=== PATIENT | male | born 1960 | race Caucasian/White ===

== ENCOUNTER 2016-05-24 10:23 | Emergency (ER) | payer MEDICARE, MEDICAID ==
[~2016-05-24] VITALS: Ht 180.3 cm; Wt 150.0 kg
[~2016-05-24 10:23] MED LIST: ADVA115A PO; AMIO200 PO; ASPI325T PO; CHOL1TAB16 PO; CLON.5 PO; DOCU1CAP39 PO; GEMF600T PO; METO25 PO; NORV10TA PO; NOVONP2 SQ; POLY1.4%O EACH EYE; POLY17S PO; PREG75 PO; PROT40TA PO; REST0.05 EACH EYE; ROXI30TA14 PO; SERO25TA PO; TAMS0.4C67 PO; WARF7.5 PO
[2016-05-24 10:27] VITALS: BP_SYST 143; BP_SYST 170; BP_DIAS 69; BP_DIAS 75; PULSE 81; PULSE 83; RESP 14; RESP 16; TEMP 97.5; TEMP 98.7; O2SAT 93; O2SAT 99
[2016-05-24 11:21] LABS: AUTOMATED NEUTROPHIL # 4.6 TH/MM3 (1.8-7.7); BASOPHIL # 0.1 TH/MM3 (0-0.2); BASOPHIL % 1.2 % (0.0-2.0); EOSINOPHIL # 0.3 TH/MM3 (0-0.4); EOSINOPHIL % 2.4 % (0.0-4.0); HEMATOCRIT 38.6 % (39.0-51.0); MEAN CELL VOLUME 92.6 FL (80.0-100.0); MEAN CORPUSCULAR HEMOGLOBIN 31.5 PG (27.0-34.0); MONO % 6.3 % (0.0-8.0); NEUT % 39.1 % (16.0-70.0); PLATELET COUNT 202 TH/MM3 (150-450); RED BLOOD COUNT 4.16 MIL/MM3 (4.50-5.90); RED CELL DISTRIBUTION WIDTH 14.6 % (11.6-17.2); WHITE BLOOD COUNT 11.8 TH/MM3 (4.0-11.0)
[2016-05-24 11:23] LABS: HEMO FLAGS AUTO DIFF
[2016-05-24 11:51] LABS: BICARBONATE 25.8 MEQ/L (21.0-32.0); POTASSIUM 5.6 MEQ/L (3.5-5.1)
[2016-05-24 12:01] LABS: EOSINOPHILS 3 % (0-4); NEUTROPHIL # MANUAL DIFF 4.7 TH/MM3 (1.8-7.7); POLYS (SEG NEUTROPHILS) 40 % (16-70); WBC DIFF SAMPLE 100
[2016-05-24 12:02] LABS: PLATELET ESTIMATE SMEAR NORMAL (NORMAL); PLATELET MORPHOLOGY NORMAL (NORMAL); SCAN/DIFF FINAL DIFF MANUAL
[2016-05-24] MEDS ORDERED: AMIO200T PO (12:05)
[2016-05-24] MEDS ORDERED: NOVONP2 SQ (12:05)
[2016-05-24] MEDS ORDERED: SERO25TA PO (12:05)
[2016-05-24] MEDS ORDERED: GEMF600T PO (12:05)
[2016-05-24] MEDS ORDERED: LYRI75CA PO (12:05)
[2016-05-24] MEDS ORDERED: COLA100C3 PO (12:05)
[2016-05-24] MEDS ORDERED: TAMS5CAP PO (12:05)
[2016-05-24] MEDS ORDERED: PROT40TA PO (12:05)
[2016-05-24] MEDS ORDERED: REST0.05 EACH EYE (12:05)
[2016-05-24] MEDS ORDERED: ADVA45AE INH (12:05)
[2016-05-24] MEDS ORDERED: POLYSOL14 EACH EYE (12:05)
[2016-05-24] MEDS ORDERED: ASPI325T PO (12:05)
[2016-05-24] MEDS ORDERED: COUM7.5T PO (12:05)
[2016-05-24] MEDS ORDERED: AMLO10 PO (12:05)
[2016-05-24] MEDS ORDERED: METO25TA3 PO (12:05)
[2016-05-24] MEDS ORDERED: POLYPOW5 (12:05)
[2016-05-24] MEDS ORDERED: CLON0.5T PO (12:05)
[2016-05-24] MEDS ORDERED: SERO50TA PO (12:05)
[2016-05-24] MEDS ORDERED: [UNRECOGNIZED DRUG - OTHER] (12:13)
[2016-05-24] MEDS ORDERED: LANTUS2P SQ (12:13)
[2016-05-24] MEDS ORDERED: CLIN1CAP5 PO (12:36)
--- NOTE | 2016-05-24 12:36 | PD ---
HPI Chief Complaint: Skin Problem Time Seen by Provider: 11:24 Travel History International Travel<30 days: No Contact w/Intl Traveler<30days: No Traveled to known affect area: No History of Present Illness HPI Patient is a 55 year old female presents for evaluation of lesion to the left toes. Patient states that intermittently he has noticed 'purple' lesion to his left great, second and third toes. Patient states he called his PCP today who could not see him and referred him to the ER. Patient states has not had any injuries, not had any claudication symptoms. Patient has a history of CA, with resection of kidney and CKD of the remaining kidney. He denies any fever, generalized symptoms. He is on bactrim for a uti currently and states that he had to get his PCP to write for it because he was on keflex which never works for him. Patient is also on chronic dilaudid pump and states his pain is well controlled. States purple lesions for the past week. Gradually worsening now improving. PFSH Past Medical History Arthritis: Yes Asthma: Yes Anxiety: Yes Depression: Yes Heart Rhythm Problems: Yes (V-TACH,V-FIB, Bigeminy, Trigeminy) Cancer: Yes (ADRENAL TUMOR) Cardiovascular Problems: Yes (BRADYCARDIA. AFIB) High Cholesterol: Yes Chemotherapy: No Chest Pain: Yes Congestive Heart Failure: Yes COPD: Yes Cerebrovascular Accident: Yes (IN JANUARY OF 2015) Coronary Artery Disease: Yes Diabetes: Yes Patient Takes Glucophage: No Diminished Hearing: No Endocrine: Yes Gastrointestinal Disorders: Yes GERD: Yes Genitourinary: Yes Headaches: No Hiatal Hernia: Yes Hypertension: Yes Immune Disorder: No Implanted Vascular Access Dvce: Yes Kidney Stones: No Musculoskeletal: Yes (R FEMUR SURGERY (September,)) Neurologic: Yes Psychiatric: Yes Reproductive: No Respiratory: Yes Immunizations Current: Yes Migraines: No Myocardial Infarction: Yes Radiation Therapy: Yes Renal Failure: No Seizures: Yes Sickle Cell Disease: No Sleep Apnea: Yes (WORE CPAP IN PAST) Past Surgical History Abdominal Surgery: Yes (HERNIA REPAIR, PARTIAL SPLENECTOMY) AICD: Yes (ST. TREMAINE DEFIB) Appendectomy: Yes Arteriovenous Shunt: No Cardiac Surgery: Yes (PACEMAKER INSERT 1995 AND 3 MORE SINCE) Coronary Stent: Yes (X 10) Ear Surgery: No Endocrine Surgery: No Eye Surgery: No Genitourinary Surgery: Yes (kidney removed) Gynecologic Surgery: No Insulin Pump: No Joint Replacement: Yes (RIGHT KNEE ) Oral Surgery: No Pacemaker: Yes Thoracic Surgery: No Tonsillectomy: Yes Other Surgery: Yes (2 KNEE SURGERY) Social History Alcohol Use: No Tobacco Use: No Substance Use: No Allergies-Medications (Allergen,Severity, Reaction): Coded Allergies: Baclofen (Verified Allergy, Severe, 05/24/16) Morphine (Verified Allergy, Severe, Hallucinations, 05/24/16) Quinidine (Verified Allergy, Severe, Hallucinations, 05/24/16) MRI PRECAUTION (Verified Adverse Reaction, Severe, NON MEDTRONIC PACER/ ICD 01/27/15 KMD, 05/24/16) CALLED [employer] TO CONFIRM THAT THE PACER IS NOT A MEDTRONIC Reported Meds & Prescriptions Reported Meds & Active Scripts Active Clindamycin (Clindamycin HCl) 150 Mg Cap 450 Mg PO Q6H 10 Days Reported [dilaud] Lantus Inj (Insulin Glargine) 1,000 Unit/10 Ml Vial 120 Units SQ BID Coumadin (Warfarin) 7.5 Mg Tab 7.5 Mg PO DAILY Flomax (Tamsulosin HCl) 0.4 Mg Cap 0.4 Mg PO HS Seroquel (Quetiapine Fumarate) 50 Mg Tab 50 Mg PO HS Seroquel (Quetiapine Fumarate) 25 Mg Tab 25 Mg PO DAILY Polyethylene Glycol 3350 (Polyethylene Glycol 3350 (Bulk) 1 Pow Pow Protonix (Pantoprazole Sodium) 40 Mg Tab 40 Mg PO DAILY Novolin N Inj (Insulin Human NPH) 1,000 Unit/10 Ml Vial 20 Units SQ Norvasc (Amlodipine Besylate) 10 Mg Tab 10 Mg PO DAILY Metoprolol Tartrate 25 Mg Tab 25 Mg PO BID Lyrica (Pregabalin) 75 Mg Cap 75 Mg PO TID Gemfibrozil 600 Mg Tab 600 Mg PO BIDAC Take 30 minutes prior to breakfast and dinner. Colace (Docusate Sodium) 100 Mg Cap 100 Mg PO BID Restasis Opth Drops (Cyclosporine Opth Drops) 0.05% Emul 1 Drop EACH EYE BID Clonazepam 0.5 Mg Tab 0.5 Mg PO BID Aspirin 325 Mg Tab 325 Mg PO DAILY Artificial Tears Opth Drops (Polyvinyl Alcohol-Povidone Opth Drops) 0.5-0.6% Soln 1-2 Drop EACH EYE PRN PRN Amiodarone (Amiodarone HCl) 200 Mg Tab 200 Mg PO DAILY Advair Hfa 12 GM Inh (Fluticasone-Salmeterol 12 GM Inh) 45-21 Mcg/Act Aer 2 Puff INH BID Review of Systems Except as stated in HPI: all other systems reviewed are Neg Physical Exam Narrative GENERAL: WD/morbidly obese inNAD. SKIN: Warm and dry. There appear to be small abraisions on the dorsum of the third, second and great toe at the DIP joint. They are fairly unimpressive. The largest is on the third toe and is <0.5 cm in diameter. It is scabbed. The toes show signs of adequate perfusion. There is no purple discoloration that i can see. No discharge, no erythema. HEAD: Normocephalic. EYES: No scleral icterus. No injection or drainage. NECK: Supple, trachea midline. No JVD or lymphadenopathy. CARDIOVASCULAR: Regular rate and rhythm without murmurs, gallops, or rubs. Pulses are 2+ and bilaterally equal at DP, PT and radial pulses. Patient has cap refill brisk and bilaterally equal in all fingers and toes. RESPIRATORY: Breath sounds equal bilaterally. No accessory muscle use. GASTROINTESTINAL: Abdomen soft, non-tender, nondistended. MUSCULOSKELETAL: No cyanosis, or edema. BACK: Nontender without obvious deformity. No CVA tenderness. Data Data Last Documented VS Vital Signs Date Time Temp Pulse Resp B/P Pulse Ox O2 Delivery O2 Flow Rate FiO2 05/24/16 10:27 98.7 83 16 143/75 93 Room Air Orders Complete Blood Count With Diff (05/24/16 10:36) Basic Metabolic Panel (Bmp) (05/24/16 10:36) Labs Laboratory Tests Test 05/24/16 10:56 White Blood Count 11.8 TH/MM3 Red Blood Count 4.16 MIL/MM3 Hemoglobin 13.1 GM/DL Hematocrit 38.6 % Mean Corpuscular Volume 92.6 FL Mean Corpuscular Hemoglobin 31.5 PG Mean Corpuscular Hemoglobin 34.0 % Concent Red Cell Distribution Width 14.6 % Platelet Count 202 TH/MM3 Mean Platelet Volume 7.8 FL Neutrophils (%) (Auto) 39.1 % Lymphocytes (%) (Auto) 51.0 % Monocytes (%) (Auto) 6.3 % Eosinophils (%) (Auto) 2.4 % Basophils (%) (Auto) 1.2 % Neutrophils # (Auto) 4.6 TH/MM3 Lymphocytes # (Auto) 6.0 TH/MM3 Monocytes # (Auto) 0.7 TH/MM3 Eosinophils # (Auto) 0.3 TH/MM3 Basophils # (Auto) 0.1 TH/MM3 CBC Comment AUTO DIFF Differential Total Cells 100 Counted Neutrophils % (Manual) 40 % Lymphocytes % 51 % Monocytes % 6 % Eosinophils % 3 % Neutrophils # (Manual) 4.7 TH/MM3 Differential Comment FINAL DIFF MANUAL Platelet Estimate NORMAL Platelet Morphology Comment NORMAL Sodium Level 135 MEQ/L Potassium Level 5.6 MEQ/L Chloride Level 101 MEQ/L Carbon Dioxide Level 25.8 MEQ/L Anion Gap 8 MEQ/L Blood Urea Nitrogen 49 MG/DL Creatinine 2.74 MG/DL Estimat Glomerular Filtration 24 ML/MIN Rate Random Glucose 337 MG/DL Calcium Level 8.5 MG/DL [facility] Medical Decision Making Medical Screen Exam Complete: Yes Emergency Medical Condition: Yes Differential Diagnosis Abrasion, possibly mild cellulitis, ischemic toes highly unlikely. Narrative Course Patient roomed in ED. Patient toes are unimpressive. No convincing evidence of ischemia nor severe infection. Mild infection is possible. Will cover with clindamycin. Discussed need to follow upwith PCP in am. Discussed consideration of OP podiatry consultation. Bactrim should be avoided with elevated Cr. Patient to discontinue as he has had several days of treatment. he needs to also discuss this with his PCP. Discussed he is stable for discharge. Discussed return to ED criteria. Diagnosis Primary Impression: Toe abrasion, infected Qualified Code: S90.415A - Toe abrasion, infected, left, initial encounter Med/Other Pt SpecificInfo: Prescription(s) given Scripts Clindamycin 150 Mg Snq663 Mg PO Q6H 10 Days Ref 0 Prov:Tuan Guzman MD 05/24/16 Disposition: 01 DISCHARGE HOME Condition: Stable Tuan Guzman MD May 24, 2016 12:36
== END 2016-05-24 12:57 | disposition home or self-care (01) ==
LOC: NEPB 10:23
DX: S90.415A Abrasion, left lesser toe(s), initial encounter (principal); L08.9 Local infection of the skin and subcutaneous tissue, unspecified; N18.9 Chronic kidney disease, unspecified; E78.00 Pure hypercholesterolemia, unspecified; E11.9 Type 2 diabetes mellitus without complications; I12.9 Hypertensive chronic kidney disease with stage 1 through stage 4 chronic kidney disease, or unspecified chronic kidney disease; X58.XXXA Exposure to other specified factors, initial encounter; Z79.4 Long term (current) use of insulin; Z87.39 Personal history of other diseases of the musculoskeletal system and connective tissue; Z87.09 Personal history of other diseases of the respiratory system; Z86.59 Personal history of other mental and behavioral disorders; Z86.79 Personal history of other diseases of the circulatory system; Z85.528 Personal history of other malignant neoplasm of kidney; Z87.19 Personal history of other diseases of the digestive system; Z86.69 Personal history of other diseases of the nervous system and sense organs
CPT/HCPCS: 80048; 85007; 85027; 99283

== ENCOUNTER 2016-08-10 06:30 | Emergency (ER) | payer MEDICARE, MEDICAID ==
[~2016-08-10] VITALS: Ht 180.3 cm; Wt 148.0 kg
[~2016-08-10 06:30] MED LIST changes: -ADVA115A PO; +ADVA45AE INH; -AMIO200 PO; +AMIO200T PO; +AMLO10 PO; -CHOL1TAB16 PO; +CLIN1CAP5 PO; -CLON.5 PO; +CLON0.5T PO; +COLA100C3 PO; +COUM7.5T PO; -DOCU1CAP39 PO; +LANTUS2P SQ; +LYRI75CA PO; -METO25 PO; +METO25TA3 PO; -NORV10TA PO; -POLY1.4%O EACH EYE; -POLY17S PO; +POLYPOW5; +POLYSOL14 EACH EYE; -PREG75 PO; -ROXI30TA14 PO; +SERO50TA PO; -TAMS0.4C67 PO; +TAMS5CAP PO; -WARF7.5 PO; +[UNRECOGNIZED DRUG - OTHER]
[2016-08-10 06:32] VITALS: BP 132/84; PULSE 97; RESP 18; TEMP 98.3; O2SAT 95
[2016-08-10] MEDS ORDERED: oxyCODONE/ACETAMINOPHEN 10 MG/325 MG TAB PO ONE (07:15)
--- NOTE | 2016-08-10 07:15 | PD ---
HPI Chief Complaint: Injury Time Seen by Provider: 07:09 Travel History International Travel<30 days: No Contact w/Intl Traveler<30days: No Traveled to known affect area: No History of Present Illness HPI The patient is a 56-year-old male who presents to the emergency department for left foot pain. The patient states he ran over his left foot accidentally 3 days ago with his electric wheelchair. Patient complains of pain over the mid to distal one third of the left foot. He does note the area is swollen, painful, and worse with palpation. The patient was unable to see his primary physician, Dr. Bhardwaj, on an outpatient basis. He does note previous trauma to left lower extremity from her previous injury and has a chronic indwelling Dilaudid pump, however, continues to complain of pain. Pain is moderate, worse with palpation, minimally alleviated at rest. He denies any acute numbness or tingling to the left foot. PFSH Past Medical History Hx Anticoagulant Therapy: Yes Arthritis: Yes Asthma: Yes Anxiety: Yes Depression: Yes Heart Rhythm Problems: Yes (V-TACH,V-FIB, Bigeminy, Trigeminy) Cancer: Yes (ADRENAL TUMOR) Cardiovascular Problems: Yes (X4, HTN) High Cholesterol: Yes Chemotherapy: No Chest Pain: Yes Congestive Heart Failure: Yes COPD: Yes Cerebrovascular Accident: Yes (X2) Coronary Artery Disease: Yes Diabetes: Yes Diminished Hearing: No Endocrine: Yes Gastrointestinal Disorders: Yes GERD: Yes Genitourinary: Yes Headaches: No Hiatal Hernia: Yes Hypertension: Yes Immune Disorder: No Implanted Vascular Access Dvce: Yes Kidney Stones: No Musculoskeletal: Yes (R FEMUR SURGERY (September,)) Neurologic: Yes Psychiatric: Yes Reproductive: No Respiratory: Yes (COPD) Immunizations Current: Yes Migraines: No Myocardial Infarction: Yes Radiation Therapy: Yes Renal Failure: No Seizures: Yes Sickle Cell Disease: No Sleep Apnea: Yes (WORE CPAP IN PAST) Past Surgical History Abdominal Surgery: Yes (HERNIA REPAIR, PARTIAL SPLENECTOMY) AICD: Yes (ST. TREMAINE DEFIB) Appendectomy: Yes Arteriovenous Shunt: No Cardiac Surgery: Yes (PACEMAKER INSERT 1995 AND 3 MORE SINCE) Coronary Stent: Yes (X 10) Ear Surgery: No Endocrine Surgery: No Eye Surgery: No Genitourinary Surgery: Yes (kidney removed) Gynecologic Surgery: No Insulin Pump: No Joint Replacement: Yes (RIGHT KNEE ) Oral Surgery: No Pacemaker: Yes Thoracic Surgery: No Tonsillectomy: Yes Other Surgery: Yes (2 KNEE SURGERY) Social History Alcohol Use: No Tobacco Use: No Substance Use: No Allergies-Medications (Allergen,Severity, Reaction): Coded Allergies: Baclofen (Verified Allergy, Severe, 08/10/16) Morphine (Verified Allergy, Severe, Hallucinations, 08/10/16) Quinidine (Verified Allergy, Severe, Hallucinations, 08/10/16) MRI PRECAUTION (Verified Adverse Reaction, Severe, NON MEDTRONIC PACER/ ICD 01/27/15 KMD, 08/10/16) CALLED [employer] TO CONFIRM THAT THE PACER IS NOT A MEDTRONIC Reported Meds & Prescriptions Reported Meds & Active Scripts Active Reported [dilaud] Lantus Inj (Insulin Glargine) 1,000 Unit/10 Ml Vial 120 Units SQ BID Coumadin (Warfarin) 7.5 Mg Tab 7.5 Mg PO DAILY Flomax (Tamsulosin HCl) 0.4 Mg Cap 0.4 Mg PO HS Polyethylene Glycol 3350 (Polyethylene Glycol 3350 (Bulk) 1 Pow Pow Novolin N Inj (Insulin Human NPH) 1,000 Unit/10 Ml Vial 20 Units SQ Norvasc (Amlodipine Besylate) 10 Mg Tab 10 Mg PO DAILY Metoprolol Tartrate 25 Mg Tab 25 Mg PO BID Lyrica (Pregabalin) 75 Mg Cap 150 Mg PO BID Gemfibrozil 600 Mg Tab 600 Mg PO BIDAC Take 30 minutes prior to breakfast and dinner. Colace (Docusate Sodium) 100 Mg Cap 100 Mg PO BID Restasis Opth Drops (Cyclosporine Opth Drops) 0.05% Emul 1 Drop EACH EYE BID Clonazepam 0.5 Mg Tab 0.5 Mg PO BID Aspirin 325 Mg Tab 325 Mg PO DAILY Artificial Tears Opth Drops (Polyvinyl Alcohol-Povidone Opth Drops) 0.5-0.6% Soln 1-2 Drop EACH EYE PRN PRN Amiodarone (Amiodarone HCl) 200 Mg Tab 200 Mg PO DAILY Review of Systems Except as stated in HPI: all other systems reviewed are Neg Musculoskeletal: Positive: Edema, Pain Neurologic: No: Paresthesia, Sensory Disturbance Physical Exam Narrative GENERAL: Awake, alert, nontoxic-appearing 56-year-old male who appears his stated age and is in no acute respiratory distress. SKIN: Focused skin assessment warm/dry. HEAD: Atraumatic. Normocephalic. EYES: No injection or drainage. MUSCULOSKELETAL: The left foot is swollen, mildly tender to palpation over the mid to distal one third of the left foot over the first, second, third metatarsal. Positive dorsalis pedal pulse. Old appearing scars anterior aspect of the anterior left tibia/fibula on the left leg. Patient is able to move all 5 toes of the left foot. NEUROLOGICAL: Awake and alert. No obvious cranial nerve deficits. Motor grossly within normal limits. Normal speech. PSYCHIATRIC: Appropriate mood and affect; insight and judgment normal. Data Data Last Documented VS Vital Signs Date Time Temp Pulse Resp B/P Pulse Ox O2 Delivery O2 Flow Rate FiO2 08/10/16 08:26 18 08/10/16 06:32 98.3 97 132/84 95 Room Air Orders Foot, Complete (Hfd3ady) (08/10/16 ) Oxycodone-Acetamin 10-325 Mg (Percocet 1 (08/10/16 07:15) [facility] Medical Decision Making Medical Screen Exam Complete: Yes Emergency Medical Condition: Yes Medical Record Reviewed: Yes Interpretation(s) Last Impressions Foot X-Ray 08/10/16 0000 Signed Impressions: Service Date/Time: July 07:23 - CONCLUSION: 1. Subacute nondisplaced transverse fracture of the fifth digit proximal phalanx and the proximal metaphysis. 2. Dorsal foot soft tissue swelling and subcutaneous edema along the medial aspect of the foot. Femi Dallas MD Differential Diagnosis Differential diagnosis includes fracture, dislocation, contusion, hematoma. Narrative Course X-ray left foot was obtained. The patient was administered Percocet 10 mg/325 mg orally for pain. X-ray reveals subacute fracture of the proximal phalanx of the fifth digit. I had a discussion with the patient regarding postop shoe versus splint, patient would prefer splint. He also states he will need crutches for transitioning from his scooter to the bed. He does state he was walking approximate 150 steps prior to the injury, however, is been unable to ambulate since the injury. Patient will be placed in a short posterior leg splint, crutches, and advised to follow-up with podiatry. Diagnosis Primary Impression: Fracture of toe of left foot Qualified Code: S92.515A - Closed nondisplaced fracture of proximal phalanx of lesser toe of left foot, initial encounter Referrals: Shawna Fan DPM call for appointment Patient Instructions: General Instructions Additional Instructions: Splint and crutches as directed. Follow-up with podiatry. Percocet for breakthrough pain. Elevate, ice, activity as tolerated. Med/Other Pt SpecificInfo: Prescription(s) given Scripts Oxycodone-Acetaminophen (Percocet)5-325 mg Tab1 Tab PO Q6H PRN (PAIN) #15 TAB Ref 0 Prov:Humza Seymour MD 08/10/16 Disposition: 01 DISCHARGE HOME Condition: Stable Humza Seymour MD Aug 10, 2016 07:15
--- NOTE | 2016-08-10 08:18 | RADRPT ---
EXAM DATE/TIME: 08/10/2016 07:23 [facility] COMPARISON: No previous studies available for comparison. INDICATIONS : Left foot pain, fall out of wheelchair. MEDICAL HISTORY : None. SURGICAL HISTORY : None. ENCOUNTER: Initial ACUITY: 1 day PAIN SCORE: 7/10 LOCATION: Left medial foot FINDINGS: 3 views of the left foot demonstrate a transverse fracture through the fifth digit proximal phalanx i n the proximal metaphyseal region. There is mild sclerosis of the fracture ends with bony callus pres ent. The fracture is not yet completely united. No other fracture or dislocation is identified. Lisfr anc joint appears intact. There is soft tissue swelling on the dorsal aspect of the foot and there is subcutaneous edema medially. Mild joint space narrowing and osteophytes are present the first metata rsophalangeal joint. CONCLUSION: 1. Subacute nondisplaced transverse fracture of the fifth digit proximal phalanx and the proximal met aphysis. 2. Dorsal foot soft tissue swelling and subcutaneous edema along the medial aspect of the foot. Femi Dallas MD on August 10, 2016 at 8:14 Board Certified Radiologist. This report was verified electronically.
[2016-08-10] MEDS ORDERED: PERC5TAB12 PO (08:36)
[2016-08-10 09:30] VITALS: BP 130/80; PULSE 88; RESP 18; O2SAT 97
== END 2016-08-10 09:47 | disposition home or self-care (01) ==
LOC: NEPE 06:30
DX: S92.515A Nondisplaced fracture of proximal phalanx of left lesser toe(s), initial encounter for closed fracture (principal); W31.89XA Contact with other specified machinery, initial encounter
CPT/HCPCS: 73630; 99283; E0113; L2114

== ENCOUNTER 2016-10-27 08:29 | Emergency (ER) | payer MEDICAID, MEDICARE ==
[~2016-10-27] VITALS: Ht 180.3 cm; Wt 140.0 kg
[~2016-10-27 08:29] MED LIST changes: -ADVA45AE INH; -CLIN1CAP5 PO; +PERC5TAB12 PO; -PROT40TA PO; -SERO25TA PO; -SERO50TA PO
[2016-10-27 08:34] VITALS: BP 124/81; PULSE 66; RESP 19; TEMP 98.4
[2016-10-27] MEDS ORDERED: SODIUM CHLORIDE 0.9% FLUSH 10 ML FLUSH IVF PRN (08:45)
[2016-10-27 08:48] VITALS: O2SAT 94
--- NOTE | 2016-10-27 08:52 | PD ---
HPI Chief Complaint: Musculoskeletal Complaint Time Seen by Provider: 08:44 Travel History International Travel<30 days: No Contact w/Intl Traveler<30days: No Traveled to known affect area: No History of Present Illness HPI 56-year-old male with history of hypertension, CHF, hep C, diabetes, had a fracture in his left foot 3 months ago, states that he woke up 2 days ago and noticed that he is having increased swelling and pain in the left foot. He has chronic shortness of breath, and dyspnea on exertion, which she states is not new. He denies any coughing, fevers, chest pains, or other symptoms. He states that a few days ago he felt like his give out on him. Modifying Factors: None Associated Signs & Symptoms: Increased left foot pain and swelling Risk Factors: Left foot fracture 3 months ago PFSH Past Medical History Hx Anticoagulant Therapy: Yes Arthritis: Yes Asthma: Yes Atrial Fibrillation: Yes Anxiety: Yes Depression: Yes Heart Rhythm Problems: Yes (V-TACH,V-FIB, Bigeminy, Trigeminy) Cancer: Yes (ADRENAL TUMOR) Cardiovascular Problems: Yes (X4, HTN) High Cholesterol: Yes Chemotherapy: No Chest Pain: Yes Congestive Heart Failure: Yes COPD: Yes Cerebrovascular Accident: Yes (X2) Coronary Artery Disease: Yes Diabetes: Yes Patient Takes Glucophage: No Diminished Hearing: No Endocrine: Yes Gastrointestinal Disorders: Yes GERD: Yes Genitourinary: Yes Headaches: No Hiatal Hernia: Yes Hypertension: Yes Immune Disorder: No Implanted Vascular Access Dvce: Yes Kidney Stones: No Musculoskeletal: Yes (R FEMUR SURGERY (September,)) Neurologic: Yes Psychiatric: Yes Reproductive: No Respiratory: Yes (COPD) Immunizations Current: Yes Migraines: No Myocardial Infarction: Yes Radiation Therapy: Yes Renal Failure: No Seizures: Yes Sickle Cell Disease: No Sleep Apnea: Yes (WORE CPAP IN PAST) Past Surgical History Abdominal Surgery: Yes (HERNIA REPAIR, PARTIAL SPLENECTOMY) AICD: Yes (ST. TREMAINE DEFIB) Appendectomy: Yes Arteriovenous Shunt: No Cardiac Surgery: Yes (PACEMAKER INSERT 1995 AND 3 MORE SINCE) Cholecystectomy: Yes Coronary Stent: Yes (X 10) Ear Surgery: No Endocrine Surgery: No Eye Surgery: No Genitourinary Surgery: Yes (kidney removed) Gynecologic Surgery: No Insulin Pump: No Joint Replacement: Yes (RIGHT KNEE ) Oral Surgery: No Pacemaker: Yes Thoracic Surgery: No Tonsillectomy: Yes Other Surgery: Yes (2 KNEE SURGERY; rotator cuff) Social History Alcohol Use: No Tobacco Use: No Substance Use: No Allergies-Medications (Allergen,Severity, Reaction): Coded Allergies: Baclofen (Verified Allergy, Severe, 08/10/16) Morphine (Verified Allergy, Severe, Hallucinations, 08/10/16) Quinidine (Verified Allergy, Severe, Hallucinations, 08/10/16) MRI PRECAUTION (Verified Adverse Reaction, Severe, NON MEDTRONIC PACER/ ICD 01/27/15 KMD, 08/10/16) CALLED MEDTRON[employer] TO CONFIRM THAT THE PACER IS NOT A MEDTRONIC Reported Meds & Prescriptions Reported Meds & Active Scripts Active Reported Vitamin D-1000 (Cholecalciferol) 1,000 Unit Tab 50,000 Units PO 1XPERWEEK Klonopin (Clonazepam) 1 Mg Tab 1 Mg PO QID Lasix (Furosemide) 40 Mg Tab 40 Mg PO BID Losartan (Losartan Potassium) 50 Mg Tab 50 Mg PO DAILY [Hydromorphone] Unknown Dose IT PRN Omeprazole 20 Mg Tab 20 Mg PO DAILY Novolog Inj (Insulin Aspart) 1,000 Unit/10 Ml Vial 0 SQ TIDAC Sliding Scale as directed. [dilaud] Lantus Inj (Insulin Glargine) 1,000 Unit/10 Ml Vial 130 Units SQ BID Coumadin (Warfarin) 7.5 Mg Tab 7.5 Mg PO DAILY Flomax (Tamsulosin HCl) 0.4 Mg Cap 0.4 Mg PO HS Norvasc (Amlodipine Besylate) 10 Mg Tab 10 Mg PO DAILY Metoprolol Tartrate 25 Mg Tab 25 Mg PO BID Lyrica (Pregabalin) 75 Mg Cap 75 Mg PO BID Gemfibrozil 600 Mg Tab 600 Mg PO BIDAC Take 30 minutes prior to breakfast and dinner. Restasis Opth 0.05% (Cyclosporine Opth 0.05%) 0.05% Emul 1 Drop EACH EYE BID Aspirin 325 Mg Tab 325 Mg PO DAILY Amiodarone (Amiodarone HCl) 200 Mg Tab 200 Mg PO DAILY Review of Systems Except as stated in HPI: all other systems reviewed are Neg Physical Exam Narrative GENERAL: Well-developed middle age white male patient in moderate distress. Awake and oriented 3. SKIN: Focused skin assessment warm/dry. HEAD: Atraumatic. Normocephalic. EYES: Pupils equal and round. No scleral icterus. No injection or drainage. ENT: No nasal bleeding or discharge. Mucous membranes pink and moist. NECK: Trachea midline. No JVD. CARDIOVASCULAR: Regular rate and rhythm. No murmur appreciated. RESPIRATORY: No accessory muscle use. Equal and decreased throughout bilaterally. Breath sounds equal bilaterally. GASTROINTESTINAL: Abdomen soft, non-tender, nondistended. Hepatic and splenic margins not palpable. MUSCULOSKELETAL: No obvious deformities. No clubbing. No cyanosis. There is notable edema of the left foot with some pitting. Tender to palpation of the left forefoot. No obvious deformities. Neurovascularly intact. NEUROLOGICAL: Awake and alert. No obvious cranial nerve deficits. Motor grossly within normal limits. Normal speech. PSYCHIATRIC: Appropriate mood and affect; insight and judgment normal. Data Data Last Documented VS Vital Signs Date Time Temp Pulse Resp B/P Pulse Ox O2 Delivery O2 Flow Rate FiO2 10/27/16 08:48 94 Nasal Cannula 2 10/27/16 08:34 98.4 66 19 124/81 Orders Complete Blood Count With Diff (10/27/16 08:44) Comprehensive Metabolic Panel (10/27/16 08:44) B-Type Natriuretic Peptide (10/27/16 08:44) Act Partial Throm Time (Ptt) (10/27/16 08:44) Prothrombin Time / Inr (Pt) (10/27/16 08:44) Iv Access Insert/Monitor (10/27/16 08:44) Electrocardiogram (10/27/16 08:44) Ecg Monitoring (10/27/16 08:44) Oximetry (10/27/16 08:44) Oxygen Administration (10/27/16 08:44) Chest, Single Ap (10/27/16 08:44) Us Leg Venous Doppler (10/27/16 08:44) Sodium Chloride 0.9% Flush (Ns Flush) (10/27/16 08:45) Foot, Complete ([id number]) (10/27/16 08:44) Labs Laboratory Tests Test 10/27/16 08:48 White Blood Count 12.2 TH/MM3 Red Blood Count 4.06 MIL/MM3 Hemoglobin 12.4 GM/DL Hematocrit 37.4 % Mean Corpuscular Volume 92.1 FL Mean Corpuscular Hemoglobin 30.5 PG Mean Corpuscular Hemoglobin 33.1 % Concent Red Cell Distribution Width 15.7 % Platelet Count 265 TH/MM3 Mean Platelet Volume 7.9 FL Neutrophils (%) (Auto) 37.8 % Lymphocytes (%) (Auto) 50.8 % Monocytes (%) (Auto) 8.0 % Eosinophils (%) (Auto) 2.3 % Basophils (%) (Auto) 1.1 % Neutrophils # (Auto) 4.6 TH/MM3 Lymphocytes # (Auto) 6.2 TH/MM3 Monocytes # (Auto) 1.0 TH/MM3 Eosinophils # (Auto) 0.3 TH/MM3 Basophils # (Auto) 0.1 TH/MM3 CBC Comment AUTO DIFF Differential Total Cells 100 Counted Neutrophils % (Manual) 39 % Band Neutrophils % 1 % Lymphocytes % 52 % Monocytes % 4 % Eosinophils % 2 % Basophils % 2 % Neutrophils # (Manual) 4.9 TH/MM3 Differential Comment FINAL DIFF MANUAL Platelet Estimate NORMAL Platelet Morphology Comment NORMAL Red Cell Morphology Comment NORMAL Prothrombin Time 22.7 SEC Prothromb Time International 2.0 RATIO Ratio Activated Partial 39.4 SEC Thromboplast Time Sodium Level 136 MEQ/L Potassium Level 4.3 MEQ/L Chloride Level 103 MEQ/L Carbon Dioxide Level 25.7 MEQ/L Anion Gap 7 MEQ/L Blood Urea Nitrogen 48 MG/DL Creatinine 2.53 MG/DL Estimat Glomerular Filtration 26 ML/MIN Rate Random Glucose 323 MG/DL Calcium Level 9.0 MG/DL Total Bilirubin 0.3 MG/DL Aspartate Amino Transf 27 U/L (AST/SGOT) Alanine Aminotransferase 40 U/L (ALT/SGPT) Alkaline Phosphatase 121 U/L B-Type Natriuretic Peptide 113 PG/ML Total Protein 7.9 GM/DL Albumin 3.3 GM/DL MDM Medical Decision Making Medical Screen Exam Complete: Yes Emergency Medical Condition: Yes Medical Record Reviewed: Yes Interpretation(s) Laboratory Tests Test 10/27/16 08:48 White Blood Count 12.2 TH/MM3 (4.0-11.0) Red Blood Count 4.06 MIL/MM3 (4.50-5.90) Hemoglobin 12.4 GM/DL (13.0-17.0) Hematocrit 37.4 % (39.0-51.0) Lymphocytes (%) (Auto) 50.8 % (9.0-44.0) Lymphocytes # (Auto) 6.2 TH/MM3 (1.0-4.8) Monocytes # (Auto) 1.0 TH/MM3 (0-0.9) Lymphocytes % 52 % (9-44) Prothrombin Time 22.7 SEC (9.8-11.6) Activated Partial 39.4 SEC Thromboplast Time (24.3-30.1) Blood Urea Nitrogen 48 MG/DL (7-18) Creatinine 2.53 MG/DL (0.60-1.30) Estimat Glomerular Filtration 26 ML/MIN (>89) Rate Random Glucose 323 MG/DL (74-106) Alkaline Phosphatase 121 U/L (45-117) B-Type Natriuretic Peptide 113 PG/ML (0-100) Albumin 3.3 GM/DL (3.4-5.0) Last 24 hours Impressions Foot X-Ray 10/27/16843 Signed Impressions: Service Date/Time: Thursday, October 27, 2016 09:28 - CONCLUSION: 1. Acute fractures involving the second and third metatarsal heads. 2. Healing fracture involving the fifth proximal phalanx. Edgar Harper Jr., MD Chest X-Ray 10/27/16843 Signed Impressions: Service Date/Time: Thursday, October 27, 2016 09:32 - CONCLUSION: Cardiomegaly without pulmonary vascular engorgement. Edgar Harper Jr., MD Differential Diagnosis Increase left foot painfracture versus DVT versus dependent edema Narrative Course X-ray shows a first and second metatarsal fracture. Ultrasound did not show any signs of DVT. At this point, considering the history, it is likely that he has a new fracture of the first and second metatarsal on top of the old fractures. At this point, my plan would be to put him in a splint and follow- up to podiatry. Return for any worsening in pain or new symptoms as needed. The plan has discussed with the patient and he states understanding. Diagnosis Primary Impression: Fracture of toe of left foot Referrals: Shawna Fan DPM Med/Other Pt SpecificInfo: Prescription(s) given Scripts Hydrocodone-Acetaminophen (Lortab)5-325 Mg Tab1-2 Tab PO Q6H PRN (PAIN) #15 TAB Ref 0 Prov:Kym Holder MD 10/27/16 Disposition: 01 DISCHARGE HOME Condition: Stable Kym Holder MD Oct 27, 2016 08:52
[2016-10-27 09:00] LABS: AUTOMATED NEUTROPHIL # 4.6 TH/MM3 (1.8-7.7); BASOPHIL # 0.1 TH/MM3 (0-0.2); BASOPHIL % 1.1 % (0.0-2.0); EOSINOPHIL # 0.3 TH/MM3 (0-0.4); EOSINOPHIL % 2.3 % (0.0-4.0); HEMATOCRIT 37.4 % (39.0-51.0); LYMPH % 50.8 % (9.0-44.0); LYMPHOCYTE # 6.2 TH/MM3 (1.0-4.8); MEAN CELL VOLUME 92.1 FL (80.0-100.0); MEAN CORPUSCULAR HEMOGLOBIN 30.5 PG (27.0-34.0); MEAN CORPUSCULAR HGB CONC 33.1 % (32.0-36.0); NEUT % 37.8 % (16.0-70.0); PLATELET COUNT 265 TH/MM3 (150-450); RED BLOOD COUNT 4.06 MIL/MM3 (4.50-5.90); RED CELL DISTRIBUTION WIDTH 15.7 % (11.6-17.2); WHITE BLOOD COUNT 12.2 TH/MM3 (4.0-11.0)
[2016-10-27 09:02] LABS: HEMO FLAGS AUTO DIFF
[2016-10-27 09:10] LABS: APTT (PATIENT) 39.4 SEC (24.3-30.1); PROTHROMBIN TIME - PATIENT 22.7 SEC (9.8-11.6)
[2016-10-27] MEDS ORDERED: FURO1TAB60 PO (09:27)
[2016-10-27] MEDS ORDERED: OMEP20TA PO (09:27)
[2016-10-27] MEDS ORDERED: HYDROMORPHONE IT (09:27)
[2016-10-27] MEDS ORDERED: CLON1 PO (09:27)
[2016-10-27] MEDS ORDERED: LOSA50TA PO (09:27)
[2016-10-27] MEDS ORDERED: VITA1000 PO (09:27)
[2016-10-27] MEDS ORDERED: NOVOLOGP2 SQ (09:27)
[2016-10-27 09:35] LABS: ALT (GPT) 40 U/L (12-78); ANION GAP 7 MEQ/L (5-15); AST (GOT) 27 U/L (15-37); BANDS 1 % (0-6); BASOPHILS 2 % (0-2); BICARBONATE 25.7 MEQ/L (21.0-32.0); BLOOD UREA NITROGEN 48 MG/DL (7-18); CHLORIDE 103 MEQ/L (98-107); EOSINOPHILS 2 % (0-4); GLOMERULAR FILTRATION RATE 26 ML/MIN (>89); NEUTROPHIL # MANUAL DIFF 4.9 TH/MM3 (1.8-7.7); PLATELET ESTIMATE SMEAR NORMAL (NORMAL); PLATELET MORPHOLOGY NORMAL (NORMAL); POLYS (SEG NEUTROPHILS) 39 % (16-70); POTASSIUM 4.3 MEQ/L (3.5-5.1); SCAN/DIFF FINAL DIFF MANUAL; SODIUM (NA) 136 MEQ/L (136-145); WBC DIFF SAMPLE 100
[2016-10-27 09:38] LABS: ALKALINE PHOSPHATASE 121 U/L (45-117); TOTAL BILIRUBIN ADULT 0.3 MG/DL (0.2-1.0)
--- NOTE | 2016-10-27 09:45 | RADRPT ---
EXAM DATE/TIME: 10/27/2016 09:32 [facility] COMPARISON: CHEST SINGLE AP, February 17, 2015, 15:45. INDICATIONS : Shortness of breath. MEDICAL HISTORY : Diabetes mellitus type II. Congestive heart failure. Hypertension. SURGICAL HISTORY : Pacemaker. ENCOUNTER: Initial ACUITY: 1 day PAIN SCORE: 0/10 LOCATION: Bilateral chest FINDINGS: A single view of the chest demonstrates the lungs to be symmetrically aerated without evidence of mas s, infiltrate or effusion. Linear scarring within the lingula is stable in device overlies the left c hest. Heart is mildly enlarged. No pulmonary vascular engorgement. Osseous structures are intact. CONCLUSION: Cardiomegaly without pulmonary vascular engorgement. Edgar Harper Jr., MD on October 27, 2016 at 9:42 Board Certified Radiologist. This report was verified electronically.
--- NOTE | 2016-10-27 09:46 | RADRPT ---
EXAM DATE/TIME: 10/27/2016 09:28 [facility] COMPARISON: FOOT LEFT COMPLETE ([id number]), August 10, 2016, 7:23. INDICATIONS : Pain from fall. MEDICAL HISTORY : Prior fracture, 3 months ago. SURGICAL HISTORY : None. ENCOUNTER: Initial ACUITY: 2 days PAIN SCORE: 5/10 LOCATION: Left foot, dorsal surface. FINDINGS: 3 views of the left foot reveal osteopenia. An old fracture involving the proximal phalanx of the fif th toe shows partial healing. There remains a lucency involving the lateral margin of the fracture. N ew nondisplaced fractures are seen involving the second and third metatarsal heads. No angulation or distraction. Dorsal soft tissue swelling is noted. Spurring of the calcaneus. CONCLUSION: 1. Acute fractures involving the second and third metatarsal heads. 2. Healing fracture involving the fifth proximal phalanx. Edgar Harper Jr., MD on October 27, 2016 at 9:43 Board Certified Radiologist. This report was verified electronically.
--- NOTE | 2016-10-27 11:18 | RADRPT ---
EXAM DATE/TIME: 10/27/2016 10:04 [facility] COMPARISON: No previous studies available for comparison. INDICATIONS : Left leg swelling. MEDICAL HISTORY : Stroke. Myocardial infarction. Congestive heart failure. Dentures. Seizures. Dizziness. Syncope. N umbness. Anticoagulant therapy. Hypercholestrolemia. Chest pain. A-fib. Hypertension. COPD. 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 Dyspnea. Hiatal hernia. Kidney cancer. Liver disease. Jaundice. Diabetes. Adrenal tumor. SURGICAL HISTORY : Tonsillectomy. Appendectomy. Cholecystectomy. Pacemaker. Coronary stent. Internal defibrillator. Her gene repair. Partial splenectomy. Kidney removed. Right femur surgery. Right knee replacement. Rotator cuff surgery. ENCOUNTER: Subsequent ACUITY: 2 day PAIN SCORE: 4/10 LOCATION: Left leg. TECHNIQUE: Venous ultrasound of the leg was performed from the inguinal ligament to the proximal calf. Real-eleazar e, color Doppler and spectral tracing, compression and augmentation techniques were used. FINDINGS: There is normal compressibility of the deep venous system from the inguinal region to the proximal ca lf. No echogenic clot is seen in the lumen of the common femoral, femoral, popliteal, and posterior tibial veins. There is a normal response of the venous system to proximal and distal augmentation an d respiration. CONCLUSION: Normal examination. Marifer Kauffman MD on October 27, 2016 at 11:17 Board Certified Radiologist. This report was verified electronically.
[2016-10-27] MEDS ORDERED: HYDR-3533 PO (11:36)
[2016-10-27 12:28] VITALS: BP 128/64
--- NOTE | 2016-10-28 10:42 | EKG ---
Date Performed: 10/27/2016 Time Performed: 08:57:09 PTAGE: 56 years EKG: Sinus rhythm WITH FIRST DEGREE AV BLOCK INFERIOR MYOCARDIAL INFARCTION ABNORMAL ECG PREVIOUS TRACING : 08/23/2015 15.18 DOCTOR: Chato Holliday Interpretating Date/Time 10/28/2016 10:41:17
== END 2016-10-27 12:52 | disposition home or self-care (01) ==
LOC: NEPE 08:29
DX: S92.322A Displaced fracture of second metatarsal bone, left foot, initial encounter for closed fracture (principal); S92.332A Displaced fracture of third metatarsal bone, left foot, initial encounter for closed fracture; R94.31 Abnormal electrocardiogram [ECG] [EKG]; R06.02 Shortness of breath; R06.00 Dyspnea, unspecified; I10 Essential (primary) hypertension; E11.9 Type 2 diabetes mellitus without complications; E78.00 Pure hypercholesterolemia, unspecified; X58.XXXA Exposure to other specified factors, initial encounter; Z79.4 Long term (current) use of insulin; Z79.01 Long term (current) use of anticoagulants; Z86.79 Personal history of other diseases of the circulatory system; Z87.19 Personal history of other diseases of the digestive system; Z87.39 Personal history of other diseases of the musculoskeletal system and connective tissue; Z87.09 Personal history of other diseases of the respiratory system; Z86.59 Personal history of other mental and behavioral disorders; Z87.448 Personal history of other diseases of urinary system; Z86.69 Personal history of other diseases of the nervous system and sense organs
CPT/HCPCS: 71010; 73630; 80053; 83880; 85007; 85027; 85610; 85730; 93005; 93971

== ENCOUNTER 2017-03-20 07:08 | Emergency (ER) | payer MEDICARE ==
[~2017-03-20 07:08] MED LIST changes: +ASPI-183 PO; -ASPI325T PO; -CLON0.5T PO; +CLON1 PO; -COLA100C3 PO; +FURO1TAB60 PO; +HYDR-3533 PO; +HYDROMORPHONE IT; +LOSA50TA PO; +NOVOLOGP2 SQ; -NOVONP2 SQ; +OMEP20TA93 PO; -PERC5TAB12 PO; -POLYPOW5; -POLYSOL14 EACH EYE; +VITA1000 PO
[2017-03-20 07:10] VITALS: BP 125/73; PULSE 73; RESP 16; TEMP 98.1; O2SAT 93
[2017-03-20 07:31] VITALS: BP 132/76; PULSE 73; RESP 18; O2SAT 95
[2017-03-20] MEDS ORDERED: SODIUM CHLORIDE 0.9% FLUSH 10 ML FLUSH IV FLUSH PRN (07:45)
[2017-03-20] MEDS ORDERED: traMADol HCL 50 MG TAB PO ONE (07:45)
--- NOTE | 2017-03-20 07:53 | PD ---
HPI Chief Complaint: GI Complaint Time Seen by Provider: 07:30 Travel History International Travel<30 days: No Contact w/Intl Traveler<30days: No Traveled to known affect area: No History of Present Illness HPI This is a 56-year-old male who has a history of chronic pain and hepatitis C who presents to the emergency department having not been feeling well for months , described as malaise, fatigue, associated with pain in his right upper abdomen "over his liver", moderate severity, aching, associated with nausea. He says he feels like he is dying. He thinks he might have cancer. He denies any fevers or chills. The patient has a history of kidney cancer for which he had a nephrectomy. He has also had a splenectomy in the past. He says that his friends up in telling him he looks yellow. His doctor told him to come to the emergency department one week ago but he came today. He also has frequent urinary tract infections and recently completed a sulfa drug for a UTI. The patient has a pain pump. He says IV Dilaudid is the only thing that works for his pain. PFSH Past Medical History Hx Anticoagulant Therapy: Yes Arthritis: Yes Asthma: Yes Atrial Fibrillation: Yes Anxiety: Yes Depression: Yes Heart Rhythm Problems: Yes (V-TACH,V-FIB, Bigeminy, Trigeminy) Cancer: Yes (ADRENAL TUMOR) Cardiovascular Problems: Yes (X4, HTN) High Cholesterol: Yes Chemotherapy: No Chest Pain: Yes Congestive Heart Failure: Yes COPD: Yes Cerebrovascular Accident: Yes (X2) Coronary Artery Disease: Yes Diabetes: Yes Patient Takes Glucophage: No Diminished Hearing: No Endocrine: Yes Gastrointestinal Disorders: Yes GERD: Yes Genitourinary: Yes (stage 4 kidney disease) Headaches: No Hiatal Hernia: Yes Heparin Induced Thrombocytopen: No Hypertension: Yes Immune Disorder: No Implanted Vascular Access Dvce: Yes Kidney Stones: No Musculoskeletal: Yes (R FEMUR SURGERY (September,)) Neurologic: Yes Psychiatric: Yes Reproductive: No Respiratory: Yes (COPD) Immunizations Current: Yes Migraines: No Myocardial Infarction: Yes Radiation Therapy: Yes Renal Failure: No Seizures: Yes Sickle Cell Disease: No Sleep Apnea: Yes (WORE CPAP IN PAST) Past Surgical History Abdominal Surgery: Yes (HERNIA REPAIR, PARTIAL SPLENECTOMY) AICD: Yes (ST. TREMAINE DEFIB) Appendectomy: Yes Arteriovenous Shunt: No Cardiac Surgery: Yes (PACEMAKER INSERT 1995 AND 3 MORE SINCE) Cholecystectomy: Yes Coronary Stent: Yes (X 10) Ear Surgery: No Endocrine Surgery: No Eye Surgery: No Genitourinary Surgery: Yes (rt kidney removed 2011) Gynecologic Surgery: No Insulin Pump: No Joint Replacement: Yes (RIGHT KNEE ) Neurologic Surgery: No Oral Surgery: No Pacemaker: Yes Thoracic Surgery: No Tonsillectomy: Yes Other Surgery: Yes (2 KNEE SURGERY; rotator cuff) Social History Alcohol Use: No Tobacco Use: Yes (cigar) Substance Use: No Allergies-Medications (Allergen,Severity, Reaction): Coded Allergies: baclofen (Unverified Allergy, Severe, 11/28/16) morphine (Unverified Allergy, Severe, Hallucinations, 11/28/16) quinidine (Unverified Allergy, Severe, Hallucinations, 11/28/16) MRI PRECAUTION (Verified Adverse Reaction, Severe, NON MEDTRONIC PACER/ ICD 01/27/15 KMD, 08/10/16) CALLED MEDTRONIC TO CONFIRM THAT THE PACER IS NOT A MEDTRONIC Reported Meds & Prescriptions Reported Meds & Active Scripts Active Lortab (Hydrocodone-Acetaminophen) 5-325 Mg Tab 1-2 Tab PO Q6H PRN Reported Vitamin D-1000 (Cholecalciferol) 1,000 Unit Tab 50,000 Units PO 1XPERWEEK Lasix (Furosemide) 40 Mg Tab 40 Mg PO BID Losartan (Losartan Potassium) 50 Mg Tab 50 Mg PO DAILY [Hydromorphone] Unknown Dose IT PRN Omeprazole 20 Mg Tab 20 Mg PO DAILY Novolog Inj (Insulin Aspart) 1,000 Unit/10 Ml Vial 0 SQ TIDAC Sliding Scale as directed. [dilaud] Lantus Inj (Insulin Glargine) 1,000 Unit/10 Ml Vial 130 Units SQ BID Coumadin (Warfarin) 7.5 Mg Tab 7.5 Mg PO DAILY Flomax (Tamsulosin HCl) 0.4 Mg Cap 0.4 Mg PO HS Norvasc (Amlodipine Besylate) 10 Mg Tab 10 Mg PO DAILY Metoprolol Tartrate 25 Mg Tab 25 Mg PO BID Lyrica (Pregabalin) 75 Mg Cap 75 Mg PO BID Gemfibrozil 600 Mg Tab 600 Mg PO BIDAC Take 30 minutes prior to breakfast and dinner. Restasis Opth (Cyclosporine Opth) 0.05% Emul 1 Drop EACH EYE BID Aspirin 325 Mg Tab 325 Mg PO DAILY Amiodarone (Amiodarone HCl) 200 Mg Tab 200 Mg PO DAILY Review of Systems Except as stated in HPI: all other systems reviewed are Neg Physical Exam Narrative GENERAL: Obese, chronically unwell-appearing SKIN: Focused skin assessment warm and dry. Some ecchymoses over the right upper quadrant HEAD: Atraumatic. Normocephalic. EYES: Pupils equal and round. No injection or drainage. No scleral icterus. ENT: Moist mucous membranes NECK: Trachea midline. CARDIOVASCULAR: Regular rate and rhythm. No murmur appreciated. 2+ bilateral pitting edema in the lower extremities RESPIRATORY: Clear to auscultation. Breath sounds equal bilaterally. GASTROINTESTINAL: Abdomen soft, tender to palpation in the right upper quadrant with no rebound or guarding, with hepatomegaly on exam MUSCULOSKELETAL: No obvious deformities. NEUROLOGICAL: Awake and alert. No obvious cranial nerve deficits. Moving all extremities. PSYCHIATRIC: Appropriate mood and affect; insight and judgment normal. Data Data Last Documented VS Vital Signs Date Time Temp Pulse Resp B/P (MAP) Pulse Ox O2 Delivery O2 Flow Rate FiO2 03/20/17 08:05 18 98 Room Air 03/20/17 07:31 73 03/20/17 07:10 98.1 Orders Orders Complete Blood Count With Diff (03/20/17 07:40) Comprehensive Metabolic Panel (03/20/17 07:40) Lipase (03/20/17 07:40) Urinalysis - C+S If Indicated (03/20/17 07:40) Iv Access Insert/Monitor (03/20/17 07:40) Ecg Monitoring (03/20/17 07:40) Oximetry (03/20/17 07:40) Sodium Chloride 0.9% Flush (Ns Flush) (03/20/17 07:45) Tramadol (Ultram) (03/20/17 07:45) Us Abdomen Liver (03/20/17 ) Furosemide Inj (Lasix Inj) (03/20/17 08:00) Prothrombin Time / Inr (Pt) (03/20/17 07:54) Act Partial Throm Time (Ptt) (03/20/17 07:54) Sodium Polysty Sulfate Liq (Kayexalate L (03/20/17 10:00) Labs Laboratory Tests Test 03/20/17 08:00 03/20/17 08:54 White Blood Count 13.8 TH/MM3 Red Blood Count 4.43 MIL/MM3 Hemoglobin 13.5 GM/DL Hematocrit 40.6 % Mean Corpuscular Volume 91.6 FL Mean Corpuscular Hemoglobin 30.4 PG Mean Corpuscular Hemoglobin Concent 33.1 % Red Cell Distribution Width 15.4 % Platelet Count 254 TH/MM3 Mean Platelet Volume 7.4 FL CBC Comment AUTO DIFF Differential Total Cells Counted 100 Neutrophils % (Manual) 20 % Lymphocytes % 67 % Monocytes % 11 % Eosinophils % 1 % Neutrophils # (Manual) 2.9 TH/MM3 Myelocytes 1 % Differential Comment FINAL DIFF MANUAL Platelet Estimate NORMAL Platelet Morphology Comment NORMAL Prothrombin Time 21.0 SEC Prothromb Time International Ratio 2.1 RATIO Activated Partial Thromboplast Time 33.6 SEC Blood Urea Nitrogen 36 MG/DL Creatinine 2.54 MG/DL Random Glucose 203 MG/DL Total Protein 7.4 GM/DL Albumin 3.1 GM/DL Calcium Level 8.5 MG/DL Alkaline Phosphatase 162 U/L Aspartate Amino Transf (AST/SGOT) 33 U/L Alanine Aminotransferase (ALT/SGPT) 53 U/L Total Bilirubin 0.2 MG/DL Sodium Level 137 MEQ/L Potassium Level 5.4 MEQ/L Chloride Level 106 MEQ/L Carbon Dioxide Level 23.8 MEQ/L Anion Gap 7 MEQ/L Estimat Glomerular Filtration Rate 26 ML/MIN Lipase 378 U/L Urine Color LIGHT-YELLOW Urine Turbidity CLEAR Urine pH 5.5 Urine Specific [place] 1.011 Urine Protein 30 mg/dL Urine Glucose (UA) NEG mg/dL Urine Ketones NEG mg/dL Urine Occult Blood NEG Urine Nitrite NEG Urine Bilirubin NEG Urine Urobilinogen LESS THAN 2.0 MG/DL Urine Leukocyte Esterase NEG Urine WBC LESS THAN 1 /hpf Urine Squamous Epithelial Cells <1 /hpf Urine Mucus FEW /lpf Microscopic Urinalysis Comment CULT NOT INDICATED MDM Medical Decision Making Medical Screen Exam Complete: Yes Emergency Medical Condition: Yes Interpretation(s) afebrile, no tachycardia, normotensive mild leukocytosis 67% lymphocytes 11% monocytes mild hyperkalemia, renal insufficiency at baseline urinalysis: no infection Last 24 hours Impressions Liver Ultrasound 03/20/17 0000 Signed Impressions: Service Date/Time: Monday, March 20, 2017 08:02 - CONCLUSION: Probable fatty infiltration without duct dilatation. Lauri Julian MD FACR Differential Diagnosis Urinary tract infection, dehydration, electrolyte abnormality, worsening renal failure, cancer Narrative Course This is a 56-year-old male who presents to the emergency department with multiple nonspecific complaints that have been going on for months including malaise, fatigue, right upper quadrant abdominal pain, yellowing skin and hair looseness. Labs are obtained which demonstrates a mild hyperkalemia. I offered the patient Kayexalate but he declined as he's had it before and he doesn't like the side effects. 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 He has a mild leukocytosis. His differential is unusual with a large amount of lymphocytes and monocytes. I asked him to discuss it with his primary care physician and they may consider referring him to a leather stitcher or repeating the CBC and a week. Otherwise I don't think the patient requires any additional imaging. He would've more benefit from an extensive primary care evaluation. Patient will be discharged home. Diagnosis Primary Impression: Malaise and fatigue Patient Instructions: General Instructions Additional Instructions: If you develop severe chest pain, shortness of breath, sweating, lightheadedness , dizziness or difficulty breathing return to the emergency department immediately. Followup with your primary care physician in 2-3 days if your symptoms are not resolved. Med/Other Pt SpecificInfo: No Change to Meds Disposition: 01 DISCHARGE HOME Condition: Stable Judith Costa MD Mar 20, 2017 07:53
[2017-03-20] MEDS ORDERED: FUROSEMIDE 40 MG/4 ML VIAL IV PUSH ONE (08:00)
[2017-03-20 08:05] VITALS: RESP 18; O2SAT 98
[2017-03-20 08:16] LABS: HEMATOCRIT 40.6 % (39.0-51.0); MEAN CELL VOLUME 91.6 FL (80.0-100.0); MEAN CORPUSCULAR HEMOGLOBIN 30.4 PG (27.0-34.0); MEAN CORPUSCULAR HGB CONC 33.1 % (32.0-36.0); PLATELET COUNT 254 TH/MM3 (150-450); RED BLOOD COUNT 4.43 MIL/MM3 (4.50-5.90); RED CELL DISTRIBUTION WIDTH 15.4 % (11.6-17.2); WHITE BLOOD COUNT 13.8 TH/MM3 (4.0-11.0)
[2017-03-20 08:18] LABS: HEMO FLAGS AUTO DIFF
--- NOTE | 2017-03-20 08:22 | RADRPT ---
EXAM DATE/TIME: 03/20/2017 08:02 [facility] COMPARISON: No previous studies available for comparison. INDICATIONS : Enlarged liver. MEDICAL HISTORY : Myocardial infarction. Congestive heart failure. Hypercholesterolemia. CVA. Seizures. Syncope. Numbne ss. Coronary artery disease. Chest pain. V-tach. V-fib. Bigeminy. Trigeminy. Afib. HTN. COPD. Asthma. Sleep apnea. Dyspnea. Hiatal hernia. Stage IV renal carcinoma. Arthritis. Osteoporosis. Diabetes. Ja undice. Adrenal tumor. Depression. Anxiety. SURGICAL HISTORY : Tonsillectomy. Coronary artery stent. Pacemaker. Hernia repair. Partial splenectomy. Appendectomy. Ch olecystectomy. Right nephrectomy. Right femur surgery. Right knee replacement. Rotator cuff surgery. Blood transfusions. Radiation therapy. ENCOUNTER: Initial ACUITY: 1 day PAIN SCORE: 6/10 LOCATION: Bilateral upper quadrant MEASUREMENTS: LIVER: 24.8 cm length COMMON DUCT: 9 mm RIGHT KIDNEY: Nephrectomy SPLEEN: 13.8 cm length FINDINGS: LIVER: Liver is enlarged and sono dense without ductal dilatation. COMMON DUCT: No intraluminal mass or stone visualized. GALLBLADDER: Surgically absent PANCREAS: Poorly visualized RIGHT KIDNEY: Right nephrectomy SPLEEN: No focal lesion. CONCLUSION: Probable fatty infiltration without duct dilatation. Lauri Julian MD FACR on March 20, 2017 at 8:19 Board Certified Radiologist. This report was verified electronically.
[2017-03-20 08:27] LABS: APTT (PATIENT) 33.6 SEC (24.3-30.1); INTERNATIONAL NORMALIZED RATIO 2.1 RATIO
[2017-03-20 08:46] LABS: ALKALINE PHOSPHATASE 162 U/L (45-117); TOTAL BILIRUBIN ADULT 0.2 MG/DL (0.2-1.0)
[2017-03-20 08:51] LABS: EOSINOPHILS 1 % (0-4); MYELOCYTES 1 % (0-0); NEUTROPHIL # MANUAL DIFF 2.9 TH/MM3 (1.8-7.7); POLYS (SEG NEUTROPHILS) 20 % (16-70); WBC DIFF SAMPLE 100
[2017-03-20 08:54] LABS: PLATELET ESTIMATE SMEAR NORMAL (NORMAL); PLATELET MORPHOLOGY NORMAL (NORMAL)
[2017-03-20 08:55] LABS: SCAN/DIFF FINAL DIFF MANUAL
[2017-03-20 09:06] LABS: BLOOD, URINE NEG (NEG); COMMENT (UR) CULT NOT INDICATED; CULTURE IF INDICATED CULT NOT INDICATED; GLUCOSE,URINE NEG (NEG); KETONE, URINE NEG (NEG); MUCUS URINE FEW /lpf (OCC); NITRITE,URINE NEG (NEG); PH, URINE 5.5 (5.0-8.5); SQUAMOUS EPITHELIAL CELL URINE <1 /hpf (0-5); URINE COLOR LIGHT-YELLOW (YELLW/STRAW)
[2017-03-20 09:15] LABS: ALT (GPT) 53 U/L (12-78); ANION GAP 7 MEQ/L (5-15); AST (GOT) 33 U/L (15-37); BICARBONATE 23.8 MEQ/L (21.0-32.0); BLOOD UREA NITROGEN 36 MG/DL (7-18); CHLORIDE 106 MEQ/L (98-107); GLOMERULAR FILTRATION RATE 26 ML/MIN (>89); POTASSIUM 5.4 MEQ/L (3.5-5.1); SODIUM (NA) 137 MEQ/L (136-145)
[2017-03-20] MEDS ORDERED: SODIUM POLYSTYRENE SULFONATE SUSP 15 GM/60 ML CUP PO ONE (10:00)
[2017-03-20 10:36] VITALS: BP 120/73
== END 2017-03-20 10:44 | disposition home or self-care (01) ==
LOC: NEPE 07:08
DX: R53.81 Other malaise (principal); R53.83 Other fatigue; R10.11 Right upper quadrant pain; E87.5 Hyperkalemia; N28.9 Disorder of kidney and ureter, unspecified; I11.0 Hypertensive heart disease with heart failure; I50.9 Heart failure, unspecified; J44.9 Chronic obstructive pulmonary disease, unspecified; I25.10 Atherosclerotic heart disease of native coronary artery without angina pectoris
CPT/HCPCS: 76705; 80053; 81001; 83690; 85007; 85027; 85610; 85730; 96374; 99285; J1940

== ENCOUNTER 2017-06-04 16:33 | Inpatient (IN) | payer MEDICARE ==
[~2017-06-04] VITALS: Ht 180.3 cm; Wt 139.5 kg
[2017-06-04 16:36] VITALS: BP 154/94; PULSE 88; RESP 16; TEMP 98.1; O2SAT 95
[2017-06-04] MEDS ORDERED: ONDANSETRON HCL 4 MG/2 ML VIAL IV PUSH ONE (17:15)
[2017-06-04] MEDS ORDERED: SODIUM CHLOR 0.9% 1000 ML INJ 1,000 ML IV ONE (17:15)
--- NOTE | 2017-06-04 17:26 | PD ---
HPI Chief Complaint: General Weakness Time Seen by Provider: 16:52 Travel History International Travel<30 days: No Contact w/Intl Traveler<30days: No Traveled to known affect area: No History of Present Illness HPI 56-year-old female with history of diabetes, CVA, A fib, CHF, ESRD not on dialysis with a single kidney status post nephrectomy for renal carcinoma, status post GA, splenectomy, hepatitis C, chronic pain with a pain pump presents to the emergency department with multiple medical complaints. States that he has felt nauseous and had black diarrhea for approximately 7 months. In addition, he began having non bloody, bilious vomiting for several days. States that he has also developed midsternal chest pain with occasional radiation into the left jaw and shoulder. No palliative or provocative factors. States his pain has been worse over the last several days. Patient was previously on a blood thinner but stopped several days ago because of the ' coffee ground' diarrhea. Patient has been taking aspirin. States he has had trouble urinating in the last several days but denies pain in the abdomen or pain with urination. Patient requires pain medication as he does not believe he is getting enough pain medication from his pain pump. Says that Dr. Bhardwaj recommend patient get pain medication as soon as he gets to the hospital. His pattern duplicator is Dr. Hernandez and his ad taker is Dr. Coyle. [facility] Past Medical History Hx Anticoagulant Therapy: Yes Arthritis: Yes Asthma: Yes Atrial Fibrillation: Yes Anxiety: Yes Depression: Yes Heart Rhythm Problems: Yes (V-TACH,V-FIB, Bigeminy, Trigeminy) Cancer: Yes (ADRENAL TUMOR) Cardiovascular Problems: Yes High Cholesterol: Yes Chemotherapy: No Chest Pain: Yes Congestive Heart Failure: Yes COPD: Yes Cerebrovascular Accident: Yes Coronary Artery Disease: Yes Diabetes: Yes Diminished Hearing: No Endocrine: Yes Gastrointestinal Disorders: Yes GERD: Yes Genitourinary: Yes (stage 4 kidney disease) Headaches: No Hiatal Hernia: Yes Heparin Induced Thrombocytopen: No Hypertension: Yes Immune Disorder: No Implanted Vascular Access Dvce: Yes Kidney Stones: No Musculoskeletal: Yes (R FEMUR SURGERY (September,)) Neurologic: Yes Psychiatric: Yes Reproductive: No Respiratory: Yes (COPD) Immunizations Current: Yes Migraines: No Myocardial Infarction: Yes Radiation Therapy: Yes Renal Failure: No Seizures: Yes Sickle Cell Disease: No Sleep Apnea: Yes (WORE CPAP IN PAST) Past Surgical History Abdominal Surgery: Yes (HERNIA REPAIR, PARTIAL SPLENECTOMY) AICD: Yes (ST. TREMAINE DEFIB) Appendectomy: Yes Arteriovenous Shunt: No Cardiac Surgery: Yes (PACEMAKER INSERT 1995 AND 3 MORE SINCE) Cholecystectomy: Yes Coronary Stent: Yes (X 10) Ear Surgery: No Endocrine Surgery: No Eye Surgery: No Genitourinary Surgery: Yes (rt kidney removed 2011) Gynecologic Surgery: No Insulin Pump: No Joint Replacement: Yes (RIGHT KNEE ) Neurologic Surgery: No Oral Surgery: No Pacemaker: Yes Thoracic Surgery: No Tonsillectomy: Yes Other Surgery: Yes (2 KNEE SURGERY; rotator cuff) Social History Alcohol Use: No Tobacco Use: Yes (cigar) Substance Use: No Allergies-Medications (Allergen,Severity, Reaction): Coded Allergies: baclofen (Unverified Allergy, Severe, 11/28/16) morphine (Unverified Allergy, Severe, Hallucinations, 11/28/16) quinidine (Unverified Allergy, Severe, Hallucinations, 11/28/16) MRI PRECAUTION (Verified Adverse Reaction, Severe, NON MEDTRONIC PACER/ ICD 01/27/15 KMD, 08/10/16) CALLED [employer] TO CONFIRM THAT THE PACER IS NOT A MEDTRONIC Reported Meds & Prescriptions Reported Meds & Active Scripts Active Reported Zofran (Ondansetron HCl) 4 Mg Tab 4 Mg PO Q8HR PRN Vitamin D-1000 (Cholecalciferol) 1,000 Unit Tab 50,000 Units PO 1XPERWEEK Klonopin (Clonazepam) 1 Mg Tab 1 Mg PO QID Lasix (Furosemide) 40 Mg Tab 40 Mg PO BID Losartan (Losartan Potassium) 50 Mg Tab 50 Mg PO DAILY [Hydromorphone] Unknown Dose IT PRN Omeprazole 20 Mg Tab 20 Mg PO DAILY Novolog Inj (Insulin Aspart) 1,000 Unit/10 Ml Vial 0 SQ TIDAC Sliding Scale as directed. Lantus Inj (Insulin Glargine) 1,000 Unit/10 Ml Vial 130 Units SQ BID Coumadin (Warfarin) 7.5 Mg Tab 7.5 Mg PO DAILY Flomax (Tamsulosin HCl) 0.4 Mg Cap 0.4 Mg PO HS Norvasc (Amlodipine Besylate) 10 Mg Tab 10 Mg PO DAILY Metoprolol Tartrate 25 Mg Tab 25 Mg PO BID Lyrica (Pregabalin) 75 Mg Cap 75 Mg PO BID Gemfibrozil 600 Mg Tab 600 Mg PO BIDAC Take 30 minutes prior to breakfast and dinner. Restasis Opth (Cyclosporine Opth) 0.05% Emul 1 Drop EACH EYE BID Aspirin 325 Mg Tab 325 Mg PO DAILY Amiodarone (Amiodarone HCl) 200 Mg Tab 200 Mg PO DAILY Review of Systems Except as stated in HPI: all other systems reviewed are Neg Physical Exam Narrative GENERAL: Well-developed, well-nourished in mild distress SKIN: Focused skin assessment warm/dry. HEAD: Atraumatic. Normocephalic. EYES: Pupils equal and round. Mild scleral icterus. No injection or drainage. ENT: No nasal bleeding or discharge. Mucous membranes pink and dry NECK: Trachea midline. No JVD. CARDIOVASCULAR: Regular rate and rhythm. No murmur appreciated. RESPIRATORY: No accessory muscle use. Clear to auscultation. Breath sounds equal bilaterally. GASTROINTESTINAL: Abdomen protuberant, soft, non-tender, nondistended. multiple scars, MUSCULOSKELETAL: No obvious deformities. No clubbing. No cyanosis. No edema. NEUROLOGICAL: Awake and alert. No obvious cranial nerve deficits. Motor grossly within normal limits. Normal speech. PSYCHIATRIC: Appropriate mood and affect; insight and judgment normal. Data Data Last Documented VS Vital Signs Date Time Temp Pulse Resp B/P (MAP) Pulse Ox O2 Delivery O2 Flow Rate FiO2 06/04/17 16:36 98.1 88 16 154/94 (114) 95 Orders Orders Complete Blood Count With Diff (06/04/17 16:50) Comprehensive Metabolic Panel (06/04/17 16:50) Prothrombin Time / Inr (Pt) (06/04/17 16:50) Act Partial Throm Time (Ptt) (06/04/17 16:50) Ecg Monitoring (06/04/17 16:50) Oximetry (06/04/17 16:50) Oxygen Administration (06/04/17 16:50) Iv Access Insert/Monitor (06/04/17 16:50) Type And Screen (06/04/17 16:50) Electrocardiogram (06/04/17 16:53) B-Type Natriuretic Peptide (06/04/17 17:06) Troponin I (06/04/17 17:06) Lipase (2/19/18 17:06) Chest, Single Ap (06/04/17 17:06) Urinalysis - C+S If Indicated (06/04/17 17:06) Ondansetron Inj (Zofran Inj) (06/04/17 17:15) Sodium Chlor 0.9% 1000 Ml Inj (Ns 1000 M (06/04/17 17:15) Hydromorphone Pf Inj (Dilaudid Pf Inj) (06/04/17 19:15) Metoclopramide Inj (Reglan Inj) (06/04/17 19:15) Hydromorphone Pf Inj (Dilaudid Pf Inj) (06/04/17 19:45) Admit Order (Ed Use Only) (06/04/17 20:30) Labs Laboratory Tests Test 06/04/17 17:50 White Blood Count 16.6 TH/MM3 Red Blood Count 5.01 MIL/MM3 Hemoglobin 15.8 GM/DL Hematocrit 45.6 % Mean Corpuscular Volume 91.0 FL Mean Corpuscular Hemoglobin 31.5 PG Mean Corpuscular Hemoglobin Concent 34.7 % Red Cell Distribution Width 15.6 % Platelet Count 283 TH/MM3 Mean Platelet Volume 7.7 FL Neutrophils (%) (Auto) 46.8 % Lymphocytes (%) (Auto) 43.9 % Monocytes (%) (Auto) 7.0 % Eosinophils (%) (Auto) 1.3 % Basophils (%) (Auto) 1.0 % Neutrophils # (Auto) 7.8 TH/MM3 Lymphocytes # (Auto) 7.3 TH/MM3 Monocytes # (Auto) 1.2 TH/MM3 Eosinophils # (Auto) 0.2 TH/MM3 Basophils # (Auto) 0.2 TH/MM3 CBC Comment AUTO DIFF Differential Total Cells Counted 100 Neutrophils % (Manual) 53 % Band Neutrophils % 1 % Lymphocytes % 40 % Monocytes % 3 % Eosinophils % 3 % Neutrophils # (Manual) 9.0 TH/MM3 Differential Comment FINAL DIFF MANUAL Platelet Estimate NORMAL Platelet Morphology Comment CLUMPED Prothrombin Time 12.6 SEC Prothromb Time International Ratio 1.2 RATIO Activated Partial Thromboplast Time 25.9 SEC Blood Urea Nitrogen 36 MG/DL Creatinine 3.94 MG/DL Random Glucose 407 MG/DL Total Protein 8.5 GM/DL Albumin 3.8 GM/DL Calcium Level 9.0 MG/DL Alkaline Phosphatase 139 U/L Aspartate Amino Transf (AST/SGOT) 42 U/L Alanine Aminotransferase (ALT/SGPT) 62 U/L Total Bilirubin 0.3 MG/DL Sodium Level 127 MEQ/L Potassium Level 4.4 MEQ/L Chloride Level 90 MEQ/L Carbon Dioxide Level 27.4 MEQ/L Anion Gap 10 MEQ/L Estimat Glomerular Filtration Rate 16 ML/MIN Troponin I LESS THAN 0.02 NG/ML B-Type Natriuretic Peptide 45 PG/ML Lipase 230 U/L MDM Medical Decision Making Medical Screen Exam Complete: Yes Emergency Medical Condition: Yes Differential Diagnosis GIB, atypical chest pain, KONG, Afib, CHF Narrative Course 56-year-old female with history of diabetes, CVA, A fib on coumadin, CHF, ESRD not on dialysis with a single kidney status post nephrectomy for renal carcinoma , status post GA, splenectomy, hepatitis C, chronic pain with a pain pump presents to the emergency department with multiple medical complaints. States that he has felt nauseous and had black diarrhea for approximately 7 months. In addition, he began having non bloody, bilious vomiting for several days. Pt stopped his coumadin as a result. States that he has also developed midsternal chest pain with occasional radiation into the left jaw and shoulder. No palliative or provocative factors. States his pain has been worse over the last several days. Patient was previously on a blood thinner but stopped several days ago because of the 'coffee ground' diarrhea. Patient has been taking aspirin. States he has had trouble urinating in the last several days but denies pain in the abdomen or pain with urination. Patient requires pain medication as he does not believe he is getting enough pain medication from his pain pump. Says that Dr. Bhardwaj recommend patient get pain medication as soon as he gets to the hospital. His pattern duplicator is Dr. Hernandez and his ad taker is Dr. Coyle. EKG shows Sinus rhythm with rate of 88, frequent PVCs, no STEMI changes. Zofran 4mg administered for nausea. Nausea unresolved, will administer reglan 10mg. Pt requests pain medication for his low back pain and chest pain.. Note that he does have a pain pump with Dilaudid. Because of the multiple pain complaints , will administer 1mg dilaudid. Patient administered a total 2 mg Dilaudid. CBC & BMP Diagram 06/04/17 17:50 Total Protein 8.5 H, Albumin 3.8, Calcium Level 9.0, Alkaline Phosphatase 139 H , Aspartate Amino Transf (AST/SGOT) 42 H, Alanine Aminotransferase (ALT/SGPT) 62 , Total Bilirubin 0.3 Lipase 230. BUN/creatinine 36/2.54 from March 2017. Hyperglycemia at 407. Cardiac enzymes negative. According to EMR, Patient was seen in the beginning of this month for pulmonary edema and congestive heart failure. His last echocardiogram was in July 2016 with an ejection fraction is 45-50%. Says he had a colonoscopy approximately 5 years ago and had polyps. Hemoccult negative, very little brown/yellow watery stool Patient should be admitted for acute kidney injury, nausea and vomiting, atypical chest pain. [facility] Point of Care Internal Pos. & Neg. Controls: Passed Fecal Specimen Occult Blood: Negative (light brown, yellow stool, poor sample) Diagnosis Primary Impression: Nausea & vomiting Qualified Codes: R11.14 - Bilious vomiting Additional Impressions: Acute kidney injury Chest pain Qualified Codes: R07.9 - Chest pain, unspecified Admitting Information Admitting Physician Requests: Observation Condition: Stable Dianne Ha Jun 04, 2017 17:26
--- NOTE | 2017-06-04 17:44 | RADRPT ---
EXAM DATE/TIME: 06/04/2017 17:22 [facility] COMPARISON: CHEST SINGLE AP, February 06, 2015, 4:26. CHEST SINGLE AP, February 17, 2015, 15:45. CHEST SINGLE AP , October 27, 2016, 9:32. INDICATIONS : Chest pain. MEDICAL HISTORY : Cardiovascular disease. Chronic obstructive pulmonary disease. Congestive heart failure. Cardiome cindy. SURGICAL HISTORY : Pacemaker. ENCOUNTER: Initial ACUITY: 1 day PAIN SCORE: 10/10 LOCATION: middle chest. FINDINGS: A single view of the chest demonstrates the lungs to be symmetrically aerated without evidence of mas s, infiltrate or effusion. Stable atelectasis/scarring lower lateral left chest. The heart is enlar ged, similar to prior. Cardiac pacer lead in place.. Osseous structures are intact. CONCLUSION: Stable cardiomegaly. No infiltrate seen. Edgar Bennett MD on June 04, 2017 at 17:40 Board Certified Radiologist. This report was verified electronically.
[2017-06-04 18:38] LABS: AUTOMATED NEUTROPHIL # 7.8 TH/MM3 (1.8-7.7); BASOPHIL # 0.2 TH/MM3 (0-0.2); EOSINOPHIL # 0.2 TH/MM3 (0-0.4); EOSINOPHIL % 1.3 % (0.0-4.0); HEMATOCRIT 45.6 % (39.0-51.0); HEMOGLOBIN 15.8 GM/DL (13.0-17.0); LYMPH % 43.9 % (9.0-44.0); LYMPHOCYTE # 7.3 TH/MM3 (1.0-4.8); MEAN CORPUSCULAR HEMOGLOBIN 31.5 PG (27.0-34.0); MEAN CORPUSCULAR HGB CONC 34.7 % (32.0-36.0); MEAN PLATELET VOLUME 7.7 FL (7.0-11.0); MONOCYTE # 1.2 TH/MM3 (0-0.9); NEUT % 46.8 % (16.0-70.0); PLATELET COUNT 283 TH/MM3 (150-450); RED BLOOD COUNT 5.01 MIL/MM3 (4.50-5.90); RED CELL DISTRIBUTION WIDTH 15.6 % (11.6-17.2); WHITE BLOOD COUNT 16.6 TH/MM3 (4.0-11.0)
[2017-06-04] MEDS ORDERED: ZOFR4TAB PO (18:40)
[2017-06-04 19:02] LABS: INTERNATIONAL NORMALIZED RATIO 1.2 RATIO; PROTHROMBIN TIME - PATIENT 12.6 SEC (9.8-11.6); TROPONIN I LESS THAN 0.02 NG/ML (0.02-0.05)
[2017-06-04 19:05] LABS: ALBUMIN 3.8 GM/DL (3.4-5.0); ALKALINE PHOSPHATASE 139 U/L (45-117); ALT (GPT) 62 U/L (12-78); AST (GOT) 42 U/L (15-37); BICARBONATE 27.4 MEQ/L (21.0-32.0); BLOOD UREA NITROGEN 36 MG/DL (7-18); CHLORIDE 90 MEQ/L (98-107); CREATININE 3.94 MG/DL (0.60-1.30); GLOMERULAR FILTRATION RATE 16 ML/MIN (>89); GLUCOSE,RANDOM 407 MG/DL (74-106); SODIUM (NA) 127 MEQ/L (136-145); TOTAL BILIRUBIN ADULT 0.3 MG/DL (0.2-1.0); TOTAL PROTEIN 8.5 GM/DL (6.4-8.2)
[2017-06-04] MEDS ORDERED: HYDROmorphone HCL PF 1 MG/ML VIAL IV PUSH ONE (19:15)
[2017-06-04] MEDS ORDERED: METOCLOPRAMIDE HCL 10 MG/2 ML VIAL IV PUSH ONE (19:15)
[2017-06-04 19:26] LABS: BANDS 1 % (0-6); LYMPHOCYTES 40 % (9-44); MONOCYTES 3 % (0-8); POLYS (SEG NEUTROPHILS) 53 % (16-70)
[2017-06-04] MEDS ORDERED: HYDROmorphone HCL PF 2 MG/ML VIAL IV PUSH ONE (19:45)
[2017-06-04] MEDS ORDERED: SODIUM CHLORIDE 0.9% FLUSH 10 ML FLUSH IV FLUSH PRN (21:15)
[2017-06-04] MEDS ORDERED: NALOXONE HCL 0.4 MG/ML AMP IV PUSH PRN (21:15)
[2017-06-04] MEDS ORDERED: GLUCAGON 1 MG/ML VIAL OTHER PRN (21:15)
[2017-06-04] MEDS ORDERED: LACTULOSE SYRUP 20 GM/30 ML CUP PO PRN (21:15)
[2017-06-04] MEDS ORDERED: DEXTROSE 50% IN WATER 50 ML VIAL(D50) IV PUSH PRN (21:15)
[2017-06-04] MEDS ORDERED: SENNOSIDES 8.6 MG TAB PO PRN (21:15)
[2017-06-04] MEDS ORDERED: ACETAMINOPHEN 325 MG TAB PO PRN (21:15)
[2017-06-04] MEDS ORDERED: BISACODYL 10 MG SUPP RECTAL PRN (21:15)
--- NOTE | 2017-06-04 22:09 | HHI.HP ---
HPI Service [facility] Primary Care Physician Lauri Bhardwaj, Admission Diagnosis atypical chest pain, nausea, vomiting, KONG Diagnoses: Travel History International Travel<30 Days: No Contact w/Intl Traveler <30 Da: No Traveled to Known Affected Are: No History of Present Illness 56-year-old male with a past medical history significant for atrial fibrillation anticoagulated on Coumadin, chronic kidney disease, CAD, hypertension, hyperlipidemia, diabetes mellitus, COPD, hepatitis C, chronic pain and history of multiple CVAs presents to the emergency department after being referred by his PCP for evaluation of chronic nausea/vomiting/diarrhea and chest pain. The patient reports that he has had 4 months of intermittent nausea and vomiting with diarrhea. He reports that he recently had coffee- ground stools that were a black/brown color in nature and he stopped taking his Coumadin on because of this. He reports left upper quadrant abdominal pain. He also states he has had substernal chest pain that radiates around his lower left ribs for approximately 2 weeks. He reports intermittent shortness of breath. Denies cough. No fever/chills. Review of Systems Except as stated in HPI: all other systems reviewed are Neg Past Family Social History Past Medical History Chronic kidney disease History of clear cell carcinoma CAD CVA Hypertension Hyperlipidemia Diabetes mellitus COPD Hepatitis C Atrial fibrillation anticoagulated on Coumadin Past Surgical History Right nephrectomy Multiple cardiac catheterizations with stent placements Multiple lower extremity surgeries Reported Medications Reported Meds & Active Scripts Active Reported Zofran (Ondansetron HCl) 4 Mg Tab 4 Mg PO Q8HR PRN Vitamin D-1000 (Cholecalciferol) 1,000 Unit Tab 50,000 Units PO 1XPERWEEK Klonopin (Clonazepam) 1 Mg Tab 1 Mg PO QID Lasix (Furosemide) 40 Mg Tab 40 Mg PO BID Losartan (Losartan Potassium) 50 Mg Tab 50 Mg PO DAILY [Hydromorphone] Unknown Dose IT PRN Omeprazole 20 Mg Tab 20 Mg PO DAILY Novolog Inj (Insulin Aspart) 1,000 Unit/10 Ml Vial 0 SQ TIDAC Sliding Scale as directed. Lantus Inj (Insulin Glargine) 1,000 Unit/10 Ml Vial 130 Units SQ BID Coumadin (Warfarin) 7.5 Mg Tab 7.5 Mg PO DAILY Flomax (Tamsulosin HCl) 0.4 Mg Cap 0.4 Mg PO HS Norvasc (Amlodipine Besylate) 10 Mg Tab 10 Mg PO DAILY Metoprolol Tartrate 25 Mg Tab 25 Mg PO BID Lyrica (Pregabalin) 75 Mg Cap 75 Mg PO BID Gemfibrozil 600 Mg Tab 600 Mg PO BIDAC Take 30 minutes prior to breakfast and dinner. Restasis Opth (Cyclosporine Opth) 0.05% Emul 1 Drop EACH EYE BID Aspirin 325 Mg Tab 325 Mg PO DAILY Amiodarone (Amiodarone HCl) 200 Mg Tab 200 Mg PO DAILY Allergies: Coded Allergies: baclofen (Unverified Allergy, Severe, 11/28/16) morphine (Unverified Allergy, Severe, Hallucinations, 11/28/16) quinidine (Unverified Allergy, Severe, Hallucinations, 11/28/16) MRI PRECAUTION (Verified Adverse Reaction, Severe, NON [employer]TR[employer] PACER/ ICD 01/27/15 KMD, 08/10/16) CALLED [employer] TO CONFIRM THAT THE PACER IS NOT A MEDTRONIC Family History Patient was adopted Social History Denies alcohol, tobacco and illicit drugs Physical Exam Vital Signs Vital Signs Date Time Temp Pulse Resp B/P (MAP) Pulse Ox O2 Delivery O2 Flow Rate FiO2 06/04/17 16:36 98.1 88 16 154/94 (114) 95 Physical Exam GENERAL: Obese male lying in bed SKIN: No rashes, ecchymoses or lesions. Cool and dry. HEAD: Atraumatic. Normocephalic. No temporal or scalp tenderness. EYES: Pupils equal round and reactive. Extraocular motions intact. No scleral icterus. No injection or drainage. ENT: Nose without bleeding, purulent drainage or septal hematoma. Throat without erythema, tonsillar hypertrophy or exudate. Uvula midline. Airway patent. NECK: Trachea midline. No JVD or lymphadenopathy. Supple, nontender, no meningeal signs. CARDIOVASCULAR: Regular rate and rhythm without murmurs, gallops, or rubs. RESPIRATORY: Clear to auscultation. Breath sounds equal bilaterally. No wheezes , rales, or rhonchi. GASTROINTESTINAL: Abdomen soft, diffusely tender to palpation worse in the left upper quadrant, nondistended. No hepato-splenomegaly, or palpable masses. No guarding. MUSCULOSKELETAL: Extremities without clubbing, cyanosis, or edema. No joint tenderness, effusion, or edema noted. No calf tenderness. NEUROLOGICAL: Awake and alert. Cranial nerves II through XII intact. Motor and sensory grossly within normal limits. Normal speech. Laboratory Laboratory Tests Test 06/04/17 17:50 White Blood Count 16.6 Red Blood Count 5.01 Hemoglobin 15.8 Hematocrit 45.6 Mean Corpuscular Volume 91.0 Mean Corpuscular Hemoglobin 31.5 Mean Corpuscular Hemoglobin Concent 34.7 Red Cell Distribution Width 15.6 Platelet Count 283 Mean Platelet Volume 7.7 Neutrophils (%) (Auto) 46.8 Lymphocytes (%) (Auto) 43.9 Monocytes (%) (Auto) 7.0 Eosinophils (%) (Auto) 1.3 Basophils (%) (Auto) 1.0 Neutrophils # (Auto) 7.8 Lymphocytes # (Auto) 7.3 Monocytes # (Auto) 1.2 Eosinophils # (Auto) 0.2 Basophils # (Auto) 0.2 CBC Comment AUTO DIFF Differential Total Cells Counted 100 Neutrophils % (Manual) 53 Band Neutrophils % 1 Lymphocytes % 40 Monocytes % 3 Eosinophils % 3 Neutrophils # (Manual) 9.0 Differential Comment FINAL DIFF MANUAL Platelet Estimate NORMAL Platelet Morphology Comment CLUMPED Prothrombin Time 12.6 Prothromb Time International Ratio 1.2 Activated Partial Thromboplast Time 25.9 Blood Urea Nitrogen 36 Creatinine 3.94 Random Glucose 407 Total Protein 8.5 Albumin 3.8 Calcium Level 9.0 Alkaline Phosphatase 139 Aspartate Amino Transf (AST/SGOT) 42 Alanine Aminotransferase (ALT/SGPT) 62 Total Bilirubin 0.3 Sodium Level 127 Potassium Level 4.4 Chloride Level 90 Carbon Dioxide Level 27.4 Anion Gap 10 Estimat Glomerular Filtration Rate 16 Troponin I LESS THAN 0.02 B-Type Natriuretic Peptide 45 Lipase 230 Result Diagram: 06/04/17 17506/04/17 175 Caprini VTE Risk Assessment Caprini VTE Risk Assessment: Mod/High Risk (score >= 2) Caprini Risk Assessment Model Point Value = 1 Point Value = 2 Point Value = 3 Point Value = 5 Age 41-60 Minor surgery BMI > 25 kg/m2 Swollen legs Varicose veins or History of unexplained or recurrent spontaneous Oral contraceptives or hormone replacement Sepsis (< 1 month) Serious lung disease, including pneumonia (< 1 month) Abnormal pulmonary function Acute myocardial infarction Congestive heart failure (< 1 month) History of inflammatory bowel disease Medical patient at bed rest Age 61-74 Arthroscopic surgery Major open surgery (> 45 min) Laparoscopic surgery (> 45 min) Malignancy Confined to bed (> 72 hours) Immobilizing plaster cast Central venous access Age >= 75 History of VTE Family history of VTE Factor V Leiden Prothrombin [id number] Lupus anticoagulant Anticardiolipin antibodies Elevated serum homocysteine Heparin-induced thrombocytopenia Other congenital or acquired thrombophilia Stroke (< 1 month) Elective arthroplasty Hip, pelvis, or leg fracture Acute spinal cord injury (< 1 month) Prophylaxis Regimen Total Risk Factor Score Risk Level Prophylaxis Regimen 0-1 Low Early ambulation 2 Moderate Order ONE of the following: *Sequential Compression Device (SCD) *Heparin 5000 units SQ BID 3-4 Higher Order ONE of the following medications: *Heparin 5000 units SQ TID *Enoxaparin/Lovenox 40 mg SQ daily (WT < 150 kg, CrCl > 30 mL/min) *Enoxaparin/Lovenox 30 mg SQ daily (WT < 150 kg, CrCl > 10-29 mL/min) *Enoxaparin/Lovenox 30 mg SQ BID (WT < 150 kg, CrCl > 30 mL/min) AND/OR *Sequential Compression Device (SCD) 5 or more Highest Order ONE of the following medications: *Heparin 5000 units SQ TID (Preferred with Epidurals) *Enoxaparin/Lovenox 40 mg SQ daily (WT < 150 kg, CrCl > 30 mL/min) *Enoxaparin/Lovenox 30 mg SQ daily (WT < 150 kg, CrCl > 10-29 mL/min) *Enoxaparin/Lovenox 30 mg SQ BID (WT < 150 kg, CrCl > 30 mL/min) AND *Sequential Compression Device (SCD) Assessment and Plan Assessment and Plan Assessment/plan: 1. Acute on chronic renal insufficiency BUN/creatinine 36/3.94, baseline approximately 2.5 Patient's insulating machine operator is Dr. Coyle, consulted, appreciate recommendations IV fluid hydration 2. Nausea/vomiting Patient reports history of black stools however H&H stable and Hemoccult negative in the ED Monitor H&H If patient becomes anemic or repeat black stools, gastroenterology consult may be warranted 3. Chest pain History of 2 weeks substernal chest pain Initial troponin negative. EKG significant for sinus rhythm with PVCs, no ST segment elevations or depressions, personally reviewed ACS rule out pending; serial troponins/EKGs 4. Subtherapeutic INR Patient reports he stopped taking his Coumadin Restart Coumadin Pharmacy consult, appreciate assistance Monitor INR 5. Atrial fibrillation Continue anticoagulation with Coumadin Continue home medications 6. Hypertension/hyperlipidemia/COPD Continue home medications 7. Hepatitis C Follow-up with outpatient 8. Chronic pain Patient with pain pump FEN Heart healthy diabetic diet NS at 150 cc/hour Electrolytes: Monitor and replete when necessary Coumadin Elda Estrada MD Jun 04, 2017 22:09
[2017-06-04 23:09] VITALS: BP 99/54; PULSE 88; RESP 18; TEMP 97.9; O2SAT 93
[2017-06-04] MEDS: SODIUM CHLOR 0.9% 1000 ML INJ 1,000 ML IV SCH (23:27)
[2017-06-04] MEDS: HEPARIN SODIUM - SQ 10,000 UNITS/ML VIAL SQ SCH (23:28)
[2017-06-04] MEDS: WARFARIN SOD 7.5 MG TAB PO SCH (23:51)
[2017-06-05] VITALS (14 sets, daily range): BP systolic 90–124; BP diastolic 54–66; PULSE 70–98; RESP 18–22; TEMP 97.7–98.7; O2SAT 88–96
[2017-06-05] MEDS ORDERED: INSULIN ASPART 1,000 UNITS/10 ML VIAL SQ ONE (01:30)
[2017-06-05] MEDS ORDERED: HYDROmorphone HCL PF 2 MG/ML VIAL IV PUSH ONE ×2 (01:30→06:30)
--- NOTE | 2017-06-05 01:55 | RADRPT ---
EXAM DATE/TIME: 06/05/2017 01:45 [facility] COMPARISON: No previous studies available for comparison. INDICATIONS : Left upper quadrant pain. ORAL CONTRAST: No oral contrast ingested. RADIATION DOSE: 28.71 CTDIvol (mGy) MEDICAL HISTORY : Cardiovascular disease. Hypertension. Chronic obstructive pulmonary disease. Renal cancer GERD SURGICAL HISTORY : Pacemaker. Nephrectomy, right.Appendectomy.GB Partial splenectomy ENCOUNTER: Initial ACUITY: 1 day PAIN SCALE: 10/10 LOCATION: Left upper quadrant TECHNIQUE: Volumetric scanning of the abdomen and pelvis was performed. Using automated exposure control and ad justment of the mA and/or kV according to patient size, radiation dose was kept as low as reasonably achievable to obtain optimal diagnostic quality images. DICOM format image data is available electro nically for review and comparison. FINDINGS: LOWER LUNGS: The visualized lower lungs are clear. LIVER: Liver is diffusely enlarged with mild hepatic steatosis. There multiple scattered benign appearing ca lcifications. There is no ductal dilatation. Patient status post cholecystectomy. SPLEEN: Normal size without lesion. PANCREAS: Within normal limits. KIDNEYS: Status post right nephrectomy. The left kidney is unremarkable in appearance. ADRENAL GLANDS: The left adrenal gland is unremarkable. In the right adrenal gland there is a low density 2.8 x 2.5 c m adenoma. VASCULAR: There is no aortic aneurysm. BOWEL/MESENTERY: Multiple scattered diverticuli are present but no focal wall thickening or inflammatory change. The s tomach, small bowel, and colon demonstrate no acute abnormality. There is no free intraperitoneal ai r or fluid. ABDOMINAL WALL: There is a small anterior abdominal wall hernia noted containing mesenteric fat this is best visualiz ed on axial image #68. RETROPERITONEUM: There is no lymphadenopathy. BLADDER: No wall thickening or mass. REPRODUCTIVE: Within normal limits. INGUINAL: There is no lymphadenopathy or hernia. MUSCULOSKELETAL: Within normal limits for patient age. CONCLUSION: 1. Mild diverticulosis with no inflammatory change or obstruction. 2. Prominent liver with mild hepatic steatosis. 3. Right adrenal adenoma. 4. Status post right nephrectomy. 5. Status post cholecystectomy. 6. Small anterior abdominal wall hernia. Ton Woods MD on June 05, 2017 at 1:50 Board Certified Radiologist. This report was verified electronically.
[2017-06-05 03:24] LABS: INTERNATIONAL NORMALIZED RATIO 1.2 RATIO; PROTHROMBIN TIME - PATIENT 12.4 SEC (9.8-11.6)
[2017-06-05 03:30] LABS: HEMATOCRIT 30.4 % (39.0-51.0); HEMOGLOBIN 10.1 GM/DL (13.0-17.0); MEAN CORPUSCULAR HEMOGLOBIN 30.6 PG (27.0-34.0); MEAN CORPUSCULAR HGB CONC 33.3 % (32.0-36.0); MEAN PLATELET VOLUME 7.2 FL (7.0-11.0); PLATELET COUNT 165 TH/MM3 (150-450); RED CELL DISTRIBUTION WIDTH 15.1 % (11.6-17.2); WHITE BLOOD COUNT 9.2 TH/MM3 (4.0-11.0)
[2017-06-05 03:46] LABS: BICARBONATE 20.2 MEQ/L (21.0-32.0); CALCIUM 7.9 MG/DL (8.5-10.1); CHLORIDE 95 MEQ/L (98-107); CREATININE 4.27 MG/DL (0.60-1.30); GLOMERULAR FILTRATION RATE 14 ML/MIN (>89); GLUCOSE,RANDOM 410 MG/DL (74-106); SODIUM (NA) 126 MEQ/L (136-145); TROPONIN I LESS THAN 0.02 NG/ML (0.02-0.05)
[2017-06-05 03:47] LABS: BLOOD UREA NITROGEN 38 MG/DL (7-18)
[2017-06-05 04:12] LABS: BANDS 2 % (0-6); BASOPHILS 1 % (0-2); LYMPHOCYTES 46 % (9-44); MONOCYTES 3 % (0-8); NEUTROPHIL # MANUAL DIFF 4.2 TH/MM3 (1.8-7.7); POLYS (SEG NEUTROPHILS) 44 % (16-70)
[2017-06-05] MEDS: ONDANSETRON HCL 4 MG/2 ML VIAL IVP PRN ×3 (05:28→18:20)
[2017-06-05] MEDS: HEPARIN SODIUM - SQ 10,000 UNITS/ML VIAL SQ SCH ×3 (05:29→21:01)
[2017-06-05] MEDS: GEMFIBROZIL 600 MG TAB PO SCH ×2 (06:36→16:00)
[2017-06-05 06:49] LABS: BLOOD, URINE NEG (NEG); GLUCOSE,URINE 300 mg/dL (NEG); HYALINE CAST, URINE 4 /lpf (RARE); KETONE, URINE NEG (NEG); MUCUS URINE FEW /lpf (OCC); NITRITE,URINE NEG (NEG); PH, URINE 5.5 (5.0-8.5); SQUAMOUS EPITHELIAL CELL URINE 1 /hpf (0-5); URINE COLOR YELLOW (YELLW/STRAW); URINE LEUKOCYTE ESTERASE NEG (NEG)
[2017-06-05 06:50] LABS: BILIRUBIN, URINE NEG (NEG)
[2017-06-05] MEDS ORDERED: NON-FORMULARY DRUG (Omeprazole 20 MG) PO SCH (09:00)
[2017-06-05] MEDS ORDERED: ASPIRIN 325 MG TAB PO SCH (09:00)
[2017-06-05] MEDS: SODIUM CHLORIDE 0.9% FLUSH 10 ML FLUSH IV FLUSH SCH ×2 (09:08→21:07)
[2017-06-05] MEDS: INSULIN ASPART SUPPLEMENTAL SCALE SQ SCH ×4 (09:15→21:07)
[2017-06-05] MEDS: INSULIN DETEMIR 100 UNITS/ML VIAL SQ SCH ×2 (09:15→21:49)
--- NOTE | 2017-06-05 09:16 | PD.CONS ---
HPI Service Nephrology Consult Requested By Dr. Estrada Reason for Consult KONG on CKD Primary Care Physician Lauri Bhardwaj, DO History of Present Illness Patient is a 56-year-old male with a past medical history significant for atrial fibrillation anticoagulated on Coumadin, chronic kidney disease, left nephrectomy, CAD, hypertension, hyperlipidemia, diabetes mellitus, COPD, hepatitis C, chronic pain and history of multiple CVA;. He presents to the emergency department after being referred by his PCP for evaluation of chronic nausea/vomiting/diarrhea and chest pain. The patient reports that over the last couple months of intermittent nausea and vomiting with diarrhea. Weight loss reported 37 IBS over the last 6 weeks. Reports SOB but has improved now. Also reports CP that radiates to abdomen. Troponin have remained negative. Nephrology was consulted for KONG on CKD with a creatinine of 4.27 and GFR 14 ml/ min. Patients baseline Creatinine is 2.5. He is also noted to have hyponatremia at 126. IVF are infusing. (Nasreen Colmenares) Review of Systems Constitutional: COMPLAINS OF: Fatigue, Weight loss, Change in appetite Respiratory: COMPLAINS OF: Shortness of breath, DENIES: Cough Cardiovascular: COMPLAINS OF: Chest pain, DENIES: Palpitations, Lower Extremity Edema Gastrointestinal: COMPLAINS OF: Abdominal pain, Nausea, Vomiting Psychiatric: COMPLAINS OF: Depression (Nasreen Colmenares) Past Family Social History Allergies: Coded Allergies: baclofen (Unverified Allergy, Severe, 11/28/16) morphine (Unverified Allergy, Severe, Hallucinations, 11/28/16) quinidine (Unverified Allergy, Severe, Hallucinations, 11/28/16) MRI PRECAUTION (Verified Adverse Reaction, Severe, NON MEDTRONIC PACER/ ICD 01/27/15 KMD, 08/10/16) CALLED [employer] TO CONFIRM THAT THE PACER IS NOT A MEDTRONIC Past Medical History Chronic kidney disease History of clear cell carcinoma CAD CVA Hypertension Hyperlipidemia Diabetes mellitus COPD Hepatitis C Atrial fibrillation anticoagulated on Coumadin Past Surgical History Right nephrectomy Multiple cardiac catheterizations with stent placements Multiple lower extremity surgeries Active Ordered Medications Current Medications Medications (Trade) Dose Ordered Sig/Lito Route Start Time Stop Time Status Last Admin Sodium Chloride 1,000 ml @ 75 mls/hr [id number] IV 06/04/17 21:00 06/04/17 23:27 (NS Flush) 2 ml UNSCH PRN IV FLUSH 06/04/17 21:15 (NS Flush) 2 ml BID IV FLUSH 06/05/17 09:00 (Tylenol) 650 mg Q4H PRN PO 06/04/17 21:15 (Zofran Inj) 4 mg Q6H PRN IVP 06/04/17 21:15 06/05/17 05:28 (Heparin Inj) 5,000 units Q8HR SQ 06/04/17 22:00 06/05/17 05:29 (Narcan Inj) 0.4 mg UNSCH PRN IV PUSH 06/04/17 21:15 (Solange-Colace) 1 tab BID PO 06/05/17 09:00 (Milk Of Magnesia Liq) 30 ml Q12H PRN PO 06/04/17 21:15 (Senokot) 17.2 mg Q12H PRN PO 06/04/17 21:15 (Dulcolax Supp) 10 mg DAILY PRN RECTAL 06/04/17 21:15 (Lactulose Liq) 30 ml DAILY PRN PO 06/04/17 21:15 (Levemir Inj) 50 units Q12HR SQ 06/05/17 09:00 (D50w (Vial) Inj) 50 ml UNSCH PRN IV PUSH 06/04/17 21:15 (Glucagon Inj) 1 mg UNSCH PRN OTHER 06/04/17 21:15 (NovoLOG SUPPLEMENTAL SCALE) 1 ACHS SLIDING SCALE SQ 06/05/17 08:00 (Cordarone) 200 mg DAILY PO 06/05/17 09:00 (Norvasc) 10 mg DAILY PO 06/05/17 09:00 (Aspirin) 325 mg DAILY PO 06/05/17 09:00 (KlonoPIN) 1 mg QID PO 06/05/17 09:00 (Lasix) 40 mg BID PO 06/05/17 09:00 (Lopid) 600 mg BIDAC PO 06/05/17 07:00 06/05/17 06:36 (Cozaar) 50 mg DAILY PO 06/05/17 09:00 (Lopressor) 25 mg BID PO 06/05/17 09:00 (Lyrica) 75 mg BID PO 06/05/17 09:00 (Flomax) 0.4 mg HS PO 06/05/17 21:00 (Coumadin) 7.5 mg DAILY@1600 PO 06/04/17 23:00 06/04/17 23:51 Pharmacy Profile Note 0 ml @ 0 mls/hr UNSCH OTHER 06/04/17 21:45 (Protonix) 20 mg DAILY PO 06/05/17 09:00 Family History Unknown adopted Social History quit smoking 4 years ago Denies ETOH or illicit drug use Lives with friend Disabled (Stefani Colmenaresne CeciliaKody HOPPER) Physical Exam Vital Signs Vital Signs Date Time Temp Pulse Resp B/P (MAP) Pulse Ox O2 Delivery O2 Flow Rate FiO2 06/05/17 07:51 97.8 94 20 113/60 (77) 88 06/05/17 05:59 Nasal Cannula 4.00 06/05/17 05:45 91 Nasal Cannula 4.00 06/05/17 05:26 97.7 98 18 117/59 (78) 91 06/05/17 04:24 87 06/05/17 00:18 86 06/05/17 00:01 89 18 119/66 (83) 93 06/04/17 23:09 97.9 88 18 99/54 (69) 93 06/04/17 16:36 98.1 88 16 154/94 (114) 95 Physical Exam GENERAL: Alert and oriented SKIN: Warm and dry. HEAD: Normocephalic. EYES: No scleral icterus. No injection or drainage. NECK: Supple, trachea midline. No JVD or lymphadenopathy. CARDIOVASCULAR: Regular rate and rhythm without murmurs, gallops, or rubs. RESPIRATORY: Breath sounds equal bilaterally. No accessory muscle use. GASTROINTESTINAL: Abdomen soft, large, tenderness noted on palpation MUSCULOSKELETAL: No cyanosis, or edema. BACK: Nontender without obvious deformity. No CVA tenderness. Laboratory Laboratory Tests Test 06/04/17 17:50 06/05/17 02:48 06/05/17 05:15 White Blood Count 16.6 9.2 Red Blood Count 5.01 3.30 Hemoglobin 15.8 10.1 Hematocrit 45.6 30.4 Mean Corpuscular Volume 91.0 92.0 Mean Corpuscular Hemoglobin 31.5 30.6 Mean Corpuscular Hemoglobin Concent 34.7 33.3 Red Cell Distribution Width 15.6 15.1 Platelet Count 283 165 Mean Platelet Volume 7.7 7.2 Neutrophils (%) (Auto) 46.8 Lymphocytes (%) (Auto) 43.9 Monocytes (%) (Auto) 7.0 Eosinophils (%) (Auto) 1.3 Basophils (%) (Auto) 1.0 Neutrophils # (Auto) 7.8 Lymphocytes # (Auto) 7.3 Monocytes # (Auto) 1.2 Eosinophils # (Auto) 0.2 Basophils # (Auto) 0.2 CBC Comment AUTO DIFF AUTO DIFF Differential Total Cells Counted 100 100 Neutrophils % (Manual) 53 44 Band Neutrophils % 1 2 Lymphocytes % 40 46 Monocytes % 3 3 Eosinophils % 3 4 Neutrophils # (Manual) 9.0 4.2 Differential Comment FINAL DIFF MANUAL FINAL DIFF MANUAL Platelet Estimate NORMAL NORMAL Platelet Morphology Comment CLUMPED NORMAL Prothrombin Time 12.6 12.4 Prothromb Time International Ratio 1.2 1.2 Activated Partial Thromboplast Time 25.9 Blood Urea Nitrogen 36 38 Creatinine 3.94 4.27 Random Glucose 407 410 Total Protein 8.5 Albumin 3.8 Calcium Level 9.0 7.9 Alkaline Phosphatase 139 Aspartate Amino Transf (AST/SGOT) 42 Alanine Aminotransferase (ALT/SGPT) 62 Total Bilirubin 0.3 Sodium Level 127 126 Potassium Level 4.4 4.3 Chloride Level 90 95 Carbon Dioxide Level 27.4 20.2 Anion Gap 10 11 Estimat Glomerular Filtration Rate 16 14 Troponin I LESS THAN 0.02 LESS THAN 0.02 B-Type Natriuretic Peptide 45 Lipase 230 Basophils % 1 Hematology Comments Total Creatine Kinase 106 Urine Color YELLOW Urine Turbidity HAZY Urine pH 5.5 Urine Specific Daniel 1.022 Urine Protein 300 Urine Glucose (UA) 300 Urine Ketones NEG Urine Occult Blood NEG Urine Nitrite NEG Urine Bilirubin NEG Urine Urobilinogen 2.0 Urine Leukocyte Esterase NEG Urine RBC 1 Urine WBC 1 Urine Squamous Epithelial Cells 1 Urine Hyaline Casts 4 Urine Mucus FEW Microscopic Urinalysis Comment CATH-CULT NOT IND (Narseen Colmenares) Result Diagram: 06/05/17 0248 06/05/17 0248 Imaging Last Impressions Abdomen/Pelvis CT 06/05/17 0000 Signed Impressions: Service Date/Time: Monday, June 05, 2017 01:45 - CONCLUSION: 1. Mild diverticulosis with no inflammatory change or obstruction. 2. Prominent liver with mild hepatic steatosis. 3. Right adrenal adenoma. 4. Status post right nephrectomy. 5. Status post cholecystectomy. 6. Small anterior abdominal wall hernia. Ton Woods MD Chest X-Ray 06/04/17 1703 Signed Impressions: Service Date/Time: Sunday, June 04, 2017 17:22 - CONCLUSION: Stable cardiomegaly. No infiltrate seen. Edgar Bennett MD (Nasreen Colmenares) Assessment and Plan Problem List: (1) Acute kidney injury ICD Codes: N17.9 - Acute kidney failure, unspecified Status: Acute Plan: KONG on CKD with hx of right nephrectomy CKD from possible diabetic nephropathy vs HTN or renovascular disease 3 + Protein noted in urine KONG possible prerenal azotemia from N/V/diarrhea and diuretic use Mild SOB, no edema present Potassium WNL Plan Maintain strict I+O Continue IVF hydration Avoid nephrotoxins Will monitor BMP and UOP Labs ordered for AM (2) Hyponatremia ICD Codes: E87.1 - Hypo-osmolality and hyponatremia Plan: Continue IVF (3) Nausea & vomiting ICD Codes: R11.2 - Nausea with vomiting, unspecified Status: Acute (4) Chest pain ICD Codes: R07.9 - Chest pain Status: Acute (5) Diabetes mellitus ICD Codes: E11.9 - Diabetes mellitus Status: Chronic Plan: Maintain blood sugars between 140 mg/dl to 180 mg/dl (6) Hypertension ICD Codes: I10 - Hypertension Status: Chronic Plan: continue current treatment well controlled (7) Anemia ICD Codes: D64.9 - Anemia Status: Acute Plan: Most likely from chronic disease Anemia panel ordered (Nasreen Colmenares) Problem List: (1) Acute kidney injury ICD Codes: N17.9 - Acute kidney failure, unspecified Status: Acute Plan: KONG on CKD with hx of right nephrectomy CKD from possible diabetic nephropathy vs HTN or renovascular disease 3 + Protein noted in urine KONG possible prerenal azotemia from N/V/diarrhea and diuretic use Mild SOB, no edema present Potassium WNL Plan Maintain strict I+O Continue IVF hydration Avoid nephrotoxins Will monitor BMP and UOP Labs ordered for AM. Patient seen and examined, agree with above. Patient with chronic kidney disease and single kidney. Non Compliant and did not follow for almost a year. Some worsening Creatinine, could be KONG as above. Continue IVF and follow the urine out put and BMP. (2) Hyponatremia ICD Codes: E87.1 - Hypo-osmolality and hyponatremia Plan: Continue IVF (3) Nausea & vomiting ICD Codes: R11.2 - Nausea with vomiting, unspecified Status: Acute (4) Chest pain ICD Codes: R07.9 - Chest pain Status: Acute (5) Diabetes mellitus ICD Codes: E11.9 - Diabetes mellitus Status: Chronic Plan: Maintain blood sugars between 140 mg/dl to 180 mg/dl (6) Hypertension ICD Codes: I10 - Hypertension Status: Chronic Plan: continue current treatment well controlled (7) Anemia ICD Codes: D64.9 - Anemia Status: Acute Plan: Most likely from chronic disease Anemia panel ordered (Larry Coyle MD) Problem Qualifiers (1) Nausea & vomiting: Qualified Codes: R11.14 - Bilious vomiting (2) Chest pain: Qualified Codes: R07.9 - Chest pain, unspecified Nasreen Colmenares Jun 05, 2017 09:16 Larry Coyle MD Jun 05, 2017 17:15
[2017-06-05] MEDS: AMIODARONE 200 MG TAB PO SCH (09:17)
[2017-06-05] MEDS: FUROSEMIDE 40 MG TAB PO SCH ×2 (09:17→21:00)
[2017-06-05] MEDS: clonazePAM 1 MG TAB PO SCH ×4 (09:17→21:01)
[2017-06-05] MEDS: METOPROLOL TARTRATE 25 MG TAB PO SCH ×2 (09:17→21:00)
[2017-06-05] MEDS: LOSARTAN 50 MG TAB PO SCH (09:17)
[2017-06-05] MEDS: PANTOPRAZOLE SOD 20 MG DELAYED RELEASE TAB PO SCH (09:18)
[2017-06-05] MEDS: PREGABALIN 75 MG CAP PO SCH ×2 (09:23→21:00)
[2017-06-05] MEDS: SODIUM CHLOR 0.9% 1000 ML INJ 1,000 ML IV SCH (09:24)
[2017-06-05] MEDS: DOCUSATE SODIUM 50 MG/SENNA 8.6 MG TAB PO SCH ×2 (09:24→21:00)
[2017-06-05] MEDS ORDERED: RESP: ALBUTEROL 2.5 MG/3 ML NEB (PRN) NEB (10:30)
--- NOTE | 2017-06-05 10:33 | HHI.PR ---
Subjective Remarks Follow up chest pain. Patient reporting worsening dyspnea. States that he uses 3.5-6.5 liters of oxygen at home. He reports decreased urine output. Objective Vitals Vital Signs Date Time Temp Pulse Resp B/P (MAP) Pulse Ox O2 Delivery O2 Flow Rate FiO2 06/05/17 08:10 Nasal Cannula 4.00 06/05/17 07:51 97.8 94 20 113/60 (77) 88 06/05/17 05:59 Nasal Cannula 4.00 06/05/17 05:45 91 Nasal Cannula 4.00 06/05/17 05:26 97.7 98 18 117/59 (78) 91 06/05/17 04:24 87 06/05/17 00:18 86 06/05/17 00:01 89 18 119/66 (83) 93 06/04/17 23:09 97.9 88 18 99/54 (69) 93 06/04/17 16:36 98.1 88 16 154/94 (114) 95 I/O 06/04/17 06/04/17 06/04/17 06/05/17 06/05/17 06/05/17 07:00 15:00 23:00 07:00 15:00 23:00 Intake Total 1000 ml 240 ml Output Total 100 ml Balance 1000 ml 140 ml Intake Oral 240 ml IV Total 1000 ml Output Urine Total 100 ml # Bowel Movements 0 Result Diagram: 06/05/17 0248 06/05/17 0248 Imaging Last Impressions Abdomen/Pelvis CT 06/05/17 0000 Signed Impressions: Service Date/Time: Monday, June 05, 2017 01:45 - CONCLUSION: 1. Mild diverticulosis with no inflammatory change or obstruction. 2. Prominent liver with mild hepatic steatosis. 3. Right adrenal adenoma. 4. Status post right nephrectomy. 5. Status post cholecystectomy. 6. Small anterior abdominal wall hernia. Ton Woods MD Chest X-Ray 06/04/17 1706 Signed Impressions: Service Date/Time: Sunday, June 04, 2017 17:22 - CONCLUSION: Stable cardiomegaly. No infiltrate seen. Edgar Bennett MD Objective Remarks General: Obese male. Appears uncomfortable. Heart: Regular rate and rhythm. No murmur. Lungs: Poor air movement. Diffuse wheezing. Breathing is nonlabored. Abdomen: Soft, tender to palpation in LUQ, mildly distended. Extremities: No lower extremity edema. Psych: Alert and oriented. Procedures None Urinary Catheter: No Vascular Central Line Catheter: No A/P Assessment and Plan 1. Acute respiratory failure, COPD: Patient has had increasing oxygen requirements and decreasing oxygen saturations this morning. ABG ordered stat. Consult pulmonology. Start DuoNeb, albuterol nebulizer. Continue supplemental oxygen. Start Solu-Medrol. 2. Acute kidney injury superimposed on chronic kidney disease stage III: Appreciate nephrology recommendations. Continue IV fluids. 3. Nausea/vomiting, abdominal pain: CT of the abdomen/pelvis shows no acute changes. Consider GI consult if symptoms worsen. Patient did report black stools. Monitor H&H. Hemoccult negative in the ER. 4. Chest pain: Substernal chest pain for the past 2 weeks. Troponins negative. 5. Subtherapeutic INR: Patient stopped taking Coumadin. This has been restarted. Pharmacy consult for Coumadin management. 6. Atrial fibrillation: Continue anticoagulation with Coumadin. Continue amiodarone. 7. Hypertension: Continue amlodipine, Lasix, metoprolol, losartan. 8. Diabetes mellitus: Continue Levemir. Monitor Accu-Cheks and cover with sliding scale insulin. Glucose will likely increase secondary to steroids. 9. Hepatitis C: Follow-up as outpatient. 10. Chronic pain: Pain pump in place. 11. DVT prophylaxis: Coumadin. Discharge Planning Admit to inpatient. Transfer to medical/surgical floor with telemetry. Julien Epps MD Jun 05, 2017 10:33
[2017-06-05] MEDS: RESP: ALBUTEROL 2.5 MG/IPRATROPIUM 0.5 MG NEB (SCH) NEB ×3 (12:43→20:03)
[2017-06-05] MEDS: methylPREDNISolone SOD SUCC 40 MG/1 ML VIAL IV PUSH SCH ×2 (14:18→21:01)
[2017-06-05] MEDS ORDERED: HYDROmorphone HCL PF 1 MG/ML VIAL IV PUSH PRN (16:15)
--- NOTE | 2017-06-05 17:38 | MB ---
cc: RIMA ABARCA DATE OF CONSULTATION 06/05/17 REASON FOR CONSULTATION Chronic obstructive pulmonary disease, shortness of breath. HISTORY OF PRESENT ILLNESS Mr. Gooden is a 56-year-old male who has known history of chronic obstructive pulmonary disease, admitted with nausea, vomiting and inability to take medication at home. He as well had some increase in his shortness of breath. The patient denies history of fever, chills, cough or expectoration, however, he tells me he is chronically short of breath. He has chronic respiratory failure requiring oxygen therapy between three and six liters at home. He uses inhalers as well. He denies history of anorexia or weight loss. He is morbidly obese and was told he may have sleep apnea in the past. He does snore loudly when sleeping. PAST MEDICAL HISTORY 1. Chronic obstructive pulmonary disease 2. Chronic respiratory failure, 3. Chronic kidney disease, 4. Renal cell cancer removed in the past, 5. Coronary artery disease, 6. Previous CVA, 7. Hypertension, 8. Hyperlipidemia, 9. Diabetes mellitus, 10. Hepatitis C 11. Atrial fibrillation 12. Right nephrectomy in the past 13. Cardiac catheterization and stent placement 14. Multiple surgeries on the lower extremities. MEDICATIONS 1. Klonopin. 2. Lasix. 3. Losartan. 4. Omeprazole. 5. Hydromorphone. 6. Insulin. 7. Coumadin. 8. Flomax. 9. Norvasc. 10. Metoprolol, 11. Lyrica 12. Gemfibrozil 13. Aspirin ALLERGIES BACLOFEN MORPHINE QUININE MRI PRECAUTION because of a pacemaker FAMILY HISTORY Adopted. SOCIAL HISTORY Remote smoking history, none at present. Does not drink any alcohol. PHYSICAL EXAMINATION GENERAL: On exam, the patient is alert. VITAL SIGNS: Temperature is 98, pulse 84, respirations 16, blood pressure 154/90, oxygen saturation 96% on four liters oxygen nasal cannula. HEENT: Exam unremarkable. Eyes without icterus. NECK: Without adenopathy or thyroid enlargement. CHEST: Few scattered rhonchi at bases. CARDIAC: PMI distant. S1, S2 audible. Positive S4. ABDOMEN: Obese, lax, bowel sounds audible. EXTREMITIES: 1+ edema. LABORATORY DATA White count 9000, hemoglobin 10, hematocrit 30, platelets at 165,000. Arterial blood gas today - pH 7.36, pCO2 39 and pO2 of 59. Sodium 126, potassium 4.3, BUN 38, creatinine 4.2. IMAGING STUDIES Caesarean section 06/04 with cardiomegaly, no acute infiltrate. IMPRESSION 1. Chronic obstructive pulmonary disease 2. Chronic respiratory failure 3. Coronary artery disease 4. Diabetes mellitus. 5. Hypertension 6. Hyperlipidemia. PLAN The patient's hypoxia is all likelihood multifactorial being related to underlying COPD and he has known chronic respiratory failure, on oxygen therapy at home at a fairly high flow. He as well has underlying cardiac disease and kidney disease with serum creatinine level over 4. All may contribute to element of fluid overload. At this point, would maintain on his nebulized Ipratropium and albuterol. She has been started on Solu-Medrol and appropriately so, which should be continued for a few days. We will check his pulmonary function, check his oxygenation. Attempt at diuresis should be undertaken. We will follow the patient's course along with you and, depending on progress, proceed further. I do thank you for asking me to partake in Mr. Gooden's care. Rima Abarca MD WWW/ /5:00 PM /5:14 PM
[2017-06-05] MEDS: WARFARIN SOD 7.5 MG TAB PO SCH (18:21)
--- NOTE | 2017-06-05 18:46 | EKG ---
Date Performed: 06/05/2017 Time Performed: 00:53:51 PTAGE: 56 years EKG: JUNCTIONAL RHYTHM INTRAVENTRICULAR CONDUCTION DELAY INFERIOR MYOCARDIAL INFARCTION ABNORMAL ECG Since the prior tracing, there has been no significant change PREVIOUS TRACING : 06/04/2017 17.54 DOCTOR: Kathryn Chavarria Interpretating Date/Time 06/05/2017 18:44:02
--- NOTE | 2017-06-05 18:46 | EKG ---
Date Performed: 06/04/2017 Time Performed: 17:54:29 PTAGE: 56 years EKG: Sinus rhythm WITH FREQUENT VENTRICULAR PREMATURE COMPLEXES INTRAVENTRICULAR CONDUCTION DELAY POSSIBLE ANTERIOR MY OCARDIAL INFARCTION INFERIOR MYOCARDIAL INFARCTION ABNORMAL ECG Since the prior tracing, there has be en no significant change PREVIOUS TRACING : 10/27/2016 08.57 DOCTOR: Kathryn Chavarria Interpretating Date/Time 06/05/2017 18:43:53
--- NOTE | 2017-06-05 18:47 | EKG ---
Date Performed: 06/05/2017 Time Performed: 06:27:48 PTAGE: 56 years EKG: JUNCTIONAL RHYTHM WITH OCCASIONAL VENTRICULAR PREMATURE COMPLEXES INTRAVENTRICULAR CONDUCTI ON DELAY POSSIBLE ANTERIOR MYOCARDIAL INFARCTION INFERIOR MYOCARDIAL INFARCTION ABNORMAL ECG Since e prior tracing, there has been no significant change PREVIOUS TRACING : 06/05/2017 06.27 DOCTOR: Kathryn Chavarria Interpretating Date/Time 06/05/2017 18:44:14
--- NOTE | 2017-06-05 18:50 | RADRPT ---
EXAM DATE/TIME: 06/05/2017 18:26 [facility] COMPARISON: CHEST SINGLE AP, June 04, 2017, 17:22. INDICATIONS : Chest pain, shortness of breath. MEDICAL HISTORY : Hypertension. Diabetes mellitus type II. Chronic obstructive pulmonary disease. SURGICAL HISTORY : Pacemaker. Appendectomy. Cholecystectomy. Nephrectomy, right. ENCOUNTER: Subsequent ACUITY: 2 days PAIN SCORE: 6/10 LOCATION: Left chest FINDINGS: Stable single lead AICD device. Redemonstration of linear parenchymal opacities at the left lung base and more subtle linear opacities in the right lower lung zone. No new focal pleural or parenchymal o pacities. Cardiomediastinal contours are stable. Remainder of the exam is unchanged. CONCLUSION: 1. No acute abnormality or significant interval change. Emmanuel Mcclure MD on June 05, 2017 at 18:48 Board Certified Radiologist. This report was verified electronically.
[2017-06-05] MEDS: HYDROmorphone HCL PF 2 MG/ML VIAL IV PRN (19:29)
[2017-06-05 19:33] LABS: TROPONIN I LESS THAN 0.02 NG/ML (0.02-0.05)
[2017-06-05] MEDS: TAMSULOSIN HCL 0.4 MG CAP PO SCH (21:49)
[2017-06-06] VITALS (11 sets, daily range): BP systolic 110–123; BP diastolic 58–70; PULSE 73–94; RESP 16–20; TEMP 98.2–99; O2SAT 88–96
[2017-06-06] MEDS ORDERED: INSULIN HUMAN REGULAR 1,000 UNITS/10 ML VIAL IV PUSH ONE ×3 (00:30→03:30)
[2017-06-06] MEDS: SODIUM CHLOR 0.9% 1000 ML INJ 1,000 ML IV SCH ×2 (00:39→19:00)
[2017-06-06] MEDS: HYDROmorphone HCL PF 2 MG/ML VIAL IV PRN ×5 (01:49→21:46)
[2017-06-06] MEDS: ONDANSETRON HCL 4 MG/2 ML VIAL IVP PRN ×3 (02:05→15:12)
[2017-06-06] MEDS: HEPARIN SODIUM - SQ 10,000 UNITS/ML VIAL SQ SCH ×3 (05:34→21:27)
[2017-06-06] MEDS: methylPREDNISolone SOD SUCC 40 MG/1 ML VIAL IV PUSH SCH (05:34)
[2017-06-06] MEDS: GEMFIBROZIL 600 MG TAB PO SCH ×2 (05:34→16:00)
[2017-06-06] MEDS: INSULIN ASPART SUPPLEMENTAL SCALE SQ SCH ×4 (08:00→21:46)
[2017-06-06] MEDS: clonazePAM 1 MG TAB PO SCH ×4 (08:33→21:26)
[2017-06-06 08:37] LABS: INTERNATIONAL NORMALIZED RATIO 1.4 RATIO
[2017-06-06] MEDS: DOCUSATE SODIUM 50 MG/SENNA 8.6 MG TAB PO SCH (08:39)
[2017-06-06] MEDS: AMIODARONE 200 MG TAB PO SCH (08:39)
[2017-06-06] MEDS: LOSARTAN 50 MG TAB PO SCH (08:39)
[2017-06-06] MEDS: PREGABALIN 75 MG CAP PO SCH ×2 (08:39→21:26)
[2017-06-06] MEDS: METOPROLOL TARTRATE 25 MG TAB PO SCH ×2 (08:39→21:26)
[2017-06-06] MEDS: PANTOPRAZOLE SOD 20 MG DELAYED RELEASE TAB PO SCH (08:39)
[2017-06-06] MEDS: FUROSEMIDE 40 MG TAB PO SCH ×2 (08:40→21:26)
[2017-06-06] MEDS: ASPIRIN 81 MG CHEW TAB PO SCH (08:40)
[2017-06-06] MEDS: SODIUM CHLORIDE 0.9% FLUSH 10 ML FLUSH IV FLUSH SCH ×2 (08:45→21:27)
[2017-06-06] MEDS: RESP: ALBUTEROL 2.5 MG/IPRATROPIUM 0.5 MG NEB (SCH) NEB ×4 (08:56→20:31)
[2017-06-06] MEDS: INSULIN DETEMIR 100 UNITS/ML VIAL SQ SCH ×2 (09:02→21:46)
[2017-06-06 09:08] LABS: AUTOMATED NEUTROPHIL # 7.7 TH/MM3 (1.8-7.7); BASOPHIL % 0.3 % (0.0-2.0); HEMATOCRIT 39.6 % (39.0-51.0); HEMOGLOBIN 13.6 GM/DL (13.0-17.0); LYMPH % 26.3 % (9.0-44.0); LYMPHOCYTE # 2.8 TH/MM3 (1.0-4.8); MEAN CELL VOLUME 90.6 FL (80.0-100.0); MEAN CORPUSCULAR HEMOGLOBIN 31.1 PG (27.0-34.0); MEAN CORPUSCULAR HGB CONC 34.3 % (32.0-36.0); MEAN PLATELET VOLUME 7.9 FL (7.0-11.0); MONO % 1.8 % (0.0-8.0); MONOCYTE # 0.2 TH/MM3 (0-0.9); NEUT % 71.6 % (16.0-70.0); PLATELET COUNT 200 TH/MM3 (150-450); RED BLOOD COUNT 4.37 MIL/MM3 (4.50-5.90); RED CELL DISTRIBUTION WIDTH 15.2 % (11.6-17.2); WHITE BLOOD COUNT 10.7 TH/MM3 (4.0-11.0)
--- NOTE | 2017-06-06 09:13 | HHI.PR ---
Subjective Remarks ALERT LERSS SOB Objective GENERAL: SKIN: Warm and dry. HEAD: Atraumatic. Normocephalic. EYES: Pupils equal and round. No scleral icterus. No injection or drainage. ENT: No nasal bleeding or discharge. Mucous membranes pink and moist. NECK: Trachea midline. No JVD. CARDIOVASCULAR: Regular rate and rhythm. RESPIRATORY: No accessory muscle use. Clear to auscultation. Breath sounds equal bilaterally. GASTROINTESTINAL: Abdomen soft, non-tender, nondistended. Hepatic and splenic margins not palpable. MUSCULOSKELETAL: Extremities without clubbing, cyanosis, or edema. No obvious deformities. NEUROLOGICAL: Awake and alert. No obvious cranial nerve deficits. Motor grossly within normal limits. Five out of 5 muscle strength in the arms and legs. Normal speech. PSYCHIATRIC: Appropriate mood and affect; insight and judgment normal. Vital Signs Date Time Temp Pulse Resp B/P (MAP) Pulse Ox O2 Delivery O2 Flow Rate FiO2 06/06/17 08:57 Nasal Cannula 3.00 06/06/17 08:00 98.2 79 20 123/70 (87) 88 06/06/17 04:00 98.9 78 16 114/59 (77) 92 06/06/17 03:52 78 06/06/17 00:00 98.3 94 20 111/58 (75) 92 06/06/17 00:00 Nasal Cannula 3.00 06/05/17 23:40 89 06/05/17 20:03 92 Nasal Cannula 4.00 06/05/17 20:00 97.8 84 20 124/62 (82) 95 06/05/17 20:00 Nasal Cannula 3.00 06/05/17 19:42 79 06/05/17 16:00 98.1 72 22 114/66 (82) 90 06/05/17 16:00 70 06/05/17 13:40 72 06/05/17 12:46 96 Nasal Cannula 4.00 06/05/17 11:23 98.7 74 20 90/54 (66) 88 I/O 06/05/17 06/05/17 06/05/17 06/06/17 06/06/17 06/06/17 07:00 15:00 23:00 07:00 15:00 23:00 Intake Total 240 ml 750 ml 1480 ml Output Total 100 ml 200 ml Balance 140 ml 550 ml 1480 ml Intake Oral 240 ml 480 ml IV Total 750 ml 1000 ml Output Urine Total 100 ml 200 ml # Voids 2 # Bowel Movements 0 0 Result Diagram: 06/06/17 0526 06/05/172039 Assessment and Plan Assessment and Plan COPD EXACERBATION DM HTN ?PETRONA, IMPROVED O2 NEEDED BRONCHODILATOR THERAPY NPSG POST D/C Rima Abarca MD Jun 06, 2017 09:13
[2017-06-06] MEDS ORDERED: GLUCAGON 1 MG/ML VIAL OTHER PRN (10:45)
[2017-06-06] MEDS ORDERED: DEXTROSE 50% IN WATER 50 ML VIAL(D50) IV PUSH PRN (10:45)
--- NOTE | 2017-06-06 10:55 | HHI.PR ---
Subjective Remarks Follow-up COPD exacerbation/respiratory failure/diabetes 2 uncontrolled 06/06/17-patient seen and examined, port improvement of shortness of breath. Denies any dry heaves this morning as patient able to tolerate by mouth. Blood glucose elevated. Objective Vitals Vital Signs Date Time Temp Pulse Resp B/P (MAP) Pulse Ox O2 Delivery O2 Flow Rate FiO2 06/06/17 08:57 Nasal Cannula 3.00 06/06/17 08:00 98.2 79 20 123/70 (87) 88 06/06/17 04:00 98.9 78 16 114/59 (77) 92 06/06/17 03:52 78 06/06/17 00:00 98.3 94 20 111/58 (75) 92 06/06/17 00:00 Nasal Cannula 3.00 06/05/17 23:40 89 06/05/17 20:03 92 Nasal Cannula 4.00 06/05/17 20:00 97.8 84 20 124/62 (82) 95 06/05/17 20:00 Nasal Cannula 3.00 06/05/17 19:42 79 06/05/17 16:00 98.1 72 22 114/66 (82) 90 06/05/17 16:00 70 06/05/17 13:40 72 06/05/17 12:46 96 Nasal Cannula 4.00 06/05/17 11:23 98.7 74 20 90/54 (66) 88 I/O 06/05/17 06/05/17 06/05/17 06/06/17 06/06/17 06/06/17 07:00 15:00 23:00 07:00 15:00 23:00 Intake Total 240 ml 750 ml 1480 ml Output Total 100 ml 200 ml Balance 140 ml 550 ml 1480 ml Intake Oral 240 ml 480 ml IV Total 750 ml 1000 ml Output Urine Total 100 ml 200 ml # Voids 2 # Bowel Movements 0 0 Result Diagram: 06/06/1752506/05/172039 Imaging Last Impressions Chest X-Ray 06/05/17 0000 Signed Impressions: Service Date/Time: Monday, June 05, 2017 18:26 - CONCLUSION: 1. No acute abnormality or significant interval change. Emmanuel Mcclure MD Abdomen/Pelvis CT 06/05/17 0000 Signed Impressions: Service Date/Time: Monday, June 05, 2017 01:45 - CONCLUSION: 1. Mild diverticulosis with no inflammatory change or obstruction. 2. Prominent liver with mild hepatic steatosis. 3. Right adrenal adenoma. 4. Status post right nephrectomy. 5. Status post cholecystectomy. 6. Small anterior abdominal wall hernia. Ton Woods MD Objective Remarks GENERAL: NAD SKIN: Warm and dry. HEAD: Normocephalic. EYES: No scleral icterus. No injection or drainage. NECK: Supple, trachea midline. No JVD or lymphadenopathy. CARDIOVASCULAR: Regular rate and rhythm without murmurs, gallops, or rubs. RESPIRATORY: Breath sounds decrease bilaterally. No accessory muscle use.+exp wheezings GASTROINTESTINAL: Abdomen soft, non-tender, nondistended. MUSCULOSKELETAL: No cyanosis, or edema. BACK: Nontender without obvious deformity. No CVA tenderness. Procedures None A/P Problem List: (1) Acute renal failure superimposed on stage 3 chronic kidney disease ICD Code: N17.9 - Acute kidney failure, unspecified; N18.3 - Chronic kidney disease, stage 3 (moderate) (2) Diabetes type 2, uncontrolled ICD Code: E11.65 - Type 2 diabetes mellitus with hyperglycemia (3) Respiratory failure with hypoxia ICD Code: J96.91 - Respiratory failure, unspecified with hypoxia (4) COPD with exacerbation ICD Code: J44.1 - Chronic obstructive pulmonary disease with (acute) exacerbation Assessment and Plan 56-year-old man with 1. Acute respiratory failure, COPD with exacerbation: Discontinue Solu-Medrol and starts prednisone by mouth 20 mg twice a day and add; and Spiriva and continue with RUPINDER Azithromycin 1 at the 50 mg daily Patient input from pulmonary medicine Maintain oxygen saturation above 92% 2. Acute kidney injury superimposed on chronic kidney disease stage III: Appreciate nephrology recommendations. Monitor BUN/creatinine. Continue IV fluids. 3. Nausea/vomiting, abdominal pain: CT of the abdomen/pelvis shows no acute changes. Start Reglan 4. Chest pain: Resolved Substernal chest pain for the past 2 weeks. Troponin negative. 5. Subtherapeutic INR: Continue Coumadin and monitor INR 6. Atrial fibrillation: Continue anticoagulation with Coumadin. Continue amiodarone. 7. Hypertension: Continue amlodipine, Lasix, metoprolol, losartan. 8. Diabetes mellitus-uncontrolled Continue Levemir 50units Q12H, start Aspart 7units TID and change to Medium ISS 9. Hepatitis C: Follow-up as outpatient. 10. Chronic pain: Pain pump in place. 11. DVT prophylaxis: Coumadin. Franky Cortez MD Jun 06, 2017 10:55
[2017-06-06] MEDS: METOCLOPRAMIDE HCL 10 MG TAB PO SCH ×3 (12:13→21:26)
[2017-06-06] MEDS: INSULIN ASPART 1,000 UNITS/10 ML VIAL SQ SCH ×2 (12:14→16:56)
[2017-06-06 14:05] LABS: ALBUMIN 3.5 GM/DL (3.4-5.0); BICARBONATE 19.2 MEQ/L (21.0-32.0); CHLORIDE 96 MEQ/L (98-107); CREATININE 3.76 MG/DL (0.60-1.30); FERRITIN 67 NG/ML (26-388); GLOMERULAR FILTRATION RATE 17 ML/MIN (>89); MAGNESIUM 2.2 MG/DL (1.5-2.5); SODIUM (NA) 127 MEQ/L (136-145)
[2017-06-06 14:12] LABS: % SATURATION IRON PROFILE 15.7 % (20-50); TOTAL IRON BINDING CAPACITY 413 MCG/DL (250-450)
[2017-06-06 14:13] LABS: ALKALINE PHOSPHATASE 122 U/L (45-117); ALT (GPT) 58 U/L (12-78); AST (GOT) 28 U/L (15-37); BLOOD UREA NITROGEN 44 MG/DL (7-18); TOTAL BILIRUBIN ADULT 0.2 MG/DL (0.2-1.0)
[2017-06-06 14:14] LABS: IRON (FE) 65 MCG/DL (65-175)
[2017-06-06 14:17] LABS: GLUCOSE,RANDOM 544 MG/DL (74-106)
[2017-06-06] MEDS: WARFARIN SOD 7.5 MG TAB PO SCH (16:00)
[2017-06-06] MEDS ORDERED: INSULIN DETEMIR 100 UNITS/ML VIAL SQ ONE (16:30)
[2017-06-06] MEDS: MAGNESIUM HYDROXIDE SUSP 30 ML CUP PO PRN (17:28)
--- NOTE | 2017-06-06 19:13 | HHI.NPPN ---
Subjective General Problems: Anemia, Edema, Hypertension Renal Failure: Chronic, Acute, Stage IV History of Present Illness 56-year-old male with a past medical history significant for atrial fibrillation anticoagulated on Coumadin, chronic kidney disease, left nephrectomy, CAD, hypertension, hyperlipidemia, diabetes mellitus, COPD, hepatitis C, chronic pain and history of multiple CVA;. He presents to the emergency department after being referred by his PCP for evaluation of chronic nausea/vomiting/diarrhea and chest pain. Additional Remarks Patient is alert, no SOB, has slight increase leg swelling, not in distress. Review of Systems General Constitutional: Fatigue Cardiovascular Cardiac: DAVIS Gastrointestinal Gastrointestinal: Abdominal Pain, Nausea & Vomiting Objective Data Data 06/06/17 06/07/17 19:00 07:00 Intake Total 960 ml Output Total 1325 ml Balance -365 ml Intake Oral 960 ml Output Urine Total 1325 ml # Bowel Movements 0 Vital Signs Date Time Temp Pulse Resp B/P (MAP) Pulse Ox O2 Delivery O2 Flow Rate FiO2 06/06/17 16:00 98.7 78 20 113/64 (80) 91 06/06/17 12:00 98.5 84 20 110/63 (79) 94 06/06/17 08:57 Nasal Cannula 3.00 06/06/17 08:00 96 Nasal Cannula 3.00 06/06/17 08:00 98.2 79 20 123/70 (87) 88 06/06/17 04:00 98.9 78 16 114/59 (77) 92 06/06/17 03:52 78 06/06/17 00:00 98.3 94 20 111/58 (75) 92 06/06/17 00:00 Nasal Cannula 3.00 06/05/17 23:40 89 06/05/17 20:03 92 Nasal Cannula 4.00 06/05/17 20:00 97.8 84 20 124/62 (82) 95 06/05/17 20:00 Nasal Cannula 3.00 06/05/17 19:42 79 -: 06/06/17 0526 06/06/17 1252 Physical Exam General Appearance: No Acute Distress, Comfortable Eyes Eye Exam: Pupils Equal Throat Throat Exam: Oral Mucosa [place] & Moist Neck Neck Exam: Neck Supple Pulmonary Resp Exam: Breath Sounds Equal, No Distress, Rhonchi, Decreased Bases, Diminished Breath Sounds Cardiology CV Exam: Regular, Normal Sinus Rhythm Gastrointestinal/Abdomen GI Exam: Soft, Non-Tender, Bowel Sounds Present, Distended Extremeties Extremities Exam: Trace Edema Neurologic Neuro Exam: Alert, Awake, Oriented Psychiatric Psych Exam: Appropriate Responses Assessment/Plan Problem List: (1) Acute kidney injury ICD Codes: N17.9 - Acute kidney failure, unspecified Status: Acute Plan: KONG on CKD with hx of right nephrectomy CKD from possible diabetic nephropathy vs HTN or renovascular disease 3 + Protein noted in urine KONG possible prerenal azotemia from N/V/diarrhea and diuretic use Mild SOB, no edema present Potassium WNL Plan Maintain strict I+O Continue IVF hydration Avoid nephrotoxins Will monitor BMP and UOP Patient with chronic kidney disease and single kidney. Non Compliant and did not follow for almost a year. Some worsening Creatinine, could be KONG as above. Continue IVF and follow the urine out put and BMP. Creatinine is slightly better. K is 5.7, will give Kayexalate. (2) Hyponatremia ICD Codes: E87.1 - Hypo-osmolality and hyponatremia Plan: Continue IVF (3) Nausea & vomiting ICD Codes: R11.2 - Nausea with vomiting, unspecified Status: Acute (4) Chest pain ICD Codes: R07.9 - Chest pain Status: Acute (5) Diabetes mellitus ICD Codes: E11.9 - Diabetes mellitus Status: Chronic Plan: Maintain blood sugars between 140 mg/dl to 180 mg/dl (6) Hypertension ICD Codes: I10 - Hypertension Status: Chronic Plan: continue current treatment well controlled (7) Anemia ICD Codes: D64.9 - Anemia Status: Acute Plan: Most likely from chronic disease Anemia panel ordered Problem Qualifiers (1) Nausea & vomiting: Qualified Codes: R11.14 - Bilious vomiting (2) Chest pain: Qualified Codes: R07.9 - Chest pain, unspecified Larry Coyle MD Jun 06, 2017 19:13
[2017-06-06] MEDS ORDERED: SODIUM POLYSTYRENE SULFONATE SUSP 15 GM/60 ML CUP PO ONE (19:15)
[2017-06-06] MEDS: predniSONE 20 MG TAB PO SCH (21:26)
[2017-06-06] MEDS: DOCUSATE SODIUM 100 MG CAP PO SCH (21:26)
[2017-06-06] MEDS: TAMSULOSIN HCL 0.4 MG CAP PO SCH (21:26)
[2017-06-06] MEDS: BUDESONIDE-FORMOTEROL 160/4.5 MCG INHALER INH SCH (21:27)
[2017-06-07] VITALS (11 sets, daily range): BP systolic 101–121; BP diastolic 55–85; PULSE 74–151; RESP 18–22; TEMP 97.8–98.8; O2SAT 91–95
[2017-06-07] MEDS: HYDROmorphone HCL PF 2 MG/ML VIAL IV PRN ×5 (02:50→21:54)
[2017-06-07] MEDS: GEMFIBROZIL 600 MG TAB PO SCH ×2 (05:55→17:39)
[2017-06-07] MEDS: MAGNESIUM HYDROXIDE SUSP 30 ML CUP PO PRN ×2 (05:55→17:40)
[2017-06-07] MEDS: METOCLOPRAMIDE HCL 10 MG TAB PO SCH ×4 (05:55→21:53)
[2017-06-07] MEDS: HEPARIN SODIUM - SQ 10,000 UNITS/ML VIAL SQ SCH ×3 (05:55→21:54)
[2017-06-07] MEDS: SODIUM CHLOR 0.9% 1000 ML INJ 1,000 ML IV SCH (05:56)
[2017-06-07] MEDS: ONDANSETRON HCL 4 MG/2 ML VIAL IVP PRN ×3 (07:11→21:54)
[2017-06-07 08:27] LABS: AUTOMATED NEUTROPHIL # 9.6 TH/MM3 (1.8-7.7); BASOPHIL % 0.2 % (0.0-2.0); HEMOGLOBIN 13.8 GM/DL (13.0-17.0); LYMPH % 28.9 % (9.0-44.0); LYMPHOCYTE # 4.1 TH/MM3 (1.0-4.8); MEAN CELL VOLUME 90.8 FL (80.0-100.0); MEAN CORPUSCULAR HEMOGLOBIN 30.6 PG (27.0-34.0); MEAN CORPUSCULAR HGB CONC 33.7 % (32.0-36.0); MEAN PLATELET VOLUME 7.4 FL (7.0-11.0); MONO % 3.2 % (0.0-8.0); MONOCYTE # 0.5 TH/MM3 (0-0.9); NEUT % 67.7 % (16.0-70.0); PLATELET COUNT 247 TH/MM3 (150-450); RED BLOOD COUNT 4.51 MIL/MM3 (4.50-5.90); RED CELL DISTRIBUTION WIDTH 15.5 % (11.6-17.2); WHITE BLOOD COUNT 14.2 TH/MM3 (4.0-11.0)
[2017-06-07 08:38] LABS: INTERNATIONAL NORMALIZED RATIO 1.9 RATIO
[2017-06-07] MEDS: INSULIN ASPART 1,000 UNITS/10 ML VIAL SQ SCH ×3 (08:48→17:39)
[2017-06-07] MEDS: INSULIN ASPART SUPPLEMENTAL SCALE SQ SCH ×4 (08:49→21:00)
[2017-06-07] MEDS: INSULIN DETEMIR 100 UNITS/ML VIAL SQ SCH (08:49)
[2017-06-07 08:51] LABS: BICARBONATE 25.2 MEQ/L (21.0-32.0); CALCIUM 8.5 MG/DL (8.5-10.1); CREATININE 3.57 MG/DL (0.60-1.30)
[2017-06-07] MEDS: predniSONE 20 MG TAB PO SCH ×2 (08:51→21:53)
[2017-06-07] MEDS: FUROSEMIDE 40 MG TAB PO SCH ×2 (08:51→21:53)
[2017-06-07] MEDS: AZITHROMYCIN 250 MG TAB PO SCH (08:51)
[2017-06-07] MEDS: ASPIRIN 81 MG CHEW TAB PO SCH (08:52)
[2017-06-07] MEDS: PANTOPRAZOLE SOD 20 MG DELAYED RELEASE TAB PO SCH (08:52)
[2017-06-07] MEDS: AMIODARONE 200 MG TAB PO SCH (08:52)
[2017-06-07] MEDS: PREGABALIN 75 MG CAP PO SCH ×2 (08:52→21:54)
[2017-06-07] MEDS: METOPROLOL TARTRATE 25 MG TAB PO SCH ×2 (08:52→21:53)
[2017-06-07] MEDS: DOCUSATE SODIUM 100 MG CAP PO SCH ×2 (08:52→21:53)
[2017-06-07] MEDS: clonazePAM 1 MG TAB PO SCH ×4 (08:52→21:53)
[2017-06-07] MEDS: BUDESONIDE-FORMOTEROL 160/4.5 MCG INHALER INH SCH ×2 (08:53→21:55)
[2017-06-07] MEDS: SODIUM CHLORIDE 0.9% FLUSH 10 ML FLUSH IV FLUSH SCH ×2 (08:53→21:55)
[2017-06-07] MEDS: TIOTROPIUM BROMIDE 18 MCG INH INH SCH (09:04)
[2017-06-07] MEDS: LOSARTAN 50 MG TAB PO SCH (09:04)
[2017-06-07] MEDS: RESP: ALBUTEROL 2.5 MG/IPRATROPIUM 0.5 MG NEB (SCH) NEB ×4 (09:19→20:33)
--- NOTE | 2017-06-07 10:25 | HHI.PR ---
Subjective Remarks Follow-up COPD exacerbation/respiratory failure/diabetes 2 uncontrolled 06/06/17-patient seen and examined, port improvement of shortness of breath. Denies any dry heaves this morning as patient able to tolerate by mouth. Blood glucose elevated. 06/07/17-patient seen and examined, and left lower quadrant pain. Some mild shortness of breath. Renal indices still up. Blood glucose improving however still elevated Objective Vitals Vital Signs Date Time Temp Pulse Resp B/P (MAP) Pulse Ox O2 Delivery O2 Flow Rate FiO2 06/07/17 09:21 94 Nasal Cannula 3.00 06/07/17 08:00 97.9 75 20 121/82 (95) 93 06/07/17 08:00 76 06/07/17 08:00 Nasal Cannula 3.00 06/07/17 04:34 98.2 87 18 116/61 (79) 94 06/07/17 04:00 Nasal Cannula 3.00 Humidified 06/07/17 03:52 75 06/07/17 02:43 20 06/07/17 00:00 Nasal Cannula 3.00 06/06/17 23:49 73 06/06/17 23:17 98.2 85 19 113/63 (80) 93 06/06/17 20:42 96 Nasal Cannula 3.00 06/06/17 20:00 Nasal Cannula 3.00 06/06/17 19:30 85 06/06/17 19:00 99.0 87 17 113/64 (80) 95 06/06/17 16:00 98.7 78 20 113/64 (80) 91 06/06/17 12:00 98.5 84 20 110/63 (79) 94 I/O 06/06/17 06/06/17 06/06/17 06/07/17 06/07/17 06/07/17 07:00 15:00 23:00 07:00 15:00 23:00 Intake Total 1480 ml 1960 ml 1720 ml Output Total 600 ml 725 ml 1375 ml Balance 1480 ml -600 ml 1235 ml 345 ml Intake Oral 480 ml 960 ml 720 ml IV Total 1000 ml 1000 ml 1000 ml Output Urine Total 600 ml 725 ml 1375 ml # Voids 2 # Bowel Movements 0 0 Result Diagram: 06/07/17 0755 06/07/17 0755 Imaging Last Impressions Chest X-Ray 06/05/17 0000 Signed Impressions: Service Date/Time: Monday, June 05, 2017 18:26 - CONCLUSION: 1. No acute abnormality or significant interval change. Emmanuel Mcclure MD Abdomen/Pelvis CT 06/05/17 0000 Signed Impressions: Service Date/Time: Monday, June 05, 2017 01:45 - CONCLUSION: 1. Mild diverticulosis with no inflammatory change or obstruction. 2. Prominent liver with mild hepatic steatosis. 3. Right adrenal adenoma. 4. Status post right nephrectomy. 5. Status post cholecystectomy. 6. Small anterior abdominal wall hernia. Ton Woods MD Objective Remarks GENERAL: NAD SKIN: Warm and dry. HEAD: Normocephalic. EYES: No scleral icterus. No injection or drainage. NECK: Supple, trachea midline. No JVD or lymphadenopathy. CARDIOVASCULAR: Regular rate and rhythm without murmurs, gallops, or rubs. RESPIRATORY: Breath sounds decrease bilaterally. No accessory muscle use.+exp wheezings GASTROINTESTINAL: Abdomen soft, non-tender, nondistended. MUSCULOSKELETAL: No cyanosis, or edema. BACK: Nontender without obvious deformity. No CVA tenderness. Procedures None A/P Problem List: (1) Acute renal failure superimposed on stage 3 chronic kidney disease ICD Code: N17.9 - Acute kidney failure, unspecified; N18.3 - Chronic kidney disease, stage 3 (moderate) (2) Diabetes type 2, uncontrolled ICD Code: E11.65 - Type 2 diabetes mellitus with hyperglycemia (3) Respiratory failure with hypoxia ICD Code: J96.91 - Respiratory failure, unspecified with hypoxia (4) COPD with exacerbation ICD Code: J44.1 - Chronic obstructive pulmonary disease with (acute) exacerbation Assessment and Plan 56-year-old man with 1. Acute respiratory failure, COPD with exacerbation: s/p Solu-Medrol and continue prednisone by mouth 20 mg twice a day and Symbicort, Spiriva and RUPINDER Azithromycin 250 mg daily Patient input from pulmonary medicine Maintain oxygen saturation above 92% 2. Acute kidney injury superimposed on chronic kidney disease stage III: Appreciate nephrology recommendations. Monitor BUN/creatinine. Continue IV fluids however increase the rate to 100ml/hr. 3. Nausea/vomiting, abdominal pain: Improving CT of the abdomen/pelvis shows no acute changes. continue Reglan 4. Chest pain: Resolved Substernal chest pain for the past 2 weeks. Troponin negative. 5. Subtherapeutic INR: Continue Coumadin and monitor INR 6. Atrial fibrillation: Continue anticoagulation with Coumadin. Continue amiodarone. 7. Hypertension: Continue amlodipine, Lasix, metoprolol, losartan. 8. Diabetes mellitus-uncontrolled Increase Levemir to 55units Q12H, continue Aspart 7units TID and Medium ISS 9. Hepatitis C: Follow-up as outpatient. 10. Chronic pain: Pain pump in place. 11. Hyperkalemia: Give Kayexalate 1 now and monitor 12. DVT prophylaxis: Coumadin. Franky Cortez MD Jun 07, 2017 10:25
--- NOTE | 2017-06-07 10:27 | HHI.FF ---
Face to Face Verification Diagnosis: (1) Diabetes type 2, uncontrolled (2) COPD with exacerbation (3) Acute renal failure superimposed on stage 3 chronic kidney disease (4) Chest pain Physical Therapy Order: Evaluate and Treat Home Health Nursing Order: Signs/symptoms of disease process I have seen patient Teodoro Gooden on 06/07/17. My clinical findings support the need for the requested home health care services because: Deconditioned w/ increased weakness I certify that my clinical findings support that this patient is homebound because: Poor cardiac reserve Frakny Cortez MD Jun 07, 2017 10:27
[2017-06-07] MEDS ORDERED: SODIUM CHLOR 0.9% 1000 ML INJ 1,000 ML IV SCH (11:00)
[2017-06-07] MEDS ORDERED: SODIUM POLYSTYRENE SULFONATE SUSP 15 GM/60 ML CUP PO ONE (11:15)
[2017-06-07] MEDS ORDERED: INSULIN DETEMIR 100 UNITS/ML VIAL SQ ONE (11:15)
--- NOTE | 2017-06-07 15:44 | HHI.NPPN ---
Subjective General Problems: Anemia, Edema, Hypertension Renal Failure: Chronic, Acute, Stage IV History of Present Illness 56-year-old male with a past medical history significant for atrial fibrillation anticoagulated on Coumadin, chronic kidney disease, left nephrectomy, CAD, hypertension, hyperlipidemia, diabetes mellitus, COPD, hepatitis C, chronic pain and history of multiple CVA;. He presents to the emergency department after being referred by his PCP for evaluation of chronic nausea/vomiting/diarrhea and chest pain. Additional Remarks Patient is alert, no SOB, has nausea, started eating better. Review of Systems General Constitutional: Fatigue Cardiovascular Cardiac: DAVIS Gastrointestinal Gastrointestinal: Abdominal Pain, Nausea & Vomiting Objective Data Data Vital Signs Date Time Temp Pulse Resp B/P (MAP) Pulse Ox O2 Delivery O2 Flow Rate FiO2 06/07/17 12:00 98.5 87 22 120/85 (97) 93 06/07/17 12:00 75 06/07/17 09:21 94 Nasal Cannula 3.00 06/07/17 08:00 97.9 75 20 121/82 (95) 93 06/07/17 08:00 76 06/07/17 08:00 Nasal Cannula 3.00 06/07/17 04:34 98.2 87 18 116/61 (79) 94 06/07/17 04:00 Nasal Cannula 3.00 Humidified 06/07/17 03:52 75 06/07/17 02:43 20 06/07/17 00:00 Nasal Cannula 3.00 06/06/17 23:49 73 06/06/17 23:17 98.2 85 19 113/63 (80) 93 06/06/17 20:42 96 Nasal Cannula 3.00 06/06/17 20:00 Nasal Cannula 3.00 06/06/17 19:30 85 06/06/17 19:00 99.0 87 17 113/64 (80) 95 06/06/17 16:00 98.7 78 20 113/64 (80) 91 -: 06/07/17 0755 06/07/17 0755 Physical Exam General Appearance: No Acute Distress, Comfortable Eyes Eye Exam: Pupils Equal Throat Throat Exam: Oral Mucosa [place] & Moist Neck Neck Exam: Neck Supple Pulmonary Resp Exam: Breath Sounds Equal, No Distress, Rhonchi, Decreased Bases, Diminished Breath Sounds Cardiology CV Exam: Regular, Normal Sinus Rhythm Gastrointestinal/Abdomen GI Exam: Soft, Non-Tender, Bowel Sounds Present, Distended Extremeties Extremities Exam: Trace Edema Neurologic Neuro Exam: Alert, Awake, Oriented Psychiatric Psych Exam: Appropriate Responses Assessment/Plan Problem List: (1) Acute kidney injury ICD Codes: N17.9 - Acute kidney failure, unspecified Status: Acute Plan: KONG on CKD with hx of right nephrectomy CKD from possible diabetic nephropathy vs HTN or renovascular disease 3 + Protein noted in urine KONG possible prerenal azotemia from N/V/diarrhea and diuretic use Mild SOB, no edema present Potassium WNL Plan Maintain strict I+O Continue IVF hydration Avoid nephrotoxins Will monitor BMP and UOP Patient with chronic kidney disease and single kidney. Non Compliant and did not follow for almost a year. Some worsening Creatinine, could be KONG as above. Continue IVF and follow the urine out put and BMP. Creatinine continue to improve. K is now 5.4, need to restrict K. If D/C, will need close follow up. (2) Hyponatremia ICD Codes: E87.1 - Hypo-osmolality and hyponatremia Plan: Continue IVF (3) Nausea & vomiting ICD Codes: R11.2 - Nausea with vomiting, unspecified Status: Acute (4) Chest pain ICD Codes: R07.9 - Chest pain Status: Acute (5) Diabetes mellitus ICD Codes: E11.9 - Diabetes mellitus Status: Chronic Plan: Maintain blood sugars between 140 mg/dl to 180 mg/dl (6) Hypertension ICD Codes: I10 - Hypertension Status: Chronic Plan: continue current treatment well controlled (7) Anemia ICD Codes: D64.9 - Anemia Status: Acute Plan: Most likely from chronic disease Anemia panel ordered Problem Qualifiers (1) Nausea & vomiting: Qualified Codes: R11.14 - Bilious vomiting (2) Chest pain: Qualified Codes: R07.9 - Chest pain, unspecified Larry Coyle MD Jun 07, 2017 15:44
--- NOTE | 2017-06-07 16:57 | HHI.PR ---
Subjective Remarks ALERT LESS SOB ON O2 NC Objective Vital Signs Date Time Temp Pulse Resp B/P (MAP) Pulse Ox O2 Delivery O2 Flow Rate FiO2 06/07/17 16:00 98.8 76 20 102/56 (71) 94 06/07/17 16:00 74 06/07/17 12:00 98.5 87 22 120/85 (97) 93 06/07/17 12:00 75 06/07/17 09:21 94 Nasal Cannula 3.00 06/07/17 08:00 97.9 75 20 121/82 (95) 93 06/07/17 08:00 76 06/07/17 08:00 Nasal Cannula 3.00 06/07/17 04:34 98.2 87 18 116/61 (79) 94 06/07/17 04:00 Nasal Cannula 3.00 Humidified 06/07/17 03:52 75 06/07/17 02:43 20 06/07/17 00:00 Nasal Cannula 3.00 06/06/17 23:49 73 06/06/17 23:17 98.2 85 19 113/63 (80) 93 06/06/17 20:42 96 Nasal Cannula 3.00 06/06/17 20:00 Nasal Cannula 3.00 06/06/17 19:30 85 06/06/17 19:00 99.0 87 17 113/64 (80) 95 I/O 06/06/17 06/06/17 06/06/17 06/07/17 06/07/17 06/07/17 07:00 15:00 23:00 07:00 15:00 23:00 Intake Total 1480 ml 1960 ml 1720 ml 960 ml Output Total 600 ml 725 ml 1375 ml 1725 ml Balance 1480 ml -600 ml 1235 ml 345 ml -765 ml Intake Oral 480 ml 960 ml 720 ml 960 ml IV Total 1000 ml 1000 ml 1000 ml Output Urine Total 600 ml 725 ml 1375 ml 1725 ml # Voids 2 # Bowel Movements 0 0 0 Result Diagram: 06/07/17 0755 06/07/17 0755 Objective Remarks GENERAL: SKIN: Warm and dry. HEAD: Atraumatic. Normocephalic. EYES: Pupils equal and round. No scleral icterus. No injection or drainage. ENT: No nasal bleeding or discharge. Mucous membranes pink and moist. NECK: Trachea midline. No JVD. CARDIOVASCULAR: Regular rate and rhythm. RESPIRATORY: No accessory muscle use. Clear to auscultation. Breath sounds equal bilaterally. GASTROINTESTINAL: Abdomen soft, non-tender, nondistended. Hepatic and splenic margins not palpable. MUSCULOSKELETAL: Extremities without clubbing, cyanosis, or edema. No obvious deformities. NEUROLOGICAL: Awake and alert. No obvious cranial nerve deficits. Motor grossly within normal limits. Five out of 5 muscle strength in the arms and legs. Normal speech. PSYCHIATRIC: Appropriate mood and affect; insight and judgment normal. Assessment and Plan Assessment and Plan COPD EXACERBATION DM HTN ?PETRONA, IMPROVED O2 NEEDED BRONCHODILATOR THERAPY NPSG POST D/C Rima,Rima Garcia MD Jun 07, 2017 16:57
[2017-06-07] MEDS: WARFARIN SOD 5 MG TAB PO SCH (17:39)
[2017-06-07 18:30] LABS: CALCIUM 7.8 MG/DL (8.5-10.1); CREATININE 3.54 MG/DL (0.60-1.30)
[2017-06-07] MEDS ORDERED: INSULIN DETEMIR 100 UNITS/ML VIAL SQ SCH (21:00)
[2017-06-07] MEDS: TAMSULOSIN HCL 0.4 MG CAP PO SCH (21:53)
[2017-06-08] VITALS (11 sets, daily range): BP systolic 107–143; BP diastolic 55–81; PULSE 68–84; RESP 17–18; TEMP 98–98.8; O2SAT 92–98
[2017-06-08] MEDS: HYDROmorphone HCL PF 2 MG/ML VIAL IV PRN ×5 (02:09→21:22)
[2017-06-08 06:00] LABS: INTERNATIONAL NORMALIZED RATIO 2.2 RATIO; PROTHROMBIN TIME - PATIENT 22.4 SEC (9.8-11.6)
[2017-06-08] MEDS: ONDANSETRON HCL 4 MG/2 ML VIAL IVP PRN ×3 (06:06→18:13)
[2017-06-08] MEDS: HEPARIN SODIUM - SQ 10,000 UNITS/ML VIAL SQ SCH (06:07)
[2017-06-08] MEDS: GEMFIBROZIL 600 MG TAB PO SCH ×2 (06:07→17:18)
[2017-06-08 06:15] LABS: BICARBONATE 26.5 MEQ/L (21.0-32.0); CALCIUM 8.1 MG/DL (8.5-10.1); CREATININE 3.5 MG/DL (0.60-1.30)
[2017-06-08] MEDS ORDERED: SODIUM POLYSTYRENE SULFONATE SUSP 15 GM/60 ML CUP RECTAL ONE (07:45)
[2017-06-08] MEDS: RESP: ALBUTEROL 2.5 MG/IPRATROPIUM 0.5 MG NEB (SCH) NEB ×4 (08:22→20:23)
[2017-06-08] MEDS: PANTOPRAZOLE SOD 20 MG DELAYED RELEASE TAB PO SCH (08:38)
[2017-06-08] MEDS: LOSARTAN 50 MG TAB PO SCH (08:38)
[2017-06-08] MEDS: predniSONE 20 MG TAB PO SCH (08:38)
[2017-06-08] MEDS: FUROSEMIDE 40 MG TAB PO SCH ×2 (08:38→20:40)
[2017-06-08] MEDS: clonazePAM 1 MG TAB PO SCH ×4 (08:38→20:41)
[2017-06-08] MEDS: METOCLOPRAMIDE HCL 10 MG TAB PO SCH ×4 (08:38→20:41)
[2017-06-08] MEDS: METOPROLOL TARTRATE 25 MG TAB PO SCH ×2 (08:38→20:41)
[2017-06-08] MEDS: DOCUSATE SODIUM 100 MG CAP PO SCH ×2 (08:39→20:40)
[2017-06-08] MEDS: PREGABALIN 75 MG CAP PO SCH ×2 (08:39→20:41)
[2017-06-08] MEDS: INSULIN ASPART 1,000 UNITS/10 ML VIAL SQ SCH ×3 (08:39→17:22)
[2017-06-08] MEDS: AMIODARONE 200 MG TAB PO SCH (08:39)
[2017-06-08] MEDS: AZITHROMYCIN 250 MG TAB PO SCH (08:39)
[2017-06-08] MEDS: ASPIRIN 81 MG CHEW TAB PO SCH (08:39)
[2017-06-08] MEDS: INSULIN ASPART SUPPLEMENTAL SCALE SQ SCH ×4 (08:40→21:00)
[2017-06-08] MEDS: BUDESONIDE-FORMOTEROL 160/4.5 MCG INHALER INH SCH ×2 (08:44→20:48)
[2017-06-08] MEDS: TIOTROPIUM BROMIDE 18 MCG INH INH SCH (08:44)
[2017-06-08] MEDS: SODIUM CHLORIDE 0.9% FLUSH 10 ML FLUSH IV FLUSH SCH ×2 (08:46→20:41)
[2017-06-08] MEDS ORDERED: INSULIN DETEMIR 100 UNITS/ML VIAL SQ SCH (09:00)
[2017-06-08] MEDS ORDERED: INSULIN DETEMIR 100 UNITS/ML VIAL SQ ONE (10:00)
--- NOTE | 2017-06-08 10:53 | HHI.PR ---
Subjective Remarks Follow-up COPD exacerbation/respiratory failure/diabetes 2 uncontrolled 06/06/17-patient seen and examined, port improvement of shortness of breath. Denies any dry heaves this morning as patient able to tolerate by mouth. Blood glucose elevated. 06/07/17-patient seen and examined, and left lower quadrant pain. Some mild shortness of breath. Renal indices still up. Blood glucose improving however still elevated 06/08/17-patient seen and examined, although blood glucose improving however patient still with elevated BG. K + up to 5.9. Denies any significant chest pain or shortness of breath. Objective Vitals Vital Signs Date Time Temp Pulse Resp B/P (MAP) Pulse Ox O2 Delivery O2 Flow Rate FiO2 06/08/17 08:24 94 Nasal Cannula 4.00 06/08/17 08:00 98.2 80 18 118/68 (85) 93 06/08/17 04:00 78 06/08/17 04:00 Nasal Cannula 4.00 06/08/17 03:38 98.0 84 18 139/68 (91) 94 06/08/17 00:19 78 06/08/17 00:00 Nasal Cannula 3.00 06/07/17 23:32 98.3 82 20 111/55 (73) 95 06/07/17 22:19 Nasal Cannula 3.00 06/07/17 20:43 92 Nasal Cannula 3.00 06/07/17 20:13 98.5 151 18 101/55 (70) 93 06/07/17 20:05 76 06/07/17 19:31 97.8 81 20 109/67 (81) 91 06/07/17 16:00 98.8 76 20 102/56 (71) 94 06/07/17 16:00 74 06/07/17 12:00 98.5 87 22 120/85 (97) 93 06/07/17 12:00 75 I/O 06/07/17 06/07/17 06/07/17 06/08/17 06/08/17 06/08/17 07:00 15:00 23:00 07:00 15:00 23:00 Intake Total 1720 ml 960 ml 240 ml Output Total 1375 ml 1725 ml 550 ml Balance 345 ml -765 ml -310 ml Intake Oral 720 ml 960 ml 240 ml IV Total 1000 ml Output Urine Total 1375 ml 1725 ml 550 ml # Bowel Movements 0 0 0 Result Diagram: 06/07/17 0755 06/08/17 0456 Imaging Last Impressions Chest X-Ray 06/05/17 0000 Signed Impressions: Service Date/Time: Monday, June 05, 2017 18:26 - CONCLUSION: 1. No acute abnormality or significant interval change. Emmanuel Mcclure MD Abdomen/Pelvis CT 06/05/17 0000 Signed Impressions: Service Date/Time: Monday, June 05, 2017 01:45 - CONCLUSION: 1. Mild diverticulosis with no inflammatory change or obstruction. 2. Prominent liver with mild hepatic steatosis. 3. Right adrenal adenoma. 4. Status post right nephrectomy. 5. Status post cholecystectomy. 6. Small anterior abdominal wall hernia. Ton Woods MD Objective Remarks GENERAL: NAD SKIN: Warm and dry. HEAD: Normocephalic. EYES: No scleral icterus. No injection or drainage. NECK: Supple, trachea midline. No JVD or lymphadenopathy. CARDIOVASCULAR: Regular rate and rhythm without murmurs, gallops, or rubs. RESPIRATORY: Breath sounds decrease bilaterally. No accessory muscle use.+exp wheezings GASTROINTESTINAL: Abdomen soft, non-tender, nondistended. MUSCULOSKELETAL: No cyanosis, or edema. BACK: Nontender without obvious deformity. No CVA tenderness. Procedures None A/P Problem List: (1) Acute renal failure superimposed on stage 3 chronic kidney disease ICD Code: N17.9 - Acute kidney failure, unspecified; N18.3 - Chronic kidney disease, stage 3 (moderate) (2) Diabetes type 2, uncontrolled ICD Code: E11.65 - Type 2 diabetes mellitus with hyperglycemia (3) Respiratory failure with hypoxia ICD Code: J96.91 - Respiratory failure, unspecified with hypoxia (4) COPD with exacerbation ICD Code: J44.1 - Chronic obstructive pulmonary disease with (acute) exacerbation Assessment and Plan 56-year-old man with 1. Acute respiratory failure, COPD with exacerbation: s/p Solu-Medrol and continue prednisone by mouth 20 mg day and Symbicort, Spiriva and RUPINDER Azithromycin 250 mg daily Patient input from pulmonary medicine Maintain oxygen saturation above 92% 2. Acute kidney injury superimposed on chronic kidney disease stage III: Appreciate nephrology recommendations. Monitor BUN/creatinine. IV fluids on hold 2/2 volume overload 3. Nausea/vomiting, abdominal pain: Improved CT of the abdomen/pelvis shows no acute changes. continue Reglan 4. Chest pain: Resolved Substernal chest pain for the past 2 weeks. Troponin negative. 5. Subtherapeutic INR: Continue Coumadin and monitor INR 6. Atrial fibrillation: Continue anticoagulation with Coumadin. Continue amiodarone. 7. Hypertension: Continue amlodipine, Lasix, metoprolol, losartan. 8. Diabetes mellitus-uncontrolled Increase Levemir to 100units Q12H, continue Aspart 7units TID and Medium ISS Patient states, he takes up to 150 units every 12 hours of Levemir 9. Hepatitis C: Follow-up as outpatient. 10. Chronic pain: Pain pump in place. 11. Hyperkalemia: Give Kayexalate 1 again now and monitor 12. DVT prophylaxis: Coumadin. Franky Cortez MD Jun 08, 2017 10:53
--- NOTE | 2017-06-08 14:28 | HHI.NPPN ---
Subjective General Problems: Anemia, Edema, Hypertension Renal Failure: Chronic, Acute, Stage IV History of Present Illness 56-year-old male with a past medical history significant for atrial fibrillation anticoagulated on Coumadin, chronic kidney disease, left nephrectomy, CAD, hypertension, hyperlipidemia, diabetes mellitus, COPD, hepatitis C, chronic pain and history of multiple CVA;. He presents to the emergency department after being referred by his PCP for evaluation of chronic nausea/vomiting/diarrhea and chest pain. Additional Remarks Patient is alert, no SOB, has nausea, Kayexalate given for hyperkalemia (Nasreen Colmenares) Review of Systems General Constitutional: Fatigue (Nasreen Colmenares) Respiratory Lungs: SOB Respiratory Remarks mild SOB (Nasreen Colmenares) Cardiovascular Cardiac: DAVIS Cardiac Remarks denies CP (Nasreen Colmenares) Gastrointestinal Gastrointestinal: Abdominal Pain, Nausea & Vomiting (Nasreen Colmenares) Objective Data Data Vital Signs Date Time Temp Pulse Resp B/P (MAP) Pulse Ox O2 Delivery O2 Flow Rate FiO2 06/08/17 12:00 98.1 77 17 107/55 (72) 98 06/08/17 08:24 94 Nasal Cannula 4.00 06/08/17 08:00 Nasal Cannula 3.00 06/08/17 08:00 77 06/08/17 08:00 98.2 80 18 118/68 (85) 93 06/08/17 04:00 78 06/08/17 04:00 Nasal Cannula 4.00 06/08/17 03:38 98.0 84 18 139/68 (91) 94 06/08/17 00:19 78 06/08/17 00:00 Nasal Cannula 3.00 06/07/17 23:32 98.3 82 20 111/55 (73) 95 06/07/17 22:19 Nasal Cannula 3.00 06/07/17 20:43 92 Nasal Cannula 3.00 06/07/17 20:13 98.5 151 18 101/55 (70) 93 06/07/17 20:05 76 06/07/17 19:31 97.8 81 20 109/67 (81) 91 06/07/17 16:00 98.8 76 20 102/56 (71) 94 06/07/17 16:00 74 (Nasreen Colmenares) -: 06/07/17 0755 06/08/17 0456 Physical Exam General Appearance: No Acute Distress, Comfortable (Nasreen Colmenares) Eyes Eye Exam: Pupils Equal (Nasreen Colmenares) Throat Throat Exam: Oral Mucosa [place] & Moist (Nasreen Colmenares) Neck Neck Exam: Neck Supple (Nasreen Colmenares) Pulmonary Resp Exam: Breath Sounds Equal, No Distress, Rhonchi, Decreased Bases, Diminished Breath Sounds (Nasreen Colmenares) Cardiology CV Exam: Regular, Normal Sinus Rhythm (Nasreen Colmenares) Gastrointestinal/Abdomen GI Exam: Soft, Non-Tender, Bowel Sounds Present, Distended (Nasreen Colmenares) Integumentary Skin Exam: Clear, Warm (Nasreen Colmenares) Extremeties Extremities Exam: Trace Edema (Nasreen Colmenares) Neurologic Neuro Exam: Alert, Awake, Oriented (Nasreen Colmenares) Psychiatric Psych Exam: Appropriate Responses (Nasreen Colmenares) Assessment/Plan Problem List: (1) Acute kidney injury ICD Codes: N17.9 - Acute kidney failure, unspecified Status: Acute Plan: KONG on CKD with hx of right nephrectomy Non Compliant and did not follow for almost a year. CKD from possible diabetic nephropathy vs HTN or renovascular disease 3 + Protein noted in urine KONG possible prerenal azotemia from N/V/diarrhea and diuretic use Mild SOB, no edema present Creatinine at 3.50 today with hyperkalemia noted Plan Maintain strict I+O Hyperkalemia with K of 5.9 today. Kayaxalate given will recheck potassium level at 4 Need to restrict K intake Avoid nephrotoxins Will monitor BMP and UOP (2) Hyponatremia ICD Codes: E87.1 - Hypo-osmolality and hyponatremia Plan: Continue IVF (3) Nausea & vomiting ICD Codes: R11.2 - Nausea with vomiting, unspecified Status: Acute (4) Chest pain ICD Codes: R07.9 - Chest pain Status: Acute (5) Diabetes mellitus ICD Codes: E11.9 - Diabetes mellitus Status: Chronic Plan: Maintain blood sugars between 140 mg/dl to 180 mg/dl (6) Hypertension ICD Codes: I10 - Hypertension Status: Chronic Plan: continue current treatment well controlled (7) Anemia ICD Codes: D64.9 - Anemia Status: Acute Plan: Most likely from chronic disease Anemia panel ordered (Nasreen Colmenares) Problem List: (1) Acute kidney injury ICD Codes: N17.9 - Acute kidney failure, unspecified Status: Acute Plan: KONG on CKD with hx of right nephrectomy Non Compliant and did not follow for almost a year. CKD from possible diabetic nephropathy vs HTN or renovascular disease 3 + Protein noted in urine KONG possible prerenal azotemia from N/V/diarrhea and diuretic use Mild SOB, no edema present Creatinine at 3.50 today with hyperkalemia noted Plan Maintain strict I+O Hyperkalemia with K of 5.9 today. Kayaxalate given will recheck potassium level at 4 Need to restrict K intake Avoid nephrotoxins Will monitor BMP and UOP. Patient seen and examined, agree with above. Told to restrict K in the diet. Got Kayexalate. (2) Hyponatremia ICD Codes: E87.1 - Hypo-osmolality and hyponatremia Plan: Continue IVF (3) Nausea & vomiting ICD Codes: R11.2 - Nausea with vomiting, unspecified Status: Acute (4) Chest pain ICD Codes: R07.9 - Chest pain Status: Acute (5) Diabetes mellitus ICD Codes: E11.9 - Diabetes mellitus Status: Chronic Plan: Maintain blood sugars between 140 mg/dl to 180 mg/dl (6) Hypertension ICD Codes: I10 - Hypertension Status: Chronic Plan: continue current treatment well controlled (7) Anemia ICD Codes: D64.9 - Anemia Status: Acute Plan: Most likely from chronic disease Anemia panel ordered (Larry Coyle MD) Problem Qualifiers (1) Nausea & vomiting: Qualified Codes: R11.14 - Bilious vomiting (2) Chest pain: Qualified Codes: R07.9 - Chest pain, unspecified Nasreen Colmenares Jun 08, 2017 14:28 Larry Coyle MD Jun 08, 2017 23:06
--- NOTE | 2017-06-08 15:27 | HHI.PR ---
Subjective Remarks ALERT LESS SOB ON O2 NC Objective Vital Signs Date Time Temp Pulse Resp B/P (MAP) Pulse Ox O2 Delivery O2 Flow Rate FiO2 06/08/17 12:00 98.1 77 17 107/55 (72) 98 06/08/17 08:24 94 Nasal Cannula 4.00 06/08/17 08:00 Nasal Cannula 3.00 06/08/17 08:00 77 06/08/17 08:00 98.2 80 18 118/68 (85) 93 06/08/17 04:00 78 06/08/17 04:00 Nasal Cannula 4.00 06/08/17 03:38 98.0 84 18 139/68 (91) 94 06/08/17 00:19 78 06/08/17 00:00 Nasal Cannula 3.00 06/07/17 23:32 98.3 82 20 111/55 (73) 95 06/07/17 22:19 Nasal Cannula 3.00 06/07/17 20:43 92 Nasal Cannula 3.00 06/07/17 20:13 98.5 151 18 101/55 (70) 93 06/07/17 20:05 76 06/07/17 19:31 97.8 81 20 109/67 (81) 91 06/07/17 16:00 98.8 76 20 102/56 (71) 94 06/07/17 16:00 74 I/O 06/07/17 06/07/17 06/07/17 06/08/17 06/08/17 06/08/17 07:00 15:00 23:00 07:00 15:00 23:00 Intake Total 1720 ml 960 ml 240 ml Output Total 1375 ml 1725 ml 550 ml Balance 345 ml -765 ml -310 ml Intake Oral 720 ml 960 ml 240 ml IV Total 1000 ml Output Urine Total 1375 ml 1725 ml 550 ml # Bowel Movements 0 0 0 Result Diagram: 06/07/17 0755 06/08/17 0456 Objective Remarks GENERAL: SKIN: Warm and dry. HEAD: Atraumatic. Normocephalic. EYES: Pupils equal and round. No scleral icterus. No injection or drainage. ENT: No nasal bleeding or discharge. Mucous membranes pink and moist. NECK: Trachea midline. No JVD. CARDIOVASCULAR: Regular rate and rhythm. RESPIRATORY: No accessory muscle use. Clear to auscultation. Breath sounds equal bilaterally. GASTROINTESTINAL: Abdomen soft, non-tender, nondistended. Hepatic and splenic margins not palpable. MUSCULOSKELETAL: Extremities without clubbing, cyanosis, or edema. No obvious deformities. NEUROLOGICAL: Awake and alert. No obvious cranial nerve deficits. Motor grossly within normal limits. Five out of 5 muscle strength in the arms and legs. Normal speech. PSYCHIATRIC: Appropriate mood and affect; insight and judgment normal. Assessment and Plan Assessment and Plan COPD EXACERBATION DM HTN ?PETRONA, IMPROVED O2 NEEDED BRONCHODILATOR THERAPY NPSG POST D/C WILL SIGN OFF SEE PRN OFFICE 1 WEEK POST Rima Sun MD Jun 08, 2017 15:27
[2017-06-08] MEDS: WARFARIN SOD 5 MG TAB PO SCH (17:18)
[2017-06-08] MEDS: MAGNESIUM HYDROXIDE SUSP 30 ML CUP PO PRN (18:11)
[2017-06-08 19:06] LABS: BICARBONATE 29.3 MEQ/L (21.0-32.0); CALCIUM 8.2 MG/DL (8.5-10.1); CREATININE 3.45 MG/DL (0.60-1.30)
[2017-06-08] MEDS: TAMSULOSIN HCL 0.4 MG CAP PO SCH (20:41)
[2017-06-08] MEDS: INSULIN DETEMIR 100 UNITS/ML VIAL SQ SCH (20:42)
[2017-06-09] VITALS (8 sets, daily range): BP systolic 101–129; BP diastolic 53–72; PULSE 65–93; RESP 16–18; TEMP 97.4–98.5; O2SAT 90–98
[2017-06-09] MEDS: HYDROmorphone HCL PF 2 MG/ML VIAL IV PRN ×6 (01:54→23:29)
[2017-06-09] MEDS: GEMFIBROZIL 600 MG TAB PO SCH ×2 (06:58→17:33)
[2017-06-09] MEDS: RESP: ALBUTEROL 2.5 MG/IPRATROPIUM 0.5 MG NEB (SCH) NEB (07:40)
[2017-06-09] MEDS: INSULIN ASPART SUPPLEMENTAL SCALE SQ SCH ×4 (08:00→20:49)
[2017-06-09 08:35] LABS: INTERNATIONAL NORMALIZED RATIO 2.5 RATIO; PROTHROMBIN TIME - PATIENT 24.9 SEC (9.8-11.6)
[2017-06-09 09:14] LABS: BICARBONATE 29.9 MEQ/L (21.0-32.0); CALCIUM 8.5 MG/DL (8.5-10.1); CREATININE 3.24 MG/DL (0.60-1.30)
--- NOTE | 2017-06-09 09:29 | HHI.PR ---
Subjective Remarks Follow up for COPD exacerbation, KONG on CKD. Patient is doing well. Currently he is on 4L of O2 via NC. Denies chest pain, fever, chills. Objective Vitals Vital Signs Date Time Temp Pulse Resp B/P (MAP) Pulse Ox O2 Delivery O2 Flow Rate FiO2 06/09/17 04:20 98.5 90 18 121/69 (86) 91 06/09/17 04:00 Nasal Cannula 4.00 06/09/17 04:00 70 06/09/17 00:00 73 06/09/17 00:00 Nasal Cannula 4.00 Humidified 06/08/17 23:58 98.8 83 18 121/73 (89) 92 06/08/17 20:28 98.0 75 18 129/73 (91) 94 06/08/17 20:25 97 Nasal Cannula 3.00 06/08/17 20:00 77 06/08/17 20:00 Nasal Cannula 4.00 Humidified 06/08/17 16:00 98.1 68 18 143/81 (101) 96 06/08/17 16:00 69 06/08/17 12:00 98.1 77 17 107/55 (72) 98 I/O 06/08/17 06/08/17 06/08/17 06/09/17 06/09/17 06/09/17 07:00 15:00 23:00 07:00 15:00 23:00 Intake Total 240 ml 1760 ml 480 ml Output Total 550 ml 2100 ml 1000 ml Balance -310 ml -340 ml -520 ml Intake Oral 240 ml 1760 ml 480 ml Output Urine Total 550 ml 2100 ml 1000 ml # Bowel Movements 0 0 0 Result Diagram: 06/07/17 0755 06/09/17 0645 Imaging Last Impressions Chest X-Ray 06/05/17 0000 Signed Impressions: Service Date/Time: Monday, June 05, 2017 18:26 - CONCLUSION: 1. No acute abnormality or significant interval change. Emmanuel Mcclure MD Abdomen/Pelvis CT 06/05/17 0000 Signed Impressions: Service Date/Time: Monday, June 05, 2017 01:45 - CONCLUSION: 1. Mild diverticulosis with no inflammatory change or obstruction. 2. Prominent liver with mild hepatic steatosis. 3. Right adrenal adenoma. 4. Status post right nephrectomy. 5. Status post cholecystectomy. 6. Small anterior abdominal wall hernia. Ton Woods MD Procedures None A/P Problem List: (1) Acute renal failure superimposed on stage 3 chronic kidney disease ICD Code: N17.9 - Acute kidney failure, unspecified; N18.3 - Chronic kidney disease, stage 3 (moderate) (2) Diabetes type 2, uncontrolled ICD Code: E11.65 - Type 2 diabetes mellitus with hyperglycemia (3) Respiratory failure with hypoxia ICD Code: J96.91 - Respiratory failure, unspecified with hypoxia (4) COPD with exacerbation ICD Code: J44.1 - Chronic obstructive pulmonary disease with (acute) exacerbation Assessment and Plan Mr. Gooden is a pleasant 56 year old male with multiple comorbidities who was sent to the ED by his PCP due to nausea, vomiting, diarrhea and chest pain. He was found to have acute respiratory failure as well as KONG on CKD with Creatinine 4.27 on admission. Baseline creatinine 2.5. - Acute respiratory failure hypoxic - COPD exacerbation - Appreciate Pulmonary input. - Patient is currently on DuoNeb, Symbicort. Also on Spiriva which can be continued on discharge. - Continue Azithromycin 250mg Qday. - Continue Prednisone 20mg Qday. We may consider changing prednisone to 40 to 50 mg Qday divided for 5 days. - Will get Walk test today. If needed, we will likely need to arrange Home O2 again. - Hypertension - Atrial fibrillation - Patient is on Amiodarone, he has been on it for a number of years. - Continue Amlodipine 10mg Qday, Losartan 50mg Qday, Metoprolol 25mg BID. - Continue Warfarin with pharmacy consult. - D/C Aspirin. There is no indication for this patient to use Aspirin along with Warfarin. - Acute kidney injury - CKD stage IV - Nephrology following. Creatinine improved. - Due to fluid overload, Nephrology provided one dose of IV lasix today in addition to PO lasix. - Diabetes mellitus - Patient is currently on Levemir 100units Q12, Aspart 7 units TIDAC, sliding scale insulin. - Goal BG 140-180. Full code. Warfarin. INR 2.5 today. Bertha Evans DO Jun 09, 2017 09:29
[2017-06-09] MEDS: MAGNESIUM HYDROXIDE SUSP 30 ML CUP PO PRN (09:34)
[2017-06-09] MEDS: INSULIN DETEMIR 100 UNITS/ML VIAL SQ SCH ×2 (09:38→20:49)
[2017-06-09] MEDS: DOCUSATE SODIUM 100 MG CAP PO SCH ×2 (09:39→20:50)
[2017-06-09] MEDS: METOPROLOL TARTRATE 25 MG TAB PO SCH ×2 (09:39→20:50)
[2017-06-09] MEDS: METOCLOPRAMIDE HCL 10 MG TAB PO SCH ×4 (09:39→20:50)
[2017-06-09] MEDS: predniSONE 20 MG TAB PO SCH (09:39)
[2017-06-09] MEDS: PANTOPRAZOLE SOD 20 MG DELAYED RELEASE TAB PO SCH (09:40)
[2017-06-09] MEDS: FUROSEMIDE 40 MG TAB PO SCH ×2 (09:40→20:50)
[2017-06-09] MEDS: AMIODARONE 200 MG TAB PO SCH (09:40)
[2017-06-09] MEDS: LOSARTAN 50 MG TAB PO SCH (09:40)
[2017-06-09] MEDS: AZITHROMYCIN 250 MG TAB PO SCH (09:40)
[2017-06-09] MEDS: PREGABALIN 75 MG CAP PO SCH ×2 (09:40→20:51)
[2017-06-09] MEDS: clonazePAM 1 MG TAB PO SCH ×4 (09:40→20:50)
[2017-06-09] MEDS: ASPIRIN 81 MG CHEW TAB PO SCH (09:40)
[2017-06-09] MEDS: BUDESONIDE-FORMOTEROL 160/4.5 MCG INHALER INH SCH ×2 (09:42→20:52)
[2017-06-09] MEDS: SODIUM CHLORIDE 0.9% FLUSH 10 ML FLUSH IV FLUSH SCH ×2 (09:42→20:51)
[2017-06-09] MEDS: TIOTROPIUM BROMIDE 18 MCG INH INH SCH (09:43)
[2017-06-09] MEDS: INSULIN ASPART 1,000 UNITS/10 ML VIAL SQ SCH ×3 (09:46→17:36)
[2017-06-09] MEDS: ONDANSETRON HCL 4 MG/2 ML VIAL IVP PRN (09:54)
--- NOTE | 2017-06-09 12:54 | HHI.PR ---
Subjective Remarks Patient is sitting up in chair eating his lunch in NAD. On 2L oxygen. Objective Vital Signs Vital Signs Date Time Temp Pulse Resp B/P (MAP) Pulse Ox O2 Delivery O2 Flow Rate FiO2 06/09/17 12:09 2.00 06/09/17 12:00 97.5 67 16 113/62 (79) 90 06/09/17 08:00 97.4 70 17 101/72 (82) 95 06/09/17 04:20 98.5 90 18 121/69 (86) 91 06/09/17 04:00 Nasal Cannula 4.00 06/09/17 04:00 70 06/09/17 00:00 73 06/09/17 00:00 Nasal Cannula 4.00 Humidified 06/08/17 23:58 98.8 83 18 121/73 (89) 92 06/08/17 20:28 98.0 75 18 129/73 (91) 94 06/08/17 20:25 97 Nasal Cannula 3.00 06/08/17 20:00 77 06/08/17 20:00 Nasal Cannula 4.00 Humidified 06/08/17 16:00 98.1 68 18 143/81 (101) 96 06/08/17 16:00 69 I/O 06/08/17 06/08/17 06/08/17 06/09/17 06/09/17 06/09/17 07:00 15:00 23:00 07:00 15:00 23:00 Intake Total 240 ml 1760 ml 480 ml Output Total 550 ml 2100 ml 1000 ml Balance -310 ml -340 ml -520 ml Intake Oral 240 ml 1760 ml 480 ml Output Urine Total 550 ml 2100 ml 1000 ml # Bowel Movements 0 0 0 Result Diagram: 06/07/17 0755 06/09/17 0645 Other Results Last Impressions Chest X-Ray 06/05/17 0000 Signed Impressions: Service Date/Time: Monday, June 05, 2017 18:26 - CONCLUSION: 1. No acute abnormality or significant interval change. Emmanuel Mcclure MD Abdomen/Pelvis CT 06/05/17 0000 Signed Impressions: Service Date/Time: Monday, June 05, 2017 01:45 - CONCLUSION: 1. Mild diverticulosis with no inflammatory change or obstruction. 2. Prominent liver with mild hepatic steatosis. 3. Right adrenal adenoma. 4. Status post right nephrectomy. 5. Status post cholecystectomy. 6. Small anterior abdominal wall hernia. Ton Woods MD Objective Remarks GENERAL: Patient is 56 yo sitting in chair in NAD SKIN: Warm and dry. HEAD: Normocephalic. EYES: No scleral icterus. No injection or drainage. NECK: Supple, trachea midline. No JVD or lymphadenopathy. CARDIOVASCULAR: Regular rate and rhythm without murmurs, gallops, or rubs. RESPIRATORY: Breath sounds equal bilaterally. No accessory muscle use. GASTROINTESTINAL: Abdomen soft, non-tender, nondistended. MUSCULOSKELETAL: No cyanosis, or edema. Neuro: Awake and alert A/P Assessment and Plan 1)Resp Insuff 2)COPD EXACERBATION 3)DM 4)HTN 5)?PETRONA, Plan Continue with oxygen keep sat >92% Bronchodilators ( Albuterol, Symbicort, Spiriva) On Prednisone 20mg daily PFT and sleep study as outpatient Continue with abx ( Azithromycin) Follow up with Dr. Abarca 1 week from discharge Continue treatment plan Rajan Ashby MD Jun 09, 2017 12:54
[2017-06-09] MEDS ORDERED: OXYGENDME NAS.CANULA (13:59)
[2017-06-09] MEDS: WARFARIN SOD 5 MG TAB PO SCH (17:34)
[2017-06-09] MEDS ORDERED: FUROSEMIDE 40 MG/4 ML VIAL IV PUSH ONE (18:45)
--- NOTE | 2017-06-09 18:47 | HHI.NPPN ---
Subjective General Problems: Anemia, Edema, Hypertension Renal Failure: Chronic, Acute, Stage IV History of Present Illness 56-year-old male with a past medical history significant for atrial fibrillation anticoagulated on Coumadin, chronic kidney disease, left nephrectomy, CAD, hypertension, hyperlipidemia, diabetes mellitus, COPD, hepatitis C, chronic pain and history of multiple CVA;. He presents to the emergency department after being referred by his PCP for evaluation of chronic nausea/vomiting/diarrhea and chest pain. Additional Remarks No acute complaints. Review of Systems General Constitutional: Fatigue Respiratory Lungs: SOB Respiratory Remarks mild SOB Cardiovascular Cardiac: DAVIS Cardiac Remarks denies CP Gastrointestinal Gastrointestinal: Abdominal Pain, Nausea & Vomiting Objective Data Data Vital Signs Date Time Temp Pulse Resp B/P (MAP) Pulse Ox O2 Delivery O2 Flow Rate FiO2 06/09/17 16:00 97.4 93 16 129/67 (87) 98 06/09/17 16:00 98.4 67 16 101/53 (69) 94 06/09/17 12:09 2.00 06/09/17 12:00 97.5 67 16 113/62 (79) 90 06/09/17 08:00 97.4 70 17 101/72 (82) 95 06/09/17 04:20 98.5 90 18 121/69 (86) 91 06/09/17 04:00 Nasal Cannula 4.00 06/09/17 04:00 70 06/09/17 00:00 73 06/09/17 00:00 Nasal Cannula 4.00 Humidified 06/08/17 23:58 98.8 83 18 121/73 (89) 92 06/08/17 20:28 98.0 75 18 129/73 (91) 94 06/08/17 20:25 97 Nasal Cannula 3.00 06/08/17 20:00 77 06/08/17 20:00 Nasal Cannula 4.00 Humidified -: 06/07/17 0755 06/09/17 0645 Physical Exam General Appearance: No Acute Distress, Comfortable Eyes Eye Exam: Pupils Equal Throat Throat Exam: Oral Mucosa [place] & Moist Neck Neck Exam: Neck Supple Pulmonary Resp Exam: Breath Sounds Equal, No Distress, Rhonchi, Decreased Bases, Diminished Breath Sounds Cardiology CV Exam: Regular, Normal Sinus Rhythm Gastrointestinal/Abdomen GI Exam: Soft, Non-Tender, Bowel Sounds Present, Distended Integumentary Skin Exam: Clear, Warm Extremeties Extremities Exam: Trace Edema Neurologic Neuro Exam: Alert, Awake, Oriented Psychiatric Psych Exam: Appropriate Responses Assessment/Plan Problem List: (1) Acute kidney injury ICD Codes: N17.9 - Acute kidney failure, unspecified Status: Acute Plan: KONG on CKD with hx of right nephrectomy Non Compliant and did not follow for almost a year. CKD from possible diabetic nephropathy vs HTN or renovascular disease 3 + Protein noted in urine KONG possible prerenal azotemia from N/V/diarrhea and diuretic use Creatinine stable: 3.5->3.4-3.2 Reports increased dyspnea today and lower extremity edema. On lasix 40mg PO BID Plan Maintain strict I+O Will give extra dose of lasix 40mg IV x1 - follow symptoms. Potassium improved after kayexelate given yesterday. Need to restrict K intake Avoid nephrotoxins Will monitor BMP and UOP. (2) Hyponatremia ICD Codes: E87.1 - Hypo-osmolality and hyponatremia Plan: Na stable - 139 (3) Nausea & vomiting ICD Codes: R11.2 - Nausea with vomiting, unspecified Status: Acute (4) Chest pain ICD Codes: R07.9 - Chest pain Status: Acute (5) Diabetes mellitus ICD Codes: E11.9 - Diabetes mellitus Status: Chronic Plan: Maintain blood sugars between 140 mg/dl to 180 mg/dl (6) Hypertension ICD Codes: I10 - Hypertension Status: Chronic Plan: continue current treatment well controlled (7) Anemia ICD Codes: D64.9 - Anemia Status: Acute Plan: Hgb stable Problem Qualifiers (1) Nausea & vomiting: Qualified Codes: R11.14 - Bilious vomiting (2) Chest pain: Qualified Codes: R07.9 - Chest pain, unspecified Aneudy Acuna MD Jun 09, 2017 18:47
[2017-06-09] MEDS: TAMSULOSIN HCL 0.4 MG CAP PO SCH (20:50)
[2017-06-10] VITALS (7 sets, daily range): BP systolic 104–121; BP diastolic 60–76; PULSE 67–84; RESP 17–19; TEMP 97.7–98.1; O2SAT 91–96
[2017-06-10] MEDS: HYDROmorphone HCL PF 2 MG/ML VIAL IV PRN ×4 (03:54→18:17)
[2017-06-10 07:04] LABS: AUTOMATED NEUTROPHIL # 4.1 TH/MM3 (1.8-7.7); BASOPHIL # 0.1 TH/MM3 (0-0.2); BASOPHIL % 0.4 % (0.0-2.0); EOSINOPHIL # 0.1 TH/MM3 (0-0.4); EOSINOPHIL % 0.5 % (0.0-4.0); HEMATOCRIT 38.7 % (39.0-51.0); HEMOGLOBIN 12.8 GM/DL (13.0-17.0); LYMPH % 65.1 % (9.0-44.0); LYMPHOCYTE # 9.2 TH/MM3 (1.0-4.8); MEAN CORPUSCULAR HEMOGLOBIN 30.6 PG (27.0-34.0); MEAN CORPUSCULAR HGB CONC 32.9 % (32.0-36.0); MEAN PLATELET VOLUME 7.4 FL (7.0-11.0); MONOCYTE # 0.7 TH/MM3 (0-0.9); PLATELET COUNT 196 TH/MM3 (150-450); RED BLOOD COUNT 4.17 MIL/MM3 (4.50-5.90); RED CELL DISTRIBUTION WIDTH 15.5 % (11.6-17.2); WHITE BLOOD COUNT 14.1 TH/MM3 (4.0-11.0)
[2017-06-10 07:13] LABS: INTERNATIONAL NORMALIZED RATIO 2.3 RATIO; PROTHROMBIN TIME - PATIENT 23.6 SEC (9.8-11.6)
[2017-06-10 07:43] LABS: BICARBONATE 31.8 MEQ/L (21.0-32.0); CALCIUM 8.4 MG/DL (8.5-10.1); CREATININE 3.06 MG/DL (0.60-1.30)
[2017-06-10] MEDS: INSULIN ASPART SUPPLEMENTAL SCALE SQ SCH ×4 (08:00→20:59)
[2017-06-10] MEDS: GEMFIBROZIL 600 MG TAB PO SCH ×2 (09:13→18:18)
[2017-06-10] MEDS: predniSONE 20 MG TAB PO SCH (09:13)
[2017-06-10] MEDS: AZITHROMYCIN 250 MG TAB PO SCH (09:13)
[2017-06-10] MEDS: DOCUSATE SODIUM 100 MG CAP PO SCH ×2 (09:13→20:58)
[2017-06-10] MEDS: FUROSEMIDE 40 MG TAB PO SCH (09:14)
[2017-06-10] MEDS: AMIODARONE 200 MG TAB PO SCH (09:14)
[2017-06-10] MEDS: METOPROLOL TARTRATE 25 MG TAB PO SCH ×2 (09:14→20:57)
[2017-06-10] MEDS: PREGABALIN 75 MG CAP PO SCH ×2 (09:14→21:00)
[2017-06-10] MEDS: PANTOPRAZOLE SOD 20 MG DELAYED RELEASE TAB PO SCH (09:14)
[2017-06-10] MEDS: LOSARTAN 50 MG TAB PO SCH (09:14)
[2017-06-10] MEDS: METOCLOPRAMIDE HCL 10 MG TAB PO SCH ×4 (09:14→20:58)
[2017-06-10] MEDS: clonazePAM 1 MG TAB PO SCH ×4 (09:14→20:58)
[2017-06-10] MEDS: INSULIN ASPART 1,000 UNITS/10 ML VIAL SQ SCH ×3 (09:15→18:20)
[2017-06-10] MEDS: INSULIN DETEMIR 100 UNITS/ML VIAL SQ SCH ×2 (09:16→20:59)
[2017-06-10] MEDS: TIOTROPIUM BROMIDE 18 MCG INH INH SCH (09:16)
[2017-06-10] MEDS: SODIUM CHLORIDE 0.9% FLUSH 10 ML FLUSH IV FLUSH SCH ×2 (09:16→20:59)
[2017-06-10] MEDS: BUDESONIDE-FORMOTEROL 160/4.5 MCG INHALER INH SCH ×2 (09:17→21:00)
--- NOTE | 2017-06-10 09:20 | HHI.PR ---
Subjective Remarks Follow up for COPD exacerbation, KONG on CKD. Patient is currently doing well. However overnight he required higher amounts of oxygen. No fever or chills. Objective Vitals Vital Signs Date Time Temp Pulse Resp B/P (MAP) Pulse Ox O2 Delivery O2 Flow Rate FiO2 06/10/17 09:10 98.1 72 18 109/68 (82) 92 06/10/17 04:00 69 06/10/17 04:00 97.9 67 17 104/60 (75) 93 06/10/17 04:00 Nasal Cannula 4.00 06/10/17 00:00 97.9 83 17 121/68 (85) 93 06/10/17 00:00 77 06/10/17 00:00 Nasal Cannula 4.00 06/09/17 21:02 92 Nasal Cannula 3.00 06/09/17 20:00 98.2 83 17 114/56 (75) 92 06/09/17 20:00 Nasal Cannula 4.00 06/09/17 20:00 78 06/09/17 16:00 97.4 93 16 129/67 (87) 98 06/09/17 16:00 65 06/09/17 16:00 98.4 67 16 101/53 (69) 94 06/09/17 16:00 Nasal Cannula 4.00 06/09/17 12:09 2.00 06/09/17 12:00 97.5 67 16 113/62 (79) 90 06/09/17 12:00 Nasal Cannula 4.00 06/09/17 12:00 73 I/O 06/09/17 06/09/17 06/09/17 06/10/17 06/10/17 06/10/17 07:00 15:00 23:00 07:00 15:00 23:00 Intake Total 480 ml 600 ml 1440 ml Output Total 1000 ml 1500 ml Balance -520 ml 600 ml -60 ml Intake Oral 480 ml 600 ml 1440 ml Output Urine Total 1000 ml 1500 ml # Voids 18 # Bowel Movements 0 3 Result Diagram: 06/10/17 0550 06/10/17 0550 Imaging Last Impressions Chest X-Ray 06/05/17 0000 Signed Impressions: Service Date/Time: Monday, June 05, 2017 18:26 - CONCLUSION: 1. No acute abnormality or significant interval change. Emmanuel Mcclure MD Abdomen/Pelvis CT 06/05/17 0000 Signed Impressions: Service Date/Time: Monday, June 05, 2017 01:45 - CONCLUSION: 1. Mild diverticulosis with no inflammatory change or obstruction. 2. Prominent liver with mild hepatic steatosis. 3. Right adrenal adenoma. 4. Status post right nephrectomy. 5. Status post cholecystectomy. 6. Small anterior abdominal wall hernia. Ton Woods MD Objective Remarks GENERAL: Alert, NAD. SKIN: Warm and dry. HEAD: Normocephalic. EYES: No scleral icterus. No injection or drainage. NECK: Supple, trachea midline. No JVD or lymphadenopathy. CARDIOVASCULAR: Regular rate and rhythm without murmurs, gallops, or rubs. RESPIRATORY: Moderate air entry, Diffuse but mild wheezes appreciated. No accessory muscle use. GASTROINTESTINAL: Abdomen soft, non-tender, nondistended. MUSCULOSKELETAL: No cyanosis, or edema. BACK: Nontender without obvious deformity. No CVA tenderness. Procedures None A/P Problem List: (1) Acute renal failure superimposed on stage 3 chronic kidney disease ICD Code: N17.9 - Acute kidney failure, unspecified; N18.3 - Chronic kidney disease, stage 3 (moderate) (2) Diabetes type 2, uncontrolled ICD Code: E11.65 - Type 2 diabetes mellitus with hyperglycemia (3) Respiratory failure with hypoxia ICD Code: J96.91 - Respiratory failure, unspecified with hypoxia (4) COPD with exacerbation ICD Code: J44.1 - Chronic obstructive pulmonary disease with (acute) exacerbation Assessment and Plan Mr. Gooden is a pleasant 56 year old male with multiple comorbidities who was sent to the ED by his PCP due to nausea, vomiting, diarrhea and chest pain. He was found to have acute respiratory failure as well as KONG on CKD with Creatinine 4.27 on admission. Baseline creatinine 2.5. - Acute respiratory failure hypoxic - COPD exacerbation - Appreciate Pulmonary input. - Patient is currently on DuoNeb, Symbicort. Also on Spiriva which can be continued on discharge. - Continue Azithromycin 250mg Qday. - Will d/c Prednisone and start Solu-Medrol 40mg Q6hrs. - Walk test from 06/09/2017 indicates need for home oxygen. - If he continues to require higher amount of O2, we could consider CT chest which would be reasonable given his history of mcc Amiodarone use. - Hypertension - Atrial fibrillation - Patient is on Amiodarone, he has been on it for a number of years. - Continue Amlodipine 10mg Qday, Losartan 50mg Qday, Metoprolol 25mg BID. - Continue Warfarin with pharmacy consult. - D/C Aspirin. There is no indication for this patient to use Aspirin along with Warfarin. - Acute kidney injury - CKD stage IV - Nephrology following. Creatinine improved from 4.27 --> 3.06 on 06/10/2017. - Due to fluid overload, Nephrology provided one dose of IV lasix today in addition to PO lasix. - Diabetes mellitus - Patient is currently on Levemir 100units Q12, Aspart 7 units TIDAC, sliding scale insulin. - Goal BG 140-180. Full code. Warfarin. INR 2.3 today. Bertha Evans DO Jun 10, 2017 09:20
[2017-06-10] MEDS ORDERED: RESP: ALBUTEROL 2.5 MG/IPRATROPIUM 0.5 MG NEB (PRN) NEB ×2 (10:00→12:00)
[2017-06-10 10:39] LABS: LYMPHOCYTES 53 % (9-44); MONOCYTES 11 % (0-8); NEUTROPHIL # MANUAL DIFF 5.1 TH/MM3 (1.8-7.7); POLYS (SEG NEUTROPHILS) 36 % (16-70)
--- NOTE | 2017-06-10 11:53 | HHI.PR ---
Subjective Remarks Patient is sitting up in chair now on 3L oxygen reports wheezing this morning Objective Vital Signs Vital Signs Date Time Temp Pulse Resp B/P (MAP) Pulse Ox O2 Delivery O2 Flow Rate FiO2 06/10/17 10:33 95 Nasal Cannula 3.00 06/10/17 09:10 98.1 72 18 109/68 (82) 92 06/10/17 04:00 69 06/10/17 04:00 97.9 67 17 104/60 (75) 93 06/10/17 04:00 Nasal Cannula 4.00 06/10/17 00:00 97.9 83 17 121/68 (85) 93 06/10/17 00:00 77 06/10/17 00:00 Nasal Cannula 4.00 06/09/17 21:02 92 Nasal Cannula 3.00 06/09/17 20:00 98.2 83 17 114/56 (75) 92 06/09/17 20:00 Nasal Cannula 4.00 06/09/17 20:00 78 06/09/17 16:00 97.4 93 16 129/67 (87) 98 06/09/17 16:00 65 06/09/17 16:00 98.4 67 16 101/53 (69) 94 06/09/17 16:00 Nasal Cannula 4.00 06/09/17 12:09 2.00 06/09/17 12:00 97.5 67 16 113/62 (79) 90 06/09/17 12:00 Nasal Cannula 4.00 06/09/17 12:00 73 I/O 06/09/17 06/09/17 06/09/17 06/10/17 06/10/17 06/10/17 07:00 15:00 23:00 07:00 15:00 23:00 Intake Total 480 ml 600 ml 1440 ml Output Total 1000 ml 1500 ml Balance -520 ml 600 ml -60 ml Intake Oral 480 ml 600 ml 1440 ml Output Urine Total 1000 ml 1500 ml # Voids 18 # Bowel Movements 0 3 Result Diagram: 06/10/17 0550 06/10/17 0550 Other Results Last Impressions Chest X-Ray 06/05/17 0000 Signed Impressions: Service Date/Time: Monday, June 05, 2017 18:26 - CONCLUSION: 1. No acute abnormality or significant interval change. Emmanuel Mcclure MD Abdomen/Pelvis CT 06/05/17 0000 Signed Impressions: Service Date/Time: Monday, June 05, 2017 01:45 - CONCLUSION: 1. Mild diverticulosis with no inflammatory change or obstruction. 2. Prominent liver with mild hepatic steatosis. 3. Right adrenal adenoma. 4. Status post right nephrectomy. 5. Status post cholecystectomy. 6. Small anterior abdominal wall hernia. Ton Woods MD Objective Remarks GENERAL: Patient is 56 yo sitting in chair in NAD SKIN: Warm and dry. HEAD: Normocephalic. EYES: No scleral icterus. No injection or drainage. NECK: Supple, trachea midline. No JVD or lymphadenopathy. CARDIOVASCULAR: Regular rate and rhythm without murmurs, gallops, or rubs. RESPIRATORY: Breath sounds equal bilaterally. Scattered wheezing GASTROINTESTINAL: Abdomen soft, non-tender, nondistended. MUSCULOSKELETAL: No cyanosis, or edema. Neuro: Awake and alert A/P Assessment and Plan 1)Resp Insuff 2)COPD exac 3)DM 4)HTN 5)?PETRONA, 6)Acute on CKD Plan Continue with oxygen keep sat >92% Bronchodilators ( Albuterol, Symbicort, Spiriva) Change Prednisone to solumederol 40mg IV Q6 PFT and sleep study as outpatient Continue with abx ( Azithromycin) Monitor renal function, avoid nephrotoxins Renal is following- On Lasix 40mg BID Monitor CBC, coags- on Coumadin INR:2.3 Continue treatment plan Rajan Ashby MD Jun 10, 2017 11:53
[2017-06-10] MEDS: methylPREDNISolone SOD SUCC 40 MG/1 ML VIAL IV PUSH SCH ×2 (12:19→18:13)
[2017-06-10] MEDS: RESP: ALBUTEROL 2.5 MG/IPRATROPIUM 0.5 MG NEB (SCH) NEB ×3 (13:34→19:40)
[2017-06-10] MEDS ORDERED: RESP: ALBUTEROL 2.5 MG/IPRATROPIUM 0.5 MG NEB (SCH) NEB (14:00)
--- NOTE | 2017-06-10 17:09 | HHI.NPPN ---
Subjective General Problems: Anemia, Edema, Hypertension Renal Failure: Chronic, Acute, Stage IV History of Present Illness 56-year-old male with a past medical history significant for atrial fibrillation anticoagulated on Coumadin, chronic kidney disease, left nephrectomy, CAD, hypertension, hyperlipidemia, diabetes mellitus, COPD, hepatitis C, chronic pain and history of multiple CVA;. He presents to the emergency department after being referred by his PCP for evaluation of chronic nausea/vomiting/diarrhea and chest pain. Additional Remarks No acute complaints. Review of Systems General Constitutional: Fatigue Respiratory Lungs: SOB Respiratory Remarks mild SOB Cardiovascular Cardiac: DAVIS Cardiac Remarks denies CP Gastrointestinal Gastrointestinal: Abdominal Pain, Nausea & Vomiting Objective Data Data Vital Signs Date Time Temp Pulse Resp B/P (MAP) Pulse Ox O2 Delivery O2 Flow Rate FiO2 06/10/17 12:19 97.7 73 18 111/76 (88) 91 06/10/17 10:33 95 Nasal Cannula 3.00 06/10/17 09:10 98.1 72 18 109/68 (82) 92 06/10/17 04:00 69 06/10/17 04:00 97.9 67 17 104/60 (75) 93 06/10/17 04:00 Nasal Cannula 4.00 06/10/17 00:00 97.9 83 17 121/68 (85) 93 06/10/17 00:00 77 06/10/17 00:00 Nasal Cannula 4.00 06/09/17 21:02 92 Nasal Cannula 3.00 06/09/17 20:00 98.2 83 17 114/56 (75) 92 06/09/17 20:00 Nasal Cannula 4.00 06/09/17 20:00 78 -: 06/10/17 0550 06/10/17 0550 Physical Exam General Appearance: No Acute Distress, Comfortable Eyes Eye Exam: Pupils Equal Throat Throat Exam: Oral Mucosa [place] & Moist Neck Neck Exam: Neck Supple Pulmonary Resp Exam: Breath Sounds Equal, No Distress, Rhonchi, Decreased Bases, Diminished Breath Sounds Cardiology CV Exam: Regular, Normal Sinus Rhythm Gastrointestinal/Abdomen GI Exam: Soft, Non-Tender, Bowel Sounds Present, Distended Integumentary Skin Exam: Clear, Warm Extremeties Extremities Exam: Trace Edema Neurologic Neuro Exam: Alert, Awake, Oriented Psychiatric Psych Exam: Appropriate Responses Assessment/Plan Problem List: (1) Acute kidney injury ICD Codes: N17.9 - Acute kidney failure, unspecified Status: Acute Plan: KONG on CKD with hx of right nephrectomy Non Compliant and did not follow for almost a year. CKD from possible diabetic nephropathy vs HTN or renovascular disease 3 + Protein noted in urine KONG possible prerenal azotemia from N/V/diarrhea and diuretic use Creatinine stable: 3.5->3.4 -> 3.2 -> 3.0 On lasix 40mg PO BID Given extra dose of lasix 40mg IV x 1 on 06/09 for dyspnea Given kayex[place]atae 06/08 Plan Maintain strict I+O Good response to extra lasix yesterday. Will give extra 40mg IV again today, and then increase PO lasix from 40mg PO BID to TID for further diuresis. Restrict K intake Avoid nephrotoxins Will monitor BMP and UOP. (2) Hyponatremia ICD Codes: E87.1 - Hypo-osmolality and hyponatremia Plan: Na stable - 139 (3) Nausea & vomiting ICD Codes: R11.2 - Nausea with vomiting, unspecified Status: Acute (4) Chest pain ICD Codes: R07.9 - Chest pain Status: Acute (5) Diabetes mellitus ICD Codes: E11.9 - Diabetes mellitus Status: Chronic Plan: Maintain blood sugars between 140 mg/dl to 180 mg/dl (6) Hypertension ICD Codes: I10 - Hypertension Status: Chronic Plan: continue current treatment well controlled (7) Anemia ICD Codes: D64.9 - Anemia Status: Acute Plan: Hgb stable Problem Qualifiers (1) Nausea & vomiting: Qualified Codes: R11.14 - Bilious vomiting (2) Chest pain: Qualified Codes: R07.9 - Chest pain, unspecified Aneudy Acuna MD Jun 10, 2017 17:09
[2017-06-10] MEDS ORDERED: FUROSEMIDE 40 MG/4 ML VIAL IV PUSH ONE (17:15)
[2017-06-10] MEDS: ONDANSETRON HCL 4 MG/2 ML VIAL IVP PRN (18:15)
[2017-06-10] MEDS: WARFARIN SOD 5 MG TAB PO SCH (18:20)
[2017-06-10] MEDS: MAGNESIUM HYDROXIDE SUSP 30 ML CUP PO PRN (18:28)
[2017-06-10] MEDS: TAMSULOSIN HCL 0.4 MG CAP PO SCH (20:58)
[2017-06-11] VITALS (10 sets, daily range): BP systolic 104–136; BP diastolic 63–75; PULSE 68–81; RESP 16–24; TEMP 97.3–98.8; O2SAT 90–94
[2017-06-11] MEDS: RESP: ALBUTEROL 2.5 MG/IPRATROPIUM 0.5 MG NEB (SCH) NEB ×7 (00:18→23:44)
[2017-06-11] MEDS: methylPREDNISolone SOD SUCC 40 MG/1 ML VIAL IV PUSH SCH ×5 (00:19→23:18)
[2017-06-11] MEDS: ONDANSETRON HCL 4 MG/2 ML VIAL IVP PRN ×3 (00:19→18:06)
[2017-06-11] MEDS: HYDROmorphone HCL PF 2 MG/ML VIAL IV PRN ×6 (00:19→22:08)
[2017-06-11 05:18] LABS: AUTOMATED NEUTROPHIL # 6.1 TH/MM3 (1.8-7.7); BASOPHIL % 0.2 % (0.0-2.0); HEMATOCRIT 36.7 % (39.0-51.0); HEMOGLOBIN 12.5 GM/DL (13.0-17.0); LYMPH % 31.4 % (9.0-44.0); LYMPHOCYTE # 2.9 TH/MM3 (1.0-4.8); MEAN CELL VOLUME 91.8 FL (80.0-100.0); MEAN CORPUSCULAR HEMOGLOBIN 31.2 PG (27.0-34.0); MEAN PLATELET VOLUME 7.7 FL (7.0-11.0); MONO % 2.8 % (0.0-8.0); MONOCYTE # 0.3 TH/MM3 (0-0.9); NEUT % 65.6 % (16.0-70.0); PLATELET COUNT 181 TH/MM3 (150-450); RED CELL DISTRIBUTION WIDTH 15.2 % (11.6-17.2); WHITE BLOOD COUNT 9.3 TH/MM3 (4.0-11.0)
[2017-06-11 05:19] LABS: INTERNATIONAL NORMALIZED RATIO 2.2 RATIO; PROTHROMBIN TIME - PATIENT 22.7 SEC (9.8-11.6)
[2017-06-11 05:42] LABS: BICARBONATE 31.7 MEQ/L (21.0-32.0); CALCIUM 8.3 MG/DL (8.5-10.1); CREATININE 2.98 MG/DL (0.60-1.30)
--- NOTE | 2017-06-11 07:19 | RADRPT ---
EXAM DATE/TIME: 06/11/2017 06:16 [facility] COMPARISON: CHEST SINGLE AP, June 05, 2017, 18:26. INDICATIONS : Short of breath MEDICAL HISTORY : Hypertension. Diabetes mellitus type II. Chronic obstructive pulmonary disease. SURGICAL HISTORY : Pacemaker. Appendectomy. Cholecystectomy. right nephrectomy ENCOUNTER: Subsequent ACUITY: 1 week PAIN SCORE: 0/10 LOCATION: Bilateral chest FINDINGS: Stable single lead AICD device. Mild bibasilar airspace disease. Cardiomedi some contours are stable. Remainder of exam is unchanged. CONCLUSION: 1. Mild bibasilar airspace disease, likely atelectasis. 2. No significant interval change. Emmanuel Mcclure MD on June 11, 2017 at 7:18 Board Certified Radiologist. This report was verified electronically.
[2017-06-11] MEDS ORDERED: INSULIN REGULAR IV SCH (08:15)
[2017-06-11] MEDS ORDERED: RESP: ALBUTEROL CONC 2.5 MG/0.5 ML NEB NEB ONE (08:15)
[2017-06-11] MEDS ORDERED: DEXTROSE 10% IV SCH (08:15)
[2017-06-11] MEDS: INSULIN ASPART SUPPLEMENTAL SCALE SQ SCH ×4 (08:30→22:07)
[2017-06-11] MEDS: PREGABALIN 75 MG CAP PO SCH ×2 (08:44→21:56)
[2017-06-11] MEDS: METOPROLOL TARTRATE 25 MG TAB PO SCH ×2 (08:44→21:56)
[2017-06-11] MEDS: AMIODARONE 200 MG TAB PO SCH (08:44)
[2017-06-11] MEDS: clonazePAM 1 MG TAB PO SCH ×4 (08:44→21:56)
[2017-06-11] MEDS: METOCLOPRAMIDE HCL 10 MG TAB PO SCH ×4 (08:45→21:56)
[2017-06-11] MEDS: DOCUSATE SODIUM 100 MG CAP PO SCH ×2 (08:45→21:56)
[2017-06-11] MEDS: FUROSEMIDE 40 MG TAB PO SCH ×3 (08:45→18:02)
[2017-06-11] MEDS: GEMFIBROZIL 600 MG TAB PO SCH ×2 (08:45→18:03)
[2017-06-11] MEDS: PANTOPRAZOLE SOD 20 MG DELAYED RELEASE TAB PO SCH (08:45)
[2017-06-11] MEDS: INSULIN ASPART 1,000 UNITS/10 ML VIAL SQ SCH ×3 (08:46→18:00)
[2017-06-11] MEDS: INSULIN DETEMIR 100 UNITS/ML VIAL SQ SCH ×2 (08:46→22:07)
[2017-06-11] MEDS: AZITHROMYCIN 250 MG TAB PO SCH (08:46)
[2017-06-11] MEDS: SODIUM CHLORIDE 0.9% FLUSH 10 ML FLUSH IV FLUSH SCH ×2 (08:46→21:00)
[2017-06-11] MEDS: BUDESONIDE-FORMOTEROL 160/4.5 MCG INHALER INH SCH ×2 (08:47→22:13)
[2017-06-11] MEDS: SODIUM POLYSTYRENE SULFONATE SUSP 15 GM/60 ML CUP PO SCH ×4 (10:29→21:56)
--- NOTE | 2017-06-11 13:13 | HHI.PR ---
Subjective Remarks Follow up for COPD exacerbation, KONG on CKD. Patient is currently doing well. No fever or chills. Currently on 2-3 L of oxygen via nasal cannula. Objective Vitals Vital Signs Date Time Temp Pulse Resp B/P (MAP) Pulse Ox O2 Delivery O2 Flow Rate FiO2 06/11/17 12:00 98.3 74 20 114/63 (80) 90 06/11/17 08:00 97.3 81 22 119/66 (83) 93 06/11/17 07:45 92 Nasal Cannula 2.00 06/11/17 04:00 Nasal Cannula 4.00 06/11/17 04:00 98.8 68 24 104/75 (85) 92 06/11/17 04:00 79 06/11/17 00:00 97.7 80 18 105/70 (82) 91 06/11/17 00:00 Nasal Cannula 4.00 06/11/17 00:00 72 06/10/17 20:00 98.1 84 19 106/69 (81) 91 06/10/17 20:00 Nasal Cannula 4.00 06/10/17 20:00 76 06/10/17 19:41 96 Nasal Cannula 4.00 06/10/17 16:00 Nasal Cannula 3.00 I/O 06/10/17 06/10/17 06/10/17 06/11/17 06/11/17 06/11/17 07:00 15:00 23:00 07:00 15:00 23:00 Intake Total 1440 ml 800 ml 900 ml Output Total 1500 ml 1000 ml 600 ml 400 ml Balance -60 ml -200 ml 300 ml -400 ml Intake Oral 1440 ml 800 ml 900 ml Output Urine Total 1500 ml 1000 ml 600 ml 400 ml # Bowel Movements 0 0 Result Diagram: 06/11/17 0420 06/11/17 0420 Imaging Last Impressions Chest X-Ray 06/05/17 0000 Signed Impressions: Service Date/Time: Monday, June 05, 2017 18:26 - CONCLUSION: 1. No acute abnormality or significant interval change. Emmanuel Mcclure MD Abdomen/Pelvis CT 06/05/17 0000 Signed Impressions: Service Date/Time: Monday, June 05, 2017 01:45 - CONCLUSION: 1. Mild diverticulosis with no inflammatory change or obstruction. 2. Prominent liver with mild hepatic steatosis. 3. Right adrenal adenoma. 4. Status post right nephrectomy. 5. Status post cholecystectomy. 6. Small anterior abdominal wall hernia. Ton Woods MD Objective Remarks GENERAL: Alert, NAD. SKIN: Warm and dry. HEAD: Normocephalic. EYES: No scleral icterus. No injection or drainage. NECK: Supple, trachea midline. No JVD or lymphadenopathy. CARDIOVASCULAR: Regular rate and rhythm without murmurs, gallops, or rubs. RESPIRATORY: Moderate air entry, Diffuse but mild wheezes appreciated. No accessory muscle use. GASTROINTESTINAL: Abdomen soft, non-tender, nondistended. MUSCULOSKELETAL: No cyanosis, or edema. BACK: Nontender without obvious deformity. No CVA tenderness. Procedures None A/P Problem List: (1) Acute renal failure superimposed on stage 3 chronic kidney disease ICD Code: N17.9 - Acute kidney failure, unspecified; N18.3 - Chronic kidney disease, stage 3 (moderate) (2) Diabetes type 2, uncontrolled ICD Code: E11.65 - Type 2 diabetes mellitus with hyperglycemia (3) Respiratory failure with hypoxia ICD Code: J96.91 - Respiratory failure, unspecified with hypoxia (4) COPD with exacerbation ICD Code: J44.1 - Chronic obstructive pulmonary disease with (acute) exacerbation Assessment and Plan Mr. Gooden is a pleasant 56 year old male with multiple comorbidities who was sent to the ED by his PCP due to nausea, vomiting, diarrhea and chest pain. He was found to have acute respiratory failure as well as KONG on CKD with Creatinine 4.27 on admission. Baseline creatinine 2.5. - Acute respiratory failure hypoxic - COPD exacerbation - Appreciate Pulmonary input. - Patient is currently on DuoNeb, Symbicort. Also on Spiriva which can be continued on discharge. - Continue Azithromycin 250mg Qday. - Continue Solu-Medrol 40mg Q6hrs. - Walk test from 06/09/2017 indicates need for home oxygen. - If he continues to require higher amount of O2, we could consider CT chest which would be reasonable given his history of fdc Amiodarone use. - Hypertension - Atrial fibrillation - Patient is on Amiodarone, he has been on it for a number of years. - Continue Amlodipine 10mg Qday, Losartan 50mg Qday, Metoprolol 25mg BID. - Continue Warfarin with pharmacy consult. - D/C Aspirin. There is no indication for this patient to use Aspirin along with Warfarin. - Acute kidney injury - CKD stage IV - Hyperkalemia - We'll give albuterol treatment as well as insulin, D10 as well as Kayexalate. We'll recheck potassium this afternoon. - Nephrology following. Creatinine improved from 4.27 --> 3.06 --> 2.98 on . - Due to fluid overload, Nephrology provided one dose of IV lasix today in addition to PO lasix. - Diabetes mellitus - Patient is currently on Levemir 100units Q12, Aspart 7 units TIDAC, sliding scale insulin. - Goal BG 140-180. Full code. Warfarin. INR 2.2 today. Bertha Evans DO Jun 11, 2017 13:13
--- NOTE | 2017-06-11 14:02 | HHI.NPPN ---
Subjective General Problems: Anemia, Edema, Hypertension Renal Failure: Chronic, Acute, Stage IV History of Present Illness 56-year-old male with a past medical history significant for atrial fibrillation anticoagulated on Coumadin, chronic kidney disease, left nephrectomy, CAD, hypertension, hyperlipidemia, diabetes mellitus, COPD, hepatitis C, chronic pain and history of multiple CVA;. He presents to the emergency department after being referred by his PCP for evaluation of chronic nausea/vomiting/diarrhea and chest pain. Additional Remarks Reports feeling nauseated today. No SOB (Nasreen Colmenares) Review of Systems General Constitutional: Fatigue (Nasreen Colmenares) Respiratory Respiratory Remarks Denies SOB (Nasreen Colmenares) Cardiovascular Cardiac: DAVIS Cardiac Remarks denies CP (Nasreen Colmenares) Gastrointestinal Gastrointestinal: Nausea & Vomiting (Nasreen Colmenares) Objective Data Data 06/11/17 06/12/17 19:00 07:00 Output Total 400 ml Balance -400 ml Output Urine Total 400 ml Vital Signs Date Time Temp Pulse Resp B/P (MAP) Pulse Ox O2 Delivery O2 Flow Rate FiO2 06/11/17 12:00 98.3 74 20 114/63 (80) 90 06/11/17 08:00 97.3 81 22 119/66 (83) 93 06/11/17 07:45 92 Nasal Cannula 2.00 06/11/17 04:00 Nasal Cannula 4.00 06/11/17 04:00 98.8 68 24 104/75 (85) 92 06/11/17 04:00 79 06/11/17 00:00 97.7 80 18 105/70 (82) 91 06/11/17 00:00 Nasal Cannula 4.00 06/11/17 00:00 72 06/10/17 20:00 98.1 84 19 106/69 (81) 91 06/10/17 20:00 Nasal Cannula 4.00 06/10/17 20:00 76 06/10/17 19:41 96 Nasal Cannula 4.00 06/10/17 16:00 Nasal Cannula 3.00 (Nasreen Colmenares) -: 06/11/17 0420 06/11/17 0420 Imaging Last Impressions Chest X-Ray 06/05/17 0000 Signed Impressions: Service Date/Time: Monday, June 05, 2017 18:26 - CONCLUSION: 1. No acute abnormality or significant interval change. Emmanuel Mcclure MD Abdomen/Pelvis CT 06/05/17 0000 Signed Impressions: Service Date/Time: Monday, June 05, 2017 01:45 - CONCLUSION: 1. Mild diverticulosis with no inflammatory change or obstruction. 2. Prominent liver with mild hepatic steatosis. 3. Right adrenal adenoma. 4. Status post right nephrectomy. 5. Status post cholecystectomy. 6. Small anterior abdominal wall hernia. Ton Woods MD (GellermannNasreen M. PORCELAIN TECHNICIAN) Physical Exam General Appearance: No Acute Distress, Comfortable (GellermannNasreen M. PORCELAIN TECHNICIAN) Eyes Eye Exam: Pupils Equal (GellermannNasreen M. PORCELAIN TECHNICIAN) Throat Throat Exam: Oral Mucosa [place] & Moist (GellermannNasreen M. PORCELAIN TECHNICIAN) Neck Neck Exam: Neck Supple (GellermannNasreen M. PORCELAIN TECHNICIAN) Pulmonary Resp Exam: Breath Sounds Equal, No Distress, Decreased Bases, Diminished Breath Sounds (GellermannNasreen M. PORCELAIN TECHNICIAN) Cardiology CV Exam: Regular, Normal Sinus Rhythm (GellermannNasreen M. PORCELAIN TECHNICIAN) Gastrointestinal/Abdomen GI Exam: Soft, Non-Tender, Bowel Sounds Present, Distended (GellermannNasreen M. PORCELAIN TECHNICIAN) Integumentary Skin Exam: Clear, Warm (GellermannNasreen M. PORCELAIN TECHNICIAN) Extremeties Extremities Exam: Trace Edema (GellermannNasreen M. PORCELAIN TECHNICIAN) Neurologic Neuro Exam: Alert, Awake, Oriented (GellermannNasreen M. PORCELAIN TECHNICIAN) Psychiatric Psych Exam: Appropriate Responses (GellermannNasreen M. PORCELAIN TECHNICIAN) Assessment/Plan Problem List: (1) Acute kidney injury ICD Codes: N17.9 - Acute kidney failure, unspecified Status: Acute Plan: KONG on CKD with hx of right nephrectomy Non Compliant and did not follow for almost a year. CKD from possible diabetic nephropathy vs HTN or renovascular disease 3 + Protein noted in urine KONG possible prerenal azotemia from N/V/diarrhea and diuretic use Creatinine stable: 3.5->3.4 -> 3.2 -> 3.0 and today at 2.98 Plan Hyperkalemia and kayaxalate given and repeat level ordered Continue lasix from 40mg PO TID Restrict K intake Avoid nephrotoxins Will monitor BMP and UOP. (2) Hyponatremia ICD Codes: E87.1 - Hypo-osmolality and hyponatremia Plan: Na stable - 139 (3) Nausea & vomiting ICD Codes: R11.2 - Nausea with vomiting, unspecified Status: Acute (4) Chest pain ICD Codes: R07.9 - Chest pain Status: Acute (5) Diabetes mellitus ICD Codes: E11.9 - Diabetes mellitus Status: Chronic Plan: Maintain blood sugars between 140 mg/dl to 180 mg/dl (6) Hypertension ICD Codes: I10 - Hypertension Status: Chronic Plan: continue current treatment well controlled (7) Anemia ICD Codes: D64.9 - Anemia Status: Acute Plan: Hgb stable (Nasreen Colmenares) Problem List: (1) Acute kidney injury ICD Codes: N17.9 - Acute kidney failure, unspecified Status: Acute Plan: KONG on CKD with hx of right nephrectomy Non Compliant and did not follow for almost a year. CKD from possible diabetic nephropathy vs HTN or renovascular disease 3 + Protein noted in urine KONG possible prerenal azotemia from N/V/diarrhea and diuretic use Creatinine stable: 3.5->3.4 -> 3.2 -> 3.0 and today at 2.98 Plan Hyperkalemia and kayaxalate given and repeat level ordered Continue lasix from 40mg PO TID Restrict K intake Avoid nephrotoxins Will monitor BMP and UOP. Patient seen and examined, agree with above. Creatinine is improving, continue diuretics. (2) Hyponatremia ICD Codes: E87.1 - Hypo-osmolality and hyponatremia Plan: Na stable - 139 (3) Nausea & vomiting ICD Codes: R11.2 - Nausea with vomiting, unspecified Status: Acute (4) Chest pain ICD Codes: R07.9 - Chest pain Status: Acute (5) Diabetes mellitus ICD Codes: E11.9 - Diabetes mellitus Status: Chronic Plan: Maintain blood sugars between 140 mg/dl to 180 mg/dl (6) Hypertension ICD Codes: I10 - Hypertension Status: Chronic Plan: continue current treatment well controlled (7) Anemia ICD Codes: D64.9 - Anemia Status: Acute Plan: Hgb stable (Larry Coyle MD) Problem Qualifiers (1) Nausea & vomiting: Qualified Codes: R11.14 - Bilious vomiting (2) Chest pain: Qualified Codes: R07.9 - Chest pain, unspecified Nasreen Colmenares Jun 11, 2017 14:02 Larry Coyle MD Jun 11, 2017 19:18
--- NOTE | 2017-06-11 14:43 | RSPPFT ---
DATE OF PROCEDURE: 06/06/17 COMMENTS: Spirometry with FVC of 3.0, FEV1 of 2.1, FEV1/FVC ratio at 70%. A non-significant response to acutely inhaled bronchodilator noted. IMPRESSION: 1. Moderate airways obstruction. 2. Non-significant response to inhaled bronchodilator.
[2017-06-11] MEDS ORDERED: WARFARIN SOD 1 MG TAB PO ONE (16:00)
--- NOTE | 2017-06-11 16:30 | HHI.PR ---
Subjective Remarks ALERT LESS SOB ON O2 NC Objective Vital Signs Date Time Temp Pulse Resp B/P (MAP) Pulse Ox O2 Delivery O2 Flow Rate FiO2 06/11/17 12:00 98.3 74 20 114/63 (80) 90 06/11/17 08:00 76 06/11/17 08:00 97.3 81 22 119/66 (83) 93 06/11/17 08:00 Nasal Cannula 4.00 06/11/17 07:45 92 Nasal Cannula 2.00 06/11/17 04:00 Nasal Cannula 4.00 06/11/17 04:00 98.8 68 24 104/75 (85) 92 06/11/17 04:00 79 06/11/17 00:00 97.7 80 18 105/70 (82) 91 06/11/17 00:00 Nasal Cannula 4.00 06/11/17 00:00 72 06/10/17 20:00 98.1 84 19 106/69 (81) 91 06/10/17 20:00 Nasal Cannula 4.00 06/10/17 20:00 76 06/10/17 19:41 96 Nasal Cannula 4.00 I/O 06/10/17 06/10/17 06/10/17 06/11/17 06/11/17 06/11/17 07:00 15:00 23:00 07:00 15:00 23:00 Intake Total 1440 ml 800 ml 900 ml Output Total 1500 ml 1000 ml 600 ml 400 ml Balance -60 ml -200 ml 300 ml -400 ml Intake Oral 1440 ml 800 ml 900 ml Output Urine Total 1500 ml 1000 ml 600 ml 400 ml # Bowel Movements 0 0 Result Diagram: 06/11/17 0420 06/11/17 1415 Objective Remarks GENERAL: SKIN: Warm and dry. HEAD: Atraumatic. Normocephalic. EYES: Pupils equal and round. No scleral icterus. No injection or drainage. ENT: No nasal bleeding or discharge. Mucous membranes pink and moist. NECK: Trachea midline. No JVD. CARDIOVASCULAR: Regular rate and rhythm. RESPIRATORY: No accessory muscle use. Clear to auscultation. Breath sounds equal bilaterally. GASTROINTESTINAL: Abdomen soft, non-tender, nondistended. Hepatic and splenic margins not palpable. MUSCULOSKELETAL: Extremities without clubbing, cyanosis, or edema. No obvious deformities. NEUROLOGICAL: Awake and alert. No obvious cranial nerve deficits. Motor grossly within normal limits. Five out of 5 muscle strength in the arms and legs. Normal speech. PSYCHIATRIC: Appropriate mood and affect; insight and judgment normal. Assessment and Plan Assessment and Plan COPD EXACERBATION DM HTN ?PETRONA, IMPROVED O2 NEEDED BRONCHODILATOR THERAPY NPSG POST D/C WILL SIGN OFF SEE PRN OFFICE 1 WEEK POST DC Rima Abarca MD Jun 11, 2017 16:30
[2017-06-11] MEDS: WARFARIN SOD 5 MG TAB PO SCH (18:02)
[2017-06-11] MEDS: TAMSULOSIN HCL 0.4 MG CAP PO SCH (21:00)
[2017-06-12] VITALS (9 sets, daily range): BP systolic 102–122; BP diastolic 56–79; PULSE 71–93; RESP 16–20; TEMP 97.6–98.6; O2SAT 88–95
[2017-06-12] MEDS: HYDROmorphone HCL PF 2 MG/ML VIAL IV PRN ×3 (03:02→11:54)
[2017-06-12] MEDS: RESP: ALBUTEROL 2.5 MG/IPRATROPIUM 0.5 MG NEB (SCH) NEB ×3 (03:07→11:32)
[2017-06-12 05:16] LABS: INTERNATIONAL NORMALIZED RATIO 2.4 RATIO; PROTHROMBIN TIME - PATIENT 24.6 SEC (9.8-11.6)
[2017-06-12] MEDS: ONDANSETRON HCL 4 MG/2 ML VIAL IVP PRN (06:17)
[2017-06-12] MEDS: methylPREDNISolone SOD SUCC 40 MG/1 ML VIAL IV PUSH SCH ×2 (06:18→11:54)
[2017-06-12] MEDS: GEMFIBROZIL 600 MG TAB PO SCH (06:55)
[2017-06-12] MEDS: METOCLOPRAMIDE HCL 10 MG TAB PO SCH ×2 (08:11→11:54)
[2017-06-12] MEDS: PREGABALIN 75 MG CAP PO SCH (08:11)
[2017-06-12] MEDS: clonazePAM 1 MG TAB PO SCH ×2 (08:11→11:54)
[2017-06-12] MEDS: PANTOPRAZOLE SOD 20 MG DELAYED RELEASE TAB PO SCH (08:11)
[2017-06-12] MEDS: AMIODARONE 200 MG TAB PO SCH (08:11)
[2017-06-12] MEDS: AZITHROMYCIN 250 MG TAB PO SCH (08:11)
[2017-06-12] MEDS: DOCUSATE SODIUM 100 MG CAP PO SCH (08:11)
[2017-06-12] MEDS: METOPROLOL TARTRATE 25 MG TAB PO SCH (08:11)
[2017-06-12] MEDS: FUROSEMIDE 40 MG TAB PO SCH ×2 (08:11→11:54)
[2017-06-12] MEDS: SODIUM CHLORIDE 0.9% FLUSH 10 ML FLUSH IV FLUSH SCH (08:13)
[2017-06-12] MEDS: INSULIN ASPART SUPPLEMENTAL SCALE SQ SCH ×2 (08:13→11:55)
[2017-06-12] MEDS: INSULIN DETEMIR 100 UNITS/ML VIAL SQ SCH (08:13)
[2017-06-12] MEDS: INSULIN ASPART 1,000 UNITS/10 ML VIAL SQ SCH ×2 (08:13→11:55)
[2017-06-12] MEDS: BUDESONIDE-FORMOTEROL 160/4.5 MCG INHALER INH SCH (08:14)
[2017-06-12] MEDS ORDERED: VENTAER INH (11:07)
[2017-06-12] MEDS ORDERED: ZOFR4TAB3 SL (11:07)
[2017-06-12] MEDS ORDERED: SPIRCAP INH (11:07)
[2017-06-12] MEDS ORDERED: SYMB160A INH (11:07)
[2017-06-12] MEDS ORDERED: TORS20TA PO (11:07)
--- NOTE | 2017-06-12 13:41 | HHI.NPPN ---
Subjective General Problems: Anemia, Edema, Hypertension Renal Failure: Chronic, Acute, Stage IV History of Present Illness 56-year-old male with a past medical history significant for atrial fibrillation anticoagulated on Coumadin, chronic kidney disease, left nephrectomy, CAD, hypertension, hyperlipidemia, diabetes mellitus, COPD, hepatitis C, chronic pain and history of multiple CVA;. He presents to the emergency department after being referred by his PCP for evaluation of chronic nausea/vomiting/diarrhea and chest pain. Additional Remarks No acute findings. (Nasreen Colmenares) Review of Systems General Constitutional: Fatigue (Nasreen Colmenares) Respiratory Respiratory Remarks Denies SOB (Nasreen Colmenares) Cardiovascular Cardiac: DAVIS Cardiac Remarks denies CP (Nasreen Colmenares) Gastrointestinal Gastrointestinal: Nausea & Vomiting (Nasreen Colmenares) Objective Data Data 06/12/17 06/13/17 19:00 07:00 Intake Total 360 ml Output Total 600 ml Balance -240 ml Intake Oral 360 ml Output Urine Total 600 ml # Voids 6 # Bowel Movements 1 Vital Signs Date Time Temp Pulse Resp B/P (MAP) Pulse Ox O2 Delivery O2 Flow Rate FiO2 06/12/17 12:00 78 06/12/17 11:57 98.4 76 20 102/56 (71) 95 06/12/17 11:32 95 Nasal Cannula 4.00 06/12/17 08:00 73 06/12/17 08:00 97.6 71 20 122/79 (93) 91 06/12/17 08:00 Nasal Cannula 4.00 06/12/17 07:27 88 Nasal Cannula 4.00 06/12/17 04:47 79 06/12/17 04:00 Nasal Cannula 4.00 06/12/17 04:00 97.9 81 16 118/76 (90) 94 06/12/17 04:00 18 06/12/17 00:00 Nasal Cannula 4.00 06/12/17 00:00 98.6 83 16 107/59 (75) 93 06/11/17 23:50 78 06/11/17 22:00 Nasal Cannula 4.00 06/11/17 20:25 93 Nasal Cannula 4.00 06/11/17 20:19 75 2/26/18 20:00 97.6 77 16 118/63 (81) 92 06/11/17 16:00 97.8 72 20 136/73 (94) 94 (Nasreen Colmenares) -: 06/11/17 0420 06/11/17 1415 Physical Exam General Appearance: No Acute Distress, Comfortable (Nasreen Colmenares) Eyes Eye Exam: Pupils Equal (Nasreen Colmenares) Throat Throat Exam: Oral Mucosa [place] & Moist (Nasreen Colmenares) Neck Neck Exam: Neck Supple (Nasreen Colmenares) Pulmonary Resp Exam: Breath Sounds Equal, No Distress, Decreased Bases, Diminished Breath Sounds (Nasreen Colmenares) Cardiology CV Exam: Regular, Normal Sinus Rhythm (Nasreen Colmenares) Gastrointestinal/Abdomen GI Exam: Soft, Non-Tender, Bowel Sounds Present (Nasreen Colmenares) Integumentary Skin Exam: Clear, Warm (Nasreen Colmenares) Extremeties Extremities Exam: Trace Edema (Nasreen Colmenares) Neurologic Neuro Exam: Alert, Awake, Oriented (Nasreen Colmenares) Psychiatric Psych Exam: Appropriate Responses (Nasreen Colmenares) Assessment/Plan Problem List: (1) Acute kidney injury ICD Codes: N17.9 - Acute kidney failure, unspecified Status: Acute Plan: KONG on CKD with hx of right nephrectomy Non Compliant and did not follow for almost a year. CKD from possible diabetic nephropathy vs HTN or renovascular disease 3 + Protein noted in urine KONG possible prerenal azotemia from N/V/diarrhea and diuretic use Creatinine stable Plan Continue lasix from 40mg PO TID Restrict K intake Avoid nephrotoxins Instructed to make follow up appt at office (2) Hyponatremia ICD Codes: E87.1 - Hypo-osmolality and hyponatremia Plan: Na stable - 139 (3) Nausea & vomiting ICD Codes: R11.2 - Nausea with vomiting, unspecified Status: Acute (4) Chest pain ICD Codes: R07.9 - Chest pain Status: Acute (5) Diabetes mellitus ICD Codes: E11.9 - Diabetes mellitus Status: Chronic Plan: Maintain blood sugars between 140 mg/dl to 180 mg/dl (6) Hypertension ICD Codes: I10 - Hypertension Status: Chronic Plan: continue current treatment well controlled (7) Anemia ICD Codes: D64.9 - Anemia Status: Acute Plan: Hgb stable (Nasreen Colmenares) Problem List: (1) Acute kidney injury ICD Codes: N17.9 - Acute kidney failure, unspecified Status: Acute Plan: KONG on CKD with hx of right nephrectomy Non Compliant and did not follow for almost a year. CKD from possible diabetic nephropathy vs HTN or renovascular disease 3 + Protein noted in urine KONG possible prerenal azotemia from N/V/diarrhea and diuretic use Creatinine stable Plan Continue lasix from 40mg PO TID Restrict K intake Avoid nephrotoxins Instructed to make follow up appt at office. Patient seen and examined, agree with above. Patient has advance stage 4 chronic kidney disease. To follow as out patient in 2-3 weeks. (2) Hyponatremia ICD Codes: E87.1 - Hypo-osmolality and hyponatremia Plan: Na stable - 139 (3) Nausea & vomiting ICD Codes: R11.2 - Nausea with vomiting, unspecified Status: Acute (4) Chest pain ICD Codes: R07.9 - Chest pain Status: Acute (5) Diabetes mellitus ICD Codes: E11.9 - Diabetes mellitus Status: Chronic Plan: Maintain blood sugars between 140 mg/dl to 180 mg/dl (6) Hypertension ICD Codes: I10 - Hypertension Status: Chronic Plan: continue current treatment well controlled (7) Anemia ICD Codes: D64.9 - Anemia Status: Acute Plan: Hgb stable (Larry Coyle MD) Problem Qualifiers (1) Nausea & vomiting: Qualified Codes: R11.14 - Bilious vomiting (2) Chest pain: Qualified Codes: R07.9 - Chest pain, unspecified Nasreen Colmenares Jun 12, 2017 13:41 Larry Coyle MD Jun 12, 2017 19:16
== END 2017-06-12 13:21 | disposition home health service (06) | DRG 682 ==
LOC: NEPC 16:33 → NEDA 20:32 → NEPGCP 22:32 → OBSVTOIN 06-05 10:21 → N04A 06-05 15:24
PROVIDERS: ADMIT Hospitalist; ATTEND Hospitalist
DX: N17.9 Acute kidney failure, unspecified (principal); J96.21 Acute and chronic respiratory failure with hypoxia; I13.2 Hypertensive heart and chronic kidney disease with heart failure and with stage 5 chronic kidney disease, or end stage renal disease; J44.1 Chronic obstructive pulmonary disease with (acute) exacerbation; E87.1 Hypo-osmolality and hyponatremia; Z68.41 Body mass index [BMI] 40.0-44.9, adult; I25.2 Old myocardial infarction; N18.6 End stage renal disease; I25.10 Atherosclerotic heart disease of native coronary artery without angina pectoris; E11.22 Type 2 diabetes mellitus with diabetic chronic kidney disease; E11.65 Type 2 diabetes mellitus with hyperglycemia; E78.5 Hyperlipidemia, unspecified; B19.20 Unspecified viral hepatitis C without hepatic coma; G89.29 Other chronic pain; K58.0 Irritable bowel syndrome with diarrhea; I48.91 Unspecified atrial fibrillation; I49.3 Ventricular premature depolarization; I50.9 Heart failure, unspecified; K21.9 Gastro-esophageal reflux disease without esophagitis; M54.5 Low back pain; D63.1 Anemia in chronic kidney disease; G47.33 Obstructive sleep apnea (adult) (pediatric); E66.01 Morbid (severe) obesity due to excess calories; E87.5 Hyperkalemia; M19.90 Unspecified osteoarthritis, unspecified site; F17.290 Nicotine dependence, other tobacco product, uncomplicated; F32.9 Major depressive disorder, single episode, unspecified; F41.9 Anxiety disorder, unspecified; Z79.01 Long term (current) use of anticoagulants; Z79.4 Long term (current) use of insulin; Z79.82 Long term (current) use of aspirin; Z85.528 Personal history of other malignant neoplasm of kidney; Z86.73 Personal history of transient ischemic attack (TIA), and cerebral infarction without residual deficits; Z88.5 Allergy status to narcotic agent; Z90.5 Acquired absence of kidney; Z91.19 Patient's noncompliance with other medical treatment and regimen; Z95.0 Presence of cardiac pacemaker; Z95.5 Presence of coronary angioplasty implant and graft; Z96.651 Presence of right artificial knee joint; Z99.81 Dependence on supplemental oxygen
CPT/HCPCS: 36600; 71045; 74176; 76937; 80048; 80053; 81001; 82550; 82728; 82805; 82947; 82948; 83540; 83550; 83690; 83735; 83880; 83970; 84100; 84132; 84484; 85007; 85025; 85027; 85610; 85730; 86850; 86900; 86901; 87804; 93005; 94060; 94618; 94640; 94664; 96361; 96372; 96374; 96375; G0378; J1170; J1644; J1815; J1817; J1940; J2405; J2765; J2920; J7030; J7512; J7611; J7613

== ENCOUNTER 2017-06-14 17:12 | Observation (INO) | payer MEDICARE ==
[~2017-06-14] VITALS: Ht 177.8 cm; Wt 137.0 kg
[~2017-06-14 17:12] MED LIST changes: -ASPI-183 PO; -FURO1TAB60 PO; -HYDR-3533 PO; -HYDROMORPHONE IT; +OXYGENDME NAS.CANULA; +SPIRCAP INH; +SYMB160A INH; +TORS20TA PO; +VENTAER INH; +ZOFR4TAB3 SL; -[UNRECOGNIZED DRUG - OTHER]
[2017-06-14 17:32] VITALS: BP 114/69; PULSE 149; RESP 16; TEMP 98.5; O2SAT 91
[2017-06-14 17:58] VITALS: BP 92/55; PULSE 75; RESP 12; TEMP 98.7; O2SAT 93
[2017-06-14] MEDS ORDERED: SODIUM CHLOR 0.9% 1000 ML INJ 1,000 ML IV ONE ×2 (18:30→19:45)
[2017-06-14] MEDS ORDERED: SODIUM CHLORIDE 0.9% FLUSH 10 ML FLUSH IVF PRN (18:30)
--- NOTE | 2017-06-14 18:46 | RADRPT ---
EXAM DATE/TIME: 06/14/2017 18:33 [facility] COMPARISON: CHEST SINGLE AP, June 11, 2017, 6:16. INDICATIONS : Palpitations MEDICAL HISTORY : Hypertension. Diabetes mellitus type II. Chronic obstructive pulmonary disease. SURGICAL HISTORY : Pacemaker. Appendectomy. Cholecystectomy. right nephrectomy ENCOUNTER: Initial ACUITY: 1 day PAIN SCORE: 6/10 LOCATION: chest FINDINGS: Left basilar atelectasis is noted. Left subclavian AICD has its tip in the right ventricle. The heart is enlarged. The lungs are otherwise clear. CONCLUSION: Left basilar atelectasis. Cardiomegaly. Tuan Barrios MD on June 14, 2017 at 18:44 Board Certified Radiologist. This report was verified electronically.
[2017-06-14 18:51] LABS: AUTOMATED NEUTROPHIL # 9.8 TH/MM3 (1.8-7.7); BASOPHIL # 0.2 TH/MM3 (0-0.2); EOSINOPHIL # 0.2 TH/MM3 (0-0.4); EOSINOPHIL % 0.7 % (0.0-4.0); HEMATOCRIT 43.1 % (39.0-51.0); HEMOGLOBIN 14.5 GM/DL (13.0-17.0); LYMPH % 48.8 % (9.0-44.0); LYMPHOCYTE # 10.8 TH/MM3 (1.0-4.8); MEAN CELL VOLUME 92.2 FL (80.0-100.0); MEAN CORPUSCULAR HEMOGLOBIN 31.1 PG (27.0-34.0); MEAN CORPUSCULAR HGB CONC 33.7 % (32.0-36.0); MEAN PLATELET VOLUME 8.1 FL (7.0-11.0); MONO % 5.6 % (0.0-8.0); MONOCYTE # 1.2 TH/MM3 (0-0.9); NEUT % 43.9 % (16.0-70.0); PLATELET COUNT 247 TH/MM3 (150-450); RED BLOOD COUNT 4.68 MIL/MM3 (4.50-5.90); RED CELL DISTRIBUTION WIDTH 15.4 % (11.6-17.2); WHITE BLOOD COUNT 22.2 TH/MM3 (4.0-11.0)
[2017-06-14 18:59] VITALS: BP 95/57; PULSE 80; RESP 18; O2SAT 95
[2017-06-14 19:00] LABS: PROTHROMBIN TIME - PATIENT 20.5 SEC (9.8-11.6)
--- NOTE | 2017-06-14 19:13 | PD ---
HPI Chief Complaint: Syncope/Near-Syncope Time Seen by Provider: 18:10 Travel History International Travel<30 days: No Contact w/Intl Traveler<30days: No Traveled to known affect area: No History of Present Illness HPI 56 YO M with PMH of hep C, chronic respiratory failure, CAD, GERD, CK-MB, COPD, CVA, CHF, DM, afib, implanted pacemaker, left nephrectomy, and anemia ON COUMADIN presents to the ED for evaluation of low BP, low BG, dizziness, CP, abdominal pain, N/V and near syncope. He endorses decreased appetite. Patient states that these symptom have been ongoing since his release from the hospital a few days ago. The patient is oxygen dependent on 3 liters 02 by [place] at home. He states that he had multiple medications changed at last discharge. He denies fevers, chills, dysuria, hematuria. He repeatedly states, " I don't feel right. " PFSH Past Medical History Hx Anticoagulant Therapy: Yes Arthritis: Yes Asthma: Yes Atrial Fibrillation: Yes Blood Disorders: No Anxiety: Yes Depression: Yes Heart Rhythm Problems: Yes (A-FIB, V-TACH, V-FIB, Bigeminy, Trigeminy) Cancer: Yes (ADRENAL TUMOR, R RENAL CARCINOMA) Cardiovascular Problems: Yes (PVCS, V TACH, A. FIB) High Cholesterol: Yes Chemotherapy: No Chest Pain: Yes Congestive Heart Failure: Yes COPD: Yes Cerebrovascular Accident: Yes Coronary Artery Disease: Yes Diabetes: Yes Patient Takes Glucophage: No Diminished Hearing: No Endocrine: Yes Gastrointestinal Disorders: Yes (GERD, HIATAL HERNIA, HEPATITIS C) GERD: Yes Genitourinary: Yes (ESRD) Headaches: No Hiatal Hernia: Yes Heparin Induced Thrombocytopen: No Hypertension: Yes Immune Disorder: No Implanted Vascular Access Dvce: Yes Kidney Stones: No Musculoskeletal: Yes (R FEMUR SURGERY, R KNEE REPLACEMENT, LEFT TIB/FIB FX) Neurologic: Yes (CVA, SEIZURES) Psychiatric: Yes Reproductive: No Respiratory: Yes (COPD) Immunizations Current: Yes Migraines: No Myocardial Infarction: Yes Radiation Therapy: No Renal Failure: No Seizures: Yes Sickle Cell Disease: No Sleep Apnea: Yes (WORE CPAP IN PAST) Thyroid Disease: No ?: Not Past Surgical History Abdominal Surgery: Yes (HERNIA REPAIR, PARTIAL SPLENECTOMY) AICD: Yes (ST. TREMAINE DEFIB) Appendectomy: Yes Arteriovenous Shunt: No Body Medical Devices: PACER/DEFIBRILLATOR, PAIN PUMP Cardiac Surgery: Yes (PACEMAKER INSERT 1995 AND 3 MORE SINCE) Cholecystectomy: Yes Coronary Stent: Yes (X 10) Ear Surgery: No Endocrine Surgery: No Eye Surgery: No Genitourinary Surgery: Yes (rt kidney removed 2011) Gynecologic Surgery: No Hysterectomy: Yes Insulin Pump: No Joint Replacement: Yes (RIGHT KNEE ) Neurologic Surgery: No Oral Surgery: No Pacemaker: Yes Thoracic Surgery: No Tonsillectomy: Yes Other Surgery: Yes (R NEPHRECTOMY, SPLENECTOMY, CHOLEYCYSTECTOMY, APPENDECTOMY , PACER, HERNIA) Social History Alcohol Use: No Tobacco Use: No (cigar) Substance Use: No Allergies-Medications (Allergen,Severity, Reaction): Coded Allergies: baclofen (Unverified Allergy, Severe, 06/14/17) morphine (Unverified Allergy, Severe, Hallucinations, 06/14/17) quinidine (Unverified Allergy, Severe, Hallucinations, 06/14/17) MRI PRECAUTION (Verified Adverse Reaction, Severe, NON MEDTRONIC PACER/ ICD 01/27/15 KMD, 06/14/17) CALLED [employer]ON[employer] TO CONFIRM THAT THE PACER IS NOT A MEDTRONIC Reported Meds & Prescriptions Reported Meds & Active Scripts Active Symbicort Inh (Budesonide/Formoterol Fumarate) 160-4.5 Mcg/Act Aero 1 Puff INH Q12HR Ventolin Hfa 18 GM Inh (Albuterol Sulfate) 90 Mcg/Act Aer 1 Puff INH Q4H PRN Zofran Odt (Ondansetron Odt) 4 Mg Tab 4 Mg SL Q8HR PRN Torsemide 20 Mg Tab 20 Mg PO BID Spiriva Handihaler (Tiotropium Inh) 18 Mcg Cap 18 Mcg INH DAILY 1 capsule = 18 mcg Oxygen (O2) Device Liter DESIRE.CANULA CONTINUOUS Oxygen Concentrator Portable Gaseous 2 L/min via Nasal Canula Continuous For 99 months Reported Vitamin D-1000 (Cholecalciferol) 1,000 Unit Tab 50,000 Units PO 1XPERWEEK Klonopin (Clonazepam) 1 Mg Tab 1 Mg PO QID Losartan (Losartan Potassium) 50 Mg Tab 50 Mg PO DAILY Omeprazole 20 Mg Tab 20 Mg PO DAILY Novolog Inj (Insulin Aspart) 1,000 Unit/10 Ml Vial 0 SQ TIDAC Sliding Scale as directed. Lantus Inj (Insulin Glargine) 1,000 Unit/10 Ml Vial 100 Units SQ BID Coumadin (Warfarin) 7.5 Mg Tab 7.5 Mg PO DAILY Flomax (Tamsulosin HCl) 0.4 Mg Cap 0.4 Mg PO HS Norvasc (Amlodipine Besylate) 10 Mg Tab 10 Mg PO DAILY Metoprolol Tartrate 25 Mg Tab 25 Mg PO BID Lyrica (Pregabalin) 75 Mg Cap 75 Mg PO BID Gemfibrozil 600 Mg Tab 600 Mg PO BIDAC Take 30 minutes prior to breakfast and dinner. Restasis Opth (Cyclosporine Opth) 0.05% Emul 1 Drop EACH EYE BID Amiodarone (Amiodarone HCl) 200 Mg Tab 200 Mg PO DAILY Review of Systems Except as stated in HPI: all other systems reviewed are Neg Physical Exam Narrative GENERAL: Well-nourished, well-developed chronically ill-appearing, obese white male in no acute distress. SKIN: Focused skin assessment warm/dry. Ecchymosis on the abdomen. HEAD: Normocephalic. EYES: No scleral icterus. No injection or drainage. NECK: Supple, trachea midline. No JVD or lymphadenopathy. CARDIOVASCULAR: Regular rate and rhythm without murmurs, gallops, or rubs. RESPIRATORY: Breath sounds clear and equal bilaterally. No accessory muscle use. On 3 L O2 by nasal cannula. GASTROINTESTINAL: Abdomen protuberant, diffusely tender. Active bowel sounds. MUSCULOSKELETAL: No cyanosis, or edema. BACK: Nontender without obvious deformity. No CVA tenderness. Data Data Last Documented VS Vital Signs Date Time Temp Pulse Resp B/P (MAP) Pulse Ox O2 Delivery O2 Flow Rate FiO2 06/14/17 21:48 75 16 108/58 (75) 96 06/14/17 20:16 Room Air 06/14/17 18:59 4.00 06/14/17 17:58 98.7 Orders Orders Electrocardiogram (06/14/17 18:18) Complete Blood Count With Diff (06/14/17 18:18) Comprehensive Metabolic Panel (06/14/17 18:18) B-Type Natriuretic Peptide (06/14/17 18:18) Troponin I (06/14/17 18:18) Act Partial Throm Time (Ptt) (06/14/17 18:18) Prothrombin Time / Inr (Pt) (06/14/17 18:18) Urinalysis - C+S If Indicated (06/14/17 18:18) Chest, Single Ap (06/14/17 18:18) Ct Brain W/O Iv Contrast(Rout) (06/14/17 18:18) Ecg Monitoring (06/14/17 18:18) Iv Access Insert/Monitor (06/14/17 18:18) Oximetry (06/14/17 18:18) Sodium Chloride 0.9% Flush (Ns Flush) (06/14/17 18:30) Sodium Chlor 0.9% 1000 Ml Inj (Ns 1000 M (06/14/17 18:30) Sepsis Workup Initiated (06/14/17 19:33) Sodium Chlor 0.9% 1000 Ml Inj (Ns 1000 M (06/14/17 19:45) Ondansetron Inj (Zofran Inj) (06/14/17 20:00) Ct Abd/Pel W/O Iv Contrast (06/14/17 ) Electrocardiogram (06/14/17 19:59) Hydromorphone Pf Inj (Dilaudid Pf Inj) (06/14/17 22:15) Ondansetron Inj (Zofran Inj) (06/14/17 22:15) Admit Order (Ed Use Only) (06/14/17 22:24) Labs Laboratory Tests Test 06/14/17 18:30 06/14/17 19:30 06/14/17 21:30 White Blood Count 22.2 TH/MM3 Red Blood Count 4.68 MIL/MM3 Hemoglobin 14.5 GM/DL Hematocrit 43.1 % Mean Corpuscular Volume 92.2 FL Mean Corpuscular Hemoglobin 31.1 PG Mean Corpuscular Hemoglobin Concent 33.7 % Red Cell Distribution Width 15.4 % Platelet Count 247 TH/MM3 Mean Platelet Volume 8.1 FL Neutrophils (%) (Auto) 43.9 % Lymphocytes (%) (Auto) 48.8 % Monocytes (%) (Auto) 5.6 % Eosinophils (%) (Auto) 0.7 % Basophils (%) (Auto) 1.0 % Neutrophils # (Auto) 9.8 TH/MM3 Lymphocytes # (Auto) 10.8 TH/MM3 Monocytes # (Auto) 1.2 TH/MM3 Eosinophils # (Auto) 0.2 TH/MM3 Basophils # (Auto) 0.2 TH/MM3 CBC Comment AUTO DIFF Differential Total Cells Counted 100 Neutrophils % (Manual) 36 % Lymphocytes % 57 % Monocytes % 7 % Neutrophils # (Manual) 8.0 TH/MM3 Differential Comment FINAL DIFF MANUAL Platelet Estimate NORMAL Platelet Morphology Comment NORMAL Red Cell Morphology Comment NORMAL Prothrombin Time 20.5 SEC Prothromb Time International Ratio 2.0 RATIO Activated Partial Thromboplast Time 29.9 SEC Blood Urea Nitrogen 70 MG/DL Creatinine 3.25 MG/DL Random Glucose 85 MG/DL Total Protein 6.3 GM/DL Albumin 2.9 GM/DL Calcium Level 7.7 MG/DL Alkaline Phosphatase 79 U/L Aspartate Amino Transf (AST/SGOT) 23 U/L Alanine Aminotransferase (ALT/SGPT) 28 U/L Total Bilirubin 0.2 MG/DL Sodium Level 140 MEQ/L Potassium Level 3.6 MEQ/L Chloride Level 98 MEQ/L Carbon Dioxide Level 30.6 MEQ/L Anion Gap 11 MEQ/L Estimat Glomerular Filtration Rate 20 ML/MIN Troponin I 0.02 NG/ML B-Type Natriuretic Peptide 98 PG/ML Urine Color YELLOW Urine Turbidity CLEAR Urine pH 5.5 Urine Specific Stuart 1.011 Urine Protein 30 mg/dL Urine Glucose (UA) NEG mg/dL Urine Ketones NEG mg/dL Urine Occult Blood NEG Urine Nitrite NEG Urine Bilirubin NEG Urine Urobilinogen LESS THAN 2.0 MG/DL Urine Leukocyte Esterase NEG Urine RBC LESS THAN 1 /hpf Urine WBC LESS THAN 1 /hpf Urine Squamous Epithelial Cells <1 /hpf Urine Hyaline Casts 1 /lpf Microscopic Urinalysis Comment CULT NOT INDICATED MDM Medical Decision Making Medical Screen Exam Complete: Yes Emergency Medical Condition: Yes Differential Diagnosis CHF versus COPD exacerbation versus hypoglycemia versus metabolic derangement versus ACS versus chest pain versus dehydration versus other Narrative Course 56 YO M with PMH of hep C, chronic respiratory failure, CAD, GERD, CK-MB, COPD, CVA, CHF, DM, afib, implanted pacemaker, left nephrectomy, and anemia ON COUMADIN presents to the ED for evaluation of low BP, low BG, dizziness, CP, abdominal pain, N/V and near syncope. He endorses decreased appetite. Patient states that these symptom have been ongoing since his release from the hospital a few days ago. The patient is oxygen dependent on 3 liters 02 by [place] at home. BP 92/55, O2 sats 93% on 4 L nasal cannula on presentation. On exam this is an obese, chronically ill-appearing white male in no acute distress. Chest is CTAB. Abdomen is soft, diffusely tender. IV was established. Fluid resuscitation was initiated. Patient was administered Zofran. EKG rate 72, sinus rhythm, NC interval 175, QRS 1:30, QTC 456. Normal axis. No acute ST changes. Reviewed by Dr. Zabala. CXR: Left basilar atelectasis. Cardiomegaly. Troponin: Negative 1. UA: No culture indicated. INR 2.0. CT brain: No acute disease. CT abdomen and pelvis: Hepatomegaly, uncomplicated colonic diverticulosis, stable bilateral adrenal nodules consistent with probable adenomas. Small umbilical hernia containing only fat. Right basilar atelectasis and/or scarring. Degenerative changes and scoliosis of the thoracolumbar spine. CBC & BMP Diagram 06/14/17 18:30 06/14/17 19:30 Total Protein 6.3 L, Albumin 2.9 L, Calcium Level 7.7 L, Alkaline Phosphatase 79 , Aspartate Amino Transf (AST/SGOT) 23, Alanine Aminotransferase (ALT/SGPT) 28, Total Bilirubin 0.2 On recheck BP improved to 127/61. Patient was administered 0.5 mg Dilaudid and 4 mg Zofran. I reviewed the patient's record. Leukocytosis elevated from baseline. Kidney function mildly worsened. I discussed the patient with Dr. Webber who agrees to accept him to the medicine service. Please see medicine notes for disposition. Leanne Frederick Jun 14, 2017 19:13
[2017-06-14] MEDS ORDERED: ONDANSETRON HCL 4 MG/2 ML VIAL IV PUSH ONE ×2 (20:00→22:15)
[2017-06-14 20:16] VITALS: BP 127/61; PULSE 71; RESP 22; O2SAT 96
[2017-06-14 20:22] LABS: ALBUMIN 2.9 GM/DL (3.4-5.0); ALKALINE PHOSPHATASE 79 U/L (45-117); ALT (GPT) 28 U/L (12-78); AST (GOT) 23 U/L (15-37); BICARBONATE 30.6 MEQ/L (21.0-32.0); BLOOD UREA NITROGEN 70 MG/DL (7-18); CALCIUM 7.7 MG/DL (8.5-10.1); CHLORIDE 98 MEQ/L (98-107); CREATININE 3.25 MG/DL (0.60-1.30); GLOMERULAR FILTRATION RATE 20 ML/MIN (>89); GLUCOSE,RANDOM 85 MG/DL (74-106); SODIUM (NA) 140 MEQ/L (136-145); TOTAL BILIRUBIN ADULT 0.2 MG/DL (0.2-1.0); TOTAL PROTEIN 6.3 GM/DL (6.4-8.2); TROPONIN I 0.02 NG/ML (0.02-0.05)
[2017-06-14 20:28] LABS: LYMPHOCYTES 57 % (9-44); MONOCYTES 7 % (0-8); POLYS (SEG NEUTROPHILS) 36 % (16-70)
--- NOTE | 2017-06-14 21:09 | RADRPT ---
EXAM DATE/TIME: 06/14/2017 20:57 [facility] COMPARISON: CT BRAIN W/O CONTRAST, August 23, 2015, 15:55. INDICATIONS : Dizziness. Syncopal episode. RADIATION DOSE: 66.60 CTDIvol (mGy) MEDICAL HISTORY : Cerebrovascular disease. Seizures. Cardiovascular disease SURGICAL HISTORY : None. ENCOUNTER: Initial ACUITY: 1 day PAIN SCALE: 0/10 LOCATION: cranial TECHNIQUE: Multiple contiguous axial images were obtained of the head. Using automated exposure control and adj ustment of the mA and/or kV according to patient size, radiation dose was kept as low as reasonably a chievable to obtain optimal diagnostic quality images. DICOM format image data is available electro nically for review and comparison. FINDINGS: CEREBRUM: The ventricles are normal for age. No evidence of midline shift, mass lesion, hemorrhage or acute in farction. No extra-axial fluid collections are seen. POSTERIOR FOSSA: The cerebellum and brainstem are intact. The 4th ventricle is midline. The cerebellopontine angle i s unremarkable. EXTRACRANIAL: The visualized portion of the orbits is intact. SKULL: The calvaria is intact. No evidence of skull fracture. CONCLUSION: No acute disease. Tuan Barrios MD on June 14, 2017 at 21:07 Board Certified Radiologist. This report was verified electronically.
--- NOTE | 2017-06-14 21:29 | RADRPT ---
EXAM DATE/TIME: 06/14/2017 21:02 [facility] COMPARISON: CT ABDOMEN & PELVIS W/O CONTRAST, June 05, 2017, 1:45. INDICATIONS : Abdominal pain. ORAL CONTRAST: No oral contrast ingested. RADIATION DOSE: 17.01 CTDIvol (mGy) MEDICAL HISTORY : Cardiovascular disease. Hypertension. Hernia, hiatal. SURGICAL HISTORY : Splenectomy. Cholecystectomy.Nephrectomy, right. ENCOUNTER: Initial ACUITY: 1 day PAIN SCALE: 7/10 LOCATION: abdomen TECHNIQUE: Volumetric scanning of the abdomen and pelvis was performed. Using automated exposure control and ad justment of the mA and/or kV according to patient size, radiation dose was kept as low as reasonably achievable to obtain optimal diagnostic quality images. DICOM format image data is available electro nically for review and comparison. FINDINGS: LOWER LUNGS: Right basilar atelectasis and/or scarring is noted LIVER: The liver is mildly prominent. Homogeneous density without lesion. There is no dilation of the bilia ry tree. No calcified gallstones. SPLEEN: Normal size without lesion. PANCREAS: Within normal limits. KIDNEYS: Status post right nephrectomy. The left kidney is normal in size and shape. There is no mass, stone, or hydronephrosis. ADRENAL GLANDS: Bilateral stable adrenal nodules are noted and measure 2.8 x 2.7 cm on the right and 2.9 x 1.9 on the left consistent with probable adrenal adenomas. VASCULAR: There is no aortic aneurysm. BOWEL/MESENTERY: Uncomplicated diverticulosis is noted. No acute diverticulitis is noted. ABDOMINAL WALL: Small umbilical hernia containing only fat is noted. RETROPERITONEUM: There is no lymphadenopathy. BLADDER: No wall thickening or mass. REPRODUCTIVE: Within normal limits. INGUINAL: There is no lymphadenopathy or hernia. MUSCULOSKELETAL: Degenerative changes and scoliosis of the thoraco-lumbar spine are noted. CONCLUSION: Hepatomegaly. Uncomplicated colonic diverticulosis. Stable bilateral adrenal nodules consistent with probable adenomas. Small umbilical hernia containing only fat. Right basilar atelecta sis and/or scarring. Degenerative changes and scoliosis of the thoracolumbar spine. Tuan Barrios MD on June 14, 2017 at 21:23 Board Certified Radiologist. This report was verified electronically.
[2017-06-14 21:48] VITALS: BP 108/58; PULSE 75; RESP 16; O2SAT 96
[2017-06-14 22:02] LABS: BILIRUBIN, URINE NEG (NEG); BLOOD, URINE NEG (NEG); GLUCOSE,URINE NEG (NEG); HYALINE CAST, URINE 1 /lpf (RARE); KETONE, URINE NEG (NEG); NITRITE,URINE NEG (NEG); PH, URINE 5.5 (5.0-8.5); SQUAMOUS EPITHELIAL CELL URINE <1 /hpf (0-5); URINE COLOR YELLOW (YELLW/STRAW); URINE LEUKOCYTE ESTERASE NEG (NEG)
[2017-06-14] MEDS ORDERED: HYDROmorphone HCL PF 2 MG/ML VIAL IV PUSH ONE (22:15)
[2017-06-14] MEDS ORDERED: ACETAMINOPHEN 325 MG TAB PO PRN (23:45)
[2017-06-14] MEDS ORDERED: MAGNESIUM HYDROXIDE SUSP 30 ML CUP PO PRN (23:45)
[2017-06-14] MEDS ORDERED: LACTULOSE SYRUP 20 GM/30 ML CUP PO PRN (23:45)
[2017-06-14] MEDS ORDERED: BISACODYL 10 MG SUPP RECTAL PRN (23:45)
[2017-06-14] MEDS ORDERED: NALOXONE HCL 0.4 MG/ML AMP IV PUSH PRN (23:45)
[2017-06-14] MEDS ORDERED: SENNOSIDES 8.6 MG TAB PO PRN (23:45)
[2017-06-14] MEDS ORDERED: SODIUM CHLORIDE 0.9% FLUSH 10 ML FLUSH IV FLUSH PRN (23:45)
[2017-06-14] MEDS ORDERED: GLUCAGON 1 MG/ML VIAL OTHER PRN (23:45)
[2017-06-14] MEDS ORDERED: ONDANSETRON HCL 4 MG/2 ML VIAL IVP PRN (23:45)
[2017-06-14] MEDS ORDERED: DEXTROSE 50% IN WATER 50 ML VIAL(D50) IV PUSH PRN (23:45)
--- NOTE | 2017-06-14 23:46 | HHI.HP ---
[facility] Primary Care Physician Lauri Bhardwaj, DO Admission Diagnosis hypotension, KONG, leukocytosis Diagnoses: Chief Complaint: Hypotension, low blood glucose Travel History International Travel<30 Days: No Contact w/Intl Traveler <30 Da: No Traveled to Known Affected Are: No History of Present Illness 50-year-old male with a medical history significant for oxygen dependent COPD, hepatitis C, GERD, chronic kidney disease stage IV, diabetes, CHF, atrial fibrillation on Coumadin presented to the emergency room with multiple complaints including low blood glucose, low blood pressure at home, dizziness, nausea, chest discomfort. Patient reports different symptoms to different providers. He reported to the ED that his symptoms as pain ongoing before he was released from the hospital. However he told me he felt great when he left the hospital but since he got home his blood glucose was noted to be in the 40s this morning and his blood pressure was low. Currently he is requesting pain medications for chronic back pain. He is also requesting Zofran. He ate earlier without any problems. He takes Zofran chronically. When asked about his insulin regimen, patient reports he takes 100 units of Lantus at night. He reports that he lost some weight recently. Review of Systems ROS Limitations: Poor Historian Past Family Social History Past Medical History COPD, hepatitis C, GERD, chronic kidney disease stage IV, diabetes, CHF, atrial fibrillation on Coumadin Past Surgical History Right nephrectomy Multiple cardiac catheterizations with stent placements Multiple lower extremity surgeries Allergies: Coded Allergies: baclofen (Unverified Allergy, Severe, 06/14/17) morphine (Unverified Allergy, Severe, Hallucinations, 06/14/17) quinidine (Unverified Allergy, Severe, Hallucinations, 06/14/17) MRI PRECAUTION (Verified Adverse Reaction, Severe, NON MEDTRONIC PACER/ ICD 01/27/15 KMD, 06/14/17) CALLED [employer] TO CONFIRM THAT THE PACER IS NOT A MEDTRONIC Social History Occasional cigars. Denies alcohol use. Physical Exam Vital Signs Vital Signs Date Time Temp Pulse Resp B/P (MAP) Pulse Ox O2 Delivery O2 Flow Rate FiO2 06/14/17 21:48 75 16 108/58 (75) 96 06/14/17 20:16 71 22 127/61 (83) 96 Room Air 06/14/17 18:59 80 18 95/57 (70) 95 Nasal Cannula 4.00 06/14/17 17:58 98.7 75 12 92/55 (67) 93 Nasal Cannula 4.00 06/14/17 17:58 77 92 Nasal Cannula 4.00 06/14/17 17:32 98.5 149 16 114/69 (84) 91 Physical Exam GENERAL: Chronically ill-appearing male. SKIN: No rashes, ecchymoses or lesions. Cool and dry. HEAD: Atraumatic. Normocephalic. No temporal or scalp tenderness. EYES: Pupils equal round and reactive. Extraocular motions intact. No scleral icterus. No injection or drainage. NECK: Trachea midline. No JVD or lymphadenopathy. Supple, nontender, no meningeal signs. CARDIOVASCULAR: Regular rate and rhythm without murmurs, gallops, or rubs. RESPIRATORY: Clear to auscultation. Breath sounds equal bilaterally. No wheezes , rales, or rhonchi. GASTROINTESTINAL: Abdomen soft, non-tender, nondistended. No hepato-splenomegaly , or palpable masses. No guarding. MUSCULOSKELETAL: 2+ bilateral lower extremity edema NEUROLOGICAL: Awake and alert. Normal speech. Laboratory Laboratory Tests Test 06/14/17 18:30 06/14/17 19:30 06/14/17 21:30 White Blood Count 22.2 Red Blood Count 4.68 Hemoglobin 14.5 Hematocrit 43.1 Mean Corpuscular Volume 92.2 Mean Corpuscular Hemoglobin 31.1 Mean Corpuscular Hemoglobin Concent 33.7 Red Cell Distribution Width 15.4 Platelet Count 247 Mean Platelet Volume 8.1 Neutrophils (%) (Auto) 43.9 Lymphocytes (%) (Auto) 48.8 Monocytes (%) (Auto) 5.6 Eosinophils (%) (Auto) 0.7 Basophils (%) (Auto) 1.0 Neutrophils # (Auto) 9.8 Lymphocytes # (Auto) 10.8 Monocytes # (Auto) 1.2 Eosinophils # (Auto) 0.2 Basophils # (Auto) 0.2 CBC Comment AUTO DIFF Differential Total Cells Counted 100 Neutrophils % (Manual) 36 Lymphocytes % 57 Monocytes % 7 Neutrophils # (Manual) 8.0 Differential Comment FINAL DIFF MANUAL Platelet Estimate NORMAL Platelet Morphology Comment NORMAL Red Cell Morphology Comment NORMAL Prothrombin Time 20.5 Prothromb Time International Ratio 2.0 Activated Partial Thromboplast Time 29.9 Blood Urea Nitrogen 70 Creatinine 3.25 Random Glucose 85 Total Protein 6.3 Albumin 2.9 Calcium Level 7.7 Alkaline Phosphatase 79 Aspartate Amino Transf (AST/SGOT) 23 Alanine Aminotransferase (ALT/SGPT) 28 Total Bilirubin 0.2 Sodium Level 140 Potassium Level 3.6 Chloride Level 98 Carbon Dioxide Level 30.6 Anion Gap 11 Estimat Glomerular Filtration Rate 20 Troponin I 0.02 B-Type Natriuretic Peptide 98 Urine Color YELLOW Urine Turbidity CLEAR Urine pH 5.5 Urine Specific [place] 1.011 Urine Protein 30 Urine Glucose (UA) NEG Urine Ketones NEG Urine Occult Blood NEG Urine Nitrite NEG Urine Bilirubin NEG Urine Urobilinogen LESS THAN 2.0 Urine Leukocyte Esterase NEG Urine RBC LESS THAN 1 Urine WBC LESS THAN 1 Urine Squamous Epithelial Cells <1 Urine Hyaline Casts 1 Microscopic Urinalysis Comment CULT NOT INDICATED Result Diagram: 06/14/17182906/14/17 193 Imaging Last Impressions Head CT 06/14/171817 Signed Impressions: Service Date/Time: June 20:57 - CONCLUSION: No acute disease. Tuan Barrios MD Chest X-Ray 06/14/171817 Signed Impressions: Service Date/Time: June 18:33 - CONCLUSION: Left basilar atelectasis. Cardiomegaly. Tuan Barrios MD Abdomen/Pelvis CT 06/14/17 0000 Signed Impressions: Service Date/Time: June 21:02 - CONCLUSION: Hepatomegaly. Uncomplicated colonic diverticulosis. Stable bilateral adrenal nodules consistent with probable adenomas. Small umbilical hernia containing only fat. Right basilar atelectasis and/or scarring. Degenerative changes and scoliosis of the thoracolumbar spine. Tuan Barrios MD Caprini VTE Risk Assessment Caprini VTE Risk Assessment: Mod/High Risk (score >= 2) Caprini Risk Assessment Model Point Value = 1 Point Value = 2 Point Value = 3 Point Value = 5 Age 41-60 Minor surgery BMI > 25 kg/m2 Swollen legs Varicose veins or History of unexplained or recurrent spontaneous Oral contraceptives or hormone replacement Sepsis (< 1 month) Serious lung disease, including pneumonia (< 1 month) Abnormal pulmonary function Acute myocardial infarction Congestive heart failure (< 1 month) History of inflammatory bowel disease Medical patient at bed rest Age 61-74 Arthroscopic surgery Major open surgery (> 45 min) Laparoscopic surgery (> 45 min) Malignancy Confined to bed (> 72 hours) Immobilizing plaster cast Central venous access Age >= 75 History of VTE Family history of VTE Factor V Leiden Prothrombin [id number] Lupus anticoagulant Anticardiolipin antibodies Elevated serum homocysteine Heparin-induced thrombocytopenia Other congenital or acquired thrombophilia Stroke (< 1 month) Elective arthroplasty Hip, pelvis, or leg fracture Acute spinal cord injury (< 1 month) Prophylaxis Regimen Total Risk Factor Score Risk Level Prophylaxis Regimen 0-1 Low Early ambulation 2 Moderate Order ONE of the following: *Sequential Compression Device (SCD) *Heparin 5000 units SQ BID 3-4 Higher Order ONE of the following medications: *Heparin 5000 units SQ TID *Enoxaparin/Lovenox 40 mg SQ daily (WT < 150 kg, CrCl > 30 mL/min) *Enoxaparin/Lovenox 30 mg SQ daily (WT < 150 kg, CrCl > 10-29 mL/min) *Enoxaparin/Lovenox 30 mg SQ BID (WT < 150 kg, CrCl > 30 mL/min) AND/OR *Sequential Compression Device (SCD) 5 or more Highest Order ONE of the following medications: *Heparin 5000 units SQ TID (Preferred with Epidurals) *Enoxaparin/Lovenox 40 mg SQ daily (WT < 150 kg, CrCl > 30 mL/min) *Enoxaparin/Lovenox 30 mg SQ daily (WT < 150 kg, CrCl > 10-29 mL/min) *Enoxaparin/Lovenox 30 mg SQ BID (WT < 150 kg, CrCl > 30 mL/min) AND *Sequential Compression Device (SCD) Assessment and Plan Problem List: (1) Hypoglycemia associated with type 2 diabetes mellitus ICD Code: E11.649 - Type 2 diabetes mellitus with hypoglycemia without coma Plan: The patient is on the right and larger dose of Lantus, 100 units at bedtime. He states he lost weight recently. - Will monitor him with sliding scale insulin with Accu-Cheks to better determine his insulin requirement. He was counseled on proper diet. (2) Hypotension ICD Code: I95.9 - Hypotension, unspecified Plan: Patient reports hypotensive episode at home. He is currently on amlodipine, losartan, torsemide, metoprolol. -Will hold metoprolol, amlodipine, and Klonopin -Monitor his blood pressure and adjust as needed. (3) CKD (chronic kidney disease), stage IV ICD Code: N18.4 - Chronic kidney disease, stage 4 (severe) Plan: Stable. Continue to monitor (4) Chronic pain ICD Code: G89.29 - Other chronic pain Status: Acute Plan: Patient reports he has a Dilaudid pump implant. Do not feel comfortable providing him more pain medications at this time. Especially with borderline blood pressures. (5) Chest pain ICD Code: R07.9 - Chest pain Status: Acute Plan: This patient chronically complaining of chest pain. There is no objective evidence to suggest ACS at this point. Assessment and Plan Continue the rest of his home medications for his chronic conditions. Maicol Pedersen MD Jun 14, 2017 23:46
[2017-06-15 00:43] VITALS: BP 116/61; PULSE 72; RESP 20; TEMP 98.7; O2SAT 93
[2017-06-15] MEDS ORDERED: ALBUTEROL SULFATE 90 MCG/ACT HFA 8 GM INHALER INH PRN (04:00)
[2017-06-15 04:09] VITALS: BP 108/65; PULSE 140; RESP 20; TEMP 98.7; O2SAT 100
[2017-06-15] MEDS ORDERED: WARFARIN SOD 7.5 MG TAB PO SCH (06:00)
[2017-06-15] MEDS ORDERED: GEMFIBROZIL 600 MG TAB PO SCH (07:00)
[2017-06-15] MEDS ORDERED: INSULIN ASPART SUPPLEMENTAL SCALE SQ SCH (08:00)
[2017-06-15] MEDS ORDERED: SODIUM CHLORIDE 0.9% FLUSH 10 ML FLUSH IV FLUSH SCH (09:00)
[2017-06-15] MEDS ORDERED: BUDESONIDE-FORMOTEROL 160/4.5 MCG INHALER INH SCH (09:00)
[2017-06-15] MEDS ORDERED: CYCLOSPORINE OPTH EACH EYE SCH (09:00)
[2017-06-15] MEDS ORDERED: AMIODARONE 200 MG TAB PO SCH (09:00)
[2017-06-15] MEDS ORDERED: PANTOPRAZOLE SOD 20 MG DELAYED RELEASE TAB PO SCH (09:00)
[2017-06-15] MEDS ORDERED: PREGABALIN 75 MG CAP PO SCH (09:00)
[2017-06-15] MEDS ORDERED: TORSEMIDE 20 MG TAB PO SCH (09:00)
[2017-06-15] MEDS ORDERED: TIOTROPIUM BROMIDE 18 MCG INH INH SCH (09:00)
--- NOTE | 2017-06-15 11:54 | EKG ---
Date Performed: 06/14/2017 Time Performed: 19:34:07 PTAGE: 56 years EKG: Regular supraventricular rhythm Significant baseline artifact precluding any further interp retation PREVIOUS TRACING : 06/05/2017 06.27 DOCTOR: Kathryn Chavarria Interpretating Date/Time 06/15/2017 11:52:43
--- NOTE | 2017-06-15 11:54 | EKG ---
Date Performed: 06/14/2017 Time Performed: 19:59:24 PTAGE: 56 years EKG: Probable Sinus rhythm Significant baseline artifact, precluding any futher interpretation BORDERLINE ECG PREVIOUS TRACING 06/14/17 Consider repeat EKG. Likely no significant change. DOCTOR: Kathryn Chavarria Interpretating Date/Time 06/15/2017 11:53:44
[2017-06-15] MEDS ORDERED: TAMSULOSIN HCL 0.4 MG CAP PO SCH (21:00)
== END 2017-06-15 05:44 | disposition left against medical advice (07) ==
LOC: NEPE 17:12 → NEDA 22:26 → NEPFCDU 06-15 00:24
PROVIDERS: ADMIT Hospitalist; ATTEND Hospitalist
DX: E11.649 Type 2 diabetes mellitus with hypoglycemia without coma (principal); I95.9 Hypotension, unspecified; R07.9 Chest pain, unspecified; D72.829 Elevated white blood cell count, unspecified; R55 Syncope and collapse; R63.4 Abnormal weight loss; R00.2 Palpitations; I25.10 Atherosclerotic heart disease of native coronary artery without angina pectoris; I13.2 Hypertensive heart and chronic kidney disease with heart failure and with stage 5 chronic kidney disease, or end stage renal disease; I50.9 Heart failure, unspecified; E11.22 Type 2 diabetes mellitus with diabetic chronic kidney disease; N18.6 End stage renal disease; J44.9 Chronic obstructive pulmonary disease, unspecified; J96.10 Chronic respiratory failure, unspecified whether with hypoxia or hypercapnia; E78.00 Pure hypercholesterolemia, unspecified; I25.2 Old myocardial infarction; G47.30 Sleep apnea, unspecified; R63.0 Anorexia; K21.9 Gastro-esophageal reflux disease without esophagitis; J98.11 Atelectasis; B19.20 Unspecified viral hepatitis C without hepatic coma; M54.9 Dorsalgia, unspecified; G89.29 Other chronic pain; R16.0 Hepatomegaly, not elsewhere classified; K42.9 Umbilical hernia without obstruction or gangrene; K57.30 Diverticulosis of large intestine without perforation or abscess without bleeding; E27.8 Other specified disorders of adrenal gland; M41.85 Other forms of scoliosis, thoracolumbar region; M47.895 Other spondylosis, thoracolumbar region; F41.9 Anxiety disorder, unspecified; F32.9 Major depressive disorder, single episode, unspecified; M19.90 Unspecified osteoarthritis, unspecified site; E66.9 Obesity, unspecified; F17.290 Nicotine dependence, other tobacco product, uncomplicated; Z99.81 Dependence on supplemental oxygen; Z79.01 Long term (current) use of anticoagulants; Z79.4 Long term (current) use of insulin; Z86.73 Personal history of transient ischemic attack (TIA), and cerebral infarction without residual deficits; Z85.528 Personal history of other malignant neoplasm of kidney; Z79.899 Other long term (current) drug therapy
CPT/HCPCS: 70450; 71045; 74176; 80053; 81001; 82948; 83880; 84484; 85007; 85027; 85610; 85730; 93005; 96361; 96374; 96375; 96376; 99285; G0378; J1170; J2405; J7030

== ENCOUNTER 2017-08-26 06:25 | Inpatient (IN) | payer MEDICARE ==
[2017-08-26] VITALS (14 sets, daily range): BP systolic 89–138; BP diastolic 53–87; PULSE 68–96; RESP 12–20; TEMP 97.9–98.8; O2SAT 91–98
[~2017-08-26] VITALS: Ht 180.3 cm; Wt 136.0 kg
[2017-08-26] MEDS ORDERED: BUME2TAB PO (06:46)
[2017-08-26] MEDS ORDERED: NITR1SUB3 SL (06:46)
[2017-08-26] MEDS ORDERED: VITA500012 PO (06:46)
[2017-08-26] MEDS ORDERED: CLON1 PO (06:46)
[2017-08-26] MEDS ORDERED: METO5TAB3 PO (06:46)
--- NOTE | 2017-08-26 06:50 | PD ---
HPI Chief Complaint: Cardiac Complaint Time Seen by Provider: 06:39 Travel History International Travel<30 days: No Contact w/Intl Traveler<30days: No Traveled to known affect area: No History of Present Illness HPI 57-year-old male patient with history of extensive cardiac issues, CAD, CHF, atrial fibrillation, V. tach, status post defibrillator placement, presents to the ER today brought in by EMS because apparently he has had 2 days history of substernal chest pains which he describes as a 7 out of 10, has been nauseous, having some abdominal discomfort as well, vomiting. He denies any diarrhea, fevers, but has been short of breath. He has baseline COPD. EMS had given him aspirin and nitroglycerin without significant improvement. They had given him Zofran of the nausea is improved. He states that this morning he was having some shortness of breath and his defibrillator fired at around 4:30 AM. Modifying Factors: None Associated Signs & Symptoms: Chest pains, shortness of breath, nausea, vomiting , defibrillator fired today Risk Factors: Cardiac history PFSH Past Medical History Hx Anticoagulant Therapy: Yes Arthritis: Yes Asthma: Yes Atrial Fibrillation: Yes Blood Disorders: No Anxiety: Yes Depression: Yes Heart Rhythm Problems: Yes (A-FIB, V-TACH, V-FIB, Bigeminy, Trigeminy) Cancer: Yes (ADRENAL TUMOR, R RENAL CARCINOMA) Cardiovascular Problems: Yes (PVCS, V TACH, A. FIB) High Cholesterol: Yes Chemotherapy: No Chest Pain: Yes Congestive Heart Failure: Yes COPD: Yes Cerebrovascular Accident: Yes Coronary Artery Disease: Yes Diabetes: Yes Diminished Hearing: No Endocrine: Yes Gastrointestinal Disorders: Yes (GERD, HIATAL HERNIA, HEPATITIS C) GERD: Yes Genitourinary: Yes (ESRD) Headaches: No Hiatal Hernia: Yes Heparin Induced Thrombocytopen: No Hypertension: Yes Immune Disorder: No Implanted Vascular Access Dvce: Yes Kidney Stones: No Musculoskeletal: Yes (R FEMUR SURGERY, R KNEE REPLACEMENT, LEFT TIB/FIB FX) Neurologic: Yes (CVA, SEIZURES) Psychiatric: Yes Reproductive: No Respiratory: Yes (COPD) Immunizations Current: Yes Migraines: No Myocardial Infarction: Yes Radiation Therapy: No Renal Failure: No Seizures: Yes Sickle Cell Disease: No Sleep Apnea: Yes (WORE CPAP IN PAST) Thyroid Disease: No Past Surgical History Abdominal Surgery: Yes (HERNIA REPAIR, PARTIAL SPLENECTOMY) AICD: Yes (ST. TREMAINE DEFIB) Appendectomy: Yes Arteriovenous Shunt: No Body Medical Devices: PACER/DEFIBRILLATOR, PAIN PUMP Cardiac Surgery: Yes (PACEMAKER INSERT 1995 AND 3 MORE SINCE) Cholecystectomy: Yes Coronary Stent: Yes (X 10) Ear Surgery: No Endocrine Surgery: No Eye Surgery: No Genitourinary Surgery: Yes (rt kidney removed 2011) Gynecologic Surgery: No Hysterectomy: Yes Insulin Pump: No Joint Replacement: Yes (RIGHT KNEE ) Neurologic Surgery: No Oral Surgery: No Pacemaker: Yes Thoracic Surgery: No Tonsillectomy: Yes Other Surgery: Yes (R NEPHRECTOMY, SPLENECTOMY, CHOLEYCYSTECTOMY, APPENDECTOMY , PACER, HERNIA) Social History Alcohol Use: No Tobacco Use: No (cigar) Allergies-Medications (Allergen,Severity, Reaction): Coded Allergies: baclofen (Unverified Allergy, Severe, 06/14/17) morphine (Unverified Allergy, Severe, Hallucinations, 06/14/17) quinidine (Unverified Allergy, Severe, Hallucinations, 06/14/17) MRI PRECAUTION (Verified Adverse Reaction, Severe, NON MEDTRONIC PACER/ ICD 01/27/15 KMD, 06/14/17) CALLED [employer] TO CONFIRM THAT THE PACER IS NOT A MEDTRONIC Reported Meds & Prescriptions Reported Meds & Active Scripts Active Symbicort Inh (Budesonide/Formoterol Fumarate) 160-4.5 Mcg/Act Aero 1 Puff INH Q12HR Ventolin Hfa 18 GM Inh (Albuterol Sulfate) 90 Mcg/Act Aer 1 Puff INH Q4H PRN Zofran Odt (Ondansetron Odt) 4 Mg Tab 4 Mg SL Q8HR PRN Torsemide 20 Mg Tab 20 Mg PO BID Spiriva Handihaler (Tiotropium Inh) 18 Mcg Cap 18 Mcg INH DAILY 1 capsule = 18 mcg Oxygen (O2) Device Liter DESIRE.CANULA CONTINUOUS Oxygen Concentrator Portable Gaseous 2 L/min via Nasal Canula Continuous For 99 months Reported Vitamin D-1000 (Cholecalciferol) 1,000 Unit Tab 50,000 Units PO 1XPERWEEK Klonopin (Clonazepam) 1 Mg Tab 1 Mg PO QID Losartan (Losartan Potassium) 50 Mg Tab 50 Mg PO DAILY Omeprazole 20 Mg Tab 20 Mg PO DAILY Novolog Inj (Insulin Aspart) 1,000 Unit/10 Ml Vial 0 SQ TIDAC Sliding Scale as directed. Lantus Inj (Insulin Glargine) 1,000 Unit/10 Ml Vial 100 Units SQ BID Coumadin (Warfarin) 7.5 Mg Tab 7.5 Mg PO DAILY Flomax (Tamsulosin HCl) 0.4 Mg Cap 0.4 Mg PO HS Norvasc (Amlodipine Besylate) 10 Mg Tab 10 Mg PO DAILY Metoprolol Tartrate 25 Mg Tab 25 Mg PO BID Lyrica (Pregabalin) 75 Mg Cap 75 Mg PO BID Gemfibrozil 600 Mg Tab 600 Mg PO BIDAC Take 30 minutes prior to breakfast and dinner. Restasis Opth (Cyclosporine Opth) 0.05% Emul 1 Drop EACH EYE BID Amiodarone (Amiodarone HCl) 200 Mg Tab 200 Mg PO DAILY Review of Systems Except as stated in HPI: all other systems reviewed are Neg Physical Exam Narrative GENERAL: Well-developed obese middle-age male patient currently in moderate distress. Awake and oriented 3. SKIN: Focused skin assessment warm/dry. HEAD: Atraumatic. Normocephalic. EYES: Pupils equal and round. No scleral icterus. No injection or drainage. ENT: No nasal bleeding or discharge. Mucous membranes pink and moist. NECK: Trachea midline. No JVD. CARDIOVASCULAR: Regular rate and rhythm. No murmur appreciated. RESPIRATORY: No accessory muscle use. Decreased throughout. Breath sounds equal bilaterally. GASTROINTESTINAL: Abdomen soft, non-tender, nondistended. Hepatic and splenic margins not palpable. MUSCULOSKELETAL: No obvious deformities. No clubbing. No cyanosis. No edema. NEUROLOGICAL: Awake and alert. No obvious cranial nerve deficits. Motor grossly within normal limits. Normal speech. PSYCHIATRIC: Appropriate mood and affect; insight and judgment normal. Data Data Last Documented VS Vital Signs Date Time Temp Pulse Resp B/P (MAP) Pulse Ox O2 Delivery O2 Flow Rate FiO2 08/26/17 06:30 84 20 116/67 (83) 91 Orders Orders Electrocardiogram (08/26/17 06:39) B-Type Natriuretic Peptide (08/26/17 06:39) Ckmb (Isoenzyme) Profile (08/26/17 06:39) Complete Blood Count With Diff (08/26/17 06:39) Comprehensive Metabolic Panel (08/26/17 06:39) Magnesium (Mg) (08/26/17 06:39) Prothrombin Time / Inr (Pt) (08/26/17 06:39) Act Partial Throm Time (Ptt) (08/26/17 06:39) Troponin I (08/26/17 06:39) Lipase (08/26/17 06:39) Ecg Monitoring (08/26/17 06:39) Bilateral Bp Monitoring (08/26/17 06:39) Iv Access Insert/Monitor (08/26/17 06:39) Oximetry (08/26/17 06:39) Oxygen Administration (08/26/17 06:39) Sodium Chloride 0.9% Flush (Ns Flush) (08/26/17 06:45) Chest, Pa & Lat (08/26/17 06:39) MDM Medical Decision Making Medical Screen Exam Complete: Yes Emergency Medical Condition: Yes Medical Record Reviewed: Yes Interpretation(s) Initial EKG shows normal sinus rhythm with occasional PVC, rate of 83 bpm. There is a left bundle branch block pattern. No signs of acute ST elevations or depressions. Differential Diagnosis Dysrhythmias versus ACS versus pneumonia versus electrolyte abnormalities Narrative Course Patient is placed on oxygen, initial workup was ordered with EKG, lab work, chest x-ray, and cardiac enzymes. Physician Communication Physician Communication Case is signed out to oncoming physician at 7 AM awaiting workup. Defibrillator rep has also been called for further evaluation. Patient likely to be admitted for further evaluation. Diagnosis Primary Impression: Chest pain Admitting Information Admitting Physician Requests: Admit Kym Holder MD August 26, 2017 06:50
--- NOTE | 2017-08-26 07:08 | RADRPT ---
EXAM DATE/TIME: 08/26/2017 06:54 [facility] COMPARISON: CHEST SINGLE AP, June 11, 2017, 6:16. INDICATIONS : Shortness of breath. MEDICAL HISTORY : Hypertension. Diabetes mellitus type II. Chronic obstructive pulmonary disease. SURGICAL HISTORY : Pacemaker. Appendectomy. Cholecystectomy. Right nephrectomy ENCOUNTER: Initial ACUITY: 1 day PAIN SCORE: 0/10 LOCATION: Bilateral chest FINDINGS: PA lateral views of chest demonstrate a single lead AICD. Heart size is mildly enlarged. Cephalizatio n of pulmonary vasculature. Linear parenchymal opacities involving the mid right hemithorax consisten t with atelectasis. CONCLUSION: Stable mild cardiomegaly. Prominent pulmonary vasculature consistent with mild congestive heart failu re. Mariela Malloy MD on August 26, 2017 at 7:03 Board Certified Radiologist. This report was verified electronically.
[2017-08-26 07:11] LABS: AUTOMATED NEUTROPHIL # 9.1 TH/MM3 (1.8-7.7); BASOPHIL # 0.1 TH/MM3 (0-0.2); BASOPHIL % 0.8 % (0.0-2.0); EOSINOPHIL # 0.3 TH/MM3 (0-0.4); EOSINOPHIL % 2.1 % (0.0-4.0); HEMOGLOBIN 12.4 GM/DL (13.0-17.0); LYMPH % 24.2 % (9.0-44.0); LYMPHOCYTE # 3.4 TH/MM3 (1.0-4.8); MEAN CELL VOLUME 87.5 FL (80.0-100.0); MEAN CORPUSCULAR HEMOGLOBIN 30.1 PG (27.0-34.0); MEAN CORPUSCULAR HGB CONC 34.4 % (32.0-36.0); MEAN PLATELET VOLUME 8.3 FL (7.0-11.0); MONO % 7.6 % (0.0-8.0); MONOCYTE # 1.1 TH/MM3 (0-0.9); NEUT % 65.3 % (16.0-70.0); PLATELET COUNT 330 TH/MM3 (150-450); RED BLOOD COUNT 4.12 MIL/MM3 (4.50-5.90); RED CELL DISTRIBUTION WIDTH 14.4 % (11.6-17.2)
[2017-08-26] MEDS ORDERED: FUROSEMIDE 40 MG/4 ML VIAL IV PUSH ONE (07:15)
[2017-08-26 07:31] LABS: INTERNATIONAL NORMALIZED RATIO 1.8 RATIO; PROTHROMBIN TIME - PATIENT 18.7 SEC (9.8-11.6)
[2017-08-26 07:45] LABS: ALBUMIN 3.5 GM/DL (3.4-5.0); ALKALINE PHOSPHATASE 139 U/L (45-117); ALT (GPT) 65 U/L (12-78); AST (GOT) 109 U/L (15-37); BICARBONATE 32.8 MEQ/L (21.0-32.0); BLOOD UREA NITROGEN 138 MG/DL (7-18); CALCIUM 8.8 MG/DL (8.5-10.1); CHLORIDE 86 MEQ/L (98-107); CREATININE 3.91 MG/DL (0.60-1.30); GLOMERULAR FILTRATION RATE 16 ML/MIN (>89); GLUCOSE,RANDOM 263 MG/DL (74-106); MAGNESIUM 2.4 MG/DL (1.5-2.5); SODIUM (NA) 135 MEQ/L (136-145); TOTAL BILIRUBIN ADULT 0.3 MG/DL (0.2-1.0); TOTAL PROTEIN 8.3 GM/DL (6.4-8.2); TROPONIN I LESS THAN 0.02 NG/ML (0.02-0.05)
[2017-08-26] MEDS ORDERED: POTASSIUM CHLORIDE 20 MEQ CONTROLLED RELEASE TAB PO ONE (08:15)
[2017-08-26] MEDS ORDERED: CHLORHEXIDINE GLUCONATE 2 % 1 PACK (2 CLOTHS) TOP PRN (09:00)
[2017-08-26] MEDS ORDERED: RESP: ALBUTEROL 2.5 MG/IPRATROPIUM 0.5 MG NEB (PRN) INH (09:00)
[2017-08-26] MEDS ORDERED: FAMOTIDINE 20 MG TAB PO SCH (09:00)
[2017-08-26] MEDS ORDERED: NURSING INFORMATION XX SCH (09:00)
[2017-08-26] MEDS ORDERED: AMIODARONE 200 MG TAB PO SCH (09:30)
--- NOTE | 2017-08-26 09:42 | PD ---
Data Data Last Documented VS Vital Signs Date Time Temp Pulse Resp B/P (MAP) Pulse Ox O2 Delivery O2 Flow Rate FiO2 08/26/17 08:29 76 20 108/67 (81) 98 Nasal Cannula 4.00 Orders Orders Electrocardiogram (08/26/17 06:39) B-Type Natriuretic Peptide (08/26/17 06:39) Ckmb (Isoenzyme) Profile (08/26/17 06:39) Complete Blood Count With Diff (08/26/17 06:39) Comprehensive Metabolic Panel (08/26/17 06:39) Magnesium (Mg) (08/26/17 06:39) Prothrombin Time / Inr (Pt) (08/26/17 06:39) Act Partial Throm Time (Ptt) (08/26/17 06:39) Troponin I (08/26/17 06:39) Lipase (08/26/17 06:39) Ecg Monitoring (08/26/17 06:39) Bilateral Bp Monitoring (08/26/17 06:39) Iv Access Insert/Monitor (08/26/17 06:39) Oximetry (08/26/17 06:39) Oxygen Administration (08/26/17 06:39) Sodium Chloride 0.9% Flush (Ns Flush) (08/26/17 06:45) Chest, Pa & Lat (08/26/17 06:39) Furosemide Inj (Lasix Inj) (08/26/17 07:15) CKMB (08/26/17 06:35) CKMB% (08/26/17 06:35) Potassium Chloride (Kcl) (08/26/17 08:15) Admit Order (Ed Use Only) (08/26/17 08:29) Labs Laboratory Tests Test 08/26/17 06:35 White Blood Count 14.0 TH/MM3 Red Blood Count 4.12 MIL/MM3 Hemoglobin 12.4 GM/DL Hematocrit 36.0 % Mean Corpuscular Volume 87.5 FL Mean Corpuscular Hemoglobin 30.1 PG Mean Corpuscular Hemoglobin Concent 34.4 % Red Cell Distribution Width 14.4 % Platelet Count 330 TH/MM3 Mean Platelet Volume 8.3 FL Neutrophils (%) (Auto) 65.3 % Lymphocytes (%) (Auto) 24.2 % Monocytes (%) (Auto) 7.6 % Eosinophils (%) (Auto) 2.1 % Basophils (%) (Auto) 0.8 % Neutrophils # (Auto) 9.1 TH/MM3 Lymphocytes # (Auto) 3.4 TH/MM3 Monocytes # (Auto) 1.1 TH/MM3 Eosinophils # (Auto) 0.3 TH/MM3 Basophils # (Auto) 0.1 TH/MM3 CBC Comment DIFF FINAL Differential Comment Prothrombin Time 18.7 SEC Prothromb Time International Ratio 1.8 RATIO Activated Partial Thromboplast Time 35.8 SEC Blood Urea Nitrogen 138 MG/DL Creatinine 3.91 MG/DL Random Glucose 263 MG/DL Total Protein 8.3 GM/DL Albumin 3.5 GM/DL Calcium Level 8.8 MG/DL Magnesium Level 2.4 MG/DL Alkaline Phosphatase 139 U/L Aspartate Amino Transf (AST/SGOT) 109 U/L Alanine Aminotransferase (ALT/SGPT) 65 U/L Total Bilirubin 0.3 MG/DL Sodium Level 135 MEQ/L Potassium Level 2.5 MEQ/L Chloride Level 86 MEQ/L Carbon Dioxide Level 32.8 MEQ/L Anion Gap 16 MEQ/L Estimat Glomerular Filtration Rate 16 ML/MIN Total Creatine Kinase 426 U/L Creatine Kinase MB 3.8 NG/ML Creatine Kinase MB % 0.9 % Troponin I LESS THAN 0.02 NG/ML B-Type Natriuretic Peptide 78 PG/ML Lipase 2691 U/L [facility] Supervised Visit with KIP: No Narrative Course This case was checked out to me by Dr. Ramon at 7 AM Turns out he is critically ill and very complex I have evaluated the patient. At 4 AM he had chest pain and passed out. The pacer rep has interrogated his device and found out that he went into ventricular fibrillation. He was shocked 3 times. The third time he came out of it into a sinus rhythm. Patient still having some chest pain. I reviewed his chest x-ray which suggests some degree of CHF Saturations are mid 90s on 4 L nasal cannula Holding off on diuretics at the moment. He did have some hypotension in the 80s systolic. He is currently at 108 systolic Currently in sinus rhythm in the 80s with occasional PVC He is on Coumadin with an INR 1.8. He has developed GI bleed. He reported melena a few days ago. I did a rectal exam which reveals normal tone and no mass but stool is Hemoccult positive His lab studies are very abnormal. He has potassium of 2.5. I gave him 60 mEq replacement but he will require more. Creatinine is 3.9. He has baseline chronic renal insufficiency. He follows with Dr. Coyle. He does not dialyze. Patient is on amiodarone chronically. I discussed with his wet mix operator coverage who is Dr. Escamilla. He recommended continuing oral amiodarone and not using IV amiodarone protocol. Patient did receive an aspirin prior to my arriving. Given his GI bleed and Coumadin he is not a candidate for heparin or Lovenox or further antiplatelet therapy at this time. Given his blood pressures he is not a candidate for beta-blockade or antianginals Also his lipase is elevated at 2400. He is not having epigastric pain. He does have history of remote alcoholism. Patient is required multiple rechecks I reviewed with the qc scientist. It is my professional opinion that this patient is extremely complicated and would require intensive care to manage all his multiple organ failures and comorbidities. I had a [id number] discussion with the patient. He is a Yarsanism and would adamantly refuse any blood product administration. We discussed resuscitation wishes. He does not want to be intubated. If he goes into cardiac arrest that is not relieved by his device he wants to be let go in peace. He is in agreement with a DO NOT RESUSCITATE. I have signed the paperwork. Critical Care Narrative Aggregate critical care time was 80 minutes. Time to perform other separately billable procedures was not included in the critical care time. My time did not include minutes spent treating any other patients simultaneously or on activities that did not directly contribute to the patient's treatment. The services I provided to this patient were to treat and/or prevent clinically significant deterioration that could result in: Cardiopulmonary arrest, cardiac arrhythmia, cardiogenic shock, hemorrhagic shock I provided critical care services requiring my management, as noted below: Chart data review, documentation time, medication orders and management, vital sign assessments/reviewing monitor data, ordering and reviewing lab tests, ordering and interpreting/reviewing x-rays and diagnostic studies, care of the patient and discussion of the patient with the admitting physicians. Diagnosis Primary Impression: Chest pain Qualified Codes: R07.9 - Chest pain, unspecified Additional Impressions: Ventricular fibrillation Acute renal failure superimposed on stage 3 chronic kidney disease Qualified Codes: N17.9 - Acute kidney failure, unspecified; N18.3 - Chronic kidney disease, stage 3 (moderate) GI bleed Qualified Codes: K92.2 - Gastrointestinal hemorrhage, unspecified Pancreatitis Qualified Codes: K85.90 - Acute pancreatitis without necrosis or infection, unspecified Congestive heart failure with left ventricular dysfunction Admitting Information Admitting Physician Requests: Julien Alonzo MD August 26, 2017 09:42
[2017-08-26] MEDS: POTASSIUM CHLOR 20 MEQ PREMIX 100 ML IV SCH ×6 (11:00→19:15)
[2017-08-26] MEDS: PANTOPRAZOLE SODIUM 40 MG VIAL IV PUSH SCH ×2 (11:17→21:21)
[2017-08-26] MEDS ORDERED: RESTASIS OPTH EACH EYE SCH (11:30)
[2017-08-26 11:38] LABS: BACTERIA, URINE RARE /hpf; BILIRUBIN, URINE NEG (NEG); BLOOD, URINE SMALL (NEG); GLUCOSE,URINE NEG (NEG); KETONE, URINE NEG (NEG); MUCUS URINE FEW /lpf (OCC); NITRITE,URINE NEG (NEG); SQUAMOUS EPITHELIAL CELL URINE <1 /hpf (0-5); URINE COLOR YELLOW (YELLW/STRAW); URINE LEUKOCYTE ESTERASE NEG (NEG)
--- NOTE | 2017-08-26 12:38 | HHI.HP ---
HPI Service Critical Care Medicine Primary Care Physician No Primary Care Physician Admission Diagnosis chest pain,V fib, CHF,GI bleed Diagnosis: Chief Complaint: Chest pain, defibrillator shock Travel History International Travel<30 Days: No Contact w/Intl Traveler <30 Da: No Traveled to Known Affected Are: No History of Present Illness 57-year-old gentleman with past medical history remarkable for atrial fibrillation on chronic anticoagulation with Coumadin, CKD, recently required hemodialysis, last HD approximately 1 month ago, CAD, hypertension, hyperlipidemia, diabetes, CHF, status post AICD, COPD on home O2, hepatitis C, multiple CVAs in the past, obesity, now presents to emergency room for evaluation of chest pain. Over the last few days, patient intermittently described having chest pain associated with nausea, some vomiting and some abdominal discomfort. This morning, around 4 AM, patient woke up complaining of chest pain and defibrillator fired 2, therefore he called EMS. Patient denies any fever, chills, diarrhea, cough. Some shortness of breath with exertion. Of note, patient reports multiple black stools, therefore 3 days ago he stopped taking Coumadin. On ED arrival, patient was hemodynamically stable, still complaining of some chest pain. Pacer rep was called and he interrogated his device and found out that patient went into V. fib and he was shocked 3 times. Remarkable workup in ED showed a negative troponin, worsening creatinine , and severe hypokalemia with a potassium of 2.5. Hemoglobin was 12.4, but his stool was weakly positive for Hemoccult. Patient was also found to have elevated lipase. [facility] now consulted for ICU admission. Patient was seen in emergency room, he is awake, still complaining of some chest pain, pleuritic, worsening with deep breaths, reproducible by palpation over the sternum. His dyspnea is at baseline, denies any other complaints except chronic back pain. Nephrology and cardiology have been consulted. In ED patient was given 60 mEq of potassium. Her ED chart, patient expressed a desire to be a DO NOT RESUSCITATE. Order was placed in the chart. Patient is Religious and he absolutely refuses blood transfusion. Review of Systems Constitutional: COMPLAINS OF: Diaphoretic episodes, DENIES: Fatigue, Fever, Chills Eyes: DENIES: Blurred vision, Diplopia, Vision loss, Double Vision Ears, nose, mouth, throat: DENIES: Hearing loss, Oral lesions, Throat pain Respiratory: COMPLAINS OF: Snoring, Shortness of breath, DENIES: Cough, Wheezing Cardiovascular: COMPLAINS OF: Chest pain, Palpitations, Syncope, Dyspnea on Exertion, Lower Extremity Edema Gastrointestinal: COMPLAINS OF: Abdominal pain, Black stools, Nausea, Vomiting Musculoskeletal: DENIES: Muscle aches, Joint Swelling Hematologic/lymphatic: COMPLAINS OF: Bruising Neurologic: DENIES: Headache, Localized weakness, Seizures Past Family Social History Allergies: Coded Allergies: baclofen (Unverified Allergy, Severe, 06/14/17) morphine (Unverified Allergy, Severe, Hallucinations, 06/14/17) quinidine (Unverified Allergy, Severe, Hallucinations, 06/14/17) MRI PRECAUTION (Verified Adverse Reaction, Severe, NON MEDTRONIC PACER/ ICD 01/27/15 KMD, 06/14/17) CALLED [facility] TO CONFIRM THAT THE PACER IS NOT A MEDTRONIC Past Medical History COPD on home O2, hepatitis C, CKD stage IV, diabetes, CHF, atrial fibrillation on chronic anticoagulation, possible PETRONA/OHC, obesity, chronic back pain, renal CA Past Surgical History Renal CA status post right nephrectomy, multiple PCI's with stent placement, multiple lower extremity surgeries Reported Medications Reported Meds & Active Scripts Active Symbicort Inh (Budesonide/Formoterol Fumarate) 160-4.5 Mcg/Act Aero 1 Puff INH Q12HR Ventolin Hfa 18 GM Inh (Albuterol Sulfate) 90 Mcg/Act Aer 1 Puff INH Q4H PRN Zofran Odt (Ondansetron Odt) 4 Mg Tab 4 Mg SL Q8HR PRN Torsemide 20 Mg Tab 20 Mg PO BID Spiriva Handihaler (Tiotropium Inh) 18 Mcg Cap 18 Mcg INH DAILY 1 capsule = 18 mcg Oxygen (O2) Device Liter DESIRE.CANULA CONTINUOUS Oxygen Concentrator Portable Gaseous 2 L/min via Nasal Canula Continuous For 99 months Reported Metolazone 5 Mg Tab 5 Mg PO BID Nitroglycerin SL (Nitroglycerin) 0.4 Mg Subl 0.4 Mg SL DIRECTED PRN ONE TABLET UNDER THE TONGUE NEEDED FOR CHEST PAIN, MAY REPEAT EVERY FIVE MINUTES FOR A TOTAL OF 3 DOSES OR CALL 911 IF NO RELIEF Klonopin (Clonazepam) 1 Mg Tab 1 Mg PO BID Bumetanide 2 Mg Tab 2 Mg PO BID Ergocalciferol 50,000 Unit Cap 50,000 Units PO Q7D Vitamin D-1000 (Cholecalciferol) 1,000 Unit Tab 50,000 Units PO 1XPERWEEK Losartan (Losartan Potassium) 50 Mg Tab 50 Mg PO DAILY Omeprazole 20 Mg Tab 20 Mg PO DAILY Novolog Inj (Insulin Aspart) 1,000 Unit/10 Ml Vial 0 SQ TIDAC Sliding Scale as directed. Lantus Inj (Insulin Glargine) 1,000 Unit/10 Ml Vial 100 Units SQ BID Coumadin (Warfarin) 7.5 Mg Tab 7.5 Mg PO DAILY Flomax (Tamsulosin HCl) 0.4 Mg Cap 0.4 Mg PO HS Norvasc (Amlodipine Besylate) 10 Mg Tab 10 Mg PO DAILY Metoprolol Tartrate 25 Mg Tab 25 Mg PO BID Lyrica (Pregabalin) 75 Mg Cap 75 Mg PO BID Gemfibrozil 600 Mg Tab 600 Mg PO BIDAC Take 30 minutes prior to breakfast and dinner. Restasis Opth (Cyclosporine Opth) 0.05% Emul 1 Drop EACH EYE BID Amiodarone (Amiodarone HCl) 200 Mg Tab 200 Mg PO DAILY Active Ordered Medications Current Medications Medications (Trade) Dose Ordered Sig/Lito Route Start Time Stop Time Status Last Admin (NS Flush) 2 ml UNSCH PRN IVF 08/26/17 06:45 (Duoneb Neb) 1 ampule Q4HR NEB PRN INH 08/26/17 09:00 ([facility] [place] Nursing Information) 1 Q361D XX 08/26/17 09:00 (Chlorhexidine 2% Cloth) 3 pack Taper DAILY@04 TOP 08/27/17 04:00 08/23/18 03:59 (Chlorhexidine 2% Cloth) 3 pack UNSCH PRN TOP 08/26/17 09:00 (Protonix Inj) 40 mg Q12HR IV PUSH 08/26/17 09:30 08/26/17 11:17 (Cordarone) 200 mg DAILY PO 08/26/17 09:30 08/26/17 11:17 (Symbicort 160-4.5 Mcg Inh) 1 puff Q12HR INH 08/26/17 21:00 (KlonoPIN) 1 mg BID PO 08/26/17 21:00 (Lopressor) 25 mg BID PO 08/26/17 21:00 Potassium Chloride 100 ml @ 50 mls/hr Q2H IV 08/26/17 11:00 08/26/17 14:59 (Lyrica) 75 mg BID PO 08/26/17 21:00 (Flomax) 0.4 mg HS PO 08/26/17 21:00 Patient Own Medication PT OWN MED: RESTASIS OPTH (CYCLOSPORI... BID EACH EYE 08/26/17 11:30 Future Hold (Roxicodone) 5 mg Q6H PRN PO 08/26/17 10:45 08/26/17 11:18 (Lopid) 600 mg BIDAC PO 08/26/17 16:00 (D50w (Vial) Inj) 50 ml UNSCH PRN IV PUSH 08/26/17 12:45 (Glucagon Inj) 1 mg UNSCH PRN OTHER 08/26/17 12:45 (NovoLOG SUPPLEMENTAL SCALE) 1 ACHS SLIDING SCALE SQ 08/26/17 17:00 Family History Patient is adopted Social History Lives alone, active smoker, approximately 2-3 cigarettes a day, no alcohol ( remote history), no drugs Physical Exam Vital Signs Vital Signs Date Time Temp Pulse Resp B/P (MAP) Pulse Ox O2 Delivery O2 Flow Rate FiO2 08/26/17 12:02 74 20 102/56 (71) 97 Nasal Cannula 2.00 08/26/17 10:08 72 20 108/65 (79) 98 Nasal Cannula 2.00 08/26/17 08:29 76 20 108/67 (81) 98 Nasal Cannula 4.00 08/26/17 07:20 77 20 97/53 (68) 95 Nasal Cannula 4.00 89/57 (68) 08/26/17 07:17 95 Nasal Cannula 4.00 08/26/17 07:17 77 20 97/53 (68) 95 Nasal Cannula 4.00 08/26/17 07:17 72 20 97/53 (68) 95 Nasal Cannula 4.00 08/26/17 06:30 84 20 116/67 (83) 91 Physical Exam General - middle-aged gentleman, morbidly obese, awake, ill-appearing HEENT - pupils equal, reactive, sclerae anicteric, neck supple, no nuchal rigidity, neck veins not distended, no carotid bruit, MMM, no thrush CV - irregular S1, S2, no murmurs, distant Chest - decreased breath sounds at bases, no wheezes and no crackles appreciated Abdomen - soft, obese, non-tender, BS present, unable to appreciate hepatomegaly or splenomegaly due to body habitus Skin - chronic stasis changes over bilateral lower extremities Extremities - warm, 1+ edema, + peripheral pulses, no clubbing Neuro - awake, alert, oriented 3, motor 5/5 over all extremities Laboratory Laboratory Tests Test 08/26/17 06:35 08/26/17 10:25 08/26/17 11:10 08/26/17 12:15 White Blood Count 14.0 Red Blood Count 4.12 Hemoglobin 12.4 Hematocrit 36.0 Mean Corpuscular Volume 87.5 Mean Corpuscular Hemoglobin 30.1 Mean Corpuscular Hemoglobin Concent 34.4 Red Cell Distribution Width 14.4 Platelet Count 330 Mean Platelet Volume 8.3 Neutrophils (%) (Auto) 65.3 Lymphocytes (%) (Auto) 24.2 Monocytes (%) (Auto) 7.6 Eosinophils (%) (Auto) 2.1 Basophils (%) (Auto) 0.8 Neutrophils # (Auto) 9.1 Lymphocytes # (Auto) 3.4 Monocytes # (Auto) 1.1 Eosinophils # (Auto) 0.3 Basophils # (Auto) 0.1 CBC Comment DIFF FINAL Differential Comment Prothrombin Time 18.7 Prothromb Time International Ratio 1.8 Activated Partial Thromboplast Time 35.8 Blood Urea Nitrogen 138 Creatinine 3.91 Random Glucose 263 Total Protein 8.3 Albumin 3.5 Calcium Level 8.8 Magnesium Level 2.4 2.5 Alkaline Phosphatase 139 Aspartate Amino Transf (AST/SGOT) 109 Alanine Aminotransferase (ALT/SGPT) 65 Total Bilirubin 0.3 Sodium Level 135 Potassium Level 2.5 Chloride Level 86 Carbon Dioxide Level 32.8 Anion Gap 16 Estimat Glomerular Filtration Rate 16 Total Creatine Kinase 426 Creatine Kinase MB 3.8 Creatine Kinase MB % 0.9 Troponin I LESS THAN 0.02 0.08 B-Type Natriuretic Peptide 78 Lipase 2691 Urine Color YELLOW Urine Turbidity CLEAR Urine pH 6.0 Urine Specific [place] 1.013 Urine Protein 30 Urine Glucose (UA) NEG Urine Ketones NEG Urine Occult Blood SMALL Urine Nitrite NEG Urine Bilirubin NEG Urine Urobilinogen LESS THAN 2.0 Urine Leukocyte Esterase NEG Urine RBC 2 Urine WBC 1 Urine Squamous Epithelial Cells <1 Urine Bacteria RARE Urine Mucus FEW Microscopic Urinalysis Comment CULT NOT INDICATED Result Diagram: 08/26/1735 08/26/1735 Imaging Last Impressions Chest X-Ray 08/26/17638 Signed Impressions: Service Date/Time: Saturday, August 26, 2017 06:54 - CONCLUSION: Stable mild cardiomegaly. Prominent pulmonary vasculature consistent with mild congestive heart failure. MD Yola Barcenas VTE Risk Assessment Caprini VTE Risk Assessment: Mod/High Risk (score >= 2) VTE Pharm Contraindication: Active bleeding Caprini Risk Assessment Model Point Value = 1 Point Value = 2 Point Value = 3 Point Value = 5 Age 41-60 Minor surgery BMI > 25 kg/m2 Swollen legs Varicose veins or History of unexplained or recurrent spontaneous Oral contraceptives or hormone replacement Sepsis (< 1 month) Serious lung disease, including pneumonia (< 1 month) Abnormal pulmonary function Acute myocardial infarction Congestive heart failure (< 1 month) History of inflammatory bowel disease Medical patient at bed rest Age 61-74 Arthroscopic surgery Major open surgery (> 45 min) Laparoscopic surgery (> 45 min) Malignancy Confined to bed (> 72 hours) Immobilizing plaster cast Central venous access Age >= 75 History of VTE Family history of VTE Factor V Leiden Prothrombin [id number] Lupus anticoagulant Anticardiolipin antibodies Elevated serum homocysteine Heparin-induced thrombocytopenia Other congenital or acquired thrombophilia Stroke (< 1 month) Elective arthroplasty Hip, pelvis, or leg fracture Acute spinal cord injury (< 1 month) Prophylaxis Regimen Total Risk Factor Score Risk Level Prophylaxis Regimen 0-1 Low Early ambulation 2 Moderate Order ONE of the following: *Sequential Compression Device (SCD) *Heparin 5000 units SQ BID 3-4 Higher Order ONE of the following medications: *Heparin 5000 units SQ TID *Enoxaparin/Lovenox 40 mg SQ daily (WT < 150 kg, CrCl > 30 mL/min) *Enoxaparin/Lovenox 30 mg SQ daily (WT < 150 kg, CrCl > 10-29 mL/min) *Enoxaparin/Lovenox 30 mg SQ BID (WT < 150 kg, CrCl > 30 mL/min) AND/OR *Sequential Compression Device (SCD) 5 or more Highest Order ONE of the following medications: *Heparin 5000 units SQ TID (Preferred with Epidurals) *Enoxaparin/Lovenox 40 mg SQ daily (WT < 150 kg, CrCl > 30 mL/min) *Enoxaparin/Lovenox 30 mg SQ daily (WT < 150 kg, CrCl > 10-29 mL/min) *Enoxaparin/Lovenox 30 mg SQ BID (WT < 150 kg, CrCl > 30 mL/min) AND *Sequential Compression Device (SCD) Assessment and Plan Assessment and Plan 1. Aborted V. fib status post defibrillation 3 with AICD 2. Chest pain with concern for ACS 3. KONG on CKD 4. Severe hypokalemia 5. Pancreatitis 6. Hemoccult positive stool with concern for GI bleed 7. Atrial fibrillation 8. Ischemic cardiomyopathy with reduced EF 9. COPD on home O2 -does not appear to be exacerbated 10. Diabetes mellitus 11. History of CVA 12. Chronic back pain 13. Probable PETRONA/OHS 14. Chronic hepatitis C 1. Admit to ICU 2. Serial cardiac enzymes and EKG. EKG done in ER was reviewed, left bundle branch block which appears to be new. I discussed the new EKG findings with Dr. Escamilla, covering farmworker cranberry and he will evaluate 3. Echocardiogram 4. Nitro sublingual if BP allows 5. Patient received aspirin in the emergency room. Due to concern for GI bleed and patient being a Religious we will hold off additional anticoagulation 6. Continue home beta-hannah if BP allows 7. Aggressively replete potassium. Repeat at 2 PM. Keep potassium above 4 8. Continue amiodarone 9. Serial lipase 10. Check triglycerides and liver/pancreas ultrasound 11. Hold Coumadin for now due to concern for GI bleed 12. Monitor hemoglobin 13. PPI twice daily 14. Supplemental O2 to keep SPO2 88 and 92% 15. Bronchodilators and Symbicort 16. Glycemic control with long-acting insulin and sliding scale. Patient on Lantus 75 twice daily at home. Will start Levemir 50 BID for now and increase it as needed 17. GI prophylaxis addressed above, DVT prophylaxis with SCDs for now 18. Home meds on hold: Amlodipine, losartan, Bumex, metolazone, Calciferol, ergocalciferol I confirmed with the patient that he is Religious and he refuses blood transfusion. I also reconfirmed his desire not to be resuscitated and DNR order placed in the chart. We will respect patient's wishes. Darren Brenner MD August 26, 2017 12:38
[2017-08-26] MEDS ORDERED: GLUCAGON 1 MG/ML VIAL OTHER PRN (12:45)
[2017-08-26] MEDS ORDERED: DEXTROSE 50% IN WATER 50 ML VIAL(D50) IV PUSH PRN (12:45)
--- NOTE | 2017-08-26 13:41 | MB ---
cc: Berto Coyle MD DATE: 08/26/2017 REASON FOR CONSULTATION: Chronic kidney disease with elevated BUN and creatinine. HISTORY OF PRESENT ILLNESS: This is a 57-year-old male known to me from before with past medical history of chronic kidney disease with single kidney, hypertension, chronic anemia, hyperlipidemia, diabetes mellitus, ischemic heart disease, congestive heart failure, chronic obstructive pulmonary disease, hepatitis C, history of cerebrovascular accident, came to the hospital with complaint of chest pain and arrhythmia. I was called to see the patient for the chronic kidney disease. He has single kidney, has been following with me. The patient has advanced stage IV renal disease and was on dialysis 3 months ago when he was admitted at [facility] mainly because of the fluid, but his GFR has been staying close to 16-18, and he is getting close for starting the dialysis. The patient has been taking diuretics including Bumex and metolazone at home and here, it was found that his creatinine was 3.9, and the potassium was low, 2.5. The patient was supposed to take the potassium with the diuretic and he ran out of it and the pharmacy did not deliver it, so he was trying to eat more bananas. The patient noticed that his AICD fired 3 times at home. He denies any vomiting. Occasionally, he has nausea. There is no dysuria or hematuria, but he did notice that his urine output is slightly decreased. PAST MEDICAL HISTORY: Hypertension, diabetes mellitus, chronic anemia, ischemic heart disease, congestive heart failure, chronic kidney disease, atrial fibrillation, hepatitis C, history of cerebrovascular accident. PAST SURGICAL HISTORY: AICD placement, nephrectomy. REVIEW OF SYSTEMS: Patient has generalized weakness, feeling tired. Denies any vomiting but has nausea. No headache or dizziness. He has chest pain, which has been retrosternal and not associated with shortness of breath. There is no headache or dizziness. No abdominal pain. He did notice that he has some black stool for the last 2-3 days, and he stopped taking the Coumadin. SOCIAL HISTORY: There is no history of smoking or alcoholism. FAMILY HISTORY: Noncontributory. ALLERGIES: HE IS ALLERGIC TO BACLOFEN, MORPHINE, QUINIDINE. MEDICATIONS: Currently, he is on clonazepam 1 mg twice a day, Lopressor 25 mg b.i.d., Lyrica 75 mg b.i.d., gemfibrozil 600 mg b.i.d., Cordarone 200 mg daily, Flomax 0.4 mg at bedtime, Protonix 40 mg q. 12 hours, Symbicort inhaler, oxycodone as needed. PHYSICAL EXAMINATION: GENERAL: The patient is awake, alert. He is not in acute distress. VITAL SIGNS: His last blood pressure is 102/56, temperature is being afebrile, oxygen saturation on 2 liter nasal cannula is 97%. HEENT: Pupils are mid, constricted. Nonicteric sclerae. Conjunctivae normal. NECK: Supple. JVD is slightly elevated. LUNGS: The patient has bilateral good air entry with basal rales and scattered wheezing. HEART: S1, S2, irregular rhythm. ABDOMEN: Distended, soft, lax. There is no tenderness. EXTREMITIES: He has no edema in the legs. INVESTIGATIONS: WBC count is 14.0, hemoglobin 12.4 with a platelet count of 330. Sodium 135, potassium 2.5, chloride 86, bicarbonate 32.8, BUN 138, creatinine 3.9. Estimated GFR is 16 with AST of 109, ALT is 65. Troponin I is 0.08. Total protein is 8.3. Lipase is 2691. Albumin is 3.5. INR is 1.8. Urinalysis showing protein of 30 with a small occult blood. IMAGING STUDIES: The patient had a chest x-ray done and it shows cardiomegaly with some prominent vasculature. ASSESSMENT AND PLAN: 1. Ischemic heart disease with chest pain and arrhythmias. 2. Chronic kidney disease with some acute worsening and advanced renal failure. 3. Hypokalemia. 4. Diabetes mellitus. 5. Elevated lipase. 6. Mild anemia. 7. History of congestive heart failure. The patient has advanced stage IV renal disease with single kidney and most likely has hypertensive or diabetic renal disease. Currently, his creatinine is 3.9 and the GFR is 16. The BUN is higher and he also has metabolic alkalosis. Most likely, this is over diuresis. His edema has improved a lot in the legs, so we will cut down his diuretic. We will just give him Bumex 1 mg twice a day and hold the metolazone now. He is getting the potassium replacement. He already got the oral, so we will check on lab for the stat potassium. Cardiology has been consulted. We will follow their recommendation. There is no acute urgent need for dialysis at present, but if renal function decreases further, he possibly will need dialysis. Thank you for the consultation. I will follow the patient while he is in the hospital. MD SANFORD Saldivar/ROGE , 12:54 PM , 01:40 PM
--- NOTE | 2017-08-26 14:16 | MB ---
cc: Leslie Escamilla MD DATE: 08/26/2017 COVERING FOR: Caterina Hernandez MD REFERRING PHYSICIAN: Darren Brenner MD REASON FOR CONSULTATION: Chest pain evaluation with history of CAD. HISTORY OF PRESENT ILLNESS: Ms. Gooden is a 57-year-old gentleman well known to Dr. Hernandez. He does have CAD with occluded RCA and collaterals. He also has ischemic cardiomyopathy with [employer] ICD. He also has atrial fibrillation with CVA in the past and chronic renal insufficiency requiring dialysis in the past. The patient does have hypertension, hypercholesterolemia, chronic systolic CHF, COPD, on home O2, hepatitis C and multiple CVAs, overweight. He presented to the ER with some chest pain along with some nausea, vomiting and abdominal discomfort. He did receive 3 shocks total. So far, he has been admitted, which showed troponins 0.02-0.08, borderline. I did review the EKG. Baseline EKG showed IVCD with left bundle branch block morphology with QRS 130 milliseconds. Now, it is about 150 milliseconds. He did have echocardiogram in the past, showed EF around 40-45% back in 01/2015. He was also found to have heme positive stools. Coumadin has been on hold. The patient's lipase is elevated consistent with acute pancreatitis with significant hypokalemia with potassium of only 2.5. Currently, the patient is DNR. The patient also is a [employer] and he refused any blood transfusion. He is on amiodarone 25 mg b.i.d. along with amiodarone 200 mg daily, currently in sinus. The patient complained of generalized pain including chest and abdominal pain. Again, EKG so far showed IVCD with left bundle branch morphology, but the patient does have baseline IVCD. PMH as above. ALLERGIES: INCLUDING BACLOFEN, MORPHINE, QUINIDINE. PAST SURGICAL HISTORY: As above. Also, has multiple PCIs with stents in the past and multiple lower extremity surgeries. MEDICATIONS: Again, he is on metoprolol 25 mg, insulin and amiodarone. FAMILY HISTORY: Not significant for CAD at early age. REVIEW OF SYSTEMS: HEENT: Normal. GASTROINTESTINAL: Some nausea, abdominal pain. GENITOURINARY: Deferred. MUSCULOSKELETAL: All range of motion intact. SKIN: There is no ecchymosis. PSYCHIATRIC: The patient good mood and good judgment. PHYSICAL EXAMINATION: VITAL SIGNS: The patient has blood pressure of 97/53 with pulse in the 70s-80s. The patient's O2 saturation 97%. HEENT: Normal oral exam. PERRLA. ENDOCRINE: There is no thyroid enlargement. LYMPHATICS: There is no lymphadenopathy. RESPIRATORY: Decreased breath sounds bilaterally but no crackles. CARDIOVASCULAR: Decreased S1, S2, regular. No loud murmurs. Left-sided ICD incision well healed. GASTROINTESTINAL: Active bowel sounds in all 4 quadrants. GENITOURINARY: Deferred. MUSCULOSKELETAL: All range of motion intact. SKIN: There is ecchymosis. PSYCHIATRIC: Patient has good mood and good judgment. LABORATORY DATA:: Again, troponin is borderline 0.02-0.08. Creatinine is 3.91 with a hematocrit 36, WBC elevated at 14 with significant elevation of lipase at 2691. Again, potassium only 2.5. ASSESSMENT: 1. Some episodes of chest pain with coronary artery disease and occluded right coronary artery. 2. Acute pancreatitis. 3. Heme-positive stools. 4. Severe hypokalemia. 5. Ischemic cardiomyopathy with [employer] Elian implantable cardioverter-defibrillator. 6. Chronic renal insufficiency with acute elevation of creatinine. 7. Hypertension, hypercholesteremia. 8. Cerebrovascular accident in the past. PLAN: The patient does have significant PMH for CAD and occluded RCA. So far, troponin borderline, but in a setting with a heme-positive stool, acute pancreatitis with aiming for supportive care. Adding a low dose of statin therapy and see how he does and may consider low-dose aspirin if lipase trending down. No intervention at this moment with heme-positive stool, acute elevation of creatinine almost 4 with acute pancreatitis. So far, there is no significant troponin elevation yet. Supportive care is reasonable and the patient in intensive care unit. Again, I am okay with nitroglycerine p.r.n. for the chest discomfort. May consider adding a baby aspirin if lipase trending down and statin therapy. For now, we will see how he does overnight first. Dr. Hernandez will follow the patient tomorrow. Thank you, Dr. Brenner. Leslie Escamilla MD HW/ROGE , 01:48 PM , 02:15 PM
[2017-08-26 14:31] LABS: AUTOMATED NEUTROPHIL # 8.1 TH/MM3 (1.8-7.7); BASOPHIL # 0.1 TH/MM3 (0-0.2); BASOPHIL % 0.5 % (0.0-2.0); EOSINOPHIL # 0.1 TH/MM3 (0-0.4); EOSINOPHIL % 0.8 % (0.0-4.0); HEMATOCRIT 36.4 % (39.0-51.0); HEMOGLOBIN 12.4 GM/DL (13.0-17.0); LYMPH % 28.6 % (9.0-44.0); LYMPHOCYTE # 3.6 TH/MM3 (1.0-4.8); MEAN CELL VOLUME 87.7 FL (80.0-100.0); MEAN CORPUSCULAR HEMOGLOBIN 29.9 PG (27.0-34.0); MEAN CORPUSCULAR HGB CONC 34.1 % (32.0-36.0); MEAN PLATELET VOLUME 8.1 FL (7.0-11.0); MONO % 5.8 % (0.0-8.0); MONOCYTE # 0.7 TH/MM3 (0-0.9); NEUT % 64.3 % (16.0-70.0); PLATELET COUNT 333 TH/MM3 (150-450); RED BLOOD COUNT 4.15 MIL/MM3 (4.50-5.90); RED CELL DISTRIBUTION WIDTH 14.6 % (11.6-17.2); WHITE BLOOD COUNT 12.6 TH/MM3 (4.0-11.0)
[2017-08-26 14:54] LABS: ALBUMIN 3.5 GM/DL (3.4-5.0); ALKALINE PHOSPHATASE 128 U/L (45-117); ALT (GPT) 67 U/L (12-78); AST (GOT) 102 U/L (15-37); BICARBONATE 35.3 MEQ/L (21.0-32.0); BLOOD UREA NITROGEN 141 MG/DL (7-18); CALCIUM 9.4 MG/DL (8.5-10.1); CHLORIDE 88 MEQ/L (98-107); CREATININE 3.55 MG/DL (0.60-1.30); GLOMERULAR FILTRATION RATE 18 ML/MIN (>89); GLUCOSE,RANDOM 211 MG/DL (74-106); SODIUM (NA) 135 MEQ/L (136-145); TOTAL BILIRUBIN ADULT 0.3 MG/DL (0.2-1.0); TOTAL PROTEIN 8.4 GM/DL (6.4-8.2); TRIGLYCERIDES 278 MG/DL (42-150)
[2017-08-26 15:05] LABS: MAGNESIUM 2.5 MG/DL (1.5-2.5); PHOSPHORUS 4.8 MG/DL (2.5-4.9)
[2017-08-26 15:09] LABS: TROPONIN I 0.13 NG/ML (0.02-0.05)
[2017-08-26] MEDS: RESP: ALBUTEROL 2.5 MG/IPRATROPIUM 0.5 MG NEB (SCH) NEB ×2 (16:12→20:50)
[2017-08-26] MEDS ORDERED: POTASSIUM CHLOR 40 MEQ PREMIX 100 ML IV ONE (16:45)
--- NOTE | 2017-08-26 16:53 | EKG ---
Date Performed: 08/26/2017 Time Performed: 12:07:50 PTAGE: 57 years EKG: Sinus rhythm IV conduction defect Inferior infarct - age undetermined Abnormal ECG PREVIOUS TRACING : 08/26/2017 06.37 Since the previous tracing, no significant change noted DOCTOR: Dwight Patel Interpretating Date/Time 08/26/2017 16:52:32
--- NOTE | 2017-08-26 17:04 | EKG ---
Date Performed: 08/26/2017 Time Performed: 06:37:41 PTAGE: 57 years EKG: Sinus rhythm WITH OCCASIONAL VENTRICULAR PREMATURE COMPLEXES LEFT BUNDLE BRANCH BLOCK ABNORMAL ECG PREVIOUS TRACING : 06/14/2017 19.59 Since the previous tracing, no significant change noted DOCTOR: Dwight Patel Interpretating Date/Time 08/26/2017 17:03:25
[2017-08-26] MEDS: GEMFIBROZIL 600 MG TAB PO SCH (17:17)
[2017-08-26] MEDS: INSULIN ASPART SUPPLEMENTAL SCALE SQ SCH ×2 (17:18→21:27)
[2017-08-26] MEDS: FUROSEMIDE 20 MG/2 ML VIAL IV PUSH SCH (20:22)
--- NOTE | 2017-08-26 20:43 | RADRPT ---
EXAM DATE/TIME: 08/26/2017 19:57 [facility] COMPARISON: CT ABDOMEN & PELVIS W/O CONTRAST, June 14, 2017, 21:02. US ABDOMEN - LIVER, March 20, 2017, 8:02 . INDICATIONS : Pancreatitis. MEDICAL HISTORY : Stroke. Myocardial infarction. Hypertension. Dentures. Seizures. Dizziness. Congestive heart failure. Coronary artery disease. Anticoagulant therapy. Chest pain. Atrial fibrillation. COPD. Asthma. Hiata l hernia. Dyspnea. GERD. Renal cell carcinoma. Arthritis. Adrenal tumor. SURGICAL HISTORY : Tonsillectomy. Coronary artery stent. Pacemaker. Cholecystectomy. Appendectomy. Right nephrectomy. Ri ght femur surgery. Right knee replacement. Left tib/fib fracture. Splenectomy. ENCOUNTER: Subsequent ACUITY: 2 days PAIN SCORE: 2/10 LOCATION: Bilateral upper quadrant MEASUREMENTS: LIVER: 19.8 cm length COMMON DUCT: 4 mm RIGHT KIDNEY: Nephrectomy. cm SPLEEN: 12.1 cm length FINDINGS: LIVER: Normal echotexture without focal lesion or ductal dilatation. COMMON DUCT: No intraluminal mass or stone visualized. GALLBLADDER: Surgically absent. PANCREAS: Not well seen. RIGHT KIDNEY: Normal-appearing kidney not seen. Area of increased echogenicity in the right renal fossa measures 6. 0 x 6.3 x 4.0 cm. SPLEEN: No focal lesion. CONCLUSION: 1. Status post cholecystectomy. 2. Area of increased echogenicity right renal fossa can be related to patient's known adrenal lesion. 3. Pancreas not well seen. Franky Lee MD on August 26, 2017 at 20:37 Board Certified Radiologist. This report was verified electronically.
[2017-08-26] MEDS: METOPROLOL TARTRATE 25 MG TAB PO SCH (21:00)
[2017-08-26] MEDS: TAMSULOSIN HCL 0.4 MG CAP PO SCH (21:19)
[2017-08-26] MEDS: PREGABALIN 75 MG CAP PO SCH (21:19)
[2017-08-26] MEDS: clonazePAM 1 MG TAB PO SCH (21:19)
[2017-08-26] MEDS: BUDESONIDE-FORMOTEROL 160/4.5 MCG INHALER INH SCH (21:21)
[2017-08-26] MEDS: INSULIN DETEMIR 100 UNITS/ML VIAL SQ SCH (21:26)
[2017-08-26] MEDS: LACTATED RINGER'S 1000 ML INJ 1,000 ML IV SCH (22:34)
[2017-08-27] VITALS (8 sets, daily range): BP systolic 109–128; BP diastolic 51–68; PULSE 72–102; RESP 18–20; TEMP 98.2–99.4; O2SAT 93–96
[2017-08-27] MEDS: HYDROmorphone HCL PF 0.5 MG/0.5 ML SYRINGE IV PRN ×4 (01:07→18:32)
[2017-08-27 02:45] LABS: AUTOMATED NEUTROPHIL # 9.1 TH/MM3 (1.8-7.7); BASOPHIL % 0.4 % (0.0-2.0); EOSINOPHIL % 0.2 % (0.0-4.0); HEMATOCRIT 35.2 % (39.0-51.0); LYMPH % 16.1 % (9.0-44.0); LYMPHOCYTE # 1.9 TH/MM3 (1.0-4.8); MEAN CELL VOLUME 89.1 FL (80.0-100.0); MEAN CORPUSCULAR HEMOGLOBIN 30.4 PG (27.0-34.0); MEAN CORPUSCULAR HGB CONC 34.1 % (32.0-36.0); MEAN PLATELET VOLUME 8.2 FL (7.0-11.0); MONO % 4.9 % (0.0-8.0); MONOCYTE # 0.6 TH/MM3 (0-0.9); NEUT % 78.4 % (16.0-70.0); PLATELET COUNT 302 TH/MM3 (150-450); RED BLOOD COUNT 3.94 MIL/MM3 (4.50-5.90); RED CELL DISTRIBUTION WIDTH 14.3 % (11.6-17.2); WHITE BLOOD COUNT 11.6 TH/MM3 (4.0-11.0)
[2017-08-27 02:48] LABS: INTERNATIONAL NORMALIZED RATIO 1.7 RATIO; PROTHROMBIN TIME - PATIENT 17.6 SEC (9.8-11.6)
[2017-08-27 03:03] LABS: ALBUMIN 3.4 GM/DL (3.4-5.0); ALKALINE PHOSPHATASE 114 U/L (45-117); ALT (GPT) 68 U/L (12-78); AST (GOT) 106 U/L (15-37); BICARBONATE 32.3 MEQ/L (21.0-32.0); BLOOD UREA NITROGEN 134 MG/DL (7-18); CALCIUM 9.1 MG/DL (8.5-10.1); CHLORIDE 91 MEQ/L (98-107); CREATININE 3.65 MG/DL (0.60-1.30); GLOMERULAR FILTRATION RATE 17 ML/MIN (>89); GLUCOSE,RANDOM 284 MG/DL (74-106); MAGNESIUM 2.5 MG/DL (1.5-2.5); PHOSPHORUS 4.1 MG/DL (2.5-4.9); SODIUM (NA) 137 MEQ/L (136-145); TOTAL BILIRUBIN ADULT 0.3 MG/DL (0.2-1.0); TOTAL PROTEIN 8.1 GM/DL (6.4-8.2)
[2017-08-27] MEDS: CHLORHEXIDINE GLUCONATE 2 % 1 PACK (2 CLOTHS) TOP SCH (03:46)
[2017-08-27] MEDS ORDERED: LORazepam 2 MG/ML VIAL ONE (03:49)
[2017-08-27] MEDS ORDERED: POTASSIUM CHLOR 20 MEQ PREMIX 200 ML ONE (03:59)
[2017-08-27] MEDS ORDERED: AMIODARONE INJ 450 MG in D5W (EXCEL BAG) INJ 241 ML IV PRN (04:00)
[2017-08-27] MEDS ORDERED: LORazepam 2 MG/ML VIAL IV PUSH ONE (04:00)
[2017-08-27] MEDS ORDERED: POTASSIUM CHLOR 40 MEQ PREMIX 100 ML IV ONE (04:00)
[2017-08-27] MEDS: GEMFIBROZIL 600 MG TAB PO SCH ×2 (06:35→17:06)
[2017-08-27] MEDS: RESP: ALBUTEROL 2.5 MG/IPRATROPIUM 0.5 MG NEB (SCH) NEB ×3 (08:00→20:42)
[2017-08-27] MEDS: INSULIN ASPART SUPPLEMENTAL SCALE SQ SCH ×4 (08:27→21:00)
[2017-08-27] MEDS: INSULIN DETEMIR 100 UNITS/ML VIAL SQ SCH ×2 (08:28→21:00)
[2017-08-27] MEDS: PREGABALIN 75 MG CAP PO SCH ×2 (08:30→21:00)
[2017-08-27] MEDS: clonazePAM 1 MG TAB PO SCH ×2 (08:30→21:00)
[2017-08-27] MEDS: METOPROLOL TARTRATE 25 MG TAB PO SCH ×2 (08:30→21:00)
[2017-08-27] MEDS: PANTOPRAZOLE SODIUM 40 MG VIAL IV PUSH SCH ×2 (08:30→21:00)
[2017-08-27] MEDS: SODIUM CHLORIDE 0.9% FLUSH 10 ML FLUSH IVF PRN (08:32)
[2017-08-27] MEDS: FUROSEMIDE 20 MG/2 ML VIAL IV PUSH SCH ×2 (09:00→17:08)
[2017-08-27] MEDS: BUDESONIDE-FORMOTEROL 160/4.5 MCG INHALER INH SCH ×2 (09:00→21:00)
[2017-08-27] MEDS: LACTATED RINGER'S 1000 ML INJ 1,000 ML IV SCH ×2 (11:00→21:34)
[2017-08-27] MEDS ORDERED: AMIODARONE INJ 450 MG in SODIUM CHLOR 0.9% (EXCEL) INJ 241 ML IV PRN ×2 (12:00→18:45)
--- NOTE | 2017-08-27 12:43 | HHI.CCPN ---
Subjective Remarks/Hospital Course 57-year-old gentleman with past medical history remarkable for atrial fibrillation on chronic anticoagulation with Coumadin, CKD, recently required hemodialysis, last HD approximately 1 month ago, CAD, hypertension, hyperlipidemia, diabetes, CHF, status post AICD, COPD on home O2, hepatitis C, multiple CVAs in the past, obesity, now presents to emergency room for evaluation of chest pain. Over the last few days, patient intermittently described having chest pain associated with nausea, some vomiting and some abdominal discomfort. This morning, around 4 AM, patient woke up complaining of chest pain and defibrillator fired 2, therefore he called EMS. Patient denies any fever, chills, diarrhea, cough. Some shortness of breath with exertion. Of note, patient reports multiple black stools, therefore 3 days ago he stopped taking Coumadin. On ED arrival, patient was hemodynamically stable, still complaining of some chest pain. Pacer rep was called and he interrogated his device and found out that patient went into V. fib and he was shocked 3 times. Remarkable workup in ED showed a negative troponin, worsening creatinine , and severe hypokalemia with a potassium of 2.5. Hemoglobin was 12.4, but his stool was weakly positive for Hemoccult. Patient was also found to have elevated lipase. [facility] now consulted for ICU admission. Patient was seen in emergency room, he is awake, still complaining of some chest pain, pleuritic, worsening with deep breaths, reproducible by palpation over the sternum. His dyspnea is at baseline, denies any other complaints except chronic back pain. Nephrology and cardiology have been consulted. In ED patient was given 60 mEq of potassium. Her ED chart, patient expressed a desire to be a DO NOT RESUSCITATE. Order was placed in the chart. Patient is Latter day and he absolutely refuses blood transfusion. 08/27 Patient reports left sided chest pain had 3 runs of Vtach overnight placed on Amio drip. Afebrile. Objective Vital Signs Date Time Temp Pulse Resp B/P (MAP) Pulse Ox O2 Delivery O2 Flow Rate FiO2 08/27/17 12:05 68 113/63 08/27/17 11:01 98.2 18 93 08/27/17 11:01 Venturi Mask 6.00 Intake and Output 08/27/17 08/27/17 08/28/17 08:00 16:00 00:00 Intake Total 1442.5 ml Output Total 1435 ml Balance 7.5 ml Result Diagram: 08/27/17 0226 08/27/17 0226 Other Results Laboratory Tests Test 08/26/17 12:15 08/26/17 13:39 08/27/17 02:26 Nasal Screen MRSA (PCR) MRSA NOT DETECTED White Blood Count 12.6 TH/MM3 11.6 TH/MM3 Red Blood Count 4.15 MIL/MM3 3.94 MIL/MM3 Hemoglobin 12.4 GM/DL 12.0 GM/DL Hematocrit 36.4 % 35.2 % Mean Corpuscular Volume 87.7 FL 89.1 FL Mean Corpuscular Hemoglobin 29.9 PG 30.4 PG Mean Corpuscular Hemoglobin Concent 34.1 % 34.1 % Red Cell Distribution Width 14.6 % 14.3 % Platelet Count 333 TH/MM3 302 TH/MM3 Mean Platelet Volume 8.1 FL 8.2 FL Neutrophils (%) (Auto) 64.3 % 78.4 % Lymphocytes (%) (Auto) 28.6 % 16.1 % Monocytes (%) (Auto) 5.8 % 4.9 % Eosinophils (%) (Auto) 0.8 % 0.2 % Basophils (%) (Auto) 0.5 % 0.4 % Neutrophils # (Auto) 8.1 TH/MM3 9.1 TH/MM3 Lymphocytes # (Auto) 3.6 TH/MM3 1.9 TH/MM3 Monocytes # (Auto) 0.7 TH/MM3 0.6 TH/MM3 Eosinophils # (Auto) 0.1 TH/MM3 0.0 TH/MM3 Basophils # (Auto) 0.1 TH/MM3 0.0 TH/MM3 CBC Comment DIFF FINAL DIFF FINAL Differential Comment Blood Urea Nitrogen 141 MG/DL 134 MG/DL Creatinine 3.55 MG/DL 3.65 MG/DL Random Glucose 211 MG/DL 284 MG/DL Total Protein 8.4 GM/DL 8.1 GM/DL Albumin 3.5 GM/DL 3.4 GM/DL Calcium Level 9.4 MG/DL 9.1 MG/DL Phosphorus Level 4.8 MG/DL 4.1 MG/DL Magnesium Level 2.5 MG/DL 2.5 MG/DL Alkaline Phosphatase 128 U/L 114 U/L Aspartate Amino Transf (AST/SGOT) 102 U/L 106 U/L Alanine Aminotransferase (ALT/SGPT) 67 U/L 68 U/L Total Bilirubin 0.3 MG/DL 0.3 MG/DL Sodium Level 135 MEQ/L 137 MEQ/L Potassium Level 3.0 MEQ/L 2.8 MEQ/L Chloride Level 88 MEQ/L 91 MEQ/L Carbon Dioxide Level 35.3 MEQ/L 32.3 MEQ/L Anion Gap 12 MEQ/L 14 MEQ/L Estimat Glomerular Filtration Rate 18 ML/MIN 17 ML/MIN Troponin I 0.13 NG/ML Triglycerides Level 278 MG/DL Prothrombin Time 17.6 SEC Prothromb Time International Ratio 1.7 RATIO Lipase 1093 U/L Imaging Last Impressions Chest X-Ray 08/26/17 0639 Signed Impressions: Service Date/Time: Saturday, August 26, 2017 06:54 - CONCLUSION: Stable mild cardiomegaly. Prominent pulmonary vasculature consistent with mild congestive heart failure. Mariela Malloy MD Liver Ultrasound 08/26/17 0000 Signed Impressions: Service Date/Time: Saturday, August 26, 2017 19:57 - CONCLUSION: 1. Status post cholecystectomy. 2. Area of increased echogenicity right renal fossa can be related to patient's known adrenal lesion. 3. Pancreas not well seen. Franky Lee MD Objective Remarks General - middle-aged gentleman, morbidly obese, awake, ill-appearing HEENT - pupils equal, reactive, sclerae anicteric, neck supple, no nuchal rigidity, neck veins not distended, no carotid bruit, MMM, no thrush CV - irregular S1, S2, no murmurs, distant Chest - decreased breath sounds at bases, no wheezes and no crackles appreciated Abdomen - soft, obese, non-tender, BS present, unable to appreciate hepatomegaly or splenomegaly due to body habitus Skin - chronic stasis changes over bilateral lower extremities Extremities - warm, 1+ edema, + peripheral pulses, no clubbing Neuro - awake, alert, oriented 3, motor 5/5 over all extremities A/P Assessment and Plan 1. Aborted V. fib status post defibrillation 3 with AICD 2. Chest pain with concern for ACS 3. KONG on CKD 4. Severe hypokalemia 5. Pancreatitis 6. Anemia 7. Atrial fibrillation 8. Ischemic cardiomyopathy with reduced EF 9. COPD on home O2 -does not appear to be exacerbated 10. Diabetes mellitus 11. History of CVA 12. Chronic back pain 13. Probable PETRONA/OHS 14. Chronic hepatitis C Plan Neuro: Awake and alert Pulm: Continue with oxygen keep sats >92% Bronchodilators ( DuoNeb, Symbicort) CV: Continue with Amio drip monitor HR and BP keep MAP>65mmHg On Lopressor 25mg BID Cards is following, for 2D echo Patient received aspirin in the emergency room. Due to concern for GI bleed and patient being a Latter day we will hold off additional anticoagulation : Monitor renal function, I/O's, avoid nephrotoxins Cr: 3.65 from 3.55, UOP:1435 ml overnight. Renal is following- Dr. Coyle On LR @100ml/hr, Lasix 20mg BID GI: Keep NPO, Serial lipase ( trending down) GI eval. Monitor LFT;s, check Hepatitis profile. US Liver: S/p cholecystectomy. Area of increased echogenicity right renal fossa can be related to patient's known adrenal lesion Pancreas not well seen. ID: Monitor for signs of infections ( Fever, WBC) Heme: Monitor CBC, Coumadin held due to concern for GI bleed Endo: SSI for glycemic control, On Levemir 50u BID Patient is on Lantus 75 twice daily at home. GI prophylaxis addressed above, DVT prophylaxis with SCDs for now Per Dr. Brenner- patient is Latter day and he refuses blood transfusion. Code status: No code DNR Palliative care eval. Level 3 Rajan Ashby MD August 27, 2017 12:43
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
--- NOTE | 2017-08-27 17:16 | HHI.NPPN ---
Subjective General Problems: Anemia Renal Failure: Chronic, Stage IV History of Present Illness This is a 57-year-old male known to me from before with past medical history of chronic kidney disease with single kidney, hypertension, chronic anemia, hyperlipidemia, diabetes mellitus, ischemic heart disease, congestive heart failure, chronic obstructive pulmonary disease, hepatitis C, history of cerebrovascular accident, [facility] of chest pain and arrhythmia. Nephrology was called to see the patient for the chronic kidney disease. He has single kidney, has been following with me. The patient has advanced stage IV renal disease and was on dialysis 3 months ago when he was admitted at [facility] mainly because of the fluid, but his GFR has been staying close to 16-18, and he is getting close for starting the dialysis. The patient has been taking diuretics including Bumex and metolazone at home and here, it was found that hiscreatinine was 3.9, and the potassium was low, 2.5. The patient was supposed to take the potassium with the diuretic and he ran out of it and the pharmacy did not deliver it, so he was trying to eat more bananas. The patient noticed that his AICD fired 3 times at home. Hedenies any vomiting. Occasionally, he has nausea. There is no dysuria or hematuria, but he did notice that his urine output is slightly decreased. Additional Remarks AICD fired last night. On amiodarone gtt. (Nasreen Colmenares) Review of Systems Respiratory Lungs: SOB (Nasreen Colmenares) Cardiovascular Cardiac: Chest Pain (Nasreen Colmenares) Gastrointestinal Gastrointestinal: Nausea & Vomiting, Blood/Tarry Stools (Nasreen Colmenares) Objective Data Data 08/27/17 08/28/17 19:00 07:00 Intake Total 515.5 ml Balance 515.5 ml IV Total 515.5 ml Vital Signs Date Time Temp Pulse Resp B/P (MAP) Pulse Ox O2 Delivery O2 Flow Rate FiO2 08/27/17 15:00 98.4 94 20 113/64 (80) 96 08/27/17 15:00 93 Venturi Mask 6.00 08/27/17 12:05 68 113/63 08/27/17 11:01 98.2 75 18 116/68 (84) 93 08/27/17 11:01 95 Venturi Mask 6.00 08/27/17 08:46 95 Simple Mask 10.00 08/27/17 07:00 93 Venturi Mask 5.00 08/27/17 07:00 98.6 94 18 109/66 (80) 93 08/27/17 04:16 98.3 102 18 128/51 (76) 94 08/27/17 04:16 94 Simple Mask 8.00 08/27/17 04:09 105 109/64 08/27/17 03:00 92 08/27/17 01:20 89 Simple Mask 8.00 08/26/17 23:15 93 Nasal Cannula 5.00 08/26/17 23:15 98.6 93 16 99/64 (76) 93 08/26/17 23:00 96 08/26/17 20:50 94 Simple Mask 8.00 08/26/17 19:30 98.8 80 18 124/70 (88) 94 08/26/17 19:30 94 Simple Mask 8.00 08/26/17 19:00 81 (Nasreen Colmenares) -: 08/27/17 0226 08/27/17 1205 Imaging Last Impressions Chest X-Ray 08/26/17 0639 Signed Impressions: Service Date/Time: Saturday, August 26, 2017 06:54 - CONCLUSION: Stable mild cardiomegaly. Prominent pulmonary vasculature consistent with mild congestive heart failure. Mariela Malloy MD Liver Ultrasound 08/26/17 0000 Signed Impressions: Service Date/Time: Saturday, August 26, 2017 19:57 - CONCLUSION: 1. Status post cholecystectomy. 2. Area of increased echogenicity right renal fossa can be related to patient's known adrenal lesion. 3. Pancreas not well seen. Franky Lee MD (Nasreen Colmenares) Physical Exam General Appearance: No Acute Distress, Anxious, Obese (Nasreen Colmenares) Eyes Eye Exam: Pupils Equal (Nasreen Colmenares) Throat Throat Exam: Oral Mucosa [place] & Moist (Nasreen Colmenares) Pulmonary Resp Exam: Clear Bilaterally, Breath Sounds Equal, No Distress (Nasreen Colmenares) Cardiology CV Exam: Regular, Normal Sinus Rhythm (Nasreen Colmenares) Gastrointestinal/Abdomen GI Exam: Soft, Bowel Sounds Present, Distended (Nasreen Colmenares) Genitourinary Exam: Flank Non-Tender (Nasreen Colmenares) Integumentary Skin Exam: Clear, Warm (Nasreen Colmenares) Extremeties Extremities Exam: Moderate Edema (Nasreen Colmenares) Neurologic Neuro Exam: Alert, Awake (Nasreen Colmenares) Psychiatric Psych Exam: Appropriate Responses (Nasreen Colmenares) Assessment/Plan Electrolyte Assessment: Hypokalemia Problem List: (1) Ventricular fibrillation ICD Codes: I49.01 - Ventricular fibrillation Status: Acute (2) GI bleed ICD Codes: K92.2 - Gastrointestinal hemorrhage, unspecified Status: Acute Plan Chronic kidney disease stage IV renal with single kidney and most likely has hypertensive or diabetic renal disease. Currently, His creatinine is 3.9 and the GFR is 16 on day of consult Most likely, this is over diuresis. Plan Continue lasix 20 mg BID Hypokalemia replacment ordered. Protocal in place There is no acute urgent need for dialysis at present, but if renal function decreases further, he possibly will need dialysis. Creatinine is at 3.65 today. Requesting sleep aid. Restoril ordered. (Nasreen Colmenares) Plan Patient seen and examined, agree with above. Creatinine is now 3.65, continue Lasix and add Aldactone. (Larry Coyle MD) Problem Qualifiers (1) GI bleed: Qualified Codes: K92.2 - Gastrointestinal hemorrhage, unspecified Nasreen Colmenares August 27, 2017 17:16 Larry Coyle MD August 27, 2017 22:29
--- NOTE | 2017-08-27 17:28 | PD.CONS ---
Consult Service Palliative Care Consult Requested By Dr. Ashby. Primary Care Physician No Primary Care Physician Reason for Consultation a. To assist with evaluation and management of symptoms including: Shortness of breath, pain, debility. b. To assist medical decision maker(s) with: better understanding of current medical conditions; weighing benefits/burdens of medical treatment options; making medical treatment decisions. . HPI History of Present Illness Mr. Gooden is a 57 y/o male with multiple ongoing medical issues to include CAD , COPD, CHF, diabetes mellitus, hypertension, chronic kidney disease, hepatitis C, atrial fibrillation on Coumadin, history of V. tach status post implanted defibrillator, ischemic cardiomyopathy, renal cancer status post nephrectomy, history of multiple CVA, neuropathy and obesity. Patient presented to ED on with a history of substernal chest pain for the previous 2 days, nausea, abdominal discomfort and vomiting. Patient reporting defibrillator firing the same day. EKG revealed normal sinus rhythm with occasional PVC. No signs of acute ST elevation or depression were noted. Laboratory workup revealing WBC 14.0, Hgb 12.4, platelet count 330. Sodium 135, potassium 2.5, BUN/creatinine 138/3.91. Lipase 2691 consistent with acute pancreatitis. Defibrillator was interrogated, patient went into ventricular fibrillation and was shocked a total of 3 times. Patient with persistent chest pain, chest x-ray suggesting some degree of CHF. Patient with positive Hemoccult, Coumadin was placed on hold. He was admitted to cardiac ICU for further monitoring and management. Patient with history of chronic kidney disease with single kidney. Nephrology, Dr. Coyle consulted on 08/26/17. Patient with history of renal carcinoma status post nephrectomy, chronic kidney injury stage IV reporting dialysis approximately 2-3 months ago. GFR of 16 at time of admission. Medical management was recommended. Cardiology, Dr. Segura consulted on 08/26/17 for chest pain evaluation with history of CAD. Patient with history of multiple cardiac catheterizations from 2004, 2006, 2007 and 2010. Implanted defibrillator placement 1995. Medical management and monitoring recommended. Clinical course complicated by 3 runs of V. tach overnight, patient was placed on amiodarone drip. GI, Dr. Downs consulted secondary positive Hemoccult stools. Liver ultrasound revealing area of increased echogenicity right renal fossa. Patient reports that last EGD/colonoscopy was approximately 6 years ago which reveal a normal exam. Reviewed patient's past medical history to include prior hospitalizations. Patient reports most recent hospitalization at [facility] at the end of June where he stayed approximately 2 weeks secondary to acute kidney failure requiring dialysis. Acute hospitalization from 06/14/17 to 06/15/17 secondary to acute kidney injury. Prior hospitalization 06/05/17 to 06/12/17 secondary chest pain and acute on chronic kidney injury with a creatinine of 4.27 and GFR of 14. Nephrology was consulted. Pulmonology, Dr. Abarca consulted for COPD, patient oxygen dependent at home at 3 L. Medical management was recommended. ED visit on 03/20/17 secondary to malaise and fatigue. Patient seen in cardiac ICU. He was resting in bed in no acute distress. Verbal, alert and oriented x self, place and situation. Endorsing shortness of breath at rest and on minimal exertion, currently O2 via mask at 6 L. Patient endorsing chronic pain to bilateral lower extremities, history of neuropathy secondary to diabetes. No nausea, vomiting or abdominal discomfort reported. In this first visit, reviewed the role of palliative care in advanced illness in regards to symptom management as well as support surrounding goals of care and advance care planning. Patient receptive to visit. Reviewed patient's complicated past medical history, recent acute hospitalizations, events leading to this hospitalization, clinical course and current medical management. Discussed patient's multiple chronic ongoing multisystem medical issues. Patient reports being disabled for the past 15 years. Reviewed likely trajectory of illness to include high risk for further complications, continued decline and . Patient's bedside RN reported that patient has been inquiring regarding reversal of CODE STATUS to full code. Reviewed benefits, risks and limitations of CPR, defibrillation, ACLS drugs and intubation/ mechanical ventilation given his multiple chronic ongoing medical issues. Patient tells me that he sustained 3 episodes of V. tach overnight and was shocked multiple times. Patient requesting for his CODE STATUS to be FULL code -cardiac and respiratory. Reviewed that if he were to be placed on life support , however, not likely good given again multiple medical issues. Patient requesting to get full CODE STATUS but verbalizing that he would not wish for his life to be prolonged with artificial means/life support if poor prognosis. Reviewed most recent advanced directives, patient naming 2 of his gnosticism members as healthcare surrogate, alternate surrogate. Conferment not wishing for his sister Nila or niece Haley to continue as HCS as previously documented. Hospice philosophy and benefits introduced. Reviewed the future role of hospice should his clinical condition does not improve, worsen or in the setting of increased symptom burden. Patient receptive to palliative care follow-ups for ongoing conversations. . Function/Cognitive Trajectory Patient residing independently prior to this hospitalization. Disabled for the past 15 years. No longer able to ambulate at home, using electric wheelchair. Able to transfer from bed to wheelchair, independent with ADLs. Baseline COPD, O2 at 3 L dependent. No cognitive deficit reported. . Review of Systems Constitutional: COMPLAINS OF: Pain, DENIES: Fever, Dizziness Endocrine: DENIES: Heat/cold intolerance Eyes: DENIES: Eye pain Ears, nose, mouth, throat: DENIES: Hearing loss, Hoarseness, Running Nose, Epistaxis Respiratory: COMPLAINS OF: Shortness of breath, DENIES: Hemoptysis Cardiovascular: COMPLAINS OF: Dyspnea on Exertion, Lower Extremity Edema, Orthopnea Gastrointestinal: COMPLAINS OF: Bloody stools, DENIES: Nausea, Vomiting, Difficulty Swallowing Genitourinary: DENIES: Urinary incontinence Musculoskeletal: COMPLAINS OF: Back pain, Decreased range of motion Integumentary: DENIES: Nail changes, Pruritus Hematologic/Lymphatics: DENIES: Bruising Immunologic/Allergic: DENIES: Eczema Neurologic: DENIES: Headache, Localized weakness, Seizures, Tremor Psychiatric: DENIES: Anxiety, Confusion, Depression, Agitation Past Family Social History Coded Allergies: baclofen (Unverified Allergy, Severe, 06/14/17) morphine (Unverified Allergy, Severe, Hallucinations, 06/14/17) quinidine (Unverified Allergy, Severe, Hallucinations, 06/14/17) MRI PRECAUTION (Verified Adverse Reaction, Severe, NON MEDTRONIC PACER/ ICD 01/27/15 KMD, 06/14/17) CALLED [employer] TO CONFIRM THAT THE PACER IS NOT A MEDTRONIC Past Medical History Ischemic cardiomyopathy A-fib- on chronic anticoagulation with Coumadin CAD S/P multiple PCI's with stents placed COPD on home O2 hepatitis C CKD stage IV previously on HD Diabetes mellitus CHF Hypertension possible PETRONA/OHC Obesity Chronic back pain- Dilaudid pain pump Renal CA status post right nephrectomy History of V. tach status post implanted defibrillator Neuropathy Anxiety Obesity . Past Surgical History Right nephrectomy Multiple PCI's with stent placement Multiple lower extremity surgeries EGD Colonoscopy Implanted defibrillator placement . Reported Medications Symbicort Inh (Budesonide/Formoterol Fumarate) 160-4.5 Mcg/Act Aero 1 Puff INH Q12HR Ventolin Hfa 18 GM Inh (Albuterol Sulfate) 90 Mcg/Act Aer 1 Puff INH Q4H PRN Zofran Odt (Ondansetron Odt) 4 Mg Tab 4 Mg SL Q8HR PRN Torsemide 20 Mg Tab 20 Mg PO BID Spiriva Handihaler (Tiotropium Inh) 18 Mcg Cap 18 Mcg INH DAILY Oxygen (O2) Device Liter DESIRE.CANULA CONTINUOUS Metolazone 5 Mg Tab 5 Mg PO BID Nitroglycerin SL (Nitroglycerin) 0.4 Mg Subl 0.4 Mg SL DIRECTED PRN Klonopin (Clonazepam) 1 Mg Tab 1 Mg PO BID Bumetanide 2 Mg Tab 2 Mg PO BID Ergocalciferol 50,000 Unit Cap 50,000 Units PO Q7D Vitamin D-1000 (Cholecalciferol) 1,000 Unit Tab 50,000 Units PO 1XPERWEEK Losartan (Losartan Potassium) 50 Mg Tab 50 Mg PO DAILY Omeprazole 20 Mg Tab 20 Mg PO DAILY Novolog Inj (Insulin Aspart) 1,000 Unit/10 Ml Vial 0 SQ TIDAC Lantus Inj (Insulin Glargine) 1,000 Unit/10 Ml Vial 100 Units SQ BID Coumadin (Warfarin) 7.5 Mg Tab 7.5 Mg PO DAILY Flomax (Tamsulosin HCl) 0.4 Mg Cap 0.4 Mg PO HS Norvasc (Amlodipine Besylate) 10 Mg Tab 10 Mg PO DAILY Metoprolol Tartrate 25 Mg Tab 25 Mg PO BID Lyrica (Pregabalin) 75 Mg Cap 75 Mg PO BID Gemfibrozil 600 Mg Tab 600 Mg PO BIDAC Restasis Opth (Cyclosporine Opth) 0.05% Emul 1 Drop EACH EYE BID Amiodarone (Amiodarone HCl) 200 Mg Tab 200 Mg PO DAILY . Current Medications Medications (Trade) Dose Ordered Sig/Lito Route Start Time Stop Time Status Last Admin (NS Flush) 2 ml UNSCH PRN IVF 08/26/17 06:45 08/27/17 08:32 (Duoneb Neb) 1 ampule Q4HR NEB PRN INH 08/26/17 09:[place] [place] [facility] [place] 1 Q361D XX 08/26/17 09:00 (Chlorhexidine 2% Cloth) 3 pack Taper DAILY@04 TOP 08/27/17 04:00 08/23/18 03:59 (Chlorhexidine 2% Cloth) 3 pack UNSCH PRN TOP 08/26/17 09:00 (Protonix Inj) 40 mg Q12HR IV PUSH 08/26/17 09:30 08/27/17 08:30 (Cordarone) 200 mg DAILY PO 08/26/17 09:30 Future Hold 08/26/17 11:17 (Symbicort 160-4.5 Mcg Inh) 1 puff Q12HR INH 08/26/17 21:00 08/26/17 21:21 (KlonoPIN) 1 mg BID PO 08/26/17 21:00 08/27/17 08:30 (Lopressor) 25 mg BID PO 08/26/17 21:00 08/27/17 08:30 (Lyrica) 75 mg BID PO 08/26/17 21:00 08/27/17 08:30 (Flomax) 0.4 mg HS PO 08/26/17 21:00 08/26/17 21:19 Patient Own Medication PT OWN MED: RESTASIS OPTH (CYCLOSPORI... BID EACH EYE 08/26/17 11:30 Future Hold (Roxicodone) 5 mg Q6H PRN PO 08/26/17 10:45 08/27/17 14:58 (Lopid) 600 mg BIDAC PO 08/26/17 16:00 08/27/17 06:35 (D50w (Vial) Inj) 50 ml UNSCH PRN IV PUSH 08/26/17 12:45 (Glucagon Inj) 1 mg UNSCH PRN OTHER 08/26/17 12:45 (NovoLOG SUPPLEMENTAL SCALE) 1 ACHS SLIDING SCALE SQ 08/26/17 17:00 08/27/17 11:32 (Lasix Inj) 20 mg BID@18 IV PUSH 08/26/17 18:00 08/27/17 09:00 (Duoneb Neb) 1 ampule Q6HR WHILE AWAKE NEB NEB 08/26/17 14:00 08/26/17 20:50 (Levemir Inj) 50 units BID SQ 08/26/17 21:00 08/27/17 08:28 (Dilaudid Pf Inj) 0.5 mg Q6H PRN IV 08/26/17 14:00 08/27/17 12:05 Lactated Ringer's 1,000 ml @ 100 mls/hr Q10H IV 08/26/17 21:00 08/27/17 11:00 Amiodarone HCl 450 mg/Sodium Chloride 250 ml @ 33.33 mls/ hr TITRATE PRN IV 08/27/17 12:00 08/27/17 12:05 Family History Unknown. Patient reports being adopted. . Substance Use Tobacco: Smokes 2-3 cigarettes per day. Alcohol: Denies. Prescription med abuse: Denies. Illicits: Denies. . Psychosocial History Patient originally from [facility]. Moved to [place] in 2003. He is , has 2 children. Daughter Erika and son Lauri who reside in [facility]. Patient disabled for the past 15 years. No service. . Spiritual/Cultural Factors Jehovah witness. . Living Will: Copy in medical record Health Care Surrogate: Copy in medical record Date completed: 06/04/2017. Health Care Surrogate(s): Patient electing Cynthia Mg as HCS, alternate surrogate is Julian Carvajal. . Documented care wishes: Patient is a Jehovah witness. Requesting no transfusion of whole blood, red cells, white cells, platelets or plasma under any circumstances. . Today's verbally stated goals: Full code. Patient seeking aggressive management. . Ethical and Legal Issues No ethical legal issues identified. . Physical Exam Vital Signs Date Time Temp Pulse Resp B/P (MAP) Pulse Ox O2 Delivery O2 Flow Rate FiO2 08/27/17 15:00 98.4 94 20 113/64 (80) 96 08/27/17 15:00 93 Venturi Mask 6.00 08/27/17 12:05 68 113/63 08/27/17 11:01 98.2 75 18 116/68 (84) 93 08/27/17 11:01 95 Venturi Mask 6.00 08/27/17 08:46 95 Simple Mask 10.00 08/27/17 07:00 93 Venturi Mask 5.00 08/27/17 07:00 98.6 94 18 109/66 (80) 93 08/27/17 04:16 98.3 102 18 128/51 (76) 94 08/27/17 04:16 94 Simple Mask 8.00 08/27/17 04:09 105 109/64 08/27/17 03:00 92 08/27/17 01:20 89 Simple Mask 8.00 08/26/17 23:15 93 Nasal Cannula 5.00 08/26/17 23:15 98.6 93 16 99/64 (76) 93 08/26/17 23:00 96 08/26/17 20:50 94 Simple Mask 8.00 08/26/17 19:30 98.8 80 18 124/70 (88) 94 08/26/17 19:30 94 Simple Mask 8.00 08/26/17 19:00 81 08/27/17 08/28/17 19:00 07:00 Intake Total 515.5 ml Balance 515.5 ml IV Total 515.5 ml Exam CONSTITUTIONAL/GENERAL: This is an obese male resting in bed in no acute distress. Patient appears much older than stated age. TUBES/LINES/DRAINS: Facemask, babies, SCDs. Bailey catheter. SKIN: No jaundice, rashes, or lesions. Ecchymoses on upper extremities. No wounds seen anteriorly. Skin temperature appropriate. Not diaphoretic. HEAD: Atraumatic. Normocephalic. EYES: Pupils equal and round and reactive. Extraocular motions intact. No scleral icterus. No injection or drainage. ENT: Hearing grossly normal. Nose without bleeding or purulent drainage. Oral oral mucosa. NECK: Trachea midline. Supple, nontender. CARDIOVASCULAR: Irregular rate and rhythm. Peripheral pulses symmetric. RESPIRATORY/CHEST: Symmetric, intermittent increased work of breathing at rest. Clear, decreased breath sounds to auscultation. GASTROINTESTINAL: Abdomen large, obese. Unable to evaluate for hepatomegaly given body habitus. No guarding. Bowel sounds present. GENITOURINARY: Without palpable bladder distension. Bailey catheter in place. MUSCULOSKELETAL: Extremities without clubbing, cyanosis. Edema to bilateral lower extremities. No mottling or clubbing. NEUROLOGICAL: Awake and alert x self, place and situation. Motor and sensory grossly within normal limits. Follows commands. Cognitively sharp. Moves all extremities. PSYCHIATRIC: Calm, pleasant and cooperative. . Diagnostic Tests Laboratory Laboratory Tests Test 08/26/17 06:35 08/26/17 10:25 08/26/17 11:10 08/26/17 12:15 White Blood Count 14.0 TH/MM3 (4.0-11.0) Red Blood Count 4.12 MIL/MM3 (4.50-5.90) Hemoglobin 12.4 GM/DL (13.0-17.0) Hematocrit 36.0 % (39.0-51.0) Mean Corpuscular Volume 87.5 FL (80.0-100.0) Mean Corpuscular Hemoglobin 30.1 PG (27.0-34.0) Mean Corpuscular Hemoglobin Concent 34.4 % (32.0-36.0) Red Cell Distribution Width 14.4 % (11.6-17.2) Platelet Count 330 TH/MM3 (150-450) Mean Platelet Volume 8.3 FL (7.0-11.0) Neutrophils (%) (Auto) 65.3 % (16.0-70.0) Lymphocytes (%) (Auto) 24.2 % (9.0-44.0) Monocytes (%) (Auto) 7.6 % (0.0-8.0) Eosinophils (%) (Auto) 2.1 % (0.0-4.0) Basophils (%) (Auto) 0.8 % (0.0-2.0) Neutrophils # (Auto) 9.1 TH/MM3 (1.8-7.7) Lymphocytes # (Auto) 3.4 TH/MM3 (1.0-4.8) Monocytes # (Auto) 1.1 TH/MM3 (0-0.9) Eosinophils # (Auto) 0.3 TH/MM3 (0-0.4) Basophils # (Auto) 0.1 TH/MM3 (0-0.2) CBC Comment DIFF FINAL Differential Comment Prothrombin Time 18.7 SEC (9.8-11.6) Prothromb Time International Ratio 1.8 RATIO Activated Partial Thromboplast Time 35.8 SEC (24.3-30.1) Blood Urea Nitrogen 138 MG/DL (7-18) Creatinine 3.91 MG/DL (0.60-1.30) Random Glucose 263 MG/DL (74-106) Total Protein 8.3 GM/DL (6.4-8.2) Albumin 3.5 GM/DL (3.4-5.0) Calcium Level 8.8 MG/DL (8.5-10.1) Magnesium Level 2.4 MG/DL (1.5-2.5) 2.5 MG/DL (1.5-2.5) Alkaline Phosphatase 139 U/L (45-117) Aspartate Amino Transf (AST/SGOT) 109 U/L (15-37) Alanine Aminotransferase (ALT/SGPT) 65 U/L (12-78) Total Bilirubin 0.3 MG/DL (0.2-1.0) Sodium Level 135 MEQ/L (136-145) Potassium Level 2.5 MEQ/L (3.5-5.1) Chloride Level 86 MEQ/L (98-107) Carbon Dioxide Level 32.8 MEQ/L (21.0-32.0) Anion Gap 16 MEQ/L (5-15) Estimat Glomerular Filtration Rate 16 ML/MIN (>89) Total Creatine Kinase 426 U/L (39-308) Creatine Kinase MB 3.8 NG/ML (0.5-3.6) Creatine Kinase MB % 0.9 % (0.0-4.0) Troponin I LESS THAN 0.02 NG/ML 0.08 NG/ML (0.02-0.05) B-Type Natriuretic Peptide 78 PG/ML (0-100) Lipase 2691 U/L (73-393) Urine Color YELLOW (YELLW/STRAW) Urine Turbidity CLEAR (CLEAR) Urine pH 6.0 (5.0-8.5) Urine Specific [place] 1.013 (1.002-1.035) Urine Protein 30 mg/dL (NEG-TRACE) Urine Glucose (UA) NEG mg/dL (NEG) Urine Ketones NEG mg/dL (NEG) Urine Occult Blood SMALL (NEG) Urine Nitrite NEG (NEG) Urine Bilirubin NEG (NEG) Urine Urobilinogen LESS THAN 2.0 MG/DL (LESS Urine Leukocyte Esterase NEG (NEG) Urine RBC 2 /hpf (0-3) Urine WBC 1 /hpf (0-5) Urine Squamous Epithelial Cells <1 /hpf (0-5) Urine Bacteria RARE /hpf (NONE) Urine Mucus FEW /lpf (OCC) Microscopic Urinalysis Comment CULT NOT INDICATED Nasal Screen MRSA (PCR) MRSA NOT DETECTED (NOT Test 08/26/17 13:39 08/27/17 02:26 08/27/17 12:05 08/27/17 13:28 White Blood Count 12.6 TH/MM3 (4.0-11.0) 11.6 TH/MM3 (4.0-11.0) Red Blood Count 4.15 MIL/MM3 (4.50-5.90) 3.94 MIL/MM3 (4.50-5.90) Hemoglobin 12.4 GM/DL (13.0-17.0) 12.0 GM/DL (13.0-17.0) Hematocrit 36.4 % (39.0-51.0) 35.2 % (39.0-51.0) Mean Corpuscular Volume 87.7 FL (80.0-100.0) 89.1 FL (80.0-100.0) Mean Corpuscular Hemoglobin 29.9 PG (27.0-34.0) 30.4 PG (27.0-34.0) Mean Corpuscular Hemoglobin Concent 34.1 % (32.0-36.0) 34.1 % (32.0-36.0) Red Cell Distribution Width 14.6 % (11.6-17.2) 14.3 % (11.6-17.2) Platelet Count 333 TH/MM3 (150-450) 302 TH/MM3 (150-450) Mean Platelet Volume 8.1 FL (7.0-11.0) 8.2 FL (7.0-11.0) Neutrophils (%) (Auto) 64.3 % (16.0-70.0) 78.4 % (16.0-70.0) Lymphocytes (%) (Auto) 28.6 % (9.0-44.0) 16.1 % (9.0-44.0) Monocytes (%) (Auto) 5.8 % (0.0-8.0) 4.9 % (0.0-8.0) Eosinophils (%) (Auto) 0.8 % (0.0-4.0) 0.2 % (0.0-4.0) Basophils (%) (Auto) 0.5 % (0.0-2.0) 0.4 % (0.0-2.0) Neutrophils # (Auto) 8.1 TH/MM3 (1.8-7.7) 9.1 TH/MM3 (1.8-7.7) Lymphocytes # (Auto) 3.6 TH/MM3 (1.0-4.8) 1.9 TH/MM3 (1.0-4.8) Monocytes # (Auto) 0.7 TH/MM3 (0-0.9) 0.6 TH/MM3 (0-0.9) Eosinophils # (Auto) 0.1 TH/MM3 (0-0.4) 0.0 TH/MM3 (0-0.4) Basophils # (Auto) 0.1 TH/MM3 (0-0.2) 0.0 TH/MM3 (0-0.2) CBC Comment DIFF FINAL DIFF FINAL Differential Comment Blood Urea Nitrogen 141 MG/DL (7-18) 134 MG/DL (7-18) Creatinine 3.55 MG/DL (0.60-1.30) 3.65 MG/DL (0.60-1.30) Random Glucose 211 MG/DL (74-106) 284 MG/DL (74-106) Total Protein 8.4 GM/DL (6.4-8.2) 8.1 GM/DL (6.4-8.2) Albumin 3.5 GM/DL (3.4-5.0) 3.4 GM/DL (3.4-5.0) Calcium Level 9.4 MG/DL (8.5-10.1) 9.1 MG/DL (8.5-10.1) Phosphorus Level 4.8 MG/DL (2.5-4.9) 4.1 MG/DL (2.5-4.9) Magnesium Level 2.5 MG/DL (1.5-2.5) 2.5 MG/DL (1.5-2.5) Alkaline Phosphatase 128 U/L (45-117) 114 U/L (45-117) Aspartate Amino Transf (AST/SGOT) 102 U/L (15-37) 106 U/L (15-37) Alanine Aminotransferase (ALT/SGPT) 67 U/L (12-78) 68 U/L (12-78) Total Bilirubin 0.3 MG/DL (0.2-1.0) 0.3 MG/DL (0.2-1.0) Sodium Level 135 MEQ/L (136-145) 137 MEQ/L (136-145) Potassium Level 3.0 MEQ/L (3.5-5.1) 2.8 MEQ/L (3.5-5.1) 3.0 MEQ/L (3.5-5.1) Chloride Level 88 MEQ/L (98-107) 91 MEQ/L (98-107) Carbon Dioxide Level 35.3 MEQ/L (21.0-32.0) 32.3 MEQ/L (21.0-32.0) Anion Gap 12 MEQ/L (5-15) 14 MEQ/L (5-15) Estimat Glomerular Filtration Rate 18 ML/MIN (>89) 17 ML/MIN (>89) Troponin I 0.13 NG/ML (0.02-0.05) Triglycerides Level 278 MG/DL (42-150) Prothrombin Time 17.6 SEC (9.8-11.6) Prothromb Time International Ratio 1.7 RATIO Lipase 1093 U/L (73-393) Hepatitis A IgM Antibody NONREACTIVE (NONREACTIVE) Hepatitis B Surface Antigen NONREACTIVE (NONREACTIVE) Hepatitis B Core IgM Antibody NONREACTIVE (NONREACTIVE) Hepatitis C IgG Antibody REACTIVE (NONREACTIVE) Result Diagram: 08/27/17 0226 08/27/17 1205 Microbiology Microbiology Date/Time Source Procedure Growth Status 08/26/17 13:48 Blood Peripheral Aerobic Blood Culture - Preliminary NO GROWTH IN 1 DAY Resulted 08/26/17 13:48 Blood Peripheral Anaerobic Blood Culture - Preliminary NO GROWTH IN 1 DAY Resulted 08/26/17 13:39 Blood Peripheral Aerobic Blood Culture - Preliminary NO GROWTH IN 1 DAY Resulted 08/26/17 13:39 Blood Peripheral Anaerobic Blood Culture - Preliminary NO GROWTH IN 1 DAY Resulted Imaging Last Impressions Chest X-Ray 08/26/17 0639 Signed Impressions: Service Date/Time: Saturday, August 26, 2017 06:54 - CONCLUSION: Stable mild cardiomegaly. Prominent pulmonary vasculature consistent with mild congestive heart failure. Mariela Malloy MD Liver Ultrasound 08/26/17 0000 Signed Impressions: Service Date/Time: Saturday, August 26, 2017 19:57 - CONCLUSION: 1. Status post cholecystectomy. 2. Area of increased echogenicity right renal fossa can be related to patient's known adrenal lesion. 3. Pancreas not well seen. Franky Lee MD Patient/Family Conference Present at Family Conference: No family. Patient only. Family Conference Time (mins): 44 Family Conference Location: Bedside Issues Discussed: * Palliative care role, purpose, approach * Additional medical, psychosocial, and spiritual history * Patients general health, functional status, and cognitive changes in the months leading up to the current hospitalization * Patient/family understanding of the current medical problems * Patient/family understanding of prognosis * Patients goals of care as best understood from advance directives and/or conversations and/or values * Current medical treatment options and benefits/burdens of those options * Questions answered to the best of my ability * Palliative care contact information provided * Risks, benefits and limitations of CPR, intubation and mechanical ventilation given multiple comorbidities * Hospice philosophy and benefits . Assessment and Plan Disease Oriented Problem List: (1) Congestive heart failure with left ventricular dysfunction (2) Acute renal failure superimposed on stage 3 chronic kidney disease (3) Chronic respiratory failure (4) CAD (coronary artery disease) (5) Cardiomyopathy (6) A-fib (7) Pancreatitis (8) GI bleed Symptom Scale: (1) Shortness of breath 0-10 Scale: Unable to quantify (2) Pain 0-10 Scale: 5 (3) Debility 0-10 Scale: Unable to quantify Pertinent Non-Medical Issues Psychosocial: Patient originally from [facility]. Moved to [place] in 2003. He is , has 2 children. Daughter Erika and son Lauri who reside in [facility]. Patient disabled for the past 15 years. No service. Spiritual: Jehovah witness. Legal: Advance directives completed. Ethical issues impacting care: No ethical issues identified. . Important Contacts [facility] Cynthia Mg . Alternate [facility] Julian Carvajal . . Prognosis Mr. Gooden is a 57-year-old male with multiple chronic ongoing multisystem medical issues to include severe cardiac illness, stage IV chronic kidney failure, diabetes mellitus, hepatitis C among others. Patient is bed to wheelchair bound with multiple recent hospitalizations and progressive decline. He is a very high risk for further complications and . Patient overall prognosis for prolonged survival or improved quality of life appears poor given the above. Patient appears hospice appropriate should he elects comfort- directed care. . Code Status: Full Code Plan * CODE STATUS: FULL code. Patient rescinded prior DNR/DNI order. Risks, benefits and limitations of CPR, intubation and mechanical ventilation were discussed at length given multiple chronic ongoing medical issues. Patient reiterated full CODE STATUS. Bedside RN present during goals of care conversation. * HEALTHCARE DECISION-MAKING: Patient participated in medical decision making. He appears to have a fair understanding of his complicated medical issues and retains the ability to weight benefits versus burdens of treatment options. Most recent advanced directives completed on 06/04/17, patient has designated Cynthia Mg as HCS, alternate surrogate is Julian Carvajal. Mr. Mg and Mr. Carvajal are patient's gnosticism elders. Previous designation of healthcare surrogate completed 12/28/09 listing his sister Nila and niece Haley no longer valid given most recent designation completed. Patient reiterated wishing Mr. Beebe and Mr Carvajal as healthcare surrogate decision makers. * GOALS OF CARE: Patient electing aggressive management to include FULL code. Patient rescinded prior DNI/DNR order stating "I want to live, give me a chance ". Risks, benefits and limitations of CPR, intubation mechanical ventilation were discussed at length with patient given multiple chronic ongoing medical issues. Reviewed overall poor prognosis for prolonged survival or improved quality of life given multiple ongoing multisystem conditions to include significant cardiac illness, chronic kidney failure stage IV and profound physical deconditioning with multiple recent hospitalizations. Hospice philosophy and benefits introduced, patient familiar with hospice services. Reviewed the future role of hospice should his clinical condition does not improve, worsen or in the setting of increased symptom burden. Patient receptive to ongoing goals of care conversation. Patient was encouraged to discuss limitations of treatment and preferences with healthcare surrogates. * SYMPTOMS: =Dyspnea: COPD oxygen dependent, CHF. Currently on 6 L via facemask. Founder / Ceo following. =Pain: History of chronic back pain and neuropathy to bilateral lower extremities. Home regimen to include Lyrica BID. Hydromorphone 0.5mg IV every 6 hours available as needed. Oxycodone 5 mg every 6 hours available as needed. =Debility: Patient is bed to wheelchair bound. Disabled for the past 15 years. Progressive decline with multiple recent hospitalizations. * Palliative care contact information has been provided to patient and family. * Palliative care will continue to follow up for further clarification of goals of care as patient's clinical course continues to evolve. . Time Spent Total Floor Time (mins): 72 (Total time to include review and summarization of available medical records to include prior hospitalizations, physical exam, goals of care conversation with patient, case discussion with bedside RN.) >50% Counseling/Coord of Care: Yes Thank you for the opportunity to participate in the care of Mr. Gooden. Attestation To help prompt me to consider important information that might be impacting today's encounter and assessment, information from prior notes written by myself or my colleagues may have been "brought forward" into today's note. My signature on this note, however, is an attestation that I personally performed the exam, history, and/or decision-making noted today, and, unless otherwise indicated, the interactions with patient, family, and staff as well as the review of records all occurred today. I also attest that the listed assessment and stated plan reflect my best clinical judgment today based on the combination of historical information, prior notes, and today's exam/ interactions. When time spent is documented, it refers only to time spent today by the signer, or if indicated, combined time spent today by collaborating physician/nurse practitioner. Huong Dunham August 27, 2017 17:11
[2017-08-27] MEDS: TAMSULOSIN HCL 0.4 MG CAP PO SCH (21:00)
[2017-08-27] MEDS: TEMAZEPAM 15 MG CAP PO PRN (22:45)
[2017-08-28] VITALS (11 sets, daily range): BP systolic 86–135; BP diastolic 53–79; PULSE 57–70; RESP 16–20; TEMP 97.7–99.2; O2SAT 92–97
[2017-08-28] MEDS: POTASSIUM CHLOR 10 MEQ PREMIX 100 ML IV SCH ×6 (00:30→07:27)
[2017-08-28] MEDS: HYDROmorphone HCL PF 0.5 MG/0.5 ML SYRINGE IV PRN ×4 (01:00→21:30)
[2017-08-28] MEDS: LACTATED RINGER'S 1000 ML INJ 1,000 ML IV SCH ×3 (03:00→14:02)
[2017-08-28] MEDS: CHLORHEXIDINE GLUCONATE 2 % 1 PACK (2 CLOTHS) TOP SCH (04:00)
[2017-08-28 04:36] LABS: INTERNATIONAL NORMALIZED RATIO 1.5 RATIO; PROTHROMBIN TIME - PATIENT 15.1 SEC (9.8-11.6)
[2017-08-28 04:48] LABS: AUTOMATED NEUTROPHIL # 5.4 TH/MM3 (1.8-7.7); BASOPHIL # 0.1 TH/MM3 (0-0.2); BASOPHIL % 0.9 % (0.0-2.0); EOSINOPHIL # 0.3 TH/MM3 (0-0.4); EOSINOPHIL % 2.2 % (0.0-4.0); HEMATOCRIT 32.3 % (39.0-51.0); HEMOGLOBIN 10.9 GM/DL (13.0-17.0); LYMPH % 40.5 % (9.0-44.0); LYMPHOCYTE # 4.7 TH/MM3 (1.0-4.8); MEAN CELL VOLUME 89.8 FL (80.0-100.0); MEAN CORPUSCULAR HEMOGLOBIN 30.3 PG (27.0-34.0); MEAN CORPUSCULAR HGB CONC 33.7 % (32.0-36.0); MEAN PLATELET VOLUME 8.2 FL (7.0-11.0); MONO % 9.5 % (0.0-8.0); MONOCYTE # 1.1 TH/MM3 (0-0.9); NEUT % 46.9 % (16.0-70.0); PLATELET COUNT 287 TH/MM3 (150-450); RED CELL DISTRIBUTION WIDTH 14.6 % (11.6-17.2); WHITE BLOOD COUNT 11.6 TH/MM3 (4.0-11.0)
[2017-08-28] MEDS: AMIODARONE 200 MG TAB PO SCH ×2 (06:00→09:08)
[2017-08-28] MEDS: GEMFIBROZIL 600 MG TAB PO SCH ×2 (06:10→16:06)
[2017-08-28] MEDS: RESP: ALBUTEROL 2.5 MG/IPRATROPIUM 0.5 MG NEB (SCH) NEB (07:29)
[2017-08-28 07:41] LABS: ALKALINE PHOSPHATASE 95 U/L (45-117); AST (GOT) 94 U/L (15-37); BLOOD UREA NITROGEN 112 MG/DL (7-18); CALCIUM 9.1 MG/DL (8.5-10.1); GLOMERULAR FILTRATION RATE 21 ML/MIN (>89); GLUCOSE,RANDOM 99 MG/DL (74-106)
[2017-08-28 07:42] LABS: ALT (GPT) 60 U/L (12-78); BICARBONATE 29.9 MEQ/L (21.0-32.0); CHLORIDE 96 MEQ/L (98-107); SODIUM (NA) 139 MEQ/L (136-145); TOTAL BILIRUBIN ADULT 0.3 MG/DL (0.2-1.0)
[2017-08-28] MEDS: INSULIN ASPART SUPPLEMENTAL SCALE SQ SCH ×4 (08:00→21:00)
[2017-08-28] MEDS: BUDESONIDE-FORMOTEROL 160/4.5 MCG INHALER INH SCH ×2 (09:00→21:00)
[2017-08-28] MEDS: METOPROLOL TARTRATE 25 MG TAB PO SCH ×2 (09:07→21:26)
[2017-08-28] MEDS: SPIRONOLACTONE 25 MG TAB PO SCH ×2 (09:07→18:00)
[2017-08-28] MEDS: clonazePAM 1 MG TAB PO SCH ×2 (09:08→21:26)
[2017-08-28] MEDS: FUROSEMIDE 20 MG/2 ML VIAL IV PUSH SCH ×2 (09:10→18:00)
[2017-08-28] MEDS: PANTOPRAZOLE SODIUM 40 MG VIAL IV PUSH SCH ×2 (09:11→21:26)
[2017-08-28] MEDS: PREGABALIN 75 MG CAP PO SCH ×2 (09:11→21:26)
[2017-08-28] MEDS: INSULIN DETEMIR 100 UNITS/ML VIAL SQ SCH (09:12)
--- NOTE | 2017-08-28 10:16 | HHI.CCPN ---
Subjective Remarks/Hospital Course 57-year-old gentleman with past medical history remarkable for atrial fibrillation on chronic anticoagulation with Coumadin, CKD, recently required hemodialysis, last HD approximately 1 month ago, CAD, hypertension, hyperlipidemia, diabetes, CHF, status post AICD, COPD on home O2, hepatitis C, multiple CVAs in the past, obesity, now presents to emergency room for evaluation of chest pain. Over the last few days, patient intermittently described having chest pain associated with nausea, some vomiting and some abdominal discomfort. This morning, around 4 AM, patient woke up complaining of chest pain and defibrillator fired 2, therefore he called EMS. Patient denies any fever, chills, diarrhea, cough. Some shortness of breath with exertion. Of note, patient reports multiple black stools, therefore 3 days ago he stopped taking Coumadin. On ED arrival, patient was hemodynamically stable, still complaining of some chest pain. Pacer rep was called and he interrogated his device and found out that patient went into V. fib and he was shocked 3 times. Remarkable workup in ED showed a negative troponin, worsening creatinine , and severe hypokalemia with a potassium of 2.5. Hemoglobin was 12.4, but his stool was weakly positive for Hemoccult. Patient was also found to have elevated lipase. [facility] now consulted for ICU admission. Patient was seen in emergency room, he is awake, still complaining of some chest pain, pleuritic, worsening with deep breaths, reproducible by palpation over the sternum. His dyspnea is at baseline, denies any other complaints except chronic back pain. Nephrology and cardiology have been consulted. In ED patient was given 60 mEq of potassium. Her ED chart, patient expressed a desire to be a DO NOT RESUSCITATE. Order was placed in the chart. Patient is Yarsanism and he absolutely refuses blood transfusion. 08/27 Patient reports left sided chest pain had 3 runs of Vtach overnight placed on Amio drip. Afebrile. 08/28 Patient is feeling better today. Afebrile. Renal function is improving with Cr: 3.10 from 3.65 Objective Vital Signs Date Time Temp Pulse Resp B/P (MAP) Pulse Ox O2 Delivery O2 Flow Rate FiO2 08/28/17 07:56 96 Simple Mask 6.00 08/28/17 07:00 97.7 66 18 86/56 (66) Intake and Output 08/28/17 08/28/17 08/29/17 08:00 16:00 00:00 Intake Total 1640 ml Output Total 1500 ml Balance 140 ml Result Diagram: 08/28/17 0323 08/28/17 0323 Other Results Laboratory Tests Test 08/27/17 12:05 08/27/17 13:28 08/27/17 16:26 08/28/17 03:23 Potassium Level 3.0 MEQ/L 3.1 MEQ/L Hepatitis A IgM Antibody NONREACTIVE Hepatitis B Surface Antigen NONREACTIVE Hepatitis B Core IgM Antibody NONREACTIVE Hepatitis C IgG Antibody REACTIVE White Blood Count 11.6 TH/MM3 Red Blood Count 3.60 MIL/MM3 Hemoglobin 10.9 GM/DL Hematocrit 32.3 % Mean Corpuscular Volume 89.8 FL Mean Corpuscular Hemoglobin 30.3 PG Mean Corpuscular Hemoglobin Concent 33.7 % Red Cell Distribution Width 14.6 % Platelet Count 287 TH/MM3 Mean Platelet Volume 8.2 FL Neutrophils (%) (Auto) 46.9 % Lymphocytes (%) (Auto) 40.5 % Monocytes (%) (Auto) 9.5 % Eosinophils (%) (Auto) 2.2 % Basophils (%) (Auto) 0.9 % Neutrophils # (Auto) 5.4 TH/MM3 Lymphocytes # (Auto) 4.7 TH/MM3 Monocytes # (Auto) 1.1 TH/MM3 Eosinophils # (Auto) 0.3 TH/MM3 Basophils # (Auto) 0.1 TH/MM3 CBC Comment DIFF FINAL Differential Comment Prothrombin Time 15.1 SEC Prothromb Time International Ratio 1.5 RATIO Blood Urea Nitrogen 112 MG/DL Creatinine 3.10 MG/DL Random Glucose 99 MG/DL Total Protein 7.0 GM/DL Albumin 3.0 GM/DL Calcium Level 9.1 MG/DL Alkaline Phosphatase 95 U/L Aspartate Amino Transf (AST/SGOT) 94 U/L Alanine Aminotransferase (ALT/SGPT) 60 U/L Total Bilirubin 0.3 MG/DL Sodium Level 139 MEQ/L Chloride Level 96 MEQ/L Carbon Dioxide Level 29.9 MEQ/L Anion Gap 13 MEQ/L Estimat Glomerular Filtration Rate 21 ML/MIN Lipase 760 U/L Imaging Last Impressions Chest X-Ray 08/26/17 0684 Signed Impressions: Service Date/Time: Saturday, August 26, 2017 06:54 - CONCLUSION: Stable mild cardiomegaly. Prominent pulmonary vasculature consistent with mild congestive heart failure. Mariela Malloy MD Liver Ultrasound 08/26/17 0000 Signed Impressions: Service Date/Time: Saturday, August 26, 2017 19:57 - CONCLUSION: 1. Status post cholecystectomy. 2. Area of increased echogenicity right renal fossa can be related to patient's known adrenal lesion. 3. Pancreas not well seen. Franky Lee MD Objective Remarks General - middle-aged gentleman, morbidly obese, awake, ill-appearing HEENT - pupils equal, reactive, sclerae anicteric, neck supple, no nuchal rigidity, neck veins not distended, no carotid bruit, MMM, no thrush CV - irregular S1, S2, no murmurs, distant Chest - decreased breath sounds at bases, no wheezes and no crackles appreciated Abdomen - soft, obese, non-tender, BS present, unable to appreciate hepatomegaly or splenomegaly due to body habitus Skin - chronic stasis changes over bilateral lower extremities Extremities - warm, 1+ edema, + peripheral pulses, no clubbing Neuro - awake, alert, oriented 3, motor 5/5 over all extremities A/P Assessment and Plan 1. Aborted V. fib status post defibrillation 3 with AICD 2. Chest pain with concern for ACS 3. KONG on CKD 4. Severe hypokalemia 5. Pancreatitis 6. Anemia 7. Atrial fibrillation 8. Ischemic cardiomyopathy with reduced EF 9. COPD on home O2 -does not appear to be exacerbated 10. Diabetes mellitus 11. History of CVA 12. Chronic back pain 13. Probable PETRONA/OHS 14. Chronic hepatitis C Plan Neuro: Awake and alert Pulm: Continue with oxygen keep sats >92% Bronchodilators ( DuoNeb, Symbicort) CV: Continue with Amio drip monitor HR and BP keep MAP>65mmHg On Lopressor 25mg BID, Aldactone 25mg BID, Amiodarone 400mg daily Cards is following, for 2D echo Patient received aspirin in the emergency room. Due to concern for GI bleed and patient being a Yarsanism we will hold off additional anticoagulation : Monitor renal function, I/O's, avoid nephrotoxins Renal function is improving with Cr: 3.10 from 3.65 Renal is following- Dr. Coyle On LR @100ml/hr, Lasix 20mg BID GI: Keep NPO, Serial lipase ( trending down) Monitor LFT;s, Reactive Hep C IgG ab US Liver: S/p cholecystectomy. Area of increased echogenicity right renal fossa can be related to patient's known adrenal lesion Pancreas not well seen. For CT abd/pelvis wo contrast. GI is following ID: Monitor for signs of infections ( Fever, WBC) Heme: Monitor CBC, Coumadin held due to concern for GI bleed Endo: SSI for glycemic control, Hold Levemir 50u BID GI prophylaxis addressed above, DVT prophylaxis with SCDs for now Per Dr. Brenner- patient is Yarsanism and he refuses blood transfusion. Code status: Full code Palliative care is following Level 3 Rajan Ashby MD August 28, 2017 10:15
[2017-08-28] MEDS ORDERED: RESP: IPRATROPIUM 0.5 MG/2.5 ML NEB NEB PRN (13:30)
--- NOTE | 2017-08-28 15:20 | HHI.GIFU ---
Subjective Remarks resting in bed, friend at bedside. No obvious bleeding. Pt says abd pain is the same today but he is more nauseous than usual. Objective Vitals I&O Vital Signs Date Time Temp Pulse Resp B/P (MAP) Pulse Ox O2 Delivery O2 Flow Rate FiO2 08/28/17 15:07 98.7 67 20 129/72 (91) 94 08/28/17 15:06 63 08/28/17 15:05 94 Simple Mask 6.00 08/28/17 14:47 19 08/28/17 11:42 70 08/28/17 11:37 98.0 69 20 135/79 (97) 95 08/28/17 11:20 95 Simple Mask 6.00 08/28/17 10:52 18 08/28/17 10:40 65 08/28/17 10:00 94 Nasal Cannula 4.00 08/28/17 07:56 96 Simple Mask 6.00 08/28/17 07:29 94 Simple Mask 6.00 08/28/17 07:00 97.7 66 18 86/56 (66) 08/28/17 04:00 58 08/28/17 04:00 98.8 58 18 107/63 (78) 97 08/28/17 04:00 97 Simple Mask 6.00 08/28/17 00:00 57 08/28/17 00:00 99.2 57 16 86/53 (64) 97 08/28/17 00:00 97 Simple Mask 6.00 08/27/17 20:42 96 Simple Mask 6.00 08/27/17 20:00 99.4 72 18 120/68 (85) 96 08/27/17 20:00 72 08/27/17 20:00 96 Simple Mask 6.00 I/O 08/27/17 08/27/17 08/27/17 08/28/17 08/28/17 08/28/17 07:00 15:00 23:00 07:00 15:00 23:00 Intake Total 1542.5 ml 515.5 ml 1720 ml 1640 ml 100 ml Output Total 1435 ml 2500 ml 1500 ml Balance 107.5 ml 515.5 ml -780 ml 140 ml 100 ml Intake Oral 720 ml 720 ml 240 ml IV Total 822.5 ml 515.5 ml 1000 ml 1400 ml 100 ml Other 0 ml Output Urine Total 1435 ml 2500 ml 1500 ml # Bowel Movements 1 0 0 Laboratory Laboratory Tests Test 08/27/17 16:26 08/28/17 03:23 White Blood Count 11.6 Red Blood Count 3.60 Hemoglobin 10.9 Hematocrit 32.3 Mean Corpuscular Volume 89.8 Mean Corpuscular Hemoglobin 30.3 Mean Corpuscular Hemoglobin Concent 33.7 Red Cell Distribution Width 14.6 Platelet Count 287 Mean Platelet Volume 8.2 Neutrophils (%) (Auto) 46.9 Lymphocytes (%) (Auto) 40.5 Monocytes (%) (Auto) 9.5 Eosinophils (%) (Auto) 2.2 Basophils (%) (Auto) 0.9 Neutrophils # (Auto) 5.4 Lymphocytes # (Auto) 4.7 Monocytes # (Auto) 1.1 Eosinophils # (Auto) 0.3 Basophils # (Auto) 0.1 CBC Comment DIFF FINAL Differential Comment Prothrombin Time 15.1 Prothromb Time International Ratio 1.5 Blood Urea Nitrogen 112 Creatinine 3.10 Random Glucose 99 Total Protein 7.0 Albumin 3.0 Calcium Level 9.1 Alkaline Phosphatase 95 Aspartate Amino Transf (AST/SGOT) 94 Alanine Aminotransferase (ALT/SGPT) 60 Total Bilirubin 0.3 Sodium Level 139 Potassium Level 3.1 Chloride Level 96 Carbon Dioxide Level 29.9 Anion Gap 13 Estimat Glomerular Filtration Rate 21 Lipase 760 Date/Time Source Procedure Growth Status 08/26/17 13:48 Blood Peripheral Aerobic Blood Culture - Preliminary NO GROWTH IN 2 DAYS Resulted 08/26/17 13:48 Blood Peripheral Anaerobic Blood Culture - Preliminary NO GROWTH IN 2 DAYS Resulted Imaging Last Impressions Chest X-Ray 08/26/17 0639 Signed Impressions: Service Date/Time: Saturday, August 26, 2017 06:54 - CONCLUSION: Stable mild cardiomegaly. Prominent pulmonary vasculature consistent with mild congestive heart failure. Mariela Malloy MD Liver Ultrasound 08/26/17 0000 Signed Impressions: Service Date/Time: Saturday, August 26, 2017 19:57 - CONCLUSION: 1. Status post cholecystectomy. 2. Area of increased echogenicity right renal fossa can be related to patient's known adrenal lesion. 3. Pancreas not well seen. Franky Lee MD Physical Exam HEENT: PERRL; normocephalic; atraumatic; no jaundice. CHEST: diminished. +breathing tx CARDIAC: RRR ABDOMEN: Soft,obese, mild lower quadrant TTP, bowel sounds are present in all four quadrants. EXTREMITIES: No clubbing, cyanosis, or edema. SKIN: Normal; no rash; no jaundice. STOCK HANDLER: No focal deficits; alert and oriented times three. Assessment and Plan Plan Assessment: - Anemia with Hemoccult positive stools Pt complaining of black, tarry stools for over a week, because of this his Coumadin was DCd a week ago. H/H has been stable since admission, not received any PRBCs Denies history of GIB, ETOH, smoking. Last EGD approx 6 years ago and he states normal exam - BRBPR- states only on the toilet paper when he wipes. Last colonoscopy approx 6 years ago and he thinks possibly some colon polyps. - Pancreatitis- Nausea and vomiting for the past 2-3 days, denies ETOH, history of pancreatitis. Unknown family history, pt was adopted. S/P cholecystectomy Lipase trending down, currently 1093 - History of hepatitis C- Labs from 2012 reveal a positive Hepatitis C antibody and elevated quant, no genotype done, states [facility] would have to lose 60 [facility] before he was treated. Denies tattoos, history of IV drug use, high risk sexual behaviors. Did have blood transfusions in 1970 LFTs currently: AST-106 ALT-68 Alk phos-114 T bili-0.3 Hepatitis panel pending US liver (08/26) --> . Status post cholecystectomy. Area of increased echogenicity right renal fossa can be related to patient's known adrenal lesion. Pancreas not well seen. - V-tach, S/P AICD firing, currently on Amiodarone gtt- according to cardiology notes, intervention on hold due to heme (+) stools - A-fib on chronic anticoagulation with Coumadin, DCd a week ago Of note, pt is a Jehovas witness and does not accept blood products 08/28/17 + nausea, abd pain in lower quadrants. lipase trending down. had runs vtach over night. hcv quant and genotype pending. HH dropped from 12 to 10.9 but no obvious bleeding. CT pending. LFTs trending down palliative care now following, goals aggressive. Plan: EGD when stable and cleared by cardiology await Hepatitis C genotype and quant Monitor H/H Transfuse as needed Protonix IVF await IgG4, PAYAM await CT ok for clear liquids from GI standpoint Supportive care with antiemetics and pain control Pt has been seen and examined by myself and Dr. Downs and this note is written on her behalf Meghana Thompson August 28, 2017 15:20
--- NOTE | 2017-08-28 15:56 | RADRPT ---
EXAM DATE/TIME: 08/28/2017 15:31 [facility] COMPARISON: CT ABDOMEN & PELVIS W/O CONTRAST, June 14, 2017, 21:02. INDICATIONS : Abdominal pain, GI bleed ORAL CONTRAST: No oral contrast ingested. RADIATION DOSE: 28.03 CTDIvol (mGy) ; Patient body habitus MEDICAL HISTORY : Cerebrovascular disease. Cardiovascular disease Chronic obstructive pulmonary disease.Seizures, synco pe, diabetes, right renal carcinoma, adrenal tumor, hypertension, hepatitis c SURGICAL HISTORY : Pacemaker. Appendectomy.Cholecystectomy.Pain stimulator ENCOUNTER: Initial ACUITY: 1 day PAIN SCALE: 4/10 LOCATION: Bilateral Abdomen TECHNIQUE: Volumetric scanning of the abdomen and pelvis was performed. Using automated exposure control and ad justment of the mA and/or kV according to patient size, radiation dose was kept as low as reasonably achievable to obtain optimal diagnostic quality images. DICOM format image data is available electro nically for review and comparison. FINDINGS: Coronary artery calcification is noted. There are are consolidative changes in both lower lobes next tiny right effusion. Calcified splenic and hepatic granulomas. Pancreas, left kidney unremarkable. Bi lateral adrenal nodules are again seen. Abdominal aortic aneurysm is present measuring 3.7 x 3.3 cm i n AP and transverse dimension. Small fat containing umbilical hernia. Bailey catheter in the urinary b ladder. A few scattered colonic diverticuli are noted without evidence of diverticulitis. There is no evidence of bowel obstruction. The patient is status post appendectomy and cholecystectomy. The elda ent is status post right nephrectomy. CONCLUSION: Bilateral lower lobe air bronchogram formation in consolidative changes with tiny right effusion. Div erticulosis without diverticulitis. Abdominal aortic aneurysm. Bilateral adrenal nodules are again se en. Fat-containing umbilical hernia. Farhan Ríos MD on August 28, 2017 at 15:50 Board Certified Radiologist. This report was verified electronically.
--- NOTE | 2017-08-28 16:11 | HHI.HCPN ---
Palliative care f/u for further clarifications of goals of care. Patient seen in cardiac ICU. Endorsing "not feeling well" today, tired. Asking for palliative care provider to return tomorrow Tuesday 08/29 for continuation of goals of care conversation. Palliative care to f/u. RUCHI Palacios. Palliative care . . Huong Dunham August 28, 2017 16:11
[2017-08-28] MEDS: RESP: IPRATROPIUM 0.5 MG/2.5 ML NEB NEB SCH ×2 (16:22→20:43)
--- NOTE | 2017-08-28 17:18 | HHI.NPPN ---
Subjective General Problems: Anemia Renal Failure: Chronic, Stage IV History of Present Illness This is a 57-year-old male known to me from before with past medical history of chronic kidney disease with single kidney, hypertension, chronic anemia, hyperlipidemia, diabetes mellitus, ischemic heart disease, congestive heart failure, chronic obstructive pulmonary disease, hepatitis C, history of cerebrovascular accident, [facility] of [facility] pain and arrhythmia. Nephrology was called to see the patient for the chronic kidney disease. He has single kidney, has been following with me. The patient has advanced stage IV renal disease and was on dialysis 3 months ago when he was admitted at [facility] mainly because of the fluid, but his GFR has been staying close to 16-18, and he is getting close for starting the dialysis. The patient has been taking diuretics including Bumex and metolazone at home and here, it was found that hiscreatinine was 3.9, and the potassium was low, 2.5. The patient was supposed to take the potassium with the diuretic and he ran out of it and the pharmacy did not deliver it, so he was trying to eat more bananas. The patient noticed that his AICD fired 3 times at home. Hedenies any vomiting. Occasionally, he has nausea. There is no dysuria or hematuria, but he did notice that his urine output is slightly decreased. Additional Remarks Sitting in chair. Feeling better today. Mild shortness of breath. Edema is mild. (Nasreen Colmenares) Review of Systems Respiratory Lungs: SOB (Nasreen Colmenares) Cardiovascular Cardiac: Chest Pain (Nasreen Colmenares) Gastrointestinal Gastrointestinal: Nausea & Vomiting, Blood/Tarry Stools (Nasreen Colmenares) Objective Data Data 08/28/17 08/29/17 19:00 07:00 Intake Total 100 ml Balance 100 ml IV Total 100 ml Vital Signs Date Time Temp Pulse Resp B/P (MAP) Pulse Ox O2 Delivery O2 Flow Rate FiO2 08/28/17 15:07 98.7 67 20 129/72 (91) 94 08/28/17 15:06 63 08/28/17 15:05 94 Simple Mask 6.00 08/28/17 14:47 19 08/28/17 11:42 70 08/28/17 11:37 98.0 69 20 135/79 (97) 95 08/28/17 11:20 95 Simple Mask 6.00 08/28/17 10:52 18 08/28/17 10:40 65 08/28/17 10:00 94 Nasal Cannula 4.00 08/28/17 07:56 96 Simple Mask 6.00 08/28/17 07:29 94 Simple Mask 6.00 08/28/17 07:00 97.7 66 18 86/56 (66) 08/28/17 04:00 58 08/28/17 04:00 98.8 58 18 107/63 (78) 97 08/28/17 04:00 97 Simple Mask 6.00 08/28/17 00:00 57 08/28/17 00:00 99.2 57 16 86/53 (64) 97 08/28/17 00:00 97 Simple Mask 6.00 08/27/17 20:42 96 Simple Mask 6.00 08/27/17 20:00 99.4 72 18 120/68 (85) 96 08/27/17 20:00 72 08/27/17 20:00 96 Simple Mask 6.00 (Nasreen Colmenares) -: 08/28/17 0323 08/28/17 0323 Imaging Last Impressions Abdomen/Pelvis CT 08/28/17 0000 Signed Impressions: Service Date/Time: Monday, August 28, 2017 15:31 - CONCLUSION: Bilateral lower lobe air bronchogram formation in consolidative changes with tiny right effusion. Diverticulosis without diverticulitis. Abdominal aortic aneurysm. Bilateral adrenal nodules are again seen. Fat-containing umbilical hernia. Farhan Ríos MD Chest X-Ray 08/26/17 0639 Signed Impressions: Service Date/Time: Saturday, August 26, 2017 06:54 - CONCLUSION: Stable mild cardiomegaly. Prominent pulmonary vasculature consistent with mild congestive heart failure. Mariela Malloy MD Liver Ultrasound 08/26/17 0000 Signed Impressions: Service Date/Time: Saturday, August 26, 2017 19:57 - CONCLUSION: 1. Status post cholecystectomy. 2. Area of increased echogenicity right renal fossa can be related to patient's known adrenal lesion. 3. Pancreas not well seen. Franky Lee MD (Nasreen Colmenares) Physical Exam General Appearance: No Acute Distress, Anxious, Obese (Nasreen Colmenares) Eyes Eye Exam: Pupils Equal (Nasreen Colmenares) Throat Throat Exam: Oral Mucosa Thorofare & Moist (Nasreen Colmenares) Pulmonary Resp Exam: Clear Bilaterally, Breath Sounds Equal, No Distress (Nasreen Colmenares) Cardiology CV Exam: Regular, Normal Sinus Rhythm (Nasreen Colmenares) Gastrointestinal/Abdomen GI Exam: Soft, Bowel Sounds Present, Distended (Nasreen Colmenares) Genitourinary Exam: Flank Non-Tender (Nasreen Colmenares) Integumentary Skin Exam: Clear, Warm (Nasreen Colmenares) Extremeties Extremeties Remarks Mild edema (Nasreen Colmenares) Neurologic Neuro Exam: Alert, Awake (Nasreen Colmenares) Psychiatric Psych Exam: Appropriate Responses (Nasreen Colmenares) Assessment/Plan Discussed Condition With: Patient Assessment Summary: KONG/Acute Renal Failure, CKD Stage IV Electrolyte Assessment: Hypokalemia Problem List: (1) Ventricular fibrillation ICD Codes: I49.01 - Ventricular fibrillation Status: Acute (2) GI bleed ICD Codes: K92.2 - Gastrointestinal hemorrhage, unspecified Status: Acute Plan Chronic kidney disease stage IV renal with single kidney and most likely has hypertensive or diabetic renal disease. Currently, His creatinine is 3.9 and the GFR is 16 on day of consult Most likely, this is over diuresis. Plan Continue lasix 20 mg BID Hypokalemia replacment ordered Continue aldactone There is no acute urgent need for dialysis at present, but if renal function decreases further, he possibly will need dialysis, Dr. Coyle has discussed with patient Creatinine is currently stable at 3.10 from 3.65 today. (Nasreen Colmenares) Plan Patient seen and examined, agree with above. Creatinine is improving, continue same. (Larry Coyle MD) Problem Qualifiers (1) GI bleed: Qualified Codes: K92.2 - Gastrointestinal hemorrhage, unspecified Nasreen Colmenares August 28, 2017 17:18 Larry Coyle MD August 28, 2017 21:34
--- NOTE | 2017-08-28 17:27 | ECHRPT ---
Indication: CARDIOMYOPATHY CONCLUSIONS Severely dilated left ventricle. Moderate concentric left ventricular hypertrophy. The left ventricular systolic function is moderately reduced with an estimated ejection fraction in the range of 40-45%. Mitral annular calcification is present. Trace mitral valve regurgitation. The pulmonary valve is not well visualized. BP: / HR: Rhythm: Technical Quality: FINDINGS LEFT VENTRICLE Severely dilated left ventricle. Moderate concentric left ventricular hypertrophy. The left ventricular systolic function is moderately reduced with an estimated ejection fraction in the range of 40-45%. RIGHT VENTRICLE Normal right ventricular size and systolic function. LEFT ATRIUM The left atrial size is normal. RIGHT ATRIUM The right atrial size is normal. ATRIAL SEPTUM Normal atrial septal thickness without atrial level shunting by limited color doppler interrogation. AORTA The aortic root and proximal ascending aorta are normal in size on limited imaging. MITRAL VALVE Mitral annular calcification is present. Trace mitral valve regurgitation. AORTIC VALVE Trileaflet aortic valve. No aortic valve stenosis or regurgitation. TRICUSPID VALVE Structurally normal tricuspid valve. No tricuspid valve stenosis or regurgitation. PULMONARY VALVE The pulmonary valve is not well visualized. VESSELS The inferior vena cava is normal in size. PERICARDIUM No pericardial effusion. Chato Holliday MD, FACC (Electronically Signed) Final Date:28 Aug 2017 17:26
[2017-08-28] MEDS: TAMSULOSIN HCL 0.4 MG CAP PO SCH (21:26)
[2017-08-28] MEDS: SODIUM CHLORIDE 0.9% FLUSH 10 ML FLUSH IVF PRN (21:26)
[2017-08-28] MEDS: TEMAZEPAM 15 MG CAP PO PRN (22:33)
[2017-08-29] VITALS (19 sets, daily range): BP systolic 90–122; BP diastolic 55–72; PULSE 56–109; RESP 16–20; TEMP 98.1–99.2; O2SAT 92–96
[2017-08-29] MEDS: RESP: IPRATROPIUM 0.5 MG/2.5 ML NEB NEB SCH ×6 (00:28→20:28)
[2017-08-29] MEDS: LACTATED RINGER'S 1000 ML INJ 1,000 ML IV SCH ×2 (02:00→08:15)
[2017-08-29] MEDS: HYDROmorphone HCL PF 0.5 MG/0.5 ML SYRINGE IV PRN ×4 (03:51→23:44)
[2017-08-29] MEDS: CHLORHEXIDINE GLUCONATE 2 % 1 PACK (2 CLOTHS) TOP SCH (04:00)
[2017-08-29 04:52] LABS: AUTOMATED NEUTROPHIL # 4.4 TH/MM3 (1.8-7.7); BASOPHIL # 0.1 TH/MM3 (0-0.2); BASOPHIL % 1.2 % (0.0-2.0); EOSINOPHIL # 0.3 TH/MM3 (0-0.4); EOSINOPHIL % 3.1 % (0.0-4.0); HEMATOCRIT 32.3 % (39.0-51.0); HEMOGLOBIN 10.9 GM/DL (13.0-17.0); LYMPH % 41.2 % (9.0-44.0); LYMPHOCYTE # 3.9 TH/MM3 (1.0-4.8); MEAN CELL VOLUME 89.5 FL (80.0-100.0); MEAN CORPUSCULAR HEMOGLOBIN 30.3 PG (27.0-34.0); MEAN CORPUSCULAR HGB CONC 33.8 % (32.0-36.0); MEAN PLATELET VOLUME 8.3 FL (7.0-11.0); MONO % 8.3 % (0.0-8.0); MONOCYTE # 0.8 TH/MM3 (0-0.9); NEUT % 46.2 % (16.0-70.0); PLATELET COUNT 273 TH/MM3 (150-450); RED BLOOD COUNT 3.61 MIL/MM3 (4.50-5.90); RED CELL DISTRIBUTION WIDTH 14.6 % (11.6-17.2); WHITE BLOOD COUNT 9.4 TH/MM3 (4.0-11.0)
[2017-08-29 05:34] LABS: ALKALINE PHOSPHATASE 104 U/L (45-117); ALT (GPT) 58 U/L (12-78); AST (GOT) 79 U/L (15-37); BICARBONATE 33.3 MEQ/L (21.0-32.0); BLOOD UREA NITROGEN 105 MG/DL (7-18); CALCIUM 9.1 MG/DL (8.5-10.1); CHLORIDE 95 MEQ/L (98-107); CREATININE 3.03 MG/DL (0.60-1.30); GLOMERULAR FILTRATION RATE 21 ML/MIN (>89); GLUCOSE,RANDOM 209 MG/DL (74-106); SODIUM (NA) 138 MEQ/L (136-145); TOTAL BILIRUBIN ADULT 0.3 MG/DL (0.2-1.0); TOTAL PROTEIN 6.9 GM/DL (6.4-8.2)
[2017-08-29] MEDS: POTASSIUM CHLOR 10 MEQ PREMIX 100 ML IV SCH ×6 (06:00→11:00)
[2017-08-29] MEDS: GEMFIBROZIL 600 MG TAB PO SCH ×2 (06:18→15:55)
[2017-08-29] MEDS: INSULIN ASPART SUPPLEMENTAL SCALE SQ SCH ×3 (08:14→17:31)
[2017-08-29] MEDS: BUDESONIDE-FORMOTEROL 160/4.5 MCG INHALER INH SCH ×3 (08:14→21:00)
[2017-08-29] MEDS: PANTOPRAZOLE SODIUM 40 MG VIAL IV PUSH SCH ×2 (08:16→21:47)
[2017-08-29] MEDS: FUROSEMIDE 20 MG/2 ML VIAL IV PUSH SCH ×2 (08:16→17:28)
[2017-08-29] MEDS: clonazePAM 1 MG TAB PO SCH ×2 (08:16→21:48)
[2017-08-29] MEDS: AMIODARONE 200 MG TAB PO SCH (08:17)
[2017-08-29] MEDS: PREGABALIN 75 MG CAP PO SCH ×2 (08:17→21:48)
[2017-08-29] MEDS: POTASSIUM CHLORIDE 10 MEQ CONTROLLED RELEASE TAB PO SCH ×2 (08:17→21:49)
[2017-08-29] MEDS: SPIRONOLACTONE 25 MG TAB PO SCH ×2 (08:18→17:28)
[2017-08-29] MEDS: METOPROLOL TARTRATE 25 MG TAB PO SCH ×2 (09:45→21:48)
--- NOTE | 2017-08-29 10:17 | HHI.CCPN ---
Subjective Remarks/Hospital Course 57-year-old gentleman with past medical history remarkable for atrial fibrillation on chronic anticoagulation with Coumadin, CKD, recently required hemodialysis, last HD approximately 1 month ago, CAD, hypertension, hyperlipidemia, diabetes, CHF, status post AICD, COPD on home O2, hepatitis C, multiple CVAs in the past, obesity, now presents to emergency room for evaluation of chest pain. Over the last few days, patient intermittently described having chest pain associated with nausea, some vomiting and some abdominal discomfort. This morning, around 4 AM, patient woke up complaining of chest pain and defibrillator fired 2, therefore he called EMS. Patient denies any fever, chills, diarrhea, cough. Some shortness of breath with exertion. Of note, patient reports multiple black stools, therefore 3 days ago he stopped taking Coumadin. On ED arrival, patient was hemodynamically stable, still complaining of some chest pain. Pacer rep was called and he interrogated his device and found out that patient went into V. fib and he was shocked 3 times. Remarkable workup in ED showed a negative troponin, worsening creatinine , and severe hypokalemia with a potassium of 2.5. Hemoglobin was 12.4, but his stool was weakly positive for Hemoccult. Patient was also found to have elevated lipase. [facility] now consulted for ICU admission. Patient was seen in emergency room, he is awake, still complaining of some chest pain, pleuritic, worsening with deep breaths, reproducible by palpation over the sternum. His dyspnea is at baseline, denies any other complaints except chronic back pain. Nephrology and cardiology have been consulted. In ED patient was given 60 mEq of potassium. Her ED chart, patient expressed a desire to be a DO NOT RESUSCITATE. Order was placed in the chart. Patient is [employer] and he absolutely refuses blood transfusion. 08/27 Patient reports left sided chest pain had 3 runs of Vtach overnight placed on Amio drip. Afebrile. 08/28 Patient is feeling better today. Afebrile. Renal function is improving with Cr: 3.10 from 3.65 08/29 Patient is on 5L oxygen awake and alert, Cr: 3.0 with UOP: 2L overnight. Afebrile. Objective Vital Signs Date Time Temp Pulse Resp B/P (MAP) Pulse Ox O2 Delivery O2 Flow Rate FiO2 08/29/17 08:12 95 Nasal Cannula 5.00 08/29/17 07:00 98.6 61 18 92/55 (67) Intake and Output 08/29/17 08/29/17 08/30/17 08:00 16:00 00:00 Intake Total 2090 ml 100 ml Output Total 2000 ml Balance 90 ml 100 ml Result Diagram: 08/29/17 0407 08/29/17 0407 Other Results Laboratory Tests Test 08/28/17 17:05 08/29/17 04:07 Potassium Level 3.6 MEQ/L 3.2 MEQ/L White Blood Count 9.4 TH/MM3 Red Blood Count 3.61 MIL/MM3 Hemoglobin 10.9 GM/DL Hematocrit 32.3 % Mean Corpuscular Volume 89.5 FL Mean Corpuscular Hemoglobin 30.3 PG Mean Corpuscular Hemoglobin Concent 33.8 % Red Cell Distribution Width 14.6 % Platelet Count 273 TH/MM3 Mean Platelet Volume 8.3 FL Neutrophils (%) (Auto) 46.2 % Lymphocytes (%) (Auto) 41.2 % Monocytes (%) (Auto) 8.3 % Eosinophils (%) (Auto) 3.1 % Basophils (%) (Auto) 1.2 % Neutrophils # (Auto) 4.4 TH/MM3 Lymphocytes # (Auto) 3.9 TH/MM3 Monocytes # (Auto) 0.8 TH/MM3 Eosinophils # (Auto) 0.3 TH/MM3 Basophils # (Auto) 0.1 TH/MM3 CBC Comment DIFF FINAL Differential Comment Blood Urea Nitrogen 105 MG/DL Creatinine 3.03 MG/DL Random Glucose 209 MG/DL Total Protein 6.9 GM/DL Albumin 3.0 GM/DL Calcium Level 9.1 MG/DL Alkaline Phosphatase 104 U/L Aspartate Amino Transf (AST/SGOT) 79 U/L Alanine Aminotransferase (ALT/SGPT) 58 U/L Total Bilirubin 0.3 MG/DL Sodium Level 138 MEQ/L Chloride Level 95 MEQ/L Carbon Dioxide Level 33.3 MEQ/L Anion Gap 10 MEQ/L Estimat Glomerular Filtration Rate 21 ML/MIN Lipase 733 U/L Imaging Last Impressions Abdomen/Pelvis CT 08/28/17 0000 Signed Impressions: Service Date/Time: Monday, August 28, 2017 15:31 - CONCLUSION: Bilateral lower lobe air bronchogram formation in consolidative changes with tiny right effusion. Diverticulosis without diverticulitis. Abdominal aortic aneurysm. Bilateral adrenal nodules are again seen. Fat-containing umbilical hernia. Farhan Ríos MD Chest X-Ray 08/26/17 0639 Signed Impressions: Service Date/Time: Saturday, August 26, 2017 06:54 - CONCLUSION: Stable mild cardiomegaly. Prominent pulmonary vasculature consistent with mild congestive heart failure. Mariela Malloy MD Liver Ultrasound 08/26/17 0000 Signed Impressions: Service Date/Time: Saturday, August 26, 2017 19:57 - CONCLUSION: 1. Status post cholecystectomy. 2. Area of increased echogenicity right renal fossa can be related to patient's known adrenal lesion. 3. Pancreas not well seen. Franky Lee MD Objective Remarks General - middle-aged gentleman, morbidly obese, awake lying in bed in NAD HEENT - pupils equal, reactive, sclerae anicteric, neck supple, no nuchal rigidity, neck veins not distended, no carotid bruit, MMM, no thrush CV - irregular S1, S2, no murmurs, distant Chest - decreased breath sounds at bases, no wheezes and no crackles appreciated Abdomen - soft, obese, non-tender, BS present, unable to appreciate hepatomegaly or splenomegaly due to body habitus Skin - chronic stasis changes over bilateral lower extremities Extremities - warm, 1+ edema, + peripheral pulses, no clubbing Neuro - awake, alert, oriented 3, motor 5/5 over all extremities A/P Assessment and Plan 1. Aborted V. fib status post defibrillation 3 with AICD 2. COPD, PETRONA 3. KONG on CKD 4. Severe hypokalemia 5. Pancreatitis 6. Anemia 7. Atrial fibrillation 8. Ischemic cardiomyopathy with reduced EF 9. COPD on home O2 -does not appear to be exacerbated 10. Diabetes mellitus 11. History of CVA 12. Chronic back pain 13. Probable PETRONA/OHS 14. Chronic hepatitis C 15 Abdominal aortic aneurysm measuring 3.7 x 3.3 cm Plan Neuro: Awake and alert Pulm: Continue with oxygen keep sats >92% Bronchodilators ( DuoNeb, Symbicort) Check CXR, ABG CV: Continue with Amio drip monitor HR and BP keep MAP>65mmHg On Lopressor 25mg BID, Aldactone 25mg BID, Amiodarone 400mg daily Cards is following, echo showed EF 40-45% Patient received aspirin in the emergency room. Due to concern for GI bleed and patient being a [employer] we will hold off additional anticoagulation : Monitor renal function, I/O's, avoid nephrotoxins Cr: 3.0 with UOP: 2L overnight Renal is following- Dr. Coyle On Lasix 20mg BID, d/c IVF GI: Keep NPO, Serial lipase ( trending down) Monitor LFT;s, Reactive Hep C IgG ab US Liver: S/p cholecystectomy. Area of increased echogenicity right renal fossa can be related to patient's known adrenal lesion Pancreas not well seen. GI is following ID: Place on empiric abx ( Zosyn) Monitor for signs of infections ( Fever, WBC) 08/26 BC: NGTD, check sputum cx Heme: Monitor CBC, Coumadin held due to concern for GI bleed Endo: SSI for glycemic control, GI prophylaxis addressed above, DVT prophylaxis with SCDs Per Dr. Brenner- patient is [employer] and he refuses blood transfusion. Code status: Full code Palliative care is following Will sign off and transfer care to [facility] Level 2 Rajan Ashby MD August 29, 2017 10:17
--- NOTE | 2017-08-29 11:12 | RADRPT ---
EXAM DATE/TIME: 08/29/2017 10:49 [place] COMPARISON: CHEST SINGLE AP, June 14, 2017, 18:33. INDICATIONS : Short of breath. MEDICAL HISTORY : Stroke. Myocardial infarction. Hypertension. Dentures. Seizures. Dizziness.Congestive heart failure. Coronary artery disease. Anticoagulant therapy. Chest pain. Atrial fibrillation. COPD. Asthma. Hiatal hernia. Dyspnea. GERD. Renal cell carcinoma. Arthritis. Adrenal tumor. SURGICAL HISTORY : Tonsillectomy. Coronary artery stent. Pacemaker. Cholecystectomy. Appendectomy. Right nephrectomy. Ri ght femur surgery. Right knee replacement. Left tib/fib fracture. Splenectomy. ENCOUNTER: Subsequent ACUITY: 4 - 6 days PAIN SCORE: 0/10 LOCATION: chest FINDINGS: Pacemaker left chest with mild compensated cardiomegaly. There is no evidence of consolidation, pleu ral effusion or pneumothorax. CONCLUSION: Stable compensated cardiomegaly without failure Lauri Julian MD FACR on August 29, 2017 at 11:09 Board Certified Radiologist. This report was verified electronically.
[2017-08-29] MEDS: PIPERACIL-TAZO 2.25 GM PREMIX 50 ML IV SCH ×2 (12:00→18:00)
--- NOTE | 2017-08-29 13:48 | HHI.GIFU ---
Subjective Remarks Pt OOB to chair. Said he had some black tarry stool and then brown stool earlier. No rakesh bleeding. Tolerating diet. c/o pain in RUQ. (Meghana Thompson) Objective Vitals I&O Vital Signs Date Time Temp Pulse Resp B/P (MAP) Pulse Ox O2 Delivery O2 Flow Rate FiO2 08/29/17 13:01 62 08/29/17 12:00 64 08/29/17 11:45 92 Nasal Cannula 3.00 08/29/17 11:45 98.2 78 18 110/67 (81) 92 08/29/17 11:00 63 08/29/17 08:12 95 Nasal Cannula 5.00 08/29/17 07:00 98.6 61 18 92/55 (67) 95 08/29/17 07:00 95 Simple Mask 6.00 08/29/17 07:00 63 08/29/17 04:00 64 08/29/17 04:00 99.2 64 20 102/62 (75) 94 08/29/17 04:00 98 Simple Mask 6.00 08/29/17 00:00 68 08/29/17 00:00 99.0 68 18 102/62 (75) 96 08/29/17 00:00 97 Simple Mask 6.00 08/28/17 20:44 92 Nasal Cannula 5.00 08/28/17 20:00 99.1 68 20 118/54 (75) 93 08/28/17 20:00 68 08/28/17 20:00 93 Simple Mask 6.00 08/28/17 15:07 98.7 67 20 129/72 (91) 94 08/28/17 15:06 63 08/28/17 15:05 94 Simple Mask 6.00 08/28/17 14:47 19 I/O 08/28/17 08/28/17 08/28/17 08/29/17 08/29/17 08/29/17 07:00 15:00 23:00 07:00 15:00 23:00 Intake Total 1640 ml 100 ml 1300 ml 1990 ml 1180 ml Output Total 1500 ml 1800 ml 2000 ml 1300 ml Balance 140 ml 100 ml -500 ml -10 ml -120 ml Intake Oral 240 ml 800 ml 720 ml 480 ml IV Total 1400 ml 100 ml 500 ml 1270 ml 700 ml Output Urine Total 1500 ml 1800 ml 2000 ml 1300 ml # Bowel Movements 0 1 0 0 Laboratory Laboratory Tests Test 08/28/17 17:05 08/29/17 04:07 08/29/17 12:12 Potassium Level 3.6 3.2 White Blood Count 9.4 Red Blood Count 3.61 Hemoglobin 10.9 Hematocrit 32.3 Mean Corpuscular Volume 89.5 Mean Corpuscular Hemoglobin 30.3 Mean Corpuscular Hemoglobin Concent 33.8 Red Cell Distribution Width 14.6 Platelet Count 273 Mean Platelet Volume 8.3 Neutrophils (%) (Auto) 46.2 Lymphocytes (%) (Auto) 41.2 Monocytes (%) (Auto) 8.3 Eosinophils (%) (Auto) 3.1 Basophils (%) (Auto) 1.2 Neutrophils # (Auto) 4.4 Lymphocytes # (Auto) 3.9 Monocytes # (Auto) 0.8 Eosinophils # (Auto) 0.3 Basophils # (Auto) 0.1 CBC Comment DIFF FINAL Differential Comment Blood Urea Nitrogen 105 Creatinine 3.03 Random Glucose 209 Total Protein 6.9 Albumin 3.0 Calcium Level 9.1 Alkaline Phosphatase 104 Aspartate Amino Transf (AST/SGOT) 79 Alanine Aminotransferase (ALT/SGPT) 58 Total Bilirubin 0.3 Sodium Level 138 Chloride Level 95 Carbon Dioxide Level 33.3 Anion Gap 10 Estimat Glomerular Filtration Rate 21 Lipase 733 Blood Gas Puncture Site LT RADIAL Blood Gas Patient Temperature 98.6 Blood Gas HCO3 32 Blood Gas Base Excess 8.0 Blood Gas Oxygen Saturation 90 Arterial Blood pH 7.45 Arterial Blood Partial Pressure CO2 48 Arterial Blood Partial Pressure O2 68 Arterial Blood Oxygen Content 16.1 Arterial Blood Carboxyhemoglobin 1.2 Arterial Blood Methemoglobin 2.2 Blood Gas Hemoglobin 12.8 Oxygen Delivery Device NASAL CANNULA Blood Gas Liter Flow 5 Date/Time Source Procedure Growth Status 08/26/17 13:48 Blood Peripheral Aerobic Blood Culture - Preliminary NO GROWTH IN 3 DAYS Resulted 08/26/17 13:48 Blood Peripheral Anaerobic Blood Culture - Preliminary NO GROWTH IN 3 DAYS Resulted Imaging Last Impressions Chest X-Ray 08/29/17 0000 Signed Impressions: Service Date/Time: Tuesday, August 29, 2017 10:49 - CONCLUSION: Stable compensated cardiomegaly without failure Lauri Julian MD FACR Abdomen/Pelvis CT 08/28/17 0000 Signed Impressions: Service Date/Time: Monday, August 28, 2017 15:31 - CONCLUSION: Bilateral lower lobe air bronchogram formation in consolidative changes with tiny right effusion. Diverticulosis without diverticulitis. Abdominal aortic aneurysm. Bilateral adrenal nodules are again seen. Fat-containing umbilical hernia. Farhan Ríos MD Liver Ultrasound 08/26/17 0000 Signed Impressions: Service Date/Time: Saturday, August 26, 2017 19:57 - CONCLUSION: 1. Status post cholecystectomy. 2. Area of increased echogenicity right renal fossa can be related to patient's known adrenal lesion. 3. Pancreas not well seen. Franky Lee MD Physical Exam HEENT: PERRL; normocephalic; atraumatic; no jaundice. CHEST: diminished. CARDIAC: RRR ABDOMEN: Soft,obese, nontender, bowel sounds are present in all four quadrants. EXTREMITIES: No clubbing, cyanosis, or edema. SKIN: Normal; no rash; no jaundice. LEAD SOLUTIONS ARCHITECT: No focal deficits; alert and oriented times three. (Meghana Thompson [facility]) Assessment and Plan Plan Assessment: - Anemia with Hemoccult positive stools Pt complaining of black, tarry stools for over a week, because of this his Coumadin was DCd a week ago. H/H has been stable since admission, not received any PRBCs Denies history of GIB, ETOH, smoking. Last EGD approx 6 years ago and he states normal exam - BRBPR- states only on the toilet paper when he wipes. Last colonoscopy approx 6 years ago and he thinks possibly some colon polyps. - Pancreatitis- Nausea and vomiting for the past 2-3 days, denies ETOH, history of pancreatitis. Unknown family history, pt was adopted. S/P cholecystectomy Lipase trending down, currently 1093 - History of hepatitis C- Labs from 2012 reveal a positive Hepatitis C antibody and elevated quant, no genotype done, states [facility] would have to [facility] 60 [facility] before he was treated. Denies tattoos, history of IV drug use, high risk sexual behaviors. Did have blood transfusions in 1970 LFTs currently: AST-106 ALT-68 Alk phos-114 T bili-0.3 Hepatitis panel pending US liver (08/26) --> . Status post cholecystectomy. Area of increased echogenicity right renal fossa can be related to patient's known adrenal lesion. Pancreas not well seen. - V-tach, S/P AICD firing, currently on Amiodarone gtt- according to cardiology notes, intervention on hold due to heme (+) stools - A-fib on chronic anticoagulation with Coumadin, DCd a week ago Of note, pt is a Jehovas witness and does not accept blood products 08/28/17 + nausea, abd pain in lower quadrants. lipase trending down. had runs vtach over night. hcv quant and genotype pending. HH dropped from 12 to 10.9 but no obvious bleeding. CT pending. LFTs trending down palliative care now following, goals aggressive. 08/29/17 HH is stable. Had some black tarry stool and then brown color stool this morning. LFTs trending down. Lipase trending down, 733 today and tolerating diet. WBC now WNL. CT showed diverticulosis, bronchogram, AAA. Plan: heart healthy diet EGD when stable and cleared by cardiology, could do as outpt await Hepatitis C genotype and quant Monitor H/H Transfuse as needed Protonix IVF await IgG4, PAYAM Pt has been seen and examined by myself and Dr. Downs and this note is written on her behalf (Meghana Thompson) Meghana Thompson August 29, 2017 13:48 Lashon Downs MD August 29, 2017 15:29
--- NOTE | 2017-08-29 15:39 | HHI.HCPN ---
Reason for visit a. To assist with evaluation and management of symptoms including: Shortness of breath, pain, debility. b. To assist medical decision maker(s) with: better understanding of current medical conditions; weighing benefits/burdens of medical treatment options; making medical treatment decisions. . Subjective/Interval History Palliative care follow-up for further clarifications of goals of care. Patient seen in cardiac progressive unit, worsening bed in no acute distress. Endorsing feeling somewhat better than the prior 2 days, tolerating O2 via nasal cannula at 5 L. Dyspnea at rest and on minimal exertion, patient with baseline COPD, O2 dependent 3 L at home. Endorsing intermittent neuropathic pain to bilateral lower extremities. Denies chest pain, nausea/vomiting or abdominal discomfort. No signs of GI bleed reported. Patient was transferred out of cardiac ICU today, home care associate consult for evaluation and management of COPD. Patient remains afebrile, stable hemodynamically. Laboratory workup today revealing WBC 9.4, Hgb stable at 10.9. Renal function remains impaired, BUN/creatinine 105/3.03. GFR increased to 21 from 17. Lipase trending down, currently 733. Patient seen in progressive cardiac unit. He was resting in bed in no acute distress. Verbal, alert and oriented x self, place and situation. Patient receptive to my follow-up visit. He verbalized that after her first conversation, he has been thinking about his quality of life and wishes. He verbalized "I can feel I am dying, most of my organs are failing". Reviewed patient's multiple chronic ongoing multisystem medical issues. Patient tells me that his quality of life has been severely impacted by his progressive illnesses and overall physical deconditioning. Patient inquiring regarding hospice benefits, receptive to hospice informative visit. He verbalized that his ultimate goal is to return home for independent living as he has 2 cats at home and he is concerned about their well-being. Patient tearful, verbalizing and that his relationship with his family is very poor. Verbalized feeling empowered at this time to make decisions given his overall poor prognosis. Spiritual services offered and declined by patient. Ongoing active listening and emotional support provided. Patient wishing to remain full code at this time while considering discharge options, verbalized considering deactivating defibrillator upon discharge. . Family/friend interactions No family at bedside. . Advance Directives Living Will: Copy in medical record Health Care Surrogate: Copy in medical record Advance Directive Specifics Date completed: 06/04/2017. Health Care Surrogate(s): Patient electing Cynthia Mg as HCS, alternate surrogate is Julian Carvajal. . Documented care wishes: Patient is a Jehovah witness. Requesting no transfusion of whole blood, red cells, white cells, platelets or plasma under any circumstances. . Significant change in goals: Goals of care remain aggressive at this time. However, patient considering comfort-directed care with hospice. . Objective Vital Signs Date Time Temp Pulse Resp B/P (MAP) Pulse Ox O2 Delivery O2 Flow Rate FiO2 08/29/17 13:01 62 08/29/17 12:00 64 08/29/17 11:45 92 Nasal Cannula 3.00 08/29/17 11:45 98.2 78 18 110/67 (81) 92 08/29/17 11:00 63 08/29/17 08:12 95 Nasal Cannula 5.00 08/29/17 07:00 98.6 61 18 92/55 (67) 95 08/29/17 07:00 95 Simple Mask 6.00 08/29/17 07:00 63 08/29/17 04:00 64 08/29/17 04:00 99.2 64 20 102/62 (75) 94 08/29/17 04:00 98 Simple Mask 6.00 08/29/17 00:00 68 08/29/17 00:00 99.0 68 18 102/62 (75) 96 08/29/17 00:00 97 Simple Mask 6.00 08/28/17 20:44 92 Nasal Cannula 5.00 08/28/17 20:00 99.1 68 20 118/54 (75) 93 08/28/17 20:00 68 08/28/17 20:00 93 Simple Mask 6.00 Intake & Output 08/29/17 08/29/17 07:00 19:00 Intake Total 1990 ml 1180 ml Output Total 2000 ml 1300 ml Balance -10 ml -120 ml Intake Oral 720 ml 480 ml IV Total 1270 ml 700 ml Output Urine Total 2000 ml 1300 ml # Bowel Movements 0 0 Physical Exam CONSTITUTIONAL/GENERAL: This is an obese male resting in bed in no acute distress. Patient appears much older than stated age. TUBES/LINES/DRAINS: NC, SCDs. Bailey catheter. SKIN: No jaundice, rashes, or lesions. Ecchymoses on upper extremities. No wounds seen anteriorly. Skin temperature appropriate. Not diaphoretic. HEAD: Atraumatic. Normocephalic. EYES: Pupils equal and round and reactive. Extraocular motions intact. No scleral icterus. No injection or drainage. ENT: Hearing grossly normal. Nose without bleeding or purulent drainage. Oral oral mucosa. NECK: Trachea midline. Supple, nontender. CARDIOVASCULAR: Irregular rate and rhythm. Peripheral pulses symmetric. RESPIRATORY/CHEST: Symmetric, intermittent increased work of breathing at rest. Clear, decreased breath sounds to auscultation. GASTROINTESTINAL: Abdomen large, obese. Unable to evaluate for hepatomegaly given body habitus. No guarding. Bowel sounds present. GENITOURINARY: Without palpable bladder distension. Bailey catheter in place. MUSCULOSKELETAL: Extremities without clubbing, cyanosis. Edema to bilateral lower extremities. No mottling or clubbing. NEUROLOGICAL: Awake and alert x self, place and situation. Motor and sensory grossly within normal limits. Follows commands. Cognitively sharp. Moves all extremities. PSYCHIATRIC: Calm, pleasant and cooperative. Tearful at times. . Diagnostic Tests Laboratory Laboratory Tests Test 08/27/17 02:26 08/27/17 12:05 08/27/17 13:28 08/27/17 16:26 White Blood Count 11.6 TH/MM3 (4.0-11.0) Red Blood Count 3.94 MIL/MM3 (4.50-5.90) Hemoglobin 12.0 GM/DL (13.0-17.0) Hematocrit 35.2 % (39.0-51.0) Mean Corpuscular Volume 89.1 FL (80.0-100.0) Mean Corpuscular Hemoglobin 30.4 PG (27.0-34.0) Mean Corpuscular Hemoglobin Concent 34.1 % (32.0-36.0) Red Cell Distribution Width 14.3 % (11.6-17.2) Platelet Count 302 TH/MM3 (150-450) Mean Platelet Volume 8.2 FL (7.0-11.0) Neutrophils (%) (Auto) 78.4 % (16.0-70.0) Lymphocytes (%) (Auto) 16.1 % (9.0-44.0) Monocytes (%) (Auto) 4.9 % (0.0-8.0) Eosinophils (%) (Auto) 0.2 % (0.0-4.0) Basophils (%) (Auto) 0.4 % (0.0-2.0) Neutrophils # (Auto) 9.1 TH/MM3 (1.8-7.7) Lymphocytes # (Auto) 1.9 TH/MM3 (1.0-4.8) Monocytes # (Auto) 0.6 TH/MM3 (0-0.9) Eosinophils # (Auto) 0.0 TH/MM3 (0-0.4) Basophils # (Auto) 0.0 TH/MM3 (0-0.2) CBC Comment DIFF FINAL Differential Comment Prothrombin Time 17.6 SEC (9.8-11.6) Prothromb Time International Ratio 1.7 RATIO Blood Urea Nitrogen 134 MG/DL (7-18) Creatinine 3.65 MG/DL (0.60-1.30) Random Glucose 284 MG/DL (74-106) Total Protein 8.1 GM/DL (6.4-8.2) Albumin 3.4 GM/DL (3.4-5.0) Calcium Level 9.1 MG/DL (8.5-10.1) Phosphorus Level 4.1 MG/DL (2.5-4.9) Magnesium Level 2.5 MG/DL (1.5-2.5) Alkaline Phosphatase 114 U/L (45-117) Aspartate Amino Transf (AST/SGOT) 106 U/L (15-37) Alanine Aminotransferase (ALT/SGPT) 68 U/L (12-78) Total Bilirubin 0.3 MG/DL (0.2-1.0) Sodium Level 137 MEQ/L (136-145) Potassium Level 2.8 MEQ/L (3.5-5.1) 3.0 MEQ/L (3.5-5.1) Chloride Level 91 MEQ/L (98-107) Carbon Dioxide Level 32.3 MEQ/L (21.0-32.0) Anion Gap 14 MEQ/L (5-15) Estimat Glomerular Filtration Rate 17 ML/MIN (>89) Lipase 1093 U/L (73-393) Hepatitis A IgM Antibody NONREACTIVE (NONREACTIVE) Hepatitis B Surface Antigen NONREACTIVE (NONREACTIVE) Hepatitis B Core IgM Antibody NONREACTIVE (NONREACTIVE) Hepatitis C IgG Antibody REACTIVE (NONREACTIVE) Test 08/28/17 03:23 08/28/17 17:05 08/29/17 04:07 08/29/17 12:12 White Blood Count 11.6 TH/MM3 (4.0-11.0) 9.4 TH/MM3 (4.0-11.0) Red Blood Count 3.60 MIL/MM3 (4.50-5.90) 3.61 MIL/MM3 (4.50-5.90) Hemoglobin 10.9 GM/DL (13.0-17.0) 10.9 GM/DL (13.0-17.0) Hematocrit 32.3 % (39.0-51.0) 32.3 % (39.0-51.0) Mean Corpuscular Volume 89.8 FL (80.0-100.0) 89.5 FL (80.0-100.0) Mean Corpuscular Hemoglobin 30.3 PG (27.0-34.0) 30.3 PG (27.0-34.0) Mean Corpuscular Hemoglobin Concent 33.7 % (32.0-36.0) 33.8 % (32.0-36.0) Red Cell Distribution Width 14.6 % (11.6-17.2) 14.6 % (11.6-17.2) Platelet Count 287 TH/MM3 (150-450) 273 TH/MM3 (150-450) Mean Platelet Volume 8.2 FL (7.0-11.0) 8.3 FL (7.0-11.0) Neutrophils (%) (Auto) 46.9 % (16.0-70.0) 46.2 % (16.0-70.0) Lymphocytes (%) (Auto) 40.5 % (9.0-44.0) 41.2 % (9.0-44.0) Monocytes (%) (Auto) 9.5 % (0.0-8.0) 8.3 % (0.0-8.0) Eosinophils (%) (Auto) 2.2 % (0.0-4.0) 3.1 % (0.0-4.0) Basophils (%) (Auto) 0.9 % (0.0-2.0) 1.2 % (0.0-2.0) Neutrophils # (Auto) 5.4 TH/MM3 (1.8-7.7) 4.4 TH/MM3 (1.8-7.7) Lymphocytes # (Auto) 4.7 TH/MM3 (1.0-4.8) 3.9 TH/MM3 (1.0-4.8) Monocytes # (Auto) 1.1 TH/MM3 (0-0.9) 0.8 TH/MM3 (0-0.9) Eosinophils # (Auto) 0.3 TH/MM3 (0-0.4) 0.3 TH/MM3 (0-0.4) Basophils # (Auto) 0.1 TH/MM3 (0-0.2) 0.1 TH/MM3 (0-0.2) CBC Comment DIFF FINAL DIFF FINAL Differential Comment Prothrombin Time 15.1 SEC (9.8-11.6) Prothromb Time International Ratio 1.5 RATIO Blood Urea Nitrogen 112 MG/DL (7-18) 105 MG/DL (7-18) Creatinine 3.10 MG/DL (0.60-1.30) 3.03 MG/DL (0.60-1.30) Random Glucose 99 MG/DL (74-106) 209 MG/DL (74-106) Total Protein 7.0 GM/DL (6.4-8.2) 6.9 GM/DL (6.4-8.2) Albumin 3.0 GM/DL (3.4-5.0) 3.0 GM/DL (3.4-5.0) Calcium Level 9.1 MG/DL (8.5-10.1) 9.1 MG/DL (8.5-10.1) Alkaline Phosphatase 95 U/L (45-117) 104 U/L (45-117) Aspartate Amino Transf (AST/SGOT) 94 U/L (15-37) 79 U/L (15-37) Alanine Aminotransferase (ALT/SGPT) 60 U/L (12-78) 58 U/L (12-78) Total Bilirubin 0.3 MG/DL (0.2-1.0) 0.3 MG/DL (0.2-1.0) Sodium Level 139 MEQ/L (136-145) 138 MEQ/L (136-145) Potassium Level 3.1 MEQ/L (3.5-5.1) 3.6 MEQ/L (3.5-5.1) 3.2 MEQ/L (3.5-5.1) Chloride Level 96 MEQ/L (98-107) 95 MEQ/L (98-107) Carbon Dioxide Level 29.9 MEQ/L (21.0-32.0) 33.3 MEQ/L (21.0-32.0) Anion Gap 13 MEQ/L (5-15) 10 MEQ/L (5-15) Estimat Glomerular Filtration Rate 21 ML/MIN (>89) 21 ML/MIN (>89) Lipase 760 U/L (73-393) 733 U/L (73-393) Blood Gas Puncture Site LT RADIAL Blood Gas Patient Temperature 98.6 Blood Gas HCO3 32 mmol/L (22-26) Blood Gas Base Excess 8.0 mmol/L (-2-2) Blood Gas Oxygen Saturation 90 % (90-100) Arterial Blood pH 7.45 (7.380-7.420) Arterial Blood Partial Pressure CO2 48 mmHg (38-42) Arterial Blood Partial Pressure O2 68 mmHg (61-120) Arterial Blood Oxygen Content 16.1 Vol % (12.0-20.0) Arterial Blood Carboxyhemoglobin 1.2 % (0-4) Arterial Blood Methemoglobin 2.2 % (0-2) Blood Gas Hemoglobin 12.8 G/DL (12.0-16.0) Oxygen Delivery Device NASAL CANNULA Blood Gas Liter Flow 5 L/M Result Diagram: 08/29/17 0407 08/29/17 0407 Imaging Last 48 hours Impressions Chest X-Ray 08/29/17 0000 Signed Impressions: Service Date/Time: Tuesday, August 29, 2017 10:49 - CONCLUSION: Stable compensated cardiomegaly without failure Lauri Julian MD FACR Abdomen/Pelvis CT 08/28/17 0000 Signed Impressions: Service Date/Time: Monday, August 28, 2017 15:31 - CONCLUSION: Bilateral lower lobe air bronchogram formation in consolidative changes with tiny right effusion. Diverticulosis without diverticulitis. Abdominal aortic aneurysm. Bilateral adrenal nodules are again seen. Fat-containing umbilical hernia. Farhan Ríos MD Assessment and Plan Disease Oriented Problem List: (1) Congestive heart failure with left ventricular dysfunction (2) Acute renal failure superimposed on stage 3 chronic kidney disease (3) Chronic respiratory failure (4) CAD (coronary artery disease) (5) Cardiomyopathy (6) A-fib (7) Pancreatitis (8) GI bleed Symptom Scale: (1) Shortness of breath 0-10 Scale: Unable to quantify (2) Pain 0-10 Scale: 3 (3) Debility 0-10 Scale: Unable to quantify Pertinent Non-Medical Issues Psychosocial: Patient originally from [facility]. Moved to [place] in 2003. He is , has 2 children. Daughter Erika and son Lauri who reside in [facility]. Patient disabled for the past 15 years. No service. Spiritual: Jehovah witness. Legal: Advance directives completed. Ethical issues impacting care: No ethical issues identified. . Important Contacts [facility] Cynthia Mg . Alternate [facility] Julian Carvajal . . Prognosis Mr. Gooden is a 57-year-old male with multiple chronic ongoing multisystem medical issues to include severe cardiac illness, stage IV chronic kidney failure, diabetes mellitus, hepatitis C among others. Patient is bed to wheelchair bound with multiple recent hospitalizations and progressive decline. He is a very high risk for further complications and . Patient overall prognosis for prolonged survival or improved quality of life appears poor given the above. Patient appears hospice appropriate should he elects comfort- directed care. . Code Status: Full Code Plan * CODE STATUS: FULL code. Risks, benefits and limitations of CPR, intubation and mechanical ventilation were discussed at length given multiple chronic ongoing medical issues. Patient reiterated full CODE STATUS. * HEALTHCARE DECISION-MAKING: Patient participated in medical decision making. He appears to have a fair understanding of his complicated medical issues and retains the ability to weight benefits versus burdens of treatment options. Most recent advanced directives completed on 06/04/17, patient has designated Cynthia Mg as HCS, alternate surrogate is Julian Carvajal. Mr. Mg and Mr. Carvajal are patient's alevism elders. Previous designation of healthcare surrogate completed 12/28/09 listing his sister Nila and niece Haley no longer valid given most recent designation completed. Patient reiterated wishing Mr. Beebe and Mr Carvajal as healthcare surrogate decision makers. Patient reports the 5 wishes form has been completed, copy at home. * GOALS OF CARE: Patient electing aggressive management to include FULL code at this time. Patient considering transition to comfort-directed care with hospice given multiple chronic ongoing comorbidities to include a. fib, CAD, hx of multiple CVA, CHF, stage IV chronic kidney failure, diabetes mellitus, hepatitis C, oxygen dependent COPD and physical deconditioning/wheelchair bound with very poor activity tolerance. Hospice philosophy and benefits discussed at length. Patient considering returning home with hospice vs home with homehealth. [facility] referral has been made for informative visit. Patient verbalized considering deactivating AICD if comfort-directed measures are elected. For now, goals remain aggressive to include full code. * SYMPTOMS: =Dyspnea: COPD oxygen dependent, CHF. Currently on 5L via NC. Pulmonology is consulted, pending. =Pain: History of chronic back pain and neuropathy to bilateral lower extremities. Home regimen to include Lyrica BID. Hydromorphone 0.5mg IV every 6 hours available as needed. Oxycodone 5 mg every 6 hours available as needed. =Debility: Patient is bed to wheelchair bound. Disabled for the past 15 years. Progressive decline with multiple recent hospitalizations. Not likely to improve. * Case discussed with cook house supervisor. * Palliative care contact information has been provided to patient and family. * Palliative care will continue to follow up for further clarification of goals of care as patient's clinical course continues to evolve. . Time Spent Total Floor Time (mins): 40 (Total time to include review of medical records since last visit, physical assessment, goals of care conversation with patient, case discussion with cook house supervisor.) >50% Counseling/Coord of Care: Yes Attestation To help prompt me to consider important information that might be impacting today's encounter and assessment, information from prior notes written by myself or my colleagues may have been "brought forward" into today's note. My signature on this note, however, is an attestation that I personally performed the exam, history, and/or decision-making noted today, and, unless otherwise indicated, the interactions with patient, family, and staff as well as the review of records all occurred today. I also attest that the listed assessment and stated plan reflect my best clinical judgment today based on the combination of historical information, prior notes, and today's exam/ interactions. When time spent is documented, it refers only to time spent today by the signer, or if indicated, combined time spent today by collaborating physician/nurse practitioner. Huong Dunham August 29, 2017 15:39
--- NOTE | 2017-08-29 16:13 | HHI.NPPN ---
Subjective General Problems: Anemia Renal Failure: Chronic, Stage IV History of Present Illness This is a 57-year-old male known to me from before with past medical history of chronic kidney disease with single kidney, hypertension, chronic anemia, hyperlipidemia, diabetes mellitus, ischemic heart disease, congestive heart failure, chronic obstructive pulmonary disease, hepatitis C, history of cerebrovascular accident, [facility] of [facility] pain and arrhythmia. Nephrology was called to see the patient for the chronic kidney disease. He has single kidney, has been following with me. The patient has advanced stage IV renal disease and was on dialysis 3 months ago when he was admitted at [facility] mainly because of the fluid, but his GFR has been staying close to 16-18, and he is getting close for starting the dialysis. The patient has been taking diuretics including Bumex and metolazone at home and here, it was found that hiscreatinine was 3.9, and the potassium was low, 2.5. The patient was supposed to take the potassium with the diuretic and he ran out of it and the pharmacy did not deliver it, so he was trying to eat more bananas. The patient noticed that his AICD fired 3 times at home. Hedenies any vomiting. Occasionally, he has nausea. There is no dysuria or hematuria, but he did notice that his urine output is slightly decreased. Additional Remarks Patient is alert, sitting on the chair, not in distress. Review of Systems Respiratory Lungs: SOB Cardiovascular Cardiac: Chest Pain Gastrointestinal Gastrointestinal: Nausea & Vomiting, Blood/Tarry Stools Objective Data Data 08/29/17 08/30/17 19:00 07:00 Intake Total 1180 ml Output Total 1300 ml Balance -120 ml Intake Oral 480 ml IV Total 700 ml Output Urine Total 1300 ml # Bowel Movements 0 Vital Signs Date Time Temp Pulse Resp B/P (MAP) Pulse Ox O2 Delivery O2 Flow Rate FiO2 08/29/17 13:01 62 08/29/17 12:00 64 08/29/17 11:45 92 Nasal Cannula 3.00 08/29/17 11:45 98.2 78 18 110/67 (81) 92 08/29/17 11:00 63 08/29/17 08:12 95 Nasal Cannula 5.00 08/29/17 07:00 98.6 61 18 92/55 (67) 95 08/29/17 07:00 95 Simple Mask 6.00 5/16/18 07:00 63 08/29/17 04:00 64 08/29/17 04:00 99.2 64 20 102/62 (75) 94 08/29/17 04:00 98 Simple Mask 6.00 08/29/17 00:00 68 08/29/17 00:00 99.0 68 18 102/62 (75) 96 08/29/17 00:00 97 Simple Mask 6.00 08/28/17 20:44 92 Nasal Cannula 5.00 08/28/17 20:00 99.1 68 20 118/54 (75) 93 08/28/17 20:00 68 08/28/17 20:00 93 Simple Mask 6.00 -: 08/29/17 0407 08/29/17 0407 Physical Exam General Appearance: No Acute Distress, Anxious, Obese Eyes Eye Exam: Pupils Equal Throat Throat Exam: Oral Mucosa Gypsy & Moist Pulmonary Resp Exam: Clear Bilaterally, Breath Sounds Equal, No Distress Cardiology CV Exam: Regular, Normal Sinus Rhythm Gastrointestinal/Abdomen GI Exam: Soft, Bowel Sounds Present, Distended Genitourinary Exam: Flank Non-Tender Integumentary Skin Exam: Clear, Warm Neurologic Neuro Exam: Alert, Awake Psychiatric Psych Exam: Appropriate Responses Assessment/Plan Discussed Condition With: Patient Assessment Summary: KONG/Acute Renal Failure, CKD Stage IV Electrolyte Assessment: Hypokalemia Problem List: (1) Ventricular fibrillation ICD Codes: I49.01 - Ventricular fibrillation Status: Acute (2) GI bleed ICD Codes: K92.2 - Gastrointestinal hemorrhage, unspecified Status: Acute Plan Patient has advance stage 4 chronic kidney disease, has off and on acute kidney injury. Has single kidney. Edema is better, Creatinine continue to improve. Now it is 3.0, and the GFR is 21 ml/min. K is still low, on replacement. Continue Lasix and Aldactone. Follow the urine out put and BMP. Problem Qualifiers (1) GI bleed: Qualified Codes: K92.2 - Gastrointestinal hemorrhage, unspecified Larry Coyle MD August 29, 2017 16:13
--- NOTE | 2017-08-29 20:59 | MB ---
cc: Trav Esteves MD, Arjun D MD DATE: 08/29/2017 REQUESTING PHYSICIAN: Dr. Gardiner REASON FOR CONSULTATION: Pulmonary management. HISTORY OF PRESENT ILLNESS: Mr. Gooden is a pleasant 57-year-old white male with a history of chronic kidney disease, coronary artery disease, status post AICD placement, diabetes mellitus, ischemic heart disease, renal cell carcinoma status post right nephrectomy, history of CVA, also history of sleep apnea, has not been using CPAP machine. The patient was admitted in the hospital with shortness of breath. He also had black stools. The patient was admitted to the intensive care unit. He used BiPAP, now he is on regular floor on 3 liter nasal cannula. He has mild shortness of breath, no cough or sputum production, no fever, chills, no night sweats. PAST MEDICAL HISTORY: History of coronary artery disease, status post stent placement, hypertension, hyperlipidemia, congestive heart failure, AICD placement, COPD, history of CVA, history of renal cell carcinoma status post right nephrectomy, history of hepatitis. CURRENT MEDICATIONS: 1. Insulin 2. Zosyn IV 3. Potassium supplement 4. Albuterol Atrovent nebulizer treatment. 5. Spironolactone 25 mg twice a day. 6. Amiodarone 400 mg a day. 7. Symbicort twice a day. 8. Lyrica 75 mg twice a day. 9. Metoprolol 25 mg a day 10. Klonopin 1 mg twice a day. 11. Flomax 0.4 mg a day. 12. Lasix 20 mg IV push, 13. Dilaudid for pain 14. Lopid 600 mg twice a day. ALLERGIES: BACLOFEN, MORPHINE, CLONIDINE. SOCIAL HISTORY: He is . He used to work before. He is disabled. He has a long history of smoking, quit for a few years, now is smoking a few cigarettes a day, used to drink before. No drug use. He is Hoahaoism. FAMILY HISTORY: He lives alone. He has 3 children, 1 son was murdered. REVIEW OF SYSTEMS: He uses a wheelchair, walks only a short distance. No headache or dizziness. No seizure. No epilepsy. Has history of CVA without any deficit. No other malignancies other than the renal cell carcinoma. PHYSICAL EXAMINATION: GENERAL: Obese male mildly short of breath. VITAL SIGNS: Blood pressure 122/72, heart rate 61, respiration 18, temperature 98.1. HEENT: Pupils are equal and react to light. Oral mucosa and nasal mucosa normal. NECK: Supple. JVP not raised. CHEST: Equal bilaterally. No rhonchi. CARDIOVASCULAR: S1, S2 normal. ABDOMEN: Benign EXTREMITIES: With no edema. LABORATORY DATA: His WBC count 9.8, hemoglobin 10.9, hematocrit 32.3, MCV 89, platelet count 273. Sodium 130, potassium 3.2, chloride 94, CO2 of 33, BUN 105, creatinine 3.03. IMAGING STUDIES: Chest x-ray shows no acute infiltrate. IMPRESSION: 1. Obstructive sleep apnea. 2. Hypercapnic respiratory insufficiency which is improved. 3. Renal insufficiency. 4. History of renal cell carcinoma, status post surgery. 5. Obstructive sleep apnea. 6. Coronary artery disease, status post stent placement. 7. AICD placement. PLAN: I discussed with the patient. He will need sleep study as outpatient. We will get pulmonary function study. Continue aerosol treatments. Supplement his oxygen. Continue antibiotic. Further treatment will depend on the course in the hospital. Thank you, Dr. Gardiner, for this consult. MD SUPA Perez/ , 08:29 PM , 08:58 PM
[2017-08-29] MEDS: SODIUM CHLORIDE 0.9% FLUSH 10 ML FLUSH IVF PRN (21:48)
[2017-08-29] MEDS: TAMSULOSIN HCL 0.4 MG CAP PO SCH (21:48)
[2017-08-29] MEDS: TEMAZEPAM 15 MG CAP PO PRN (21:48)
[2017-08-30] VITALS (24 sets, daily range): BP systolic 94–117; BP diastolic 54–71; PULSE 55–74; RESP 18; TEMP 97.6–98.7; O2SAT 92–96
[2017-08-30] MEDS: RESP: IPRATROPIUM 0.5 MG/2.5 ML NEB NEB SCH ×7 (00:03→23:48)
[2017-08-30] MEDS: PIPERACIL-TAZO 2.25 GM PREMIX 50 ML IV SCH ×4 (00:23→17:19)
[2017-08-30] MEDS: CHLORHEXIDINE GLUCONATE 2 % 1 PACK (2 CLOTHS) TOP SCH (04:00)
[2017-08-30] MEDS: HYDROmorphone HCL PF 0.5 MG/0.5 ML SYRINGE IV PRN ×4 (04:28→21:20)
[2017-08-30] MEDS: INSULIN ASPART SUPPLEMENTAL SCALE SQ SCH ×4 (06:35→17:04)
[2017-08-30 06:54] LABS: ALT (GPT) 52 U/L (12-78); AST (GOT) 58 U/L (15-37); BICARBONATE 30.9 MEQ/L (21.0-32.0); BLOOD UREA NITROGEN 95 MG/DL (7-18); CALCIUM 9.3 MG/DL (8.5-10.1); CHLORIDE 93 MEQ/L (98-107); CREATININE 3.11 MG/DL (0.60-1.30); GLOMERULAR FILTRATION RATE 21 ML/MIN (>89); GLUCOSE,RANDOM 189 MG/DL (74-106); SODIUM (NA) 137 MEQ/L (136-145)
[2017-08-30 06:57] LABS: ALKALINE PHOSPHATASE 104 U/L (45-117); TOTAL BILIRUBIN ADULT 0.4 MG/DL (0.2-1.0); TOTAL PROTEIN 7.3 GM/DL (6.4-8.2)
[2017-08-30 07:10] LABS: AUTOMATED NEUTROPHIL # 4.1 TH/MM3 (1.8-7.7); BASOPHIL # 0.1 TH/MM3 (0-0.2); BASOPHIL % 0.9 % (0.0-2.0); EOSINOPHIL # 0.4 TH/MM3 (0-0.4); EOSINOPHIL % 4.2 % (0.0-4.0); HEMATOCRIT 33.2 % (39.0-51.0); HEMOGLOBIN 11.2 GM/DL (13.0-17.0); LYMPH % 46.8 % (9.0-44.0); LYMPHOCYTE # 4.8 TH/MM3 (1.0-4.8); MEAN CELL VOLUME 89.9 FL (80.0-100.0); MEAN CORPUSCULAR HEMOGLOBIN 30.3 PG (27.0-34.0); MEAN CORPUSCULAR HGB CONC 33.7 % (32.0-36.0); MEAN PLATELET VOLUME 8.1 FL (7.0-11.0); MONO % 8.4 % (0.0-8.0); MONOCYTE # 0.9 TH/MM3 (0-0.9); NEUT % 39.7 % (16.0-70.0); PLATELET COUNT 265 TH/MM3 (150-450); RED BLOOD COUNT 3.69 MIL/MM3 (4.50-5.90); RED CELL DISTRIBUTION WIDTH 14.8 % (11.6-17.2); WHITE BLOOD COUNT 10.3 TH/MM3 (4.0-11.0)
[2017-08-30] MEDS: clonazePAM 1 MG TAB PO SCH ×2 (08:57→21:19)
[2017-08-30] MEDS: SPIRONOLACTONE 25 MG TAB PO SCH ×2 (08:57→17:20)
[2017-08-30] MEDS: POTASSIUM CHLORIDE 10 MEQ CONTROLLED RELEASE TAB PO SCH ×2 (08:57→21:19)
[2017-08-30] MEDS: PREGABALIN 75 MG CAP PO SCH ×2 (08:57→21:19)
[2017-08-30] MEDS: GEMFIBROZIL 600 MG TAB PO SCH ×2 (08:57→15:13)
[2017-08-30] MEDS: FUROSEMIDE 20 MG/2 ML VIAL IV PUSH SCH ×2 (08:57→17:21)
[2017-08-30] MEDS: PANTOPRAZOLE SODIUM 40 MG VIAL IV PUSH SCH ×2 (08:57→21:19)
[2017-08-30] MEDS: AMIODARONE 200 MG TAB PO SCH (08:58)
[2017-08-30] MEDS: METOPROLOL TARTRATE 25 MG TAB PO SCH ×2 (08:58→21:19)
[2017-08-30] MEDS: BUDESONIDE-FORMOTEROL 160/4.5 MCG INHALER INH SCH ×2 (08:59→21:00)
--- NOTE | 2017-08-30 09:59 | HHI.PR ---
Subjective Remarks 57-year-old gentleman with past medical history remarkable for atrial fibrillation on chronic anticoagulation with Coumadin, CKD, recently required hemodialysis, last HD approximately 1 month ago, CAD, hypertension, hyperlipidemia, diabetes, CHF, status post AICD, COPD on home O2, hepatitis C, multiple CVAs in the past, obesity, now presents to emergency room for evaluation of chest pain. Over the last few days, patient intermittently described having chest pain associated with nausea, some vomiting and some abdominal discomfort. This morning, around 4 AM, patient woke up complaining of chest pain and defibrillator fired 2, therefore he called EMS. Patient denies any fever, chills, diarrhea, cough. Some shortness of breath with exertion. Of note, patient reports multiple black stools, therefore 3 days ago he stopped taking Coumadin. On ED arrival, patient was hemodynamically stable, still complaining of some chest pain. Pacer rep was called and he interrogated his device and found out that patient went into V. fib and he was shocked 3 times. Remarkable workup in ED showed a negative troponin, worsening creatinine , and severe hypokalemia with a potassium of 2.5. Hemoglobin was 12.4, but his stool was weakly positive for Hemoccult. Patient was also found to have elevated lipase. [facility] now consulted for ICU admission. Patient was seen in emergency room, he is awake, still complaining of some chest pain, pleuritic, worsening with deep breaths, reproducible by palpation over the sternum. His dyspnea is at baseline, denies any other complaints except chronic back pain. Nephrology and cardiology have been consulted. In ED patient was given 60 mEq of potassium. Her ED chart, patient expressed a desire to be a DO NOT RESUSCITATE. Order was placed in the chart. 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 08/27 Patient reports left sided chest pain had 3 runs of Vtach overnight placed on Amio drip. Afebrile. 08/28 Patient is feeling better today. Afebrile. Renal function is improving with Cr: 3.10 from 3.65 08/29 Patient is on 5L oxygen awake and alert, Cr: 3.0 with UOP: 2L overnight. Afebrile. 08-30 TRANSFERRED TO OUR SERVICE TODAY CR IS STABLE AT [address] COSTELLO OF CARDIOLOGY FOR CLEARANCE DW RN AND PT Objective Vitals Vital Signs Date Time Temp Pulse Resp B/P (MAP) Pulse Ox O2 Delivery O2 Flow Rate FiO2 08/30/17 07:46 93 Nasal Cannula 4.00 08/30/17 04:49 92 Nasal Cannula 4.00 08/30/17 04:48 98.0 64 117/68 (84) 92 08/30/17 03:00 56 08/30/17 02:00 60 08/30/17 01:00 60 08/30/17 00:20 18 08/30/17 00:00 56 08/29/17 23:09 18 08/29/17 23:00 66 08/29/17 23:00 95 Nasal Cannula 5.00 08/29/17 23:00 98.5 60 90/55 (67) 95 08/29/17 22:00 66 08/29/17 21:00 64 08/29/17 20:29 94 Nasal Cannula 5.00 08/29/17 20:00 66 08/29/17 19:00 68 08/29/17 19:00 95 Nasal Cannula 5.00 08/29/17 19:00 98.4 69 121/71 (88) 95 08/29/17 17:01 64 08/29/17 16:00 62 08/29/17 15:15 93 Nasal Cannula 3.00 08/29/17 15:15 98.1 109 16 122/72 (89) 93 08/29/17 15:00 61 08/29/17 14:00 56 08/29/17 13:01 62 08/29/17 12:00 64 08/29/17 11:45 92 Nasal Cannula 3.00 08/29/17 11:45 98.2 78 18 110/67 (81) 92 08/29/17 11:00 63 I/O 08/29/17 08/29/17 08/29/17 08/30/17 08/30/17 08/30/17 07:00 15:00 23:00 07:00 15:00 23:00 Intake Total 1990 ml 1180 ml 480 ml 1060 ml Output Total 2000 ml 1300 ml 1650 ml 1900 ml Balance -10 ml -120 ml -1170 ml -840 ml Intake Oral 720 ml 480 ml 480 ml 960 ml IV Total 1270 ml 700 ml 100 ml Output Urine Total 2000 ml 1300 ml 1650 ml 1900 ml # Bowel Movements 0 0 0 Result Diagram: 08/30/17 0538 08/30/17 0538 Other Results Laboratory Tests Test 08/27/17 12:05 08/27/17 13:28 08/27/17 16:26 08/28/17 03:23 Potassium Level 3.0 MEQ/L 3.1 MEQ/L Hepatitis A IgM Antibody NONREACTIVE Hepatitis B Surface Antigen NONREACTIVE Hepatitis B Core IgM Antibody NONREACTIVE Hepatitis C IgG Antibody REACTIVE Anti-Nuclear Antibody Screen NEG White Blood Count 11.6 TH/MM3 Red Blood Count 3.60 MIL/MM3 Hemoglobin 10.9 GM/DL Hematocrit 32.3 % Mean Corpuscular Volume 89.8 FL Mean Corpuscular Hemoglobin 30.3 PG Mean Corpuscular Hemoglobin Concent 33.7 % Red Cell Distribution Width 14.6 % Platelet Count 287 TH/MM3 Mean Platelet Volume 8.2 FL Neutrophils (%) (Auto) 46.9 % Lymphocytes (%) (Auto) 40.5 % Monocytes (%) (Auto) 9.5 % Eosinophils (%) (Auto) 2.2 % Basophils (%) (Auto) 0.9 % Neutrophils # (Auto) 5.4 TH/MM3 Lymphocytes # (Auto) 4.7 TH/MM3 Monocytes # (Auto) 1.1 TH/MM3 Eosinophils # (Auto) 0.3 TH/MM3 Basophils # (Auto) 0.1 TH/MM3 CBC Comment DIFF FINAL Differential Comment Prothrombin Time 15.1 SEC Prothromb Time International Ratio 1.5 RATIO Blood Urea Nitrogen 112 MG/DL Creatinine 3.10 MG/DL Random Glucose 99 MG/DL Total Protein 7.0 GM/DL Albumin 3.0 GM/DL Calcium Level 9.1 MG/DL Alkaline Phosphatase 95 U/L Aspartate Amino Transf (AST/SGOT) 94 U/L Alanine Aminotransferase (ALT/SGPT) 60 U/L Total Bilirubin 0.3 MG/DL Sodium Level 139 MEQ/L Chloride Level 96 MEQ/L Carbon Dioxide Level 29.9 MEQ/L Anion Gap 13 MEQ/L Estimat Glomerular Filtration Rate 21 ML/MIN Lipase 760 U/L Test 08/28/17 17:05 08/29/17 04:07 08/29/17 12:12 08/30/17 05:38 Potassium Level 3.6 MEQ/L 3.2 MEQ/L 3.9 MEQ/L White Blood Count 9.4 TH/MM3 10.3 TH/MM3 Red Blood Count 3.61 MIL/MM3 3.69 MIL/MM3 Hemoglobin 10.9 GM/DL 11.2 GM/DL Hematocrit 32.3 % 33.2 % Mean Corpuscular Volume 89.5 FL 89.9 FL Mean Corpuscular Hemoglobin 30.3 PG 30.3 PG Mean Corpuscular Hemoglobin Concent 33.8 % 33.7 % Red Cell Distribution Width 14.6 % 14.8 % Platelet Count 273 TH/MM3 265 TH/MM3 Mean Platelet Volume 8.3 FL 8.1 FL Neutrophils (%) (Auto) 46.2 % 39.7 % Lymphocytes (%) (Auto) 41.2 % 46.8 % Monocytes (%) (Auto) 8.3 % 8.4 % Eosinophils (%) (Auto) 3.1 % 4.2 % Basophils (%) (Auto) 1.2 % 0.9 % Neutrophils # (Auto) 4.4 TH/MM3 4.1 TH/MM3 Lymphocytes # (Auto) 3.9 TH/MM3 4.8 TH/MM3 Monocytes # (Auto) 0.8 TH/MM3 0.9 TH/MM3 Eosinophils # (Auto) 0.3 TH/MM3 0.4 TH/MM3 Basophils # (Auto) 0.1 TH/MM3 0.1 TH/MM3 CBC Comment DIFF FINAL DIFF FINAL Differential Comment Blood Urea Nitrogen 105 MG/DL 95 MG/DL Creatinine 3.03 MG/DL 3.11 MG/DL Random Glucose 209 MG/DL 189 MG/DL Total Protein 6.9 GM/DL 7.3 GM/DL Albumin 3.0 GM/DL 3.0 GM/DL Calcium Level 9.1 MG/DL 9.3 MG/DL Alkaline Phosphatase 104 U/L 104 U/L Aspartate Amino Transf (AST/SGOT) 79 U/L 58 U/L Alanine Aminotransferase (ALT/SGPT) 58 U/L 52 U/L Total Bilirubin 0.3 MG/DL 0.4 MG/DL Sodium Level 138 MEQ/L 137 MEQ/L Chloride Level 95 MEQ/L 93 MEQ/L Carbon Dioxide Level 33.3 MEQ/L 30.9 MEQ/L Anion Gap 10 MEQ/L 13 MEQ/L Estimat Glomerular Filtration Rate 21 ML/MIN 21 ML/MIN Lipase 733 U/L 604 U/L Blood Gas Puncture Site LT RADIAL Blood Gas Patient Temperature 98.6 Blood Gas HCO3 32 mmol/L Blood Gas Base Excess 8.0 mmol/L Blood Gas Oxygen Saturation 90 % Arterial Blood pH 7.45 Arterial Blood Partial Pressure CO2 48 mmHg Arterial Blood Partial Pressure O2 68 mmHg Arterial Blood Oxygen Content 16.1 Vol % Arterial Blood Carboxyhemoglobin 1.2 % Arterial Blood Methemoglobin 2.2 % Blood Gas Hemoglobin 12.8 G/DL Oxygen Delivery Device NASAL CANNULA Blood Gas Liter Flow 5 L/M Imaging Last Impressions Chest X-Ray 08/29/17 0000 Signed Impressions: Service Date/Time: Tuesday, August 29, 2017 10:49 - CONCLUSION: Stable compensated cardiomegaly without failure Lauri Julian MD FACR Abdomen/Pelvis CT 08/28/17 0000 Signed Impressions: Service Date/Time: Monday, August 28, 2017 15:31 - CONCLUSION: Bilateral lower lobe air bronchogram formation in consolidative changes with tiny right effusion. Diverticulosis without diverticulitis. Abdominal aortic aneurysm. Bilateral adrenal nodules are again seen. Fat-containing umbilical hernia. Farhan Ríos MD Liver Ultrasound 08/26/17 0000 Signed Impressions: Service Date/Time: Saturday, August 26, 2017 19:57 - CONCLUSION: 1. Status post cholecystectomy. 2. Area of increased echogenicity right renal fossa can be related to patient's known adrenal lesion. 3. Pancreas not well seen. Franky Lee MD Objective Remarks GENERAL: Awake alert and oriented talkative and cooperative 3 SKIN: Warm and dry. HEAD: Atraumatic. Normocephalic. EYES: Pupils equal and round. No scleral icterus. No injection or drainage. Extraocular muscles intact ENT: No nasal bleeding or discharge. Mucous membranes pink and moist. Tongue is midline NECK: Trachea midline. No JVD. Supple CARDIOVASCULAR: IRRegular rate and rhythm. S1-S2 no S3 or S4 RESPIRATORY: No accessory muscle use. Clear to auscultation. Breath sounds equal bilaterally. GASTROINTESTINAL: Abdomen soft, non-tender, nondistended. Hepatic and splenic margins not palpable. MUSCULOSKELETAL: Extremities without clubbing, cyanosis, or edema. No obvious deformities. NEUROLOGICAL: Awake and alert. No obvious cranial nerve deficits. Motor grossly within normal limits. 4 out of 5 muscle strength in the arms and legs. Normal speech. PSYCHIATRIC: Appropriate mood and affect; insight and judgment normal. Medications and IVs Current Medications Sodium Chloride (NS Flush) 2 ml UNSCH PRN IVF FLUSH AFTER USING IV ACCESS Last administered on 08/29/17at 21:48; Start 08/26/17 at 06:45 Furosemide (Lasix Inj) 40 mg ONCE ONCE IV PUSH ; Start 08/26/17 at 07:15; Stop 08/26/17 at 07:16; Status DC Potassium Chloride (KCl) 60 meq ONCE ONCE PO Last administered on 08/26/17at 08 :19; Start 08/26/17 at 08:15; Stop 08/26/17 at 08:16; Status DC Famotidine (Pepcid) 10 mg Q12HR PO ; Start 08/26/17 at 09:00; Stop 08/26/17 at 09:29; Status DC Albuterol/ Ipratropium (Duoneb Neb) 1 ampule Q4HR NEB PRN INH WHEEZING; Start 08/26/17 at 09:00; Stop 08/28/17 at 13:19; Status DC Miscellaneous Information ([facility] Nursing Information) 1 Q361D XX ; Start at 09:00 Chlorhexidine Gluconate (Chlorhexidine 2% Cloth) 3 pack Taper DAILY@04 TOP ; Start 08/27/17 at 04:00; Stop 08/23/18 at 03:59 Chlorhexidine Gluconate (Chlorhexidine 2% Cloth) 3 pack UNSCH PRN TOP HYGIENIC CARE; Start 08/26/17 at 09:00 Pantoprazole Sodium (Protonix Inj) 40 mg Q12HR IV PUSH Last administered on at 08:57; Start 08/26/17 at 09:30 Amiodarone HCl (Cordarone) 200 mg DAILY PO Last administered on 08/26/17at 11:17 ; Start 08/26/17 at 09:30; Status Future Hold Budesonide/ Formoterol Fumarate (Symbicort 160-4.5 Mcg Inh) 1 puff Q12HR INH Last administered on 08/26/17at 21:21; Start 08/26/17 at 21:00 Clonazepam (KlonoPIN) 1 mg BID PO Last administered on 08/30/17at 08:57; Start 08/26/17 at 21:00 Metoprolol Tartrate (Lopressor) 25 mg BID PO Last administered on 08/30/17at 08: 58; Start 08/26/17 at 21:00 Potassium Chloride 100 ml @ 50 mls/hr Q2H IV ; Start 08/26/17 at 11:00; Stop at 14:59; Status DC Pregabalin (Lyrica) 75 mg BID PO Last administered on 08/30/17at 08:57; Start at 21:00 Tamsulosin HCl (Flomax) 0.4 mg HS PO Last administered on 08/29/17at 21:48; Start 08/26/17 at 21:00 Patient Own Medication PT OWN MED: RESTASIS OPTH (CYCLOSPORI... BID EACH EYE ; Start 08/26/17 at 11:30; Status Future Hold Oxycodone HCl (Roxicodone) 5 mg Q6H PRN PO pain 1-10 Last administered on at 06:35; Start 08/26/17 at 10:45 Gemfibrozil (Lopid) 600 mg BIDAC PO Last administered on 08/30/17at 08:57; Start 08/26/17 at 16:00 Dextrose (D50w (Vial) Inj) 50 ml UNSCH PRN IV PUSH HYPOGLYCEMIA-SEE COMMENTS; Start 08/26/17 at 12:45 Glucagon (Glucagon Inj) 1 mg UNSCH PRN OTHER HYPOGLYCEMIA-SEE COMMENTS; Start 08/26/17 at 12:45 Insulin Aspart (NovoLOG SUPPLEMENTAL SCALE) 1 ACHS SLIDING SCALE SQ Last administered on 08/29/17at 08:14; Start 08/26/17 at 17:00; Stop 08/29/17 at 10:18 ; Status DC Furosemide (Lasix Inj) 20 mg BID@09,18 IV PUSH Last administered on 08/30/17at 08:57; Start 08/26/17 at 18:00 Albuterol/ Ipratropium (Duoneb Neb) 1 ampule Q6HR WHILE AWAKE NEB NEB Last administered on 08/26/17at 20:50; Start 08/26/17 at 14:00; Stop 08/28/17 at 13:19 ; Status DC Insulin Detemir (Levemir Inj) 50 units BID SQ Last administered on 08/28/17at 09 :12; Start 08/26/17 at 21:00; Status Future Hold Hydromorphone HCl (Dilaudid Pf Inj) 0.5 mg Q6H PRN IV MOD TO SEVERE PAIN Last administered on 08/30/17at 08:58; Start 08/26/17 at 14:00 Potassium Chloride 100 ml @ 25 mls/hr NOW ONCE IV ; Start 08/26/17 at 16:45; Stop 08/26/17 at 20:44; Status Cancel Potassium Chloride 100 ml @ 50 mls/hr Q2H IV Last administered on 08/26/17at 19 :15; Start 08/26/17 at 17:00; Stop 08/26/17 at 20:59; Status DC Lactated Ringer's 1,000 ml @ 100 mls/hr Q10H IV Last administered on at 08:15; Start 08/26/17 at 21:00; Stop 08/29/17 at 10:18; Status DC Lorazepam (Ativan Inj) 2 mg STK-MED ONCE .ROUTE ; Start 08/27/17 at 03:49; Stop 08/27/17 at 03:50; Status DC Amiodarone HCl 450 mg/Dextrose 250 ml @ 33.33 mls/ hr TITRATE PRN IV Per Protocol Last administered on 08/27/17at 04:09; Start 08/27/17 at 04:00; Stop at 11:47; Status DC Potassium Chloride 100 ml @ 25 mls/hr ONCE ONCE IV Last administered on at 04:00; Start 08/27/17 at 04:00; Stop 08/27/17 at 07:59; Status DC Lorazepam (Ativan Inj) 1 mg NOW ONCE IV PUSH Last administered on 08/27/17at 04 :08; Start 08/27/17 at 04:00; Stop 08/27/17 at 04:01; Status DC Potassium Chloride 200 ml @ As Directed STK-MED ONCE .ROUTE ; Start 08/27/17 at 03:59; Stop 08/27/17 at 04:00; Status DC Amiodarone HCl 450 mg/Sodium Chloride 250 ml @ 33.33 mls/ hr TITRATE PRN IV Per Protocol Last administered on 08/27/17at 12:05; Start 08/27/17 at 12:00; Stop 08/27/17 at 18:37; Status DC Temazepam (Restoril) 15 mg HS PRN PO insomnia Last administered on 08/29/17at 21 :48; Start 08/27/17 at 17:15 Amiodarone HCl (Cordarone) 400 mg DAILY PO Last administered on 08/30/17at 08:58 ; Start 08/28/17 at 06:00 Amiodarone HCl 450 mg/Sodium Chloride 250 ml @ 33.33 mls/ hr TITRATE PRN IV Per Protocol; Start 08/27/17 at 18:45; Stop 08/28/17 at 04:00; Status DC Spironolactone (Aldactone) 25 mg BID@09,18 PO Last administered on 08/30/17at 08 :57; Start 08/28/17 at 09:00 Potassium Chloride 100 ml @ 100 mls/hr Q1H IV Last administered on 08/28/17at 07:27; Start 08/28/17 at 00:00; Stop 08/28/17 at 05:59; Status DC Ipratropium [place] (Atrovent Neb) 0.5 mg Q4HR NEB NEB Last administered on at 07:45; Start 08/28/17 at 16:00 Ipratropium [place] (Atrovent Neb) 0.5 mg Q2HR NEB PRN NEB SHORTNESS OF BREATH ; Start 08/28/17 at 13:30 Potassium Chloride 100 ml @ 100 mls/hr Q1H IV Last administered on 08/29/17at 11:00; Start 08/29/17 at 06:00; Stop 08/29/17 at 11:59; Status DC Potassium Chloride (KCl) 30 meq Q12HR PO Last administered on 08/30/17at 08:57; Start 08/29/17 at 09:00; Stop 08/30/17 at 21:01 Insulin Aspart (NovoLOG SUPPLEMENTAL SCALE) 1 Q6HR SQ Last administered on 08/30at 06:35; Start 08/29/17 at 12:00 Piperacillin Sod/ Tazobactam Sod 50 ml @ 100 mls/hr Q6H IV Last administered on 08/30/17at 06:22; Start 08/29/17 at 12:00 A/P Assessment and Plan 1. Aborted V. fib status post defibrillation 3 with AICD 2. COPD, PETRONA 3. KONG on CKD 4. Severe hypokalemia 5. Pancreatitis/ABDOMINAL PAIN- NEEDS EGD 6. Anemia 7. Atrial fibrillation- CONSULT CARDIO 8. Ischemic cardiomyopathy with reduced EF CONSULT CARDIO 9. COPD on home O2 -does not appear to be exacerbated 10. Diabetes mellitus 11. History of CVA 12. Chronic back pain 13. Probable PETRONA/OHS 14. Chronic hepatitis C 15 Abdominal aortic aneurysm measuring 3.7 x 3.3 cm Plan Neuro: Awake and alert Pulm: Continue with oxygen keep sats >92% Bronchodilators ( DuoNeb, Symbicort) Check CXR, ABG CV: Continue with Amio drip monitor HR and BP keep MAP>65mmHg On Lopressor 25mg BID, Aldactone 25mg BID, Amiodarone 400mg daily Cards is following, echo showed EF 40-45% Patient received aspirin in the emergency room. Due to concern for GI bleed and patient being a Confucianist we will hold off additional anticoagulation : Monitor renal function, I/O's, avoid nephrotoxins Cr: 3.1 with UOP: 2L overnight Renal is following- Dr. Coyle On Lasix 20mg BID, d/c IVF GI: Keep NPO, Serial lipase ( trending down) Monitor LFT;s, Reactive Hep C IgG ab US Liver: S/p cholecystectomy. Area of increased echogenicity right renal fossa can be related to patient's known adrenal lesion Pancreas not well seen. GI is following ID: Place on empiric abx ( Zosyn) Monitor for signs of infections ( Fever, WBC) 08/26 BC: NGTD, check sputum cx Heme: Monitor CBC, Coumadin held due to concern for GI bleed Endo: SSI for glycemic control, GI prophylaxis addressed above, DVT prophylaxis with SCDs Per Dr. Brenner- patient is Confucianist and he refuses blood transfusion. Code status: Full code Palliative care is following RECONSULT CARDIO DR COSTELLO Discharge Planning PENDING CARDIO AND PULM AND GI CLEARANCE Lauri Mera DO August 30, 2017 09:59
--- NOTE | 2017-08-30 10:19 | HHI.NPPN ---
Subjective General Problems: Anemia Renal Failure: Chronic, Stage IV History of Present Illness This is a 57-year-old male known to me from before with past medical history of chronic kidney disease with single kidney, hypertension, chronic anemia, hyperlipidemia, diabetes mellitus, ischemic heart disease, congestive heart failure, chronic obstructive pulmonary disease, hepatitis C, history of cerebrovascular accident, [facility] of chest pain and arrhythmia. Nephrology was called to see the patient for the chronic kidney disease. He has single kidney, has been following with me. The patient has advanced stage IV renal disease and was on dialysis 3 months ago when he was admitted at [facility] mainly because of the fluid, but his GFR has been staying close to 16-18, and he is getting close for starting the dialysis. The patient has been taking diuretics including Bumex and metolazone at home and here, it was found that hiscreatinine was 3.9, and the potassium was low, 2.5. The patient was supposed to take the potassium with the diuretic and he ran out of it and the pharmacy did not deliver it, so he was trying to eat more bananas. The patient noticed that his AICD fired 3 times at home. Hedenies any vomiting. Occasionally, he has nausea. There is no dysuria or hematuria, but he did notice that his urine output is slightly decreased. Additional Remarks Patient is alert, sitting on side of chair. Shortness of breath improved and edema is minimal. Creatinine stable at 3.11 today. (Nasreen Colmenares) Review of Systems Respiratory Lungs: SOB Respiratory Remarks improving. (Nasreen Colmenares) Objective Data Data Vital Signs Date Time Temp Pulse Resp B/P (MAP) Pulse Ox O2 Delivery O2 Flow Rate FiO2 08/30/17 08:30 94 Nasal Cannula 4.00 08/30/17 08:30 97.6 74 18 94/54 (67) 94 08/30/17 07:46 93 Nasal Cannula 4.00 08/30/17 04:49 92 Nasal Cannula 4.00 08/30/17 04:48 98.0 64 117/68 (84) 92 08/30/17 03:00 56 08/30/17 02:00 60 08/30/17 01:00 60 08/30/17 00:20 18 08/30/17 00:00 56 08/29/17 23:09 18 08/29/17 23:00 66 08/29/17 23:00 95 Nasal Cannula 5.00 08/29/17 23:00 98.5 60 90/55 (67) 95 08/29/17 22:00 66 08/29/17 21:00 64 08/29/17 20:29 94 Nasal Cannula 5.00 08/29/17 20:00 66 08/29/17 19:00 68 08/29/17 19:00 95 Nasal Cannula 5.00 08/29/17 19:00 98.4 69 121/71 (88) 95 08/29/17 17:01 64 08/29/17 16:00 62 08/29/17 15:15 93 Nasal Cannula 3.00 08/29/17 15:15 98.1 109 16 122/72 (89) 93 08/29/17 15:00 61 08/29/17 14:00 56 08/29/17 13:01 62 08/29/17 12:00 64 08/29/17 11:45 92 Nasal Cannula 3.00 08/29/17 11:45 98.2 78 18 110/67 (81) 92 08/29/17 11:00 63 (Nasreen Colmenares) -: 08/30/17 0538 08/30/17 0538 Imaging Last Impressions Chest X-Ray 08/29/17 0000 Signed Impressions: Service Date/Time: Tuesday, August 29, 2017 10:49 - CONCLUSION: Stable compensated cardiomegaly without failure Lauri Julian MD FACR Abdomen/Pelvis CT 08/28/17 0000 Signed Impressions: Service Date/Time: Monday, August 28, 2017 15:31 - CONCLUSION: Bilateral lower lobe air bronchogram formation in consolidative changes with tiny right effusion. Diverticulosis without diverticulitis. Abdominal aortic aneurysm. Bilateral adrenal nodules are again seen. Fat-containing umbilical hernia. Farhan Ríos MD Liver Ultrasound 08/26/17 0000 Signed Impressions: Service Date/Time: Saturday, August 26, 2017 19:57 - CONCLUSION: 1. Status post cholecystectomy. 2. Area of increased echogenicity right renal fossa can be related to patient's known adrenal lesion. 3. Pancreas not well seen. Franky Lee MD Tubes & Lines: Ordoñez (Nasreen Colmenares) Physical Exam General Appearance: No Acute Distress, Anxious, Obese (Nasreen Colmenares) Eyes Eye Exam: Pupils Equal (Nasreen Colmenares) Throat Throat Exam: Oral Mucosa [place] & Moist (Nasreen Colmenares) Pulmonary Resp Exam: Clear Bilaterally, Breath Sounds Equal, No Distress (Nasreen Colmenares) Cardiology CV Exam: Regular, Normal Sinus Rhythm (Nasreen Colmenares) Gastrointestinal/Abdomen GI Exam: Soft, Non-Tender, Bowel Sounds Present, Distended (Nasreen Colmenares) Genitourinary Exam: Flank Non-Tender (Nasreen Colmenares) Integumentary Skin Exam: Clear, Warm (Nasreen Colmenares) Neurologic Neuro Exam: Alert, Awake (Nasreen Colmenares) Psychiatric Psych Exam: Appropriate Responses (Nasreen Colmenares) Assessment/Plan Discussed Condition With: Patient Assessment Summary: KONG/Acute Renal Failure, CKD Stage IV Electrolyte Assessment: Hypokalemia Problem List: (1) Ventricular fibrillation ICD Codes: I49.01 - Ventricular fibrillation Status: Acute (2) GI bleed ICD Codes: K92.2 - Gastrointestinal hemorrhage, unspecified Status: Acute Plan Patient has advance stage 4 chronic kidney disease, has off and on acute kidney injury. Has single kidney. Edema is better, Creatinine stable at 3.11 from 3.03 today. Potassium is normal at 3.9 today on scheduled replacement. Continue Lasix and Aldactone. Will remove indwelling ordoñez catheter need to still maintain accurate I+O's Follow the urine out put and BMP. (Nasreen Colmenares) Plan Patient seen and examined, agree with above. Creatinine is stable, need to be compliant with fluid intake. (Larry Coyle MD) Problem Qualifiers (1) GI bleed: Qualified Codes: K92.2 - Gastrointestinal hemorrhage, unspecified Nasreen Colmenares August 30, 2017 10:19 Larry Coyle MD September 03, 2017 19:07
--- NOTE | 2017-08-30 11:14 | HHI.GIFU ---
Subjective Remarks Pt OOB to chair. No further black tarry stool. Eager for EGD and colonoscopy. Expresses desire to get better. Tolerating diet. Lingering epigastric pain. (Meghana Thompson) Objective Vitals I&O Vital Signs Date Time Temp Pulse Resp B/P (MAP) Pulse Ox O2 Delivery O2 Flow Rate FiO2 08/30/17 08:30 94 Nasal Cannula 4.00 08/30/17 08:30 97.6 74 18 94/54 (67) 94 08/30/17 07:46 93 Nasal Cannula 4.00 08/30/17 04:49 92 Nasal Cannula 4.00 08/30/17 04:48 98.0 64 117/68 (84) 92 08/30/17 03:00 56 08/30/17 02:00 60 08/30/17 01:00 60 08/30/17 00:20 18 08/30/17 00:00 56 08/29/17 23:09 18 08/29/17 23:00 66 08/29/17 23:00 95 Nasal Cannula 5.00 08/29/17 23:00 98.5 60 90/55 (67) 95 08/29/17 22:00 66 08/29/17 21:00 64 08/29/17 20:29 94 Nasal Cannula 5.00 08/29/17 20:00 66 08/29/17 19:00 68 08/29/17 19:00 95 Nasal Cannula 5.00 08/29/17 19:00 98.4 69 121/71 (88) 95 08/29/17 17:01 64 08/29/17 16:00 62 08/29/17 15:15 93 Nasal Cannula 3.00 08/29/17 15:15 98.1 109 16 122/72 (89) 93 08/29/17 15:00 61 08/29/17 14:00 56 08/29/17 13:01 62 08/29/17 12:00 64 08/29/17 11:45 92 Nasal Cannula 3.00 08/29/17 11:45 98.2 78 18 110/67 (81) 92 I/O 08/29/17 08/29/17 08/29/17 08/30/17 08/30/17 08/30/17 07:00 15:00 23:00 07:00 15:00 23:00 Intake Total 1990 ml 1180 ml 480 ml 1060 ml Output Total 2000 ml 1300 ml 1650 ml 1900 ml Balance -10 ml -120 ml -1170 ml -840 ml Intake Oral 720 ml 480 ml 480 ml 960 ml IV Total 1270 ml 700 ml 100 ml Output Urine Total 2000 ml 1300 ml 1650 ml 1900 ml # Bowel Movements 0 0 0 Laboratory Laboratory Tests Test 08/29/17 12:12 08/30/17 05:38 Blood Gas Puncture Site LT RADIAL Blood Gas Patient Temperature 98.6 Blood Gas HCO3 32 Blood Gas Base Excess 8.0 Blood Gas Oxygen Saturation 90 Arterial Blood pH 7.45 Arterial Blood Partial Pressure CO2 48 Arterial Blood Partial Pressure O2 68 Arterial Blood Oxygen Content 16.1 Arterial Blood Carboxyhemoglobin 1.2 Arterial Blood Methemoglobin 2.2 Blood Gas Hemoglobin 12.8 Oxygen Delivery Device NASAL CANNULA Blood Gas Liter Flow 5 White Blood Count 10.3 Red Blood Count 3.69 Hemoglobin 11.2 Hematocrit 33.2 Mean Corpuscular Volume 89.9 Mean Corpuscular Hemoglobin 30.3 Mean Corpuscular Hemoglobin Concent 33.7 Red Cell Distribution Width 14.8 Platelet Count 265 Mean Platelet Volume 8.1 Neutrophils (%) (Auto) 39.7 Lymphocytes (%) (Auto) 46.8 Monocytes (%) (Auto) 8.4 Eosinophils (%) (Auto) 4.2 Basophils (%) (Auto) 0.9 Neutrophils # (Auto) 4.1 Lymphocytes # (Auto) 4.8 Monocytes # (Auto) 0.9 Eosinophils # (Auto) 0.4 Basophils # (Auto) 0.1 CBC Comment DIFF FINAL Differential Comment Blood Urea Nitrogen 95 Creatinine 3.11 Random Glucose 189 Total Protein 7.3 Albumin 3.0 Calcium Level 9.3 Alkaline Phosphatase 104 Aspartate Amino Transf (AST/SGOT) 58 Alanine Aminotransferase (ALT/SGPT) 52 Total Bilirubin 0.4 Sodium Level 137 Potassium Level 3.9 Chloride Level 93 Carbon Dioxide Level 30.9 Anion Gap 13 Estimat Glomerular Filtration Rate 21 Lipase 604 Date/Time Source Procedure Growth Status 08/26/17 13:48 Blood Peripheral Aerobic Blood Culture - Preliminary NO GROWTH IN 4 DAYS Resulted 08/26/17 13:48 Blood Peripheral Anaerobic Blood Culture - Preliminary NO GROWTH IN 4 DAYS Resulted Imaging Last Impressions Chest X-Ray 08/29/17 0000 Signed Impressions: Service Date/Time: Tuesday, August 29, 2017 10:49 - CONCLUSION: Stable compensated cardiomegaly without failure Lauri Julian MD FACR Abdomen/Pelvis CT 08/28/17 0000 Signed Impressions: Service Date/Time: Monday, August 28, 2017 15:31 - CONCLUSION: Bilateral lower lobe air bronchogram formation in consolidative changes with tiny right effusion. Diverticulosis without diverticulitis. Abdominal aortic aneurysm. Bilateral adrenal nodules are again seen. Fat-containing umbilical hernia. Farhan Ríos MD Liver Ultrasound 08/26/17 0000 Signed Impressions: Service Date/Time: Saturday, August 26, 2017 19:57 - CONCLUSION: 1. Status post cholecystectomy. 2. Area of increased echogenicity right renal fossa can be related to patient's known adrenal lesion. 3. Pancreas not well seen. Franky Lee MD Physical Exam HEENT: PERRL; normocephalic; atraumatic; no jaundice. CHEST: diminished. CARDIAC: RRR ABDOMEN: Soft,obese, mild epigastric TTP, bowel sounds are present in all four quadrants. EXTREMITIES: No clubbing, cyanosis, or edema. SKIN: Normal; no rash; no jaundice. TUBER HELPER: No focal deficits; alert and oriented times three. (Meghana Thompson [facility]) Assessment and Plan Plan Assessment: - Anemia with Hemoccult positive stools Pt complaining of black, tarry stools for over a week, because of this his Coumadin was DCd a week ago. H/H has been stable since admission, not received any PRBCs Denies history of GIB, ETOH, smoking. Last EGD approx 6 years ago and he states normal exam - BRBPR- states only on the toilet paper when he wipes. Last colonoscopy approx 6 years ago and he thinks possibly some colon polyps. - Pancreatitis- Nausea and vomiting for the past 2-3 days, denies ETOH, history of pancreatitis. Unknown family history, pt was adopted. S/P cholecystectomy Lipase trending down, currently 1093 - History of hepatitis C- Labs from 2012 reveal a positive Hepatitis C antibody and elevated quant, no genotype done, [facility] would have to lose 60 [facility] before he was treated. Denies tattoos, history of IV drug use, high risk sexual behaviors. Did have blood transfusions in 1970 LFTs currently: AST-106 ALT-68 Alk phos-114 T bili-0.3 Hepatitis panel pending US liver (08/26) --> . Status post cholecystectomy. Area of increased echogenicity right renal fossa can be related to patient's known adrenal lesion. Pancreas not well seen. - V-tach, S/P AICD firing, currently on Amiodarone gtt- according to cardiology notes, intervention on hold due to heme (+) stools - A-fib on chronic anticoagulation with Coumadin, DCd a week ago Of note, pt is a Jehovas witness and does not accept blood products 08/28/17 + nausea, abd pain in lower quadrants. lipase trending down. had runs vtach over night. hcv quant and genotype pending. HH dropped from 12 to 10.9 but no obvious bleeding. CT pending. LFTs trending down palliative care now following, goals aggressive. 08/29/17 HH is stable. Had some black tarry stool and then brown color stool this morning. LFTs trending down. Lipase trending down, 733 today and tolerating diet. WBC now WNL. CT showed diverticulosis, bronchogram, AAA. 08/30/17 no further melanotic stool. HH improving. WBC WNL. Lipase decreasing. tolerating diet. hcv labs pendign. pulmonology now following. cardiac consult pending. Pt asking to have EGD colonoscopy as inpt Plan: heart healthy diet EGD when stable and cleared by cardiology, tentatively Sunday await Hepatitis C genotype and quant Monitor H/H Transfuse as needed Protonix IVF await IgG4, PAYAM Pt has been seen and examined by myself and Dr. Downs and this note is written on her behalf (Meghana Thompson) Physician Comments agree (Lashon Downs MD) Meghana Thompson August 30, 2017 11:14 Lashon Downs MD August 30, 2017 16:01
--- NOTE | 2017-08-30 14:46 | OTSOAPIP ---
TIME SESSION COMPLETED: 141 TREATMENT TIME: 8 MINS. CHART REVIEWED. PATIENT FOUND IN BED, EDUCATED ON OCCUPATIONAL THERAPY INTERVENTION. PATIENT REPORTED HAVING KNOWLEDGE OF OUR SERVICES AND FEELS HE DOES NOT NEED OCCUPATIONAL THERAPY. PATIENT REPORTED HAVING A WHEELCHAIR, WALKER, SHOWER CHAIR, BEDSIDE COMMODE AND GRAB BARS. PATIENT ALSO REPORTED KNOWLEDGE OF LOWER BODY ADAPTIVE EQUIPMENT HOWEVER DOES NOT LIKE TO USE THEM. PATIENT WOULD LIKE TO CONTINUE PHYSICAL THERAPY SERVICES. PLAN: OCCUPATIONAL THERAPY SIGNING OFF PER PATIENTS REQUEST. INTERDISCIPLINARY COMMUNICATION: PATIENTS NURSE "JACKY" WAS INFORMED OF THE ABOVE. Therapist: DIGNA DOWD/Jenna Signature on file
--- NOTE | 2017-08-30 18:23 | PD.CARD.PN ---
Subjective Subjective Remarks feeling better Objective Medications Current Medications Medications (Trade) Dose Ordered Sig/Lito Route Start Time Stop Time Status Last Admin (NS Flush) 2 ml UNSCH PRN IVF 08/26/17 06:45 08/29/17 21:48 ([facility]) 1 Q361D XX 08/26/17 09:00 (Chlorhexidine 2% Cloth) 3 pack Taper DAILY@04 TOP 08/27/17 04:00 08/23/18 03:59 (Chlorhexidine 2% Cloth) 3 pack UNSCH PRN TOP 08/26/17 09:00 (Protonix Inj) 40 mg Q12HR IV PUSH 08/26/17 09:30 08/30/17 08:57 (Cordarone) 200 mg DAILY PO 08/26/17 09:30 Future Hold 08/26/17 11:17 (Symbicort 160-4.5 Mcg Inh) 1 puff Q12HR INH 08/26/17 21:00 08/26/17 21:21 (KlonoPIN) 1 mg BID PO 08/26/17 21:00 08/30/17 08:57 (Lopressor) 25 mg BID PO 08/26/17 21:00 08/30/17 08:58 (Lyrica) 75 mg BID PO 08/26/17 21:00 08/30/17 08:57 (Flomax) 0.4 mg HS PO 08/26/17 21:00 08/29/17 21:48 Patient Own Medication PT OWN MED: RESTASIS OPTH (CYCLOSPORI... BID EACH EYE 08/26/17 11:30 Future Hold (Roxicodone) 5 mg Q6H PRN PO 08/26/17 10:45 08/30/17 12:16 (Lopid) 600 mg BIDAC PO 08/26/17 16:00 08/30/17 15:13 (D50w (Vial) Inj) 50 ml UNSCH PRN IV PUSH 08/26/17 12:45 (Glucagon Inj) 1 mg UNSCH PRN OTHER 08/26/17 12:45 (Lasix Inj) 20 mg BID@18 IV PUSH 08/26/17 18:00 08/30/17 17:21 (Levemir Inj) 50 units BID SQ 08/26/17 21:00 Future Hold 08/28/17 09:12 (Dilaudid Pf Inj) 0.5 mg Q6H PRN IV 08/26/17 14:00 08/30/17 15:13 (Restoril) 15 mg HS PRN PO 08/27/17 17:15 08/29/17 21:48 (Cordarone) 400 mg DAILY PO 08/28/17 06:00 08/30/17 08:58 (Aldactone) 25 mg BID@,18 PO 08/28/17 09:00 08/30/17 17:20 (Atrovent Neb) 0.5 mg Q4HR NEB NEB 08/28/17 16:00 08/30/17 16:11 (Atrovent Neb) 0.5 mg Q2HR NEB PRN NEB 08/28/17 13:30 (KCl) 30 meq Q12HR PO 08/29/17 09:00 08/30/17 21:01 08/30/17 08:57 (NovoLOG SUPPLEMENTAL SCALE) 1 Q6HR SQ 08/29/17 12:00 08/30/17 17:04 Piperacillin Sod/ Tazobactam Sod 50 ml @ 100 mls/hr Q6H IV 08/29/17 12:00 08/30/17 17:19 Vital Signs / I&O Vital Signs Date Time Temp Pulse Resp B/P (MAP) Pulse Ox O2 Delivery O2 Flow Rate FiO2 08/30/17 17:01 61 08/30/17 16:13 92 Nasal Cannula 3.00 08/30/17 16:01 58 08/30/17 15:45 97.7 59 18 102/64 (77) 96 08/30/17 15:45 96 Nasal Cannula 4.00 08/30/17 15:01 55 08/30/17 14:01 58 08/30/17 13:00 62 08/30/17 12:00 62 08/30/17 11:39 95 Nasal Cannula 3.00 08/30/17 11:01 62 08/30/17 11:01 97.7 61 18 103/68 (80) 93 08/30/17 11:01 93 Nasal Cannula 4.00 08/30/17 10:00 60 08/30/17 09:00 66 08/30/17 08:30 94 Nasal Cannula 4.00 08/30/17 08:30 97.6 74 18 94/54 (67) 94 08/30/17 08:00 68 08/30/17 07:46 93 Nasal Cannula 4.00 08/30/17 07:00 62 08/30/17 04:49 92 Nasal Cannula 4.00 08/30/17 04:48 98.0 64 117/68 (84) 92 08/30/17 03:00 56 08/30/17 02:00 60 08/30/17 01:00 60 08/30/17 00:20 18 08/30/17 00:00 56 08/29/17 23:09 18 08/29/17 23:00 66 08/29/17 23:00 95 Nasal Cannula 5.00 08/29/17 23:00 98.5 60 90/55 (67) 95 08/29/17 22:00 66 08/29/17 21:00 64 08/29/17 20:29 94 Nasal Cannula 5.00 08/29/17 20:00 66 08/29/17 19:00 68 08/29/17 19:00 95 Nasal Cannula 5.00 08/29/17 19:00 98.4 69 121/71 (88) 95 I/O 08/29/17 08/29/17 08/29/17 08/30/17 08/30/17 08/30/17 07:00 15:00 23:00 07:00 15:00 23:00 Intake Total 1990 ml 1180 ml 480 ml 1060 ml 50 ml 1440 ml Output Total 2000 ml 1300 ml 1650 ml 1900 ml 1625 ml Balance -10 ml -120 ml -1170 ml -840 ml 50 ml -185 ml Intake Oral 720 ml 480 ml 480 ml 960 ml 1440 ml IV Total 1270 ml 700 ml 100 ml 50 ml Output Urine Total 2000 ml 1300 ml 1650 ml 1900 ml 1625 ml # Voids 1 # Bowel Movements 0 0 0 0 Physical Exam lung clear heart s1s2 abdomen obese ext mild edema Laboratory Laboratory Tests Test 08/30/17 05:38 White Blood Count 10.3 TH/MM3 Red Blood Count 3.69 MIL/MM3 Hemoglobin 11.2 GM/DL Hematocrit 33.2 % Mean Corpuscular Volume 89.9 FL Mean Corpuscular Hemoglobin 30.3 PG Mean Corpuscular Hemoglobin Concent 33.7 % Red Cell Distribution Width 14.8 % Platelet Count 265 TH/MM3 Mean Platelet Volume 8.1 FL Neutrophils (%) (Auto) 39.7 % Lymphocytes (%) (Auto) 46.8 % Monocytes (%) (Auto) 8.4 % Eosinophils (%) (Auto) 4.2 % Basophils (%) (Auto) 0.9 % Neutrophils # (Auto) 4.1 TH/MM3 Lymphocytes # (Auto) 4.8 TH/MM3 Monocytes # (Auto) 0.9 TH/MM3 Eosinophils # (Auto) 0.4 TH/MM3 Basophils # (Auto) 0.1 TH/MM3 CBC Comment DIFF FINAL Differential Comment Blood Urea Nitrogen 95 MG/DL Creatinine 3.11 MG/DL Random Glucose 189 MG/DL Total Protein 7.3 GM/DL Albumin 3.0 GM/DL Calcium Level 9.3 MG/DL Alkaline Phosphatase 104 U/L Aspartate Amino Transf (AST/SGOT) 58 U/L Alanine Aminotransferase (ALT/SGPT) 52 U/L Total Bilirubin 0.4 MG/DL Sodium Level 137 MEQ/L Potassium Level 3.9 MEQ/L Chloride Level 93 MEQ/L Carbon Dioxide Level 30.9 MEQ/L Anion Gap 13 MEQ/L Estimat Glomerular Filtration Rate 21 ML/MIN Lipase 604 U/L Assessment and Plan Assessment and Plan patient with runs of v tach severe cardiomyopathy considered high risk for the procedure at least at this time with unstable rhythm and episodes of runs of v tach Caterina Hernandez MD August 30, 2017 18:22
--- NOTE | 2017-08-30 19:08 | HHI.PR ---
Subjective Remarks 57 YOWM with COPD,PETRONA,Severe CMP has runs of Vtach has AICD Breathing better on NC No CP Objective Vital Signs Vital Signs Date Time Temp Pulse Resp B/P (MAP) Pulse Ox O2 Delivery O2 Flow Rate FiO2 08/30/17 18:01 60 08/30/17 17:01 61 08/30/17 16:13 92 Nasal Cannula 3.00 08/30/17 16:01 58 08/30/17 15:45 97.7 59 18 102/64 (77) 96 08/30/17 15:45 96 Nasal Cannula 4.00 08/30/17 15:01 55 08/30/17 14:01 58 08/30/17 13:00 62 08/30/17 12:00 62 08/30/17 11:39 95 Nasal Cannula 3.00 08/30/17 11:01 62 08/30/17 11:01 97.7 61 18 103/68 (80) 93 08/30/17 11:01 93 Nasal Cannula 4.00 08/30/17 10:00 60 08/30/17 09:00 66 08/30/17 08:30 94 Nasal Cannula 4.00 08/30/17 08:30 97.6 74 18 94/54 (67) 94 08/30/17 08:00 68 08/30/17 07:46 93 Nasal Cannula 4.00 08/30/17 07:00 62 08/30/17 04:49 92 Nasal Cannula 4.00 08/30/17 04:48 98.0 64 117/68 (84) 92 08/30/17 03:00 56 08/30/17 02:00 60 08/30/17 01:00 60 08/30/17 00:20 18 08/30/17 00:00 56 08/29/17 23:09 18 08/29/17 23:00 66 08/29/17 23:00 95 Nasal Cannula 5.00 08/29/17 23:00 98.5 60 90/55 (67) 95 08/29/17 22:00 66 08/29/17 21:00 64 08/29/17 20:29 94 Nasal Cannula 5.00 08/29/17 20:00 66 I/O 08/29/17 08/29/17 08/29/17 08/30/17 08/30/17 08/30/17 07:00 15:00 23:00 07:00 15:00 23:00 Intake Total 1990 ml 1180 ml 480 ml 1060 ml 50 ml 1440 ml Output Total 2000 ml 1300 ml 1650 ml 1900 ml 1625 ml Balance -10 ml -120 ml -1170 ml -840 ml 50 ml -185 ml Intake Oral 720 ml 480 ml 480 ml 960 ml 1440 ml IV Total 1270 ml 700 ml 100 ml 50 ml Output Urine Total 2000 ml 1300 ml 1650 ml 1900 ml 1625 ml # Voids 1 # Bowel Movements 0 0 0 0 Result Diagram: 08/30/1753708/30/17537 Objective Remarks GENERAL: WBWN WM,NAD SKIN: Warm and dry. HEAD: Normocephalic. EYES: No scleral icterus. No injection or drainage. NECK: Supple, trachea midline. No JVD or lymphadenopathy. CARDIOVASCULAR: Regular rate and rhythm without murmurs, gallops, or rubs. RESPIRATORY: Breath sounds equal bilaterally. No accessory muscle use. GASTROINTESTINAL: Abdomen soft, non-tender, nondistended. MUSCULOSKELETAL: No cyanosis, or edema. BACK: Nontender without obvious deformity. No CVA tenderness. A/P Assessment and Plan IMPRESSION: 1. Obstructive sleep apnea. 2. Hypercapnic respiratory insufficiency which is improved. 3. Renal insufficiency. 4. History of renal cell carcinoma, status post surgery. 5. Obstructive sleep apnea. 6. Coronary artery disease, status post stent placement. 7. AICD placement. PLAN: Aerosol nebs Supplement 02 Cont Abx Amiodarone po Will need sleep study as out pt. Trav Esteves MD August 30, 2017 19:08
[2017-08-30] MEDS: TAMSULOSIN HCL 0.4 MG CAP PO SCH (21:19)
[2017-08-30] MEDS: TEMAZEPAM 15 MG CAP PO PRN (21:29)
[2017-08-30 23:51] LABS: HCV RNA PCR IU/ML 994000 IU/mL (Not Detected)
[2017-08-31] VITALS (24 sets, daily range): BP systolic 89–128; BP diastolic 50–77; PULSE 55–70; RESP 16–18; TEMP 97.7–98.3; O2SAT 91–97
[2017-08-31] MEDS: PIPERACIL-TAZO 2.25 GM PREMIX 50 ML IV SCH ×4 (00:07→17:19)
[2017-08-31] MEDS: INSULIN ASPART SUPPLEMENTAL SCALE SQ SCH ×4 (00:08→17:26)
[2017-08-31] MEDS: RESP: IPRATROPIUM 0.5 MG/2.5 ML NEB NEB SCH ×6 (02:52→23:43)
[2017-08-31] MEDS: HYDROmorphone HCL PF 0.5 MG/0.5 ML SYRINGE IV PRN ×4 (03:36→21:10)
[2017-08-31] MEDS: CHLORHEXIDINE GLUCONATE 2 % 1 PACK (2 CLOTHS) TOP SCH (04:00)
[2017-08-31 05:13] LABS: AUTOMATED NEUTROPHIL # 4.5 TH/MM3 (1.8-7.7); BASOPHIL # 0.1 TH/MM3 (0-0.2); BASOPHIL % 1.3 % (0.0-2.0); EOSINOPHIL # 0.5 TH/MM3 (0-0.4); EOSINOPHIL % 4.9 % (0.0-4.0); HEMATOCRIT 32.9 % (39.0-51.0); HEMOGLOBIN 11.2 GM/DL (13.0-17.0); LYMPH % 41.7 % (9.0-44.0); LYMPHOCYTE # 4.4 TH/MM3 (1.0-4.8); MEAN CELL VOLUME 90.1 FL (80.0-100.0); MEAN CORPUSCULAR HEMOGLOBIN 30.7 PG (27.0-34.0); MEAN CORPUSCULAR HGB CONC 34.1 % (32.0-36.0); MEAN PLATELET VOLUME 8.1 FL (7.0-11.0); MONO % 9.1 % (0.0-8.0); PLATELET COUNT 278 TH/MM3 (150-450); RED BLOOD COUNT 3.66 MIL/MM3 (4.50-5.90); RED CELL DISTRIBUTION WIDTH 14.7 % (11.6-17.2); WHITE BLOOD COUNT 10.5 TH/MM3 (4.0-11.0)
[2017-08-31 05:37] LABS: ALBUMIN 3.1 GM/DL (3.4-5.0); ALT (GPT) 49 U/L (12-78); AST (GOT) 47 U/L (15-37); CHLORIDE 93 MEQ/L (98-107); CREATININE 3.64 MG/DL (0.60-1.30); GLOMERULAR FILTRATION RATE 17 ML/MIN (>89); GLUCOSE,RANDOM 184 MG/DL (74-106); SODIUM (NA) 136 MEQ/L (136-145)
[2017-08-31 05:45] LABS: ALKALINE PHOSPHATASE 101 U/L (45-117); BICARBONATE 30.4 MEQ/L (21.0-32.0); BLOOD UREA NITROGEN 99 MG/DL (7-18); PHOSPHORUS 4.9 MG/DL (2.5-4.9); TOTAL BILIRUBIN ADULT 0.3 MG/DL (0.2-1.0); TOTAL PROTEIN 7.4 GM/DL (6.4-8.2)
[2017-08-31] MEDS: GEMFIBROZIL 600 MG TAB PO SCH ×2 (08:03→15:39)
[2017-08-31] MEDS: METOPROLOL TARTRATE 25 MG TAB PO SCH ×2 (08:03→20:59)
[2017-08-31] MEDS: AMIODARONE 200 MG TAB PO SCH (08:03)
[2017-08-31] MEDS: PREGABALIN 75 MG CAP PO SCH ×2 (08:03→21:00)
[2017-08-31] MEDS: SPIRONOLACTONE 25 MG TAB PO SCH (08:04)
[2017-08-31] MEDS: clonazePAM 1 MG TAB PO SCH ×2 (08:04→21:01)
[2017-08-31] MEDS: FUROSEMIDE 20 MG/2 ML VIAL IV PUSH SCH (08:04)
[2017-08-31] MEDS: PANTOPRAZOLE SODIUM 40 MG VIAL IV PUSH SCH ×2 (08:04→21:00)
[2017-08-31] MEDS: BUDESONIDE-FORMOTEROL 160/4.5 MCG INHALER INH SCH ×2 (08:05→21:00)
--- NOTE | 2017-08-31 09:40 | HHI.PR ---
Subjective Remarks 57-year-old gentleman with past medical history remarkable for atrial fibrillation on chronic anticoagulation with Coumadin, CKD, recently required hemodialysis, last HD approximately 1 month ago, CAD, hypertension, hyperlipidemia, diabetes, CHF, status post AICD, COPD on home O2, hepatitis C, multiple CVAs in the past, obesity, now presents to emergency room for evaluation of chest pain. Over the last few days, patient intermittently described having chest pain associated with nausea, some vomiting and some abdominal discomfort. This morning, around 4 AM, patient woke up complaining of chest pain and defibrillator fired 2, therefore he called EMS. Patient denies any fever, chills, diarrhea, cough. Some shortness of breath with exertion. Of note, patient reports multiple black stools, therefore 3 days ago he stopped taking Coumadin. On ED arrival, patient was hemodynamically stable, still complaining of some chest pain. Pacer rep was called and he interrogated his device and found out that patient went into V. fib and he was shocked 3 times. Remarkable workup in ED showed a negative troponin, worsening creatinine , and severe hypokalemia with a potassium of 2.5. Hemoglobin was 12.4, but his stool was weakly positive for Hemoccult. Patient was also found to have elevated lipase. [facility] now consulted for ICU admission. Patient was seen in emergency room, he is awake, still complaining of some chest pain, pleuritic, worsening with deep breaths, reproducible by palpation over the sternum. His dyspnea is at baseline, denies any other complaints except chronic back pain. Nephrology and cardiology have been consulted. In ED patient was given 60 mEq of potassium. Her ED chart, patient expressed a desire to be a DO NOT RESUSCITATE. Order was placed in the chart. Patient is Confucianism and he absolutely refuses blood transfusion. 08/27 Patient reports left sided chest pain had 3 runs of Vtach overnight placed on Amio drip. Afebrile. 08/28 Patient is feeling better today. Afebrile. Renal function is improving with Cr: 3.10 from 3.65 08/29 Patient is on 5L oxygen awake and alert, Cr: 3.0 with UOP: 2L overnight. Afebrile. 08-30 TRANSFERRED TO OUR SERVICE TODAY CR IS STABLE AT [address] COSTELLO OF CARDIOLOGY FOR CLEARANCE DW RN AND PT 5-18 CR IS STILL IN THE 3S DW RN AND PT NOT CLEARED FOR PROCEDURE BY DR PRAVIN MONROY LABS Objective Vitals Vital Signs Date Time Temp Pulse Resp B/P (MAP) Pulse Ox O2 Delivery O2 Flow Rate FiO2 08/31/17 08:25 94 Nasal Cannula 3.00 08/31/17 08:01 97.9 65 18 104/68 (80) 94 08/31/17 08:01 94 Nasal Cannula 3.00 08/31/17 07:01 58 08/31/17 03:00 98.3 62 16 128/77 (94) 92 08/31/17 03:00 55 08/31/17 03:00 92 Nasal Cannula 3.00 08/30/17 23:00 98.5 61 18 110/71 (84) 94 08/30/17 23:00 61 08/30/17 23:00 94 Nasal Cannula 3.00 08/30/17 19:00 92 Nasal Cannula 3.00 08/30/17 19:00 98.7 64 18 101/67 (78) 92 08/30/17 19:00 60 08/30/17 18:01 60 08/30/17 17:01 61 08/30/17 16:13 92 Nasal Cannula 3.00 08/30/17 16:01 58 08/30/17 15:45 97.7 59 18 102/64 (77) 96 08/30/17 15:45 96 Nasal Cannula 4.00 08/30/17 15:01 55 08/30/17 14:01 58 08/30/17 13:00 62 08/30/17 12:00 62 08/30/17 11:39 95 Nasal Cannula 3.00 08/30/17 11:01 62 08/30/17 11:01 97.7 61 18 103/68 (80) 93 08/30/17 11:01 93 Nasal Cannula 4.00 08/30/17 10:00 60 I/O 08/30/17 08/30/17 08/30/17 08/31/17 08/31/17 08/31/17 07:00 15:00 23:00 07:00 15:00 23:00 Intake Total 1060 ml 50 ml 1440 ml 480 ml Output Total 1900 ml 1625 ml 1000 ml Balance -840 ml 50 ml -185 ml -520 ml Intake Oral 960 ml 1440 ml 480 ml IV Total 100 ml 50 ml Output Urine Total 1900 ml 1625 ml 1000 ml # Voids 1 # Bowel Movements 0 0 Result Diagram: 08/31/17 0425 08/31/17 0425 Other Results Laboratory Tests Test 08/28/17 17:05 08/29/17 04:07 08/29/17 12:12 08/30/17 05:38 Potassium Level 3.6 MEQ/L 3.2 MEQ/L 3.9 MEQ/L White Blood Count 9.4 TH/MM3 10.3 TH/MM3 Red Blood Count 3.61 MIL/MM3 3.69 MIL/MM3 Hemoglobin 10.9 GM/DL 11.2 GM/DL Hematocrit 32.3 % 33.2 % Mean Corpuscular Volume 89.5 FL 89.9 FL Mean Corpuscular Hemoglobin 30.3 PG 30.3 PG Mean Corpuscular Hemoglobin Concent 33.8 % 33.7 % Red Cell Distribution Width 14.6 % 14.8 % Platelet Count 273 TH/MM3 265 TH/MM3 Mean Platelet Volume 8.3 FL 8.1 FL Neutrophils (%) (Auto) 46.2 % 39.7 % Lymphocytes (%) (Auto) 41.2 % 46.8 % Monocytes (%) (Auto) 8.3 % 8.4 % Eosinophils (%) (Auto) 3.1 % 4.2 % Basophils (%) (Auto) 1.2 % 0.9 % Neutrophils # (Auto) 4.4 TH/MM3 4.1 TH/MM3 Lymphocytes # (Auto) 3.9 TH/MM3 4.8 TH/MM3 Monocytes # (Auto) 0.8 TH/MM3 0.9 TH/MM3 Eosinophils # (Auto) 0.3 TH/MM3 0.4 TH/MM3 Basophils # (Auto) 0.1 TH/MM3 0.1 TH/MM3 CBC Comment DIFF FINAL DIFF FINAL Differential Comment Blood Urea Nitrogen 105 MG/DL 95 MG/DL Creatinine 3.03 MG/DL 3.11 MG/DL Random Glucose 209 MG/DL 189 MG/DL Total Protein 6.9 GM/DL 7.3 GM/DL Albumin 3.0 GM/DL 3.0 GM/DL Calcium Level 9.1 MG/DL 9.3 MG/DL Alkaline Phosphatase 104 U/L 104 U/L Aspartate Amino Transf (AST/SGOT) 79 U/L 58 U/L Alanine Aminotransferase (ALT/SGPT) 58 U/L 52 U/L Total Bilirubin 0.3 MG/DL 0.4 MG/DL Sodium Level 138 MEQ/L 137 MEQ/L Chloride Level 95 MEQ/L 93 MEQ/L Carbon Dioxide Level 33.3 MEQ/L 30.9 MEQ/L Anion Gap 10 MEQ/L 13 MEQ/L Estimat Glomerular Filtration Rate 21 ML/MIN 21 ML/MIN Lipase 733 U/L 604 U/L Blood Gas Puncture Site LT RADIAL Blood Gas Patient Temperature 98.6 Blood Gas HCO3 32 mmol/L Blood Gas Base Excess 8.0 mmol/L Blood Gas Oxygen Saturation 90 % Arterial Blood pH 7.45 Arterial Blood Partial Pressure CO2 48 mmHg Arterial Blood Partial Pressure O2 68 mmHg Arterial Blood Oxygen Content 16.1 Vol % Arterial Blood Carboxyhemoglobin 1.2 % Arterial Blood Methemoglobin 2.2 % Blood Gas Hemoglobin 12.8 G/DL Oxygen Delivery Device NASAL CANNULA Blood Gas Liter Flow 5 L/M Test 08/31/17 04:25 White Blood Count 10.5 TH/MM3 Red Blood Count 3.66 MIL/MM3 Hemoglobin 11.2 GM/DL Hematocrit 32.9 % Mean Corpuscular Volume 90.1 FL Mean Corpuscular Hemoglobin 30.7 PG Mean Corpuscular Hemoglobin Concent 34.1 % Red Cell Distribution Width 14.7 % Platelet Count 278 TH/MM3 Mean Platelet Volume 8.1 FL Neutrophils (%) (Auto) 43.0 % Lymphocytes (%) (Auto) 41.7 % Monocytes (%) (Auto) 9.1 % Eosinophils (%) (Auto) 4.9 % Basophils (%) (Auto) 1.3 % Neutrophils # (Auto) 4.5 TH/MM3 Lymphocytes # (Auto) 4.4 TH/MM3 Monocytes # (Auto) 1.0 TH/MM3 Eosinophils # (Auto) 0.5 TH/MM3 Basophils # (Auto) 0.1 TH/MM3 CBC Comment DIFF FINAL Differential Comment Blood Urea Nitrogen 99 MG/DL Creatinine 3.64 MG/DL Random Glucose 184 MG/DL Total Protein 7.4 GM/DL Albumin 3.1 GM/DL Calcium Level 9.0 MG/DL Phosphorus Level 4.9 MG/DL Magnesium Level 2.0 MG/DL Alkaline Phosphatase 101 U/L Aspartate Amino Transf (AST/SGOT) 47 U/L Alanine Aminotransferase (ALT/SGPT) 49 U/L Total Bilirubin 0.3 MG/DL Sodium Level 136 MEQ/L Potassium Level 4.2 MEQ/L Chloride Level 93 MEQ/L Carbon Dioxide Level 30.4 MEQ/L Anion Gap 13 MEQ/L Estimat Glomerular Filtration Rate 17 ML/MIN Amylase Level 85 U/L Lipase 510 U/L Imaging Last Impressions Chest X-Ray 08/29/17 0000 Signed Impressions: Service Date/Time: Tuesday, August 29, 2017 10:49 - CONCLUSION: Stable compensated cardiomegaly without failure Lauri Julian MD FACR Abdomen/Pelvis CT 08/28/17 0000 Signed Impressions: Service Date/Time: Monday, August 28, 2017 15:31 - CONCLUSION: Bilateral lower lobe air bronchogram formation in consolidative changes with tiny right effusion. Diverticulosis without diverticulitis. Abdominal aortic aneurysm. Bilateral adrenal nodules are again seen. Fat-containing umbilical hernia. Farhan Ríos MD Liver Ultrasound 08/26/17 0000 Signed Impressions: Service Date/Time: Saturday, August 26, 2017 19:57 - CONCLUSION: 1. Status post cholecystectomy. 2. Area of increased echogenicity right renal fossa can be related to patient's known adrenal lesion. 3. Pancreas not well seen. Franky Lee MD Objective Remarks GENERAL: Awake alert and oriented talkative and cooperative 3 SKIN: Warm and dry. HEAD: Atraumatic. Normocephalic. EYES: Pupils equal and round. No scleral icterus. No injection or drainage. Extraocular muscles intact ENT: No nasal bleeding or discharge. Mucous membranes pink and moist. Tongue is midline NECK: Trachea midline. No JVD. Supple CARDIOVASCULAR: IRRegular rate and rhythm. S1-S2 no S3 or S4 RESPIRATORY: No accessory muscle use. Clear to auscultation. Breath sounds equal bilaterally. GASTROINTESTINAL: Abdomen soft, non-tender, nondistended. Hepatic and splenic margins not palpable. MUSCULOSKELETAL: Extremities without clubbing, cyanosis, or edema. No obvious deformities. NEUROLOGICAL: Awake and alert. No obvious cranial nerve deficits. Motor grossly within normal limits. 4 out of 5 muscle strength in the arms and legs. Normal speech. PSYCHIATRIC: Appropriate mood and affect; insight and judgment normal. Medications and IVs Current Medications Sodium Chloride (NS Flush) 2 ml UNSCH PRN IVF FLUSH AFTER USING IV ACCESS Last administered on 08/29/17at 21:48; Start 08/26/17 at 06:45 Furosemide (Lasix Inj) 40 mg ONCE ONCE IV PUSH ; Start 08/26/17 at 07:15; Stop 08/26/17 at 07:16; Status DC Potassium Chloride (KCl) 60 meq ONCE ONCE PO Last administered on 08/26/17at 08 :19; Start 08/26/17 at 08:15; Stop 08/26/17 at 08:16; Status DC Famotidine (Pepcid) 10 mg Q12HR PO ; Start 08/26/17 at 09:00; Stop 08/26/17 at 09:29; Status DC Albuterol/ Ipratropium (Duoneb Neb) 1 ampule Q4HR NEB PRN INH WHEEZING; Start 08/26/17 at 09:00; Stop 08/28/17 at 13:19; Status DC Miscellaneous Information ([facility] [place] Nursing Information) 1 Q361D XX ; Start at 09:00 Chlorhexidine Gluconate (Chlorhexidine 2% Cloth) 3 pack Taper DAILY@04 TOP ; Start 08/27/17 at 04:00; Stop 08/23/18 at 03:59 Chlorhexidine Gluconate (Chlorhexidine 2% Cloth) 3 pack UNSCH PRN TOP HYGIENIC CARE; Start 08/26/17 at 09:00 Pantoprazole Sodium (Protonix Inj) 40 mg Q12HR IV PUSH Last administered on at 08:04; Start 08/26/17 at 09:30 Amiodarone HCl (Cordarone) 200 mg DAILY PO Last administered on 08/26/17at 11:17 ; Start 08/26/17 at 09:30; Status Future Hold Budesonide/ Formoterol Fumarate (Symbicort 160-4.5 Mcg Inh) 1 puff Q12HR INH Last administered on 08/26/17at 21:21; Start 08/26/17 at 21:00 Clonazepam (KlonoPIN) 1 mg BID PO Last administered on 08/31/17at 08:04; Start 08/26/17 at 21:00 Metoprolol Tartrate (Lopressor) 25 mg BID PO Last administered on 08/31/17at 08: 03; Start 08/26/17 at 21:00 Potassium Chloride 100 ml @ 50 mls/hr Q2H IV ; Start 08/26/17 at 11:00; Stop at 14:59; Status DC Pregabalin (Lyrica) 75 mg BID PO Last administered on 08/31/17at 08:03; Start at 21:00 Tamsulosin HCl (Flomax) 0.4 mg HS PO Last administered on 08/30/17at 21:19; Start 08/26/17 at 21:00 Patient Own Medication PT OWN MED: RESTASIS OPTH (CYCLOSPORI... BID EACH EYE ; Start 08/26/17 at 11:30; Status Future Hold Oxycodone HCl (Roxicodone) 5 mg Q6H PRN PO pain 1-10 Last administered on at 05:31; Start 08/26/17 at 10:45 Gemfibrozil (Lopid) 600 mg BIDAC PO Last administered on 08/31/17at 08:03; Start 08/26/17 at 16:00 Dextrose (D50w (Vial) Inj) 50 ml UNSCH PRN IV PUSH HYPOGLYCEMIA-SEE COMMENTS; Start 08/26/17 at 12:45 Glucagon (Glucagon Inj) 1 mg UNSCH PRN OTHER HYPOGLYCEMIA-SEE COMMENTS; Start 08/26/17 at 12:45 Insulin Aspart (NovoLOG SUPPLEMENTAL SCALE) 1 ACHS SLIDING SCALE SQ Last administered on 08/29/17at 08:14; Start 08/26/17 at 17:00; Stop 08/29/17 at 10:18 ; Status DC Furosemide (Lasix Inj) 20 mg BID@,18 IV PUSH Last administered on 08/31/17at 08:04; Start 08/26/17 at 18:00 Albuterol/ Ipratropium (Duoneb Neb) 1 ampule Q6HR WHILE AWAKE NEB NEB Last administered on 08/26/17at 20:50; Start 08/26/17 at 14:00; Stop 08/28/17 at 13:19 ; Status DC Insulin Detemir (Levemir Inj) 50 units BID SQ Last administered on 08/28/17at 09 :12; Start 08/26/17 at 21:00; Status Future Hold Hydromorphone HCl (Dilaudid Pf Inj) 0.5 mg Q6H PRN IV MOD TO SEVERE PAIN Last administered on 08/31/17at 03:36; Start 08/26/17 at 14:00 Potassium Chloride 100 ml @ 25 mls/hr NOW ONCE IV ; Start 08/26/17 at 16:45; Stop 08/26/17 at 20:44; Status Cancel Potassium Chloride 100 ml @ 50 mls/hr Q2H IV Last administered on 08/26/17at 19 :15; Start 08/26/17 at 17:00; Stop 08/26/17 at 20:59; Status DC Lactated Ringer's 1,000 ml @ 100 mls/hr Q10H IV Last administered on at 08:15; Start 08/26/17 at 21:00; Stop 08/29/17 at 10:18; Status DC Lorazepam (Ativan Inj) 2 mg STK-MED ONCE .ROUTE ; Start 08/27/17 at 03:49; Stop 08/27/17 at 03:50; Status DC Amiodarone HCl 450 mg/Dextrose 250 ml @ 33.33 mls/ hr TITRATE PRN IV Per Protocol Last administered on 08/27/17at 04:09; Start 08/27/17 at 04:00; Stop at 11:47; Status DC Potassium Chloride 100 ml @ 25 mls/hr ONCE ONCE IV Last administered on at 04:00; Start 08/27/17 at 04:00; Stop 08/27/17 at 07:59; Status DC Lorazepam (Ativan Inj) 1 mg NOW ONCE IV PUSH Last administered on 08/27/17at 04 :08; Start 08/27/17 at 04:00; Stop 08/27/17 at 04:01; Status DC Potassium Chloride 200 ml @ As Directed STK-MED ONCE .ROUTE ; Start 08/27/17 at 03:59; Stop 08/27/17 at 04:00; Status DC Amiodarone HCl 450 mg/Sodium Chloride 250 ml @ 33.33 mls/ hr TITRATE PRN IV Per Protocol Last administered on 08/27/17at 12:05; Start 08/27/17 at 12:00; Stop 08/27/17 at 18:37; Status DC Temazepam (Restoril) 15 mg HS PRN PO insomnia Last administered on 08/30/17at 21 :29; Start 08/27/17 at 17:15 Amiodarone HCl (Cordarone) 400 mg DAILY PO Last administered on 08/31/17at 08:03 ; Start 08/28/17 at 06:00 Amiodarone HCl 450 mg/Sodium Chloride 250 ml @ 33.33 mls/ hr TITRATE PRN IV Per Protocol; Start 08/27/17 at 18:45; Stop 08/28/17 at 04:00; Status DC Spironolactone (Aldactone) 25 mg BID@09,18 PO Last administered on 08/31/17at 08 :04; Start 08/28/17 at 09:00 Potassium Chloride 100 ml @ 100 mls/hr Q1H IV Last administered on 08/28/17at 07:27; Start 08/28/17 at 00:00; Stop 08/28/17 at 05:59; Status DC Ipratropium [place] (Atrovent Neb) 0.5 mg Q4HR NEB NEB Last administered on at 08:24; Start 08/28/17 at 16:00 Ipratropium [place] (Atrovent Neb) 0.5 mg Q2HR NEB PRN NEB SHORTNESS OF BREATH ; Start 08/28/17 at 13:30 Potassium Chloride 100 ml @ 100 mls/hr Q1H IV Last administered on 08/29/17at 11:00; Start 08/29/17 at 06:00; Stop 08/29/17 at 11:59; Status DC Potassium Chloride (KCl) 30 meq Q12HR PO Last administered on 08/30/17at 21:19; Start 08/29/17 at 09:00; Stop 08/30/17 at 21:01; Status DC Insulin Aspart (NovoLOG SUPPLEMENTAL SCALE) 1 Q6HR SQ Last administered on 08/31at 05:32; Start 08/29/17 at 12:00 Piperacillin Sod/ Tazobactam Sod 50 ml @ 100 mls/hr Q6H IV Last administered on 08/31/17at 05:31; Start 08/29/17 at 12:00 A/P Assessment and Plan 1. Aborted V. fib status post defibrillation 3 with AICD 2. COPD, PETRONA 3. KONG on CKD 4. Severe hypokalemia 5. Pancreatitis/ABDOMINAL PAIN- NEEDS EGD PER GI-- SLOWLY TRENDING DOWN 6. Anemia 7. Atrial fibrillation- CONSULT CARDIO 8. Ischemic cardiomyopathy with reduced EF CONSULT CARDIO 9. COPD on home O2 -does not appear to be exacerbated 10. Diabetes mellitus 11. History of CVA 12. Chronic back pain 13. Probable PETRONA/OHS 14. Chronic hepatitis C 15 Abdominal aortic aneurysm measuring 3.7 x 3.3 cm Plan Neuro: Awake and alert Pulm: Continue with oxygen keep sats >92% Bronchodilators ( DuoNeb, Symbicort) Check CXR, ABG CV: On Lopressor 25mg BID, Aldactone 25mg BID, Amiodarone 400mg daily Cards is following, echo showed EF 40-45% Patient received aspirin in the emergency room. Due to concern for GI bleed and patient being a Confucianism we will hold off additional anticoagulation : Monitor renal function, I/O's, avoid nephrotoxins Cr: 3.1 with UOP: 2L overnight Renal is following- Dr. Coyle On Lasix 20mg BID, d/c IVF GI: ON DIABETIC DIET Serial lipase ( trending down) Monitor LFT;s, Reactive Hep C IgG ab US Liver: S/p cholecystectomy. Area of increased echogenicity right renal fossa can be related to patient's known adrenal lesion Pancreas not well seen. GI is following ID: Place on empiric abx ( Zosyn) Monitor for signs of infections ( Fever, WBC) 08/26 BC: NGTD, check sputum cx Heme: Monitor CBC, Coumadin held due to concern for GI bleed Endo: SSI for glycemic control, GI prophylaxis addressed above, DVT prophylaxis with SCDs Per Dr. Brenner- patient is Confucianism and he refuses blood transfusion. Code status: Full code Palliative care is following RECONSULT CARDIO DR COSTELLO- NOT CLEARED BY HIM FOR PROCEDURES AT THIS TIME AM LABS Discharge Planning PENDING CARDIO AND PULM AND GI CLEARANCE Lauri Mera DO August 31, 2017 09:40
--- NOTE | 2017-08-31 11:15 | HHI.GIFU ---
Subjective Remarks Pt resting in bed Per RN had a BM this morning which was normal, no blood Denies nausea, vomiting, abdominal pain (Hayley Trejo) Objective Vitals I&O Vital Signs Date Time Temp Pulse Resp B/P (MAP) Pulse Ox O2 Delivery O2 Flow Rate FiO2 08/31/17 08:25 94 Nasal Cannula 3.00 08/31/17 08:01 97.9 65 18 104/68 (80) 94 08/31/17 08:01 94 Nasal Cannula 3.00 08/31/17 07:01 58 08/31/17 03:00 98.3 62 16 128/77 (94) 92 08/31/17 03:00 55 08/31/17 03:00 92 Nasal Cannula 3.00 08/30/17 23:00 98.5 61 18 110/71 (84) 94 08/30/17 23:00 61 08/30/17 23:00 94 Nasal Cannula 3.00 08/30/17 19:00 92 Nasal Cannula 3.00 08/30/17 19:00 98.7 64 18 101/67 (78) 92 08/30/17 19:00 60 08/30/17 18:01 60 08/30/17 17:01 61 08/30/17 16:13 92 Nasal Cannula 3.00 08/30/17 16:01 58 08/30/17 15:45 97.7 59 18 102/64 (77) 96 08/30/17 15:45 96 Nasal Cannula 4.00 08/30/17 15:01 55 08/30/17 14:01 58 08/30/17 13:00 62 08/30/17 12:00 62 08/30/17 11:39 95 Nasal Cannula 3.00 I/O 08/30/17 08/30/17 08/30/17 08/31/17 08/31/17 08/31/17 07:00 15:00 23:00 07:00 15:00 23:00 Intake Total 1060 ml 50 ml 1440 ml 480 ml Output Total 1900 ml 1625 ml 1000 ml Balance -840 ml 50 ml -185 ml -520 ml Intake Oral 960 ml 1440 ml 480 ml IV Total 100 ml 50 ml Output Urine Total 1900 ml 1625 ml 1000 ml # Voids 1 # Bowel Movements 0 0 Laboratory Laboratory Tests Test 08/31/17 04:25 White Blood Count 10.5 Red Blood Count 3.66 Hemoglobin 11.2 Hematocrit 32.9 Mean Corpuscular Volume 90.1 Mean Corpuscular Hemoglobin 30.7 Mean Corpuscular Hemoglobin Concent 34.1 Red Cell Distribution Width 14.7 Platelet Count 278 Mean Platelet Volume 8.1 Neutrophils (%) (Auto) 43.0 Lymphocytes (%) (Auto) 41.7 Monocytes (%) (Auto) 9.1 Eosinophils (%) (Auto) 4.9 Basophils (%) (Auto) 1.3 Neutrophils # (Auto) 4.5 Lymphocytes # (Auto) 4.4 Monocytes # (Auto) 1.0 Eosinophils # (Auto) 0.5 Basophils # (Auto) 0.1 CBC Comment DIFF FINAL Differential Comment Blood Urea Nitrogen 99 Creatinine 3.64 Random Glucose 184 Total Protein 7.4 Albumin 3.1 Calcium Level 9.0 Phosphorus Level 4.9 Magnesium Level 2.0 Alkaline Phosphatase 101 Aspartate Amino Transf (AST/SGOT) 47 Alanine Aminotransferase (ALT/SGPT) 49 Total Bilirubin 0.3 Sodium Level 136 Potassium Level 4.2 Chloride Level 93 Carbon Dioxide Level 30.4 Anion Gap 13 Estimat Glomerular Filtration Rate 17 Amylase Level 85 Lipase 510 Date/Time Source Procedure Growth Status 08/26/17 13:48 Blood Peripheral Aerobic Blood Culture - Final NO GROWTH IN 5 DAYS Complete 08/26/17 13:48 Blood Peripheral Anaerobic Blood Culture - Final NO GROWTH IN 5 DAYS Complete Imaging Last Impressions Chest X-Ray 08/29/17 0000 Signed Impressions: Service Date/Time: Tuesday, August 29, 2017 10:49 - CONCLUSION: Stable compensated cardiomegaly without failure Lauri Julian MD FACR Abdomen/Pelvis CT 08/28/17 0000 Signed Impressions: Service Date/Time: Monday, August 28, 2017 15:31 - CONCLUSION: Bilateral lower lobe air bronchogram formation in consolidative changes with tiny right effusion. Diverticulosis without diverticulitis. Abdominal aortic aneurysm. Bilateral adrenal nodules are again seen. Fat-containing umbilical hernia. Farhan Ríos MD Liver Ultrasound 08/26/17 0000 Signed Impressions: Service Date/Time: Saturday, August 26, 2017 19:57 - CONCLUSION: 1. Status post cholecystectomy. 2. Area of increased echogenicity right renal fossa can be related to patient's known adrenal lesion. 3. Pancreas not well seen. Franky Lee MD Physical Exam HEENT: Normocephalic; atraumatic CHEST: Diminished CARDIAC: RRR ABDOMEN: Obese, soft, nontender, bowel sounds active EXTREMITIES: No clubbing, cyanosis, or edema. SKIN: Normal; no rash; no jaundice. PLANNER INTERN: No focal deficits; alert and oriented times three. (Hayley Trejo) Assessment and Plan Plan Assessment: - Anemia with Hemoccult positive stools Pt complaining of black, tarry stools for over a week, because of this his Coumadin was DCd a week ago. H/H has been stable since admission, not received any PRBCs Denies history of GIB, ETOH, smoking. Last EGD approx 6 years ago and he states normal exam - BRBPR- states only on the toilet paper when he wipes. Last colonoscopy approx 6 years ago and he thinks possibly some colon polyps. - Pancreatitis- Nausea and vomiting for the past 2-3 days, denies ETOH, history of pancreatitis. Unknown family history, pt was adopted. S/P cholecystectomy Lipase trending down, currently 1093 - History of hepatitis C- Labs from 2012 reveal a positive Hepatitis C antibody and elevated quant, no genotype done, states [facility] told him he would have to lose 60 pounds before he was treated. Denies tattoos, history of IV drug use, high risk sexual behaviors. Did have blood transfusions in 1970 LFTs currently: AST-106 ALT-68 Alk phos-114 T bili-0.3 Hepatitis C genotype 1a, quant 994,000 US liver (08/26) --> . Status post cholecystectomy. Area of increased echogenicity right renal fossa can be related to patient's known adrenal lesion. Pancreas not well seen. CT abdomen and pelvis W/O IV contrast (08/28) --> Bilateral lower lobe air bronchogram formation in consolidative changes with tiny right effusion. Diverticulosis without diverticulitis. Abdominal aortic aneurysm. Bilateral adrenal nodules are again seen. Fat-containing umbilical hernia - V-tach, S/P AICD firing, currently on Amiodarone gtt- according to cardiology notes, intervention on hold due to heme (+) stools - A-fib on chronic anticoagulation with Coumadin, DCd a week ago Of note, pt is a Jehovas witness and does not accept blood products (08/31) H/H has remained stable. Per RN pt had a BM this morning and there was no obvious blood in stool. Pt denies nausea, vomiting. Per Dr. Hernandez, cardiology, pt remains at very high risk for procedures and has not been cleared due to irregular heart rhythms. LFTs continue to trend down. At this point there is not much to add from a GI standpoint, pt not cleared for endoscopic procedures, H/H has remained stable, no further reports of GIB. Regarding elevated LFTs, pts Hepatitis C genotype is 1 a, he can be followed up outpatient for treatment. Also lipase is trending down and pt is tolerating diet. Our service will sign off, please reconsult if pt needs endoscopic procedures and has been cleared by cardiology. Plan: SOLO Monitor H/H Notify GI of active bleeding Protonix IVF Hepatitis C treatment outpatient Our service will sign off as noted above, please reconsult as needed Pt has been seen and examined by myself and Dr. Downs and this note is written on her behalf Pt has been seen and examined by myself and Dr. Downs and this note is written on her behalf (Hayley Trejo) Physician Comments call gi if active bleeding or cleared for endoscopy if dc fu office (Lashon Downs MD) Hayley Trejo August 31, 2017 11:15 Lashon Downs MD August 31, 2017 18:00
--- NOTE | 2017-08-31 13:06 | HHI.NPPN ---
Subjective General Problems: Anemia Renal Failure: Chronic, Stage IV History of Present Illness This is a 57-year-old male known to me from before with past medical history of chronic kidney disease with single kidney, hypertension, chronic anemia, hyperlipidemia, diabetes mellitus, ischemic heart disease, congestive heart failure, chronic obstructive pulmonary disease, hepatitis C, history of cerebrovascular accident, came to thehospital with complaint of chest pain and arrhythmia. Nephrology was called to see the patient for the chronic kidney disease. He has single kidney, has been following with me. The patient has advanced stage IV renal disease and was on dialysis 3 months ago when he was admitted at [facility] mainly because of the fluid, but his GFR has been staying close to 16-18, and he is getting close for starting the dialysis. The patient has been taking diuretics including Bumex and metolazone at home and here, it was found that hiscreatinine was 3.9, and the potassium was low, 2.5. The patient was supposed to take the potassium with the diuretic and he ran out of it and the pharmacy did not deliver it, so he was trying to eat more bananas. The patient noticed that his AICD fired 3 times at home. Hedenies any vomiting. Occasionally, he has nausea. There is no dysuria or hematuria, but he did notice that his urine output is slightly decreased. Additional Remarks Patient is alert, sitting on side of chair. Creatinine at 3.64 up from 3.11. (Nasreen Colmenares) Review of Systems Respiratory Lungs: SOB Respiratory Remarks improving. (Nasreen Colmenares) Objective Data Data Vital Signs Date Time Temp Pulse Resp B/P (MAP) Pulse Ox O2 Delivery O2 Flow Rate FiO2 08/31/17 12:01 62 08/31/17 11:14 95 Nasal Cannula 3.00 08/31/17 11:14 97.7 62 18 105/62 (76) 95 08/31/17 11:00 58 08/31/17 10:00 70 08/31/17 09:00 66 08/31/17 08:25 94 Nasal Cannula 3.00 08/31/17 08:01 97.9 65 18 104/68 (80) 94 08/31/17 08:01 94 Nasal Cannula 3.00 08/31/17 08:00 70 08/31/17 07:01 58 08/31/17 03:00 98.3 62 16 128/77 (94) 92 08/31/17 03:00 55 08/31/17 03:00 92 Nasal Cannula 3.00 08/30/17 23:00 98.5 61 18 110/71 (84) 94 08/30/17 23:00 61 08/30/17 23:00 94 Nasal Cannula 3.00 08/30/17 19:00 92 Nasal Cannula 3.00 08/30/17 19:00 98.7 64 18 101/67 (78) 92 08/30/17 19:00 60 08/30/17 18:01 60 08/30/17 17:01 61 08/30/17 16:13 92 Nasal Cannula 3.00 08/30/17 16:01 58 08/30/17 15:45 97.7 59 18 102/64 (77) 96 08/30/17 15:45 96 Nasal Cannula 4.00 08/30/17 15:01 55 08/30/17 14:01 58 (Nasreen Colmenares) -: 08/31/17 0425 08/31/17 0425 Tubes & Lines: Bailey (Nasreen Colmenares) Physical Exam General Appearance: No Acute Distress, Anxious, Obese (Nasreen Colmenares) Eyes Eye Exam: Pupils Equal (Nasreen Colmenares) Throat Throat Exam: Oral Mucosa [place] & Moist (Nasreen Colmenares) Pulmonary Resp Exam: Clear Bilaterally, Breath Sounds Equal, No Distress (Nasreen Colmenares) Cardiology CV Exam: Regular, Normal Sinus Rhythm (Nasreen Colmenares) Gastrointestinal/Abdomen GI Exam: Soft, Non-Tender, Bowel Sounds Present, Distended (Nasreen Colmenares) Genitourinary Exam: Flank Non-Tender (Nasreen Colmenares) Integumentary Skin Exam: Clear, Warm (Nasreen Colmenares) Neurologic Neuro Exam: Alert, Awake (Nasreen Colmenares) Psychiatric Psych Exam: Appropriate Responses (Nasreen Colmenares) Assessment/Plan Discussed Condition With: Patient Assessment Summary: KONG/Acute Renal Failure, CKD Stage IV Electrolyte Assessment: Hypokalemia Problem List: (1) Ventricular fibrillation ICD Codes: I49.01 - Ventricular fibrillation Status: Acute (2) GI bleed ICD Codes: K92.2 - Gastrointestinal hemorrhage, unspecified Status: Acute Plan Patient has advance stage 4 chronic kidney disease, has off and on acute kidney injury. Has single kidney. Edema is better, Creatinine increased at 3.64 from 3.11. Potassium is normal scheduled replacement discontinued. Continue Lasix changed to PO will decrease Aldactone to daily Follow the urine out put and BMP. (Nasreen Colmenares) Plan Patient seen and examined, agree with above. Creatinine is better, has single kidney and stage 4 chronic kidney disease. (Larry Coyle MD) Problem Qualifiers (1) GI bleed: Qualified Codes: K92.2 - Gastrointestinal hemorrhage, unspecified Nasreen Colmenares August 31, 2017 13:06 Larry Coyle MD September 03, 2017 19:31
[2017-08-31] MEDS: FUROSEMIDE 20 MG TAB PO SCH (17:19)
--- NOTE | 2017-08-31 17:36 | HHI.PR ---
Subjective Remarks 57 YOWM with COPD,PETRONA,Severe CMP has AICD Breathing better on NC No CP Objective Vital Signs Vital Signs Date Time Temp Pulse Resp B/P (MAP) Pulse Ox O2 Delivery O2 Flow Rate FiO2 08/31/17 16:11 94 Nasal Cannula 3.00 08/31/17 16:01 60 08/31/17 15:01 95 Nasal Cannula 3.00 08/31/17 15:01 97.8 62 18 89/50 (63) 95 08/31/17 15:00 55 08/31/17 14:00 60 08/31/17 13:00 70 08/31/17 12:01 62 08/31/17 11:14 95 Nasal Cannula 3.00 08/31/17 11:14 97.7 62 18 105/62 (76) 95 08/31/17 11:00 58 08/31/17 10:00 70 08/31/17 09:00 66 08/31/17 08:25 94 Nasal Cannula 3.00 08/31/17 08:01 97.9 65 18 104/68 (80) 94 08/31/17 08:01 94 Nasal Cannula 3.00 08/31/17 08:00 70 08/31/17 07:01 58 08/31/17 03:00 98.3 62 16 128/77 (94) 92 08/31/17 03:00 55 08/31/17 03:00 92 Nasal Cannula 3.00 08/30/17 23:00 98.5 61 18 110/71 (84) 94 08/30/17 23:00 61 08/30/17 23:00 94 Nasal Cannula 3.00 08/30/17 19:00 92 Nasal Cannula 3.00 08/30/17 19:00 98.7 64 18 101/67 (78) 92 08/30/17 19:00 60 08/30/17 18:01 60 I/O 08/30/17 08/30/17 08/30/17 08/31/17 08/31/17 08/31/17 07:00 15:00 23:00 07:00 15:00 23:00 Intake Total 1060 ml 50 ml 1440 ml 480 ml Output Total 1900 ml 1625 ml 1000 ml Balance -840 ml 50 ml -185 ml -520 ml Intake Oral 960 ml 1440 ml 480 ml IV Total 100 ml 50 ml Output Urine Total 1900 ml 1625 ml 1000 ml # Voids 1 # Bowel Movements 0 0 Result Diagram: 08/31/1742408/31/17424 Objective Remarks GENERAL: WBWN WM,NAD SKIN: Warm and dry. HEAD: Normocephalic. EYES: No scleral icterus. No injection or drainage. NECK: Supple, trachea midline. No JVD or lymphadenopathy. CARDIOVASCULAR: Regular rate and rhythm without murmurs, gallops, or rubs. RESPIRATORY: Breath sounds equal bilaterally. No accessory muscle use. GASTROINTESTINAL: Abdomen soft, non-tender, nondistended. MUSCULOSKELETAL: No cyanosis, or edema. BACK: Nontender without obvious deformity. No CVA tenderness. A/P Assessment and Plan IMPRESSION: 1. Obstructive sleep apnea. 2. Hypercapnic respiratory insufficiency which is improved. 3. Renal insufficiency. 4. History of renal cell carcinoma, status post surgery. 5. Obstructive sleep apnea. 6. Coronary artery disease, status post stent placement. 7. AICD placement. PLAN: Aerosol nebs Supplement 02 Cont Abx Amiodarone po Will need sleep study as out pt. Available prn over weekend Trav Esteves MD August 31, 2017 17:36
[2017-08-31] MEDS: TAMSULOSIN HCL 0.4 MG CAP PO SCH (20:59)
[2017-09-01] VITALS (25 sets, daily range): BP systolic 91–136; BP diastolic 57–95; PULSE 58–96; RESP 18–20; TEMP 97.8–98.2; O2SAT 67–96
[2017-09-01] MEDS: INSULIN ASPART SUPPLEMENTAL SCALE SQ SCH ×4 (01:43→17:35)
[2017-09-01] MEDS: HYDROmorphone HCL PF 0.5 MG/0.5 ML SYRINGE IV PRN ×4 (03:12→21:44)
[2017-09-01] MEDS: PIPERACIL-TAZO 2.25 GM PREMIX 50 ML IV SCH ×4 (03:41→17:35)
[2017-09-01] MEDS: RESP: IPRATROPIUM 0.5 MG/2.5 ML NEB NEB SCH ×5 (03:44→20:45)
[2017-09-01] MEDS: CHLORHEXIDINE GLUCONATE 2 % 1 PACK (2 CLOTHS) TOP SCH (04:00)
[2017-09-01] MEDS: GEMFIBROZIL 600 MG TAB PO SCH ×2 (06:08→15:06)
[2017-09-01] MEDS: BUDESONIDE-FORMOTEROL 160/4.5 MCG INHALER INH SCH ×2 (08:56→21:00)
[2017-09-01] MEDS: SPIRONOLACTONE 25 MG TAB PO SCH (08:56)
[2017-09-01] MEDS: AMIODARONE 200 MG TAB PO SCH (08:56)
[2017-09-01] MEDS: METOPROLOL TARTRATE 25 MG TAB PO SCH ×2 (08:56→21:43)
[2017-09-01] MEDS: PREGABALIN 75 MG CAP PO SCH ×2 (08:56→21:43)
[2017-09-01] MEDS: FUROSEMIDE 20 MG TAB PO SCH ×2 (08:56→17:35)
[2017-09-01] MEDS: clonazePAM 1 MG TAB PO SCH ×2 (08:56→21:43)
[2017-09-01] MEDS: PANTOPRAZOLE SODIUM 40 MG VIAL IV PUSH SCH ×2 (08:56→21:42)
--- NOTE | 2017-09-01 10:04 | HHI.PR ---
Subjective Remarks 57-year-old gentleman with past medical history remarkable for atrial fibrillation on chronic anticoagulation with Coumadin, CKD, recently required hemodialysis, last HD approximately 1 month ago, CAD, hypertension, hyperlipidemia, diabetes, CHF, status post AICD, COPD on home O2, hepatitis C, multiple CVAs in the past, obesity, now presents to emergency room for evaluation of chest pain. Over the last few days, patient intermittently described having chest pain associated with nausea, some vomiting and some abdominal discomfort. This morning, around 4 AM, patient woke up complaining of chest pain and defibrillator fired 2, therefore he called EMS. Patient denies any fever, chills, diarrhea, cough. Some shortness of breath with exertion. Of note, patient reports multiple black stools, therefore 3 days ago he stopped taking Coumadin. On ED arrival, patient was hemodynamically stable, still complaining of some chest pain. Pacer rep was called and he interrogated his device and found out that patient went into V. fib and he was shocked 3 times. Remarkable workup in ED showed a negative troponin, worsening creatinine , and severe hypokalemia with a potassium of 2.5. Hemoglobin was 12.4, but his stool was weakly positive for Hemoccult. Patient was also found to have elevated lipase. [facility] now consulted for ICU admission. Patient was seen in emergency room, he is awake, still complaining of some chest pain, pleuritic, worsening with deep breaths, reproducible by palpation over the sternum. His dyspnea is at baseline, denies any other complaints except chronic back pain. Nephrology and cardiology have been consulted. In ED patient was given 60 mEq of potassium. Her ED chart, patient expressed a desire to be a DO NOT RESUSCITATE. Order was placed in the chart. Patient is Buddhism and he absolutely refuses blood transfusion. 08/27 Patient reports left sided chest pain had 3 runs of Vtach overnight placed on Amio drip. Afebrile. 08/28 Patient is feeling better today. Afebrile. Renal function is improving with Cr: 3.10 from 3.65 08/29 Patient is on 5L oxygen awake and alert, Cr: 3.0 with UOP: 2L overnight. Afebrile. 08-30 TRANSFERRED TO OUR SERVICE TODAY CR IS STABLE AT [address] COSTELLO OF CARDIOLOGY FOR CLEARANCE DW RN AND PT 08-31 CR IS STILL IN THE 3S DW RN AND PT NOT CLEARED FOR PROCEDURE BY DR COSTELLO AM LABS - LABS PENDING STILL NOT CLEARED FOR ANY PROCEDURE BY CARDIOLOGY AM LABS GI SIGNED OFF BEING FOLLOWED BY RENAL AND PULMONARY DW RN AND PT Objective Vitals Vital Signs Date Time Temp Pulse Resp B/P (MAP) Pulse Ox O2 Delivery O2 Flow Rate FiO2 09/01/17 09:46 75 09/01/17 09:37 18 09/01/17 09:37 18 09/01/17 08:33 94 Nasal Cannula 3.00 09/01/17 08:30 94 Nasal Cannula 3.00 09/01/17 08:30 67 09/01/17 08:30 98.1 67 20 99/58 (72) 67 09/01/17 07:30 18 09/01/17 06:00 67 09/01/17 05:00 70 09/01/17 04:00 65 09/01/17 03:20 97.8 73 18 136/78 (97) 96 09/01/17 03:05 97 Nasal Cannula 3.00 09/01/17 03:00 65 09/01/17 00:00 64 09/01/17 00:00 97 Nasal Cannula 3.00 08/31/17 23:44 98.1 70 18 99/58 (72) 91 08/31/17 23:00 65 08/31/17 22:00 67 08/31/17 21:00 70 08/31/17 20:00 97 Nasal Cannula 3.00 08/31/17 20:00 98.1 64 18 120/69 (86) 97 08/31/17 20:00 60 08/31/17 19:00 62 08/31/17 18:01 64 08/31/17 17:00 62 08/31/17 16:11 94 Nasal Cannula 3.00 08/31/17 16:01 60 08/31/17 15:01 95 Nasal Cannula 3.00 08/31/17 15:01 97.8 62 18 89/50 (63) 95 08/31/17 15:00 55 08/31/17 14:00 60 08/31/17 13:00 70 08/31/17 12:01 62 08/31/17 11:14 95 Nasal Cannula 3.00 08/31/17 11:14 97.7 62 18 105/62 (76) 95 08/31/17 11:00 58 I/O 08/31/17 08/31/17 08/31/17 09/01/17 09/01/17 09/01/17 07:00 15:00 23:00 07:00 15:00 23:00 Intake Total 480 ml 1200 ml 420 ml Output Total 1000 ml 1150 ml 725 ml Balance -520 ml 50 ml -305 ml Intake Oral 480 ml 1200 ml 420 ml Output Urine Total 1000 ml 1150 ml 725 ml # Voids 4 # Bowel Movements 0 1 1 Result Diagram: 08/31/17 0425 08/31/17 0425 Other Results Laboratory Tests Test 08/29/17 12:12 08/30/17 05:38 08/31/17 04:25 Blood Gas Puncture Site LT RADIAL Blood Gas Patient Temperature 98.6 Blood Gas HCO3 32 mmol/L Blood Gas Base Excess 8.0 mmol/L Blood Gas Oxygen Saturation 90 % Arterial Blood pH 7.45 Arterial Blood Partial Pressure CO2 48 mmHg Arterial Blood Partial Pressure O2 68 mmHg Arterial Blood Oxygen Content 16.1 Vol % Arterial Blood Carboxyhemoglobin 1.2 % Arterial Blood Methemoglobin 2.2 % Blood Gas Hemoglobin 12.8 G/DL Oxygen Delivery Device NASAL CANNULA Blood Gas Liter Flow 5 L/M White Blood Count 10.3 TH/MM3 10.5 TH/MM3 Red Blood Count 3.69 MIL/MM3 3.66 MIL/MM3 Hemoglobin 11.2 GM/DL 11.2 GM/DL Hematocrit 33.2 % 32.9 % Mean Corpuscular Volume 89.9 FL 90.1 FL Mean Corpuscular Hemoglobin 30.3 PG 30.7 PG Mean Corpuscular Hemoglobin Concent 33.7 % 34.1 % Red Cell Distribution Width 14.8 % 14.7 % Platelet Count 265 TH/MM3 278 TH/MM3 Mean Platelet Volume 8.1 FL 8.1 FL Neutrophils (%) (Auto) 39.7 % 43.0 % Lymphocytes (%) (Auto) 46.8 % 41.7 % Monocytes (%) (Auto) 8.4 % 9.1 % Eosinophils (%) (Auto) 4.2 % 4.9 % Basophils (%) (Auto) 0.9 % 1.3 % Neutrophils # (Auto) 4.1 TH/MM3 4.5 TH/MM3 Lymphocytes # (Auto) 4.8 TH/MM3 4.4 TH/MM3 Monocytes # (Auto) 0.9 TH/MM3 1.0 TH/MM3 Eosinophils # (Auto) 0.4 TH/MM3 0.5 TH/MM3 Basophils # (Auto) 0.1 TH/MM3 0.1 TH/MM3 CBC Comment DIFF FINAL DIFF FINAL Differential Comment Blood Urea Nitrogen 95 MG/DL 99 MG/DL Creatinine 3.11 MG/DL 3.64 MG/DL Random Glucose 189 MG/DL 184 MG/DL Total Protein 7.3 GM/DL 7.4 GM/DL Albumin 3.0 GM/DL 3.1 GM/DL Calcium Level 9.3 MG/DL 9.0 MG/DL Alkaline Phosphatase 104 U/L 101 U/L Aspartate Amino Transf (AST/SGOT) 58 U/L 47 U/L Alanine Aminotransferase (ALT/SGPT) 52 U/L 49 U/L Total Bilirubin 0.4 MG/DL 0.3 MG/DL Sodium Level 137 MEQ/L 136 MEQ/L Potassium Level 3.9 MEQ/L 4.2 MEQ/L Chloride Level 93 MEQ/L 93 MEQ/L Carbon Dioxide Level 30.9 MEQ/L 30.4 MEQ/L Anion Gap 13 MEQ/L 13 MEQ/L Estimat Glomerular Filtration Rate 21 ML/MIN 17 ML/MIN Lipase 604 U/L 510 U/L Phosphorus Level 4.9 MG/DL Magnesium Level 2.0 MG/DL Amylase Level 85 U/L Imaging Last Impressions Chest X-Ray 08/29/17 0000 Signed Impressions: Service Date/Time: Tuesday, August 29, 2017 10:49 - CONCLUSION: Stable compensated cardiomegaly without failure Lauri Julian MD FACR Abdomen/Pelvis CT 08/28/17 0000 Signed Impressions: Service Date/Time: Monday, August 28, 2017 15:31 - CONCLUSION: Bilateral lower lobe air bronchogram formation in consolidative changes with tiny right effusion. Diverticulosis without diverticulitis. Abdominal aortic aneurysm. Bilateral adrenal nodules are again seen. Fat-containing umbilical hernia. Farhan Ríos MD Liver Ultrasound 08/26/17 0000 Signed Impressions: Service Date/Time: Saturday, August 26, 2017 19:57 - CONCLUSION: 1. Status post cholecystectomy. 2. Area of increased echogenicity right renal fossa can be related to patient's known adrenal lesion. 3. Pancreas not well seen. Franky Lee MD Objective Remarks GENERAL: Awake alert and oriented talkative and cooperative 3 SKIN: Warm and dry. HEAD: Atraumatic. Normocephalic. EYES: Pupils equal and round. No scleral icterus. No injection or drainage. Extraocular muscles intact ENT: No nasal bleeding or discharge. Mucous membranes pink and moist. Tongue is midline NECK: Trachea midline. No JVD. Supple CARDIOVASCULAR: IRRegular rate and rhythm. S1-S2 no S3 or S4 RESPIRATORY: No accessory muscle use. Clear to auscultation. Breath sounds equal bilaterally. GASTROINTESTINAL: Abdomen soft, non-tender, nondistended. Hepatic and splenic margins not palpable. MUSCULOSKELETAL: Extremities without clubbing, cyanosis, or edema. No obvious deformities. NEUROLOGICAL: Awake and alert. No obvious cranial nerve deficits. Motor grossly within normal limits. 4 out of 5 muscle strength in the arms and legs. Normal speech. PSYCHIATRIC: Appropriate mood and affect; insight and judgment normal. Medications and IVs Current Medications Sodium Chloride (NS Flush) 2 ml UNSCH PRN IVF FLUSH AFTER USING IV ACCESS Last administered on 08/29/17at 21:48; Start 08/26/17 at 06:45 Furosemide (Lasix Inj) 40 mg ONCE ONCE IV PUSH ; Start 08/26/17 at 07:15; Stop 08/26/17 at 07:16; Status DC Potassium Chloride (KCl) 60 meq ONCE ONCE PO Last administered on 08/26/17at 08 :19; Start 08/26/17 at 08:15; Stop 08/26/17 at 08:16; Status DC Famotidine (Pepcid) 10 mg Q12HR PO ; Start 08/26/17 at 09:00; Stop 08/26/17 at 09:29; Status DC Albuterol/ Ipratropium (Duoneb Neb) 1 ampule Q4HR NEB PRN INH WHEEZING; Start 08/26/17 at 09:00; Stop 08/28/17 at 13:19; Status DC Miscellaneous Information ([facility] 1 Q361D XX ; Start at 09:00 Chlorhexidine Gluconate (Chlorhexidine 2% Cloth) Taper DAILY@04 TOP ; Start at 04:00; Stop 5/10/19 at 03:59 Chlorhexidine Gluconate (Chlorhexidine 2% Cloth) 3 pack UNSCH PRN TOP HYGIENIC CARE; Start 08/26/17 at 09:00 Pantoprazole Sodium (Protonix Inj) 40 mg Q12HR IV PUSH Last administered on at 08:56; Start 08/26/17 at 09:30 Amiodarone HCl (Cordarone) 200 mg DAILY PO Last administered on 08/26/17at 11:17 ; Start 08/26/17 at 09:30; Status Future Hold Budesonide/ Formoterol Fumarate (Symbicort 160-4.5 Mcg Inh) 1 puff Q12HR INH Last administered on 08/26/17at 21:21; Start 08/26/17 at 21:00 Clonazepam (KlonoPIN) 1 mg BID PO Last administered on 09/01/17at 08:56; Start 08/26/17 at 21:00 Metoprolol Tartrate (Lopressor) 25 mg BID PO Last administered on 09/01/17at 08: 56; Start 08/26/17 at 21:00 Potassium Chloride 100 ml @ 50 mls/hr Q2H IV ; Start 08/26/17 at 11:00; Stop at 14:59; Status DC Pregabalin (Lyrica) 75 mg BID PO Last administered on 09/01/17at 08:56; Start at 21:00 Tamsulosin HCl (Flomax) 0.4 mg HS PO Last administered on 08/31/17at 20:59; Start 08/26/17 at 21:00 Patient Own Medication PT OWN MED: RESTASIS OPTH (CYCLOSPORI... BID EACH EYE ; Start 08/26/17 at 11:30; Status Future Hold Oxycodone HCl (Roxicodone) 5 mg Q6H PRN PO pain 1-10 Last administered on at 06:09; Start 08/26/17 at 10:45 Gemfibrozil (Lopid) 600 mg BIDAC PO Last administered on 09/01/17at 06:08; Start 08/26/17 at 16:00 Dextrose (D50w (Vial) Inj) 50 ml UNSCH PRN IV PUSH HYPOGLYCEMIA-SEE COMMENTS; Start 08/26/17 at 12:45 Glucagon (Glucagon Inj) 1 mg UNSCH PRN OTHER HYPOGLYCEMIA-SEE COMMENTS; Start 08/26/17 at 12:45 Insulin Aspart (NovoLOG SUPPLEMENTAL SCALE) 1 ACHS SLIDING SCALE SQ Last administered on 08/29/17at 08:14; Start 08/26/17 at 17:00; Stop 08/29/17 at 10:18 ; Status DC Furosemide (Lasix Inj) 20 mg BID@09,18 IV PUSH Last administered on 08/31/17at 08:04; Start 08/26/17 at 18:00; Stop 08/31/17 at 13:05; Status DC Albuterol/ Ipratropium (Duoneb Neb) 1 ampule Q6HR WHILE AWAKE NEB NEB Last administered on 08/26/17at 20:50; Start 08/26/17 at 14:00; Stop 08/28/17 at 13:19 ; Status DC Insulin Detemir (Levemir Inj) 50 units BID SQ Last administered on 08/28/17at 09 :12; Start 08/26/17 at 21:00; Status Future Hold Hydromorphone HCl (Dilaudid Pf Inj) 0.5 mg Q6H PRN IV MOD TO SEVERE PAIN Last administered on 09/01/17at 08:57; Start 08/26/17 at 14:00 Potassium Chloride 100 ml @ 25 mls/hr NOW ONCE IV ; Start 08/26/17 at 16:45; Stop 08/26/17 at 20:44; Status Cancel Potassium Chloride 100 ml @ 50 mls/hr Q2H IV Last administered on 08/26/17at 19 :15; Start 08/26/17 at 17:00; Stop 08/26/17 at 20:59; Status DC Lactated Ringer's 1,000 ml @ 100 mls/hr Q10H IV Last administered on at 08:15; Start 08/26/17 at 21:00; Stop 08/29/17 at 10:18; Status DC Lorazepam (Ativan Inj) 2 mg STK-MED ONCE .ROUTE ; Start 08/27/17 at 03:49; Stop 08/27/17 at 03:50; Status DC Amiodarone HCl 450 mg/Dextrose 250 ml @ 33.33 mls/ hr TITRATE PRN IV Per Protocol Last administered on 08/27/17at 04:09; Start 08/27/17 at 04:00; Stop at 11:47; Status DC Potassium Chloride 100 ml @ 25 mls/hr ONCE ONCE IV Last administered on at 04:00; Start 08/27/17 at 04:00; Stop 08/27/17 at 07:59; Status DC Lorazepam (Ativan Inj) 1 mg NOW ONCE IV PUSH Last administered on 08/27/17at 04 :08; Start 08/27/17 at 04:00; Stop 08/27/17 at 04:01; Status DC Potassium Chloride 200 ml @ As Directed STK-MED ONCE .ROUTE ; Start 08/27/17 at 03:59; Stop 08/27/17 at 04:00; Status DC Amiodarone HCl 450 mg/Sodium Chloride 250 ml @ 33.33 mls/ hr TITRATE PRN IV Per Protocol Last administered on 08/27/17at 12:05; Start 08/27/17 at 12:00; Stop 08/27/17 at 18:37; Status DC Temazepam (Restoril) 15 mg HS PRN PO insomnia Last administered on 08/30/17at 21 :29; Start 08/27/17 at 17:15 Amiodarone HCl (Cordarone) 400 mg DAILY PO Last administered on 09/01/17at 08:56 ; Start 08/28/17 at 06:00 Amiodarone HCl 450 mg/Sodium Chloride 250 ml @ 33.33 mls/ hr TITRATE PRN IV Per Protocol; Start 08/27/17 at 18:45; Stop 08/28/17 at 04:00; Status DC Spironolactone (Aldactone) 25 mg BID@09,18 PO Last administered on 08/31/17at 08 :04; Start 08/28/17 at 09:00; Stop 08/31/17 at 13:05; Status DC Potassium Chloride 100 ml @ 100 mls/hr Q1H IV Last administered on 08/28/17at 07:27; Start 08/28/17 at 00:00; Stop 08/28/17 at 05:59; Status DC Ipratropium [place] (Atrovent Neb) 0.5 mg Q4HR NEB NEB Last administered on at 08:32; Start 5/15/18 at 16:00 Ipratropium [place] (Atrovent Neb) 0.5 mg Q2HR NEB PRN NEB SHORTNESS OF BREATH ; Start 08/28/17 at 13:30 Potassium Chloride 100 ml @ 100 mls/hr Q1H IV Last administered on 08/29/17at 11:00; Start 08/29/17 at 06:00; Stop 08/29/17 at 11:59; Status DC Potassium Chloride (KCl) 30 meq Q12HR PO Last administered on 08/30/17at 21:19; Start 08/29/17 at 09:00; Stop 08/30/17 at 21:01; Status DC Insulin Aspart (NovoLOG SUPPLEMENTAL SCALE) 1 Q6HR SQ Last administered on 09/01at 06:00; Start 08/29/17 at 12:00 Piperacillin Sod/ Tazobactam Sod 50 ml @ 100 mls/hr Q6H IV Last administered on 09/01/17at 06:07; Start 08/29/17 at 12:00 Spironolactone (Aldactone) 25 mg DAILY PO Last administered on 09/01/17at 08:56 ; Start 09/01/17 at 09:00 Furosemide (Lasix) 20 mg BID@09,18 PO Last administered on 09/01/17at 08:56; Start 08/31/17 at 18:00 A/P Assessment and Plan 1. Aborted V. fib status post defibrillation 3 with AICD 2. COPD, PETRONA 3. KONG on CKD 4. Severe hypokalemia 5. Pancreatitis/ABDOMINAL PAIN- NEEDS EGD PER GI-- SLOWLY TRENDING DOWN-- NOT CLEARED FOR SURGERY BY CARDIOLOGY NO EGD OR COLONOSCOPY AT THIS TIME 6. Anemia 7. Atrial fibrillation- CONSULT CARDIO 8. Ischemic cardiomyopathy with reduced EF CONSULT CARDIO 9. COPD on home O2 -does not appear to be exacerbated 10. Diabetes mellitus 11. History of CVA 12. Chronic back pain 13. Probable PETRONA/OHS 14. Chronic hepatitis C 15 Abdominal aortic aneurysm measuring 3.7 x 3.3 cm Plan Neuro: Awake and alert Pulm: Continue with oxygen keep sats >92% Bronchodilators ( DuoNeb, Symbicort) Check CXR, ABG CV: On Lopressor 25mg BID, Aldactone 25mg BID, Amiodarone 400mg daily Cards is following, echo showed EF 40-45% Patient received aspirin in the emergency room. Due to concern for GI bleed and patient being a Buddhism we will hold off additional anticoagulation : Monitor renal function, I/O's, avoid nephrotoxins Cr: 3.1 with UOP: 2L overnight Renal is following- Dr. Coyle On Lasix 20mg BID, d/c IVF GI: ON DIABETIC DIET Serial lipase ( trending down) Monitor LFT;s, Reactive Hep C IgG ab US Liver: S/p cholecystectomy. Area of increased echogenicity right renal fossa can be related to patient's known adrenal lesion Pancreas not well seen. GI is following ID: Place on empiric abx ( Zosyn) Monitor for signs of infections ( Fever, WBC) 08/26 BC: NGTD, check sputum cx Heme: Monitor CBC, Coumadin held due to concern for GI bleed Endo: SSI for glycemic control, GI prophylaxis addressed above, DVT prophylaxis with SCDs patient is Buddhism and he refuses blood transfusion. Code status: Full code Palliative care is following RECONSULT CARDIO DR COSTELLO- NOT CLEARED BY HIM FOR PROCEDURES AT THIS TIME AM LABS Discharge Planning PENDING CARDIO AND PULM AND NEPHRO CLEARANCE Lauri Mera DO September 01, 2017 10:04
[2017-09-01 10:35] LABS: AUTOMATED NEUTROPHIL # 4.4 TH/MM3 (1.8-7.7); BASOPHIL # 0.1 TH/MM3 (0-0.2); BASOPHIL % 1.2 % (0.0-2.0); EOSINOPHIL # 0.5 TH/MM3 (0-0.4); EOSINOPHIL % 5.2 % (0.0-4.0); HEMATOCRIT 34.1 % (39.0-51.0); HEMOGLOBIN 11.5 GM/DL (13.0-17.0); LYMPH % 35.3 % (9.0-44.0); LYMPHOCYTE # 3.1 TH/MM3 (1.0-4.8); MEAN CELL VOLUME 89.8 FL (80.0-100.0); MEAN CORPUSCULAR HEMOGLOBIN 30.2 PG (27.0-34.0); MEAN CORPUSCULAR HGB CONC 33.7 % (32.0-36.0); MEAN PLATELET VOLUME 8.3 FL (7.0-11.0); MONO % 7.4 % (0.0-8.0); MONOCYTE # 0.6 TH/MM3 (0-0.9); NEUT % 50.9 % (16.0-70.0); PLATELET COUNT 287 TH/MM3 (150-450); RED CELL DISTRIBUTION WIDTH 15.1 % (11.6-17.2); WHITE BLOOD COUNT 8.8 TH/MM3 (4.0-11.0)
[2017-09-01 10:50] LABS: ALBUMIN 3.2 GM/DL (3.4-5.0); ALT (GPT) 46 U/L (12-78); AST (GOT) 48 U/L (15-37); BICARBONATE 30.3 MEQ/L (21.0-32.0); BLOOD UREA NITROGEN 96 MG/DL (7-18); CALCIUM 9.1 MG/DL (8.5-10.1); CHLORIDE 92 MEQ/L (98-107); CREATININE 3.89 MG/DL (0.60-1.30); GLOMERULAR FILTRATION RATE 16 ML/MIN (>89); GLUCOSE,RANDOM 254 MG/DL (74-106); MAGNESIUM 2.1 MG/DL (1.5-2.5); PHOSPHORUS 4.9 MG/DL (2.5-4.9); SODIUM (NA) 135 MEQ/L (136-145)
[2017-09-01 10:52] LABS: ALKALINE PHOSPHATASE 104 U/L (45-117); TOTAL BILIRUBIN ADULT 0.3 MG/DL (0.2-1.0); TOTAL PROTEIN 7.5 GM/DL (6.4-8.2)
--- NOTE | 2017-09-01 12:45 | HHI.NPPN ---
Subjective General Problems: Anemia Renal Failure: Chronic, Stage IV History of Present Illness This is a 57-year-old male known to me from before with past medical history of chronic kidney disease with single kidney, hypertension, chronic anemia, hyperlipidemia, diabetes mellitus, ischemic heart disease, congestive heart failure, chronic obstructive pulmonary disease, hepatitis C, history of cerebrovascular accident, came to thehospital with complaint of chest pain and arrhythmia. Nephrology was called to see the patient for the chronic kidney disease. He has single kidney, has been following with me. The patient has advanced stage IV renal disease and was on dialysis 3 months ago when he was admitted at [facility] mainly because of the fluid, but his GFR has been staying close to 16-18, and he is getting close for starting the dialysis. The patient has been taking diuretics including Bumex and metolazone at home and here, it was found that hiscreatinine was 3.9, and the potassium was low, 2.5. The patient was supposed to take the potassium with the diuretic and he ran out of it and the pharmacy did not deliver it, so he was trying to eat more bananas. The patient noticed that his AICD fired 3 times at home. Hedenies any vomiting. Occasionally, he has nausea. There is no dysuria or hematuria, but he did notice that his urine output is slightly decreased. Additional Remarks No acute complaints. Review of Systems Respiratory Lungs: SOB Respiratory Remarks improving. Objective Data Data Vital Signs Date Time Temp Pulse Resp B/P (MAP) Pulse Ox O2 Delivery O2 Flow Rate FiO2 09/01/17 12:05 71 09/01/17 11:10 93 Nasal Cannula 3.00 09/01/17 11:10 75 09/01/17 11:10 98.0 96 20 123/73 (90) 96 09/01/17 10:02 67 09/01/17 09:46 75 09/01/17 09:37 18 09/01/17 09:37 18 09/01/17 08:33 94 Nasal Cannula 3.00 09/01/17 08:30 94 Nasal Cannula 3.00 09/01/17 08:30 67 09/01/17 08:30 98.1 67 20 99/58 (72) 67 09/01/17 07:30 18 09/01/17 06:00 67 09/01/17 05:00 70 09/01/17 04:00 65 09/01/17 03:20 97.8 73 18 136/78 (97) 96 09/01/17 03:05 97 Nasal Cannula 3.00 09/01/17 03:00 65 09/01/17 00:00 64 09/01/17 00:00 97 Nasal Cannula 3.00 08/31/17 23:44 98.1 70 18 99/58 (72) 91 08/31/17 23:00 65 08/31/17 22:00 67 08/31/17 21:00 70 08/31/17 20:00 97 Nasal Cannula 3.00 08/31/17 20:00 98.1 64 18 120/69 (86) 97 08/31/17 20:00 60 08/31/17 19:00 62 08/31/17 18:01 64 08/31/17 17:00 62 08/31/17 16:11 94 Nasal Cannula 3.00 08/31/17 16:01 60 08/31/17 15:01 95 Nasal Cannula 3.00 08/31/17 15:01 97.8 62 18 89/50 (63) 95 08/31/17 15:00 55 08/31/17 14:00 60 08/31/17 13:00 70 -: 09/01/17 0847 09/01/17 0847 Tubes & Lines: Bailey Physical Exam General Appearance: No Acute Distress, Anxious, Obese Eyes Eye Exam: Pupils Equal Throat Throat Exam: Oral Mucosa [place] & Moist Pulmonary Resp Exam: Clear Bilaterally, Breath Sounds Equal, No Distress Cardiology CV Exam: Regular, Normal Sinus Rhythm Gastrointestinal/Abdomen GI Exam: Soft, Non-Tender, Bowel Sounds Present, Distended Genitourinary Exam: Flank Non-Tender Integumentary Skin Exam: Clear, Warm Neurologic Neuro Exam: Alert, Awake Psychiatric Psych Exam: Appropriate Responses Assessment/Plan Discussed Condition With: Patient Assessment Summary: KONG/Acute Renal Failure, CKD Stage IV Electrolyte Assessment: Hypokalemia Problem List: (1) Ventricular fibrillation ICD Codes: I49.01 - Ventricular fibrillation Status: Acute (2) GI bleed ICD Codes: K92.2 - Gastrointestinal hemorrhage, unspecified Status: Acute Plan Patient has advance stage 4 chronic kidney disease, has off and on acute kidney injury. Has single kidney. Creatinine increased 3.1 -> 3.6 -> 3.89 Potassium is normal, scheduled replacement discontinued. Continue Lasix 20mg PO BID, Aldactone 2mg daily Follow the urine out put and BMP. If further increase in creatinine, may consider for further diuresis. May need to plan for AV access (can be evaluated outpatient) Problem Qualifiers (1) GI bleed: Qualified Codes: K92.2 - Gastrointestinal hemorrhage, unspecified Aneudy Acuna MD September 01, 2017 12:45
[2017-09-01] MEDS: SODIUM CHLORIDE 0.9% FLUSH 10 ML FLUSH IVF PRN (21:43)
[2017-09-01] MEDS: TAMSULOSIN HCL 0.4 MG CAP PO SCH (21:43)
[2017-09-02] VITALS (13 sets, daily range): BP systolic 113–115; BP diastolic 67–71; PULSE 56–68; RESP 18; TEMP 97.8–98.2; O2SAT 93–94
[2017-09-02] MEDS: TEMAZEPAM 15 MG CAP PO PRN (00:11)
[2017-09-02] MEDS: PIPERACIL-TAZO 2.25 GM PREMIX 50 ML IV SCH ×2 (00:12→06:14)
[2017-09-02] MEDS: RESP: IPRATROPIUM 0.5 MG/2.5 ML NEB NEB SCH ×3 (00:40→08:10)
[2017-09-02] MEDS: HYDROmorphone HCL PF 0.5 MG/0.5 ML SYRINGE IV PRN ×2 (03:53→08:36)
[2017-09-02] MEDS: CHLORHEXIDINE GLUCONATE 2 % 1 PACK (2 CLOTHS) TOP SCH (04:00)
[2017-09-02 04:53] LABS: ALBUMIN 3.1 GM/DL (3.4-5.0); ALT (GPT) 41 U/L (12-78); AST (GOT) 35 U/L (15-37); BICARBONATE 31.3 MEQ/L (21.0-32.0); BLOOD UREA NITROGEN 102 MG/DL (7-18); CALCIUM 8.8 MG/DL (8.5-10.1); CHLORIDE 94 MEQ/L (98-107); CREATININE 3.83 MG/DL (0.60-1.30); GLOMERULAR FILTRATION RATE 16 ML/MIN (>89); GLUCOSE,RANDOM 249 MG/DL (74-106); SODIUM (NA) 136 MEQ/L (136-145)
[2017-09-02 04:56] LABS: ALKALINE PHOSPHATASE 107 U/L (45-117); TOTAL BILIRUBIN ADULT 0.2 MG/DL (0.2-1.0); TOTAL PROTEIN 7.1 GM/DL (6.4-8.2)
[2017-09-02] MEDS: INSULIN ASPART SUPPLEMENTAL SCALE SQ SCH ×2 (06:14)
[2017-09-02 06:37] LABS: BASOPHIL # 0.1 TH/MM3 (0-0.2); EOSINOPHIL # 0.4 TH/MM3 (0-0.4); EOSINOPHIL % 4.6 % (0.0-4.0); HEMATOCRIT 31.5 % (39.0-51.0); HEMOGLOBIN 10.8 GM/DL (13.0-17.0); LYMPH % 43.2 % (9.0-44.0); LYMPHOCYTE # 4.1 TH/MM3 (1.0-4.8); MEAN CELL VOLUME 90.1 FL (80.0-100.0); MEAN CORPUSCULAR HEMOGLOBIN 30.9 PG (27.0-34.0); MEAN CORPUSCULAR HGB CONC 34.3 % (32.0-36.0); MEAN PLATELET VOLUME 8.4 FL (7.0-11.0); MONO % 9.1 % (0.0-8.0); MONOCYTE # 0.9 TH/MM3 (0-0.9); NEUT % 42.1 % (16.0-70.0); PLATELET COUNT 250 TH/MM3 (150-450); RED CELL DISTRIBUTION WIDTH 14.6 % (11.6-17.2); WHITE BLOOD COUNT 9.6 TH/MM3 (4.0-11.0)
[2017-09-02] MEDS: GEMFIBROZIL 600 MG TAB PO SCH (08:35)
[2017-09-02] MEDS: clonazePAM 1 MG TAB PO SCH (08:35)
[2017-09-02] MEDS: BUDESONIDE-FORMOTEROL 160/4.5 MCG INHALER INH SCH (08:35)
[2017-09-02] MEDS: PREGABALIN 75 MG CAP PO SCH (08:35)
[2017-09-02] MEDS: METOPROLOL TARTRATE 25 MG TAB PO SCH (08:35)
[2017-09-02] MEDS: PANTOPRAZOLE SODIUM 40 MG VIAL IV PUSH SCH (08:35)
[2017-09-02] MEDS: SPIRONOLACTONE 25 MG TAB PO SCH (08:35)
[2017-09-02] MEDS: AMIODARONE 200 MG TAB PO SCH (08:35)
[2017-09-02] MEDS: FUROSEMIDE 20 MG TAB PO SCH (08:35)
[2017-09-02] MEDS ORDERED: SPIR25 PO (09:36)
[2017-09-02] MEDS ORDERED: SYMB160A INH (09:36)
[2017-09-02] MEDS ORDERED: AMIO200T PO (09:36)
[2017-09-02] MEDS ORDERED: ZOFR4TAB3 SL (09:36)
[2017-09-02] MEDS ORDERED: CLON1 PO (09:36)
[2017-09-02] MEDS ORDERED: METO25TA3 PO (09:36)
[2017-09-02] MEDS ORDERED: LYRI75CA PO (09:36)
[2017-09-02] MEDS ORDERED: OMEP20TA93 PO (09:36)
[2017-09-02] MEDS ORDERED: FURO20TA PO (09:36)
--- NOTE | 2017-09-02 09:38 | HHI.PR ---
Subjective Remarks 57-year-old gentleman with past medical history remarkable for atrial fibrillation on chronic anticoagulation with Coumadin, CKD, recently required hemodialysis, last HD approximately 1 month ago, CAD, hypertension, hyperlipidemia, diabetes, CHF, status post AICD, COPD on home O2, hepatitis C, multiple CVAs in the past, obesity, now presents to emergency room for evaluation of chest pain. Over the last few days, patient intermittently described having chest pain associated with nausea, some vomiting and some abdominal discomfort. This morning, around 4 AM, patient woke up complaining of chest pain and defibrillator fired 2, therefore he called EMS. Patient denies any fever, chills, diarrhea, cough. Some shortness of breath with exertion. Of note, patient reports multiple black stools, therefore 3 days ago he stopped taking Coumadin. On ED arrival, patient was hemodynamically stable, still complaining of some chest pain. Pacer rep was called and he interrogated his device and found out that patient went into V. fib and he was shocked 3 times. Remarkable workup in ED showed a negative troponin, worsening creatinine , and severe hypokalemia with a potassium of 2.5. Hemoglobin was 12.4, but his stool was weakly positive for Hemoccult. Patient was also found to have elevated lipase. [facility] now consulted for ICU admission. Patient was seen in emergency room, he is awake, still complaining of some chest pain, pleuritic, worsening with deep breaths, reproducible by palpation over the sternum. His dyspnea is at baseline, denies any other complaints except chronic back pain. Nephrology and cardiology have been consulted. In ED patient was given 60 mEq of potassium. Her ED chart, patient expressed a desire to be a DO NOT RESUSCITATE. Order was placed in the chart. Patient is Adventism and he absolutely refuses blood transfusion. 08/27 Patient reports left sided chest pain had 3 runs of Vtach overnight placed on Amio drip. Afebrile. 08/28 Patient is feeling better today. Afebrile. Renal function is improving with Cr: 3.10 from 3.65 08/29 Patient is on 5L oxygen awake and alert, Cr: 3.0 with UOP: 2L overnight. Afebrile. 08-30 TRANSFERRED TO OUR SERVICE TODAY CR IS STABLE AT [address] COSTELLO OF CARDIOLOGY FOR CLEARANCE DW RN AND PT 08-31 CR IS STILL IN THE 3S DW RN AND PT NOT CLEARED FOR PROCEDURE BY DR COSTELLO AM LABS 09-01 LABS PENDING STILL NOT CLEARED FOR ANY PROCEDURE BY CARDIOLOGY AM LABS GI SIGNED OFF BEING FOLLOWED BY RENAL AND PULMONARY DW RN AND PT - NO NEW COMPLAINTS AT BASE LINE ON BASELINE 3L BY IL DC TO HOME TODAY FOLLOW UP RENAL AND PULMONARY AND CARDIOLOGY AND GI MEDICATIONS ADJUSTED Objective Vitals Vital Signs Date Time Temp Pulse Resp B/P (MAP) Pulse Ox O2 Delivery O2 Flow Rate FiO2 09/02/17 09:15 18 09/02/17 09:15 18 09/02/17 09:14 65 09/02/17 08:34 18 09/02/17 08:30 64 09/02/17 08:30 94 Nasal Cannula 3.00 09/02/17 08:30 97.8 66 18 113/69 (84) 94 09/02/17 08:11 93 3.00 09/02/17 06:24 57 09/02/17 05:15 56 09/02/17 04:17 93 Nasal Cannula 3.00 09/02/17 04:17 98.2 62 115/71 (86) 93 09/02/17 04:00 60 09/02/17 03:00 60 09/02/17 02:00 58 09/02/17 01:00 56 09/02/17 00:00 62 09/01/17 23:00 58 09/01/17 23:00 93 Nasal Cannula 3.00 09/01/17 23:00 98.2 92 95/57 (70) 93 09/01/17 22:00 58 09/01/17 21:02 94 Nasal Cannula 3.00 09/01/17 21:00 58 09/01/17 20:47 90 Nasal Cannula 3.00 09/01/17 20:00 58 09/01/17 19:00 93 Nasal Cannula 3.00 09/01/17 19:00 97.9 61 112/67 (82) 93 09/01/17 19:00 58 09/01/17 18:05 59 09/01/17 17:44 65 09/01/17 16:27 59 09/01/17 15:50 94 Nasal Cannula 3.00 09/01/17 15:50 98.2 62 18 91/95 (94) 94 09/01/17 15:50 62 09/01/17 14:09 60 09/01/17 13:03 68 09/01/17 12:05 71 09/01/17 11:10 93 Nasal Cannula 3.00 09/01/17 11:10 75 09/01/17 11:10 98.0 96 20 123/73 (90) 96 09/01/17 10:02 67 09/01/17 09:46 75 I/O 09/01/17 09/01/17 09/01/17 09/02/17 09/02/17 09/02/17 07:00 15:00 23:00 07:00 15:00 23:00 Intake Total 420 ml 50 ml 600 ml 680 ml Output Total 725 ml 1000 ml 1150 ml Balance -305 ml 50 ml -400 ml -470 ml Intake Oral 420 ml 600 ml 680 ml IV Total 50 ml Output Urine Total 725 ml 1000 ml 1150 ml # Bowel Movements 1 0 1 Result Diagram: 09/02/17 0407 09/02/17 0407 Other Results Laboratory Tests Test 08/31/17 04:25 09/01/17 08:47 09/02/17 04:07 White Blood Count 10.5 TH/MM3 8.8 TH/MM3 9.6 TH/MM3 Red Blood Count 3.66 MIL/MM3 3.80 MIL/MM3 3.50 MIL/MM3 Hemoglobin 11.2 GM/DL 11.5 GM/DL 10.8 GM/DL Hematocrit 32.9 % 34.1 % 31.5 % Mean Corpuscular Volume 90.1 FL 89.8 FL 90.1 FL Mean Corpuscular Hemoglobin 30.7 PG 30.2 PG 30.9 PG Mean Corpuscular Hemoglobin Concent 34.1 % 33.7 % 34.3 % Red Cell Distribution Width 14.7 % 15.1 % 14.6 % Platelet Count 278 TH/MM3 287 TH/MM3 250 TH/MM3 Mean Platelet Volume 8.1 FL 8.3 FL 8.4 FL Neutrophils (%) (Auto) 43.0 % 50.9 % 42.1 % Lymphocytes (%) (Auto) 41.7 % 35.3 % 43.2 % Monocytes (%) (Auto) 9.1 % 7.4 % 9.1 % Eosinophils (%) (Auto) 4.9 % 5.2 % 4.6 % Basophils (%) (Auto) 1.3 % 1.2 % 1.0 % Neutrophils # (Auto) 4.5 TH/MM3 4.4 TH/MM3 4.0 TH/MM3 Lymphocytes # (Auto) 4.4 TH/MM3 3.1 TH/MM3 4.1 TH/MM3 Monocytes # (Auto) 1.0 TH/MM3 0.6 TH/MM3 0.9 TH/MM3 Eosinophils # (Auto) 0.5 TH/MM3 0.5 TH/MM3 0.4 TH/MM3 Basophils # (Auto) 0.1 TH/MM3 0.1 TH/MM3 0.1 TH/MM3 CBC Comment DIFF FINAL DIFF FINAL DIFF FINAL Differential Comment Blood Urea Nitrogen 99 MG/DL 96 MG/DL 102 MG/DL Creatinine 3.64 MG/DL 3.89 MG/DL 3.83 MG/DL Random Glucose 184 MG/DL 254 MG/DL 249 MG/DL Total Protein 7.4 GM/DL 7.5 GM/DL 7.1 GM/DL Albumin 3.1 GM/DL 3.2 GM/DL 3.1 GM/DL Calcium Level 9.0 MG/DL 9.1 MG/DL 8.8 MG/DL Phosphorus Level 4.9 MG/DL 4.9 MG/DL 5.0 MG/DL Magnesium Level 2.0 MG/DL 2.1 MG/DL 2.0 MG/DL Alkaline Phosphatase 101 U/L 104 U/L 107 U/L Aspartate Amino Transf (AST/SGOT) 47 U/L 48 U/L 35 U/L Alanine Aminotransferase (ALT/SGPT) 49 U/L 46 U/L 41 U/L Total Bilirubin 0.3 MG/DL 0.3 MG/DL 0.2 MG/DL Sodium Level 136 MEQ/L 135 MEQ/L 136 MEQ/L Potassium Level 4.2 MEQ/L 4.4 MEQ/L 4.1 MEQ/L Chloride Level 93 MEQ/L 92 MEQ/L 94 MEQ/L Carbon Dioxide Level 30.4 MEQ/L 30.3 MEQ/L 31.3 MEQ/L Anion Gap 13 MEQ/L 13 MEQ/L 11 MEQ/L Estimat Glomerular Filtration Rate 17 ML/MIN 16 ML/MIN 16 ML/MIN Amylase Level 85 U/L 63 U/L Lipase 510 U/L 397 U/L Imaging Last Impressions Chest X-Ray 08/29/17 0000 Signed Impressions: Service Date/Time: Tuesday, August 29, 2017 10:49 - CONCLUSION: Stable compensated cardiomegaly without failure Lauri Julian MD FACR Abdomen/Pelvis CT 08/28/17 0000 Signed Impressions: Service Date/Time: Monday, August 28, 2017 15:31 - CONCLUSION: Bilateral lower lobe air bronchogram formation in consolidative changes with tiny right effusion. Diverticulosis without diverticulitis. Abdominal aortic aneurysm. Bilateral adrenal nodules are again seen. Fat-containing umbilical hernia. Farhan Ríos MD Liver Ultrasound 08/26/17 0000 Signed Impressions: Service Date/Time: Saturday, August 26, 2017 19:57 - CONCLUSION: 1. Status post cholecystectomy. 2. Area of increased echogenicity right renal fossa can be related to patient's known adrenal lesion. 3. Pancreas not well seen. Franky Lee MD Objective Remarks GENERAL: Awake alert and oriented talkative and cooperative 3 SKIN: Warm and dry. HEAD: Atraumatic. Normocephalic. EYES: Pupils equal and round. No scleral icterus. No injection or drainage. Extraocular muscles intact ENT: No nasal bleeding or discharge. Mucous membranes pink and moist. Tongue is midline NECK: Trachea midline. No JVD. Supple CARDIOVASCULAR: IRRegular rate and rhythm. S1-S2 no S3 or S4 RESPIRATORY: No accessory muscle use. Clear to auscultation. Breath sounds equal bilaterally. GASTROINTESTINAL: Abdomen soft, non-tender, nondistended. Hepatic and splenic margins not palpable. MUSCULOSKELETAL: Extremities without clubbing, cyanosis, or edema. No obvious deformities. NEUROLOGICAL: Awake and alert. No obvious cranial nerve deficits. Motor grossly within normal limits. 4 out of 5 muscle strength in the arms and legs. Normal speech. PSYCHIATRIC: Appropriate mood and affect; insight and judgment normal. Procedures NONE Medications and IVs Current Medications Sodium Chloride (NS Flush) 2 ml UNSCH PRN IVF FLUSH AFTER USING IV ACCESS Last administered on 09/01/17at 21:43; Start 08/26/17 at 06:45 Furosemide (Lasix Inj) 40 mg ONCE ONCE IV PUSH ; Start 08/26/17 at 07:15; Stop 08/26/17 at 07:16; Status DC Potassium Chloride (KCl) 60 meq ONCE ONCE PO Last administered on 08/26/17at 08 :19; Start 08/26/17 at 08:15; Stop 08/26/17 at 08:16; Status DC Famotidine (Pepcid) 10 mg Q12HR PO ; Start 08/26/17 at 09:00; Stop 08/26/17 at 09:29; Status DC Albuterol/ Ipratropium (Duoneb Neb) 1 ampule Q4HR NEB PRN INH WHEEZING; Start 08/26/17 at 09:00; Stop 08/28/17 at 13:19; Status DC Miscellaneous Information ([facility] 1 Q361D XX ; Start at 09:00 Chlorhexidine Gluconate (Chlorhexidine 2% Cloth) Taper DAILY@04 TOP ; Start at 04:00; Stop 08/23/18 at 03:59 Chlorhexidine Gluconate (Chlorhexidine 2% Cloth) 3 pack UNSCH PRN TOP HYGIENIC CARE; Start 08/26/17 at 09:00 Pantoprazole Sodium (Protonix Inj) 40 mg Q12HR IV PUSH Last administered on at 08:35; Start 08/26/17 at 09:30 Amiodarone HCl (Cordarone) 200 mg DAILY PO Last administered on 08/26/17at 11:17 ; Start 08/26/17 at 09:30; Status Future Hold Budesonide/ Formoterol Fumarate (Symbicort 160-4.5 Mcg Inh) 1 puff Q12HR INH Last administered on 08/26/17at 21:21; Start 08/26/17 at 21:00 Clonazepam (KlonoPIN) 1 mg BID PO Last administered on 09/02/17at 08:35; Start 08/26/17 at 21:00 Metoprolol Tartrate (Lopressor) 25 mg BID PO Last administered on 09/02/17at 08: 35; Start 08/26/17 at 21:00 Potassium Chloride 100 ml @ 50 mls/hr Q2H IV ; Start 08/26/17 at 11:00; Stop at 14:59; Status DC Pregabalin (Lyrica) 75 mg BID PO Last administered on 09/02/17at 08:35; Start at 21:00 Tamsulosin HCl (Flomax) 0.4 mg HS PO Last administered on 09/01/17at 21:43; Start 08/26/17 at 21:00 Patient Own Medication PT OWN MED: RESTASIS OPTH (CYCLOSPORI... BID EACH EYE ; Start 08/26/17 at 11:30; Status Future Hold Oxycodone HCl (Roxicodone) 5 mg Q6H PRN PO pain 1-10 Last administered on at 06:15; Start 08/26/17 at 10:45 Gemfibrozil (Lopid) 600 mg BIDAC PO Last administered on 09/02/17at 08:35; Start 08/26/17 at 16:00 Dextrose (D50w (Vial) Inj) 50 ml UNSCH PRN IV PUSH HYPOGLYCEMIA-SEE COMMENTS; Start 08/26/17 at 12:45 Glucagon (Glucagon Inj) 1 mg UNSCH PRN OTHER HYPOGLYCEMIA-SEE COMMENTS; Start 08/26/17 at 12:45 Insulin Aspart (NovoLOG SUPPLEMENTAL SCALE) 1 ACHS SLIDING SCALE SQ Last administered on 08/29/17at 08:14; Start 08/26/17 at 17:00; Stop 08/29/17 at 10:18 ; Status DC Furosemide (Lasix Inj) 20 mg BID@09,18 IV PUSH Last administered on 08/31/17at 08:04; Start 08/26/17 at 18:00; Stop 08/31/17 at 13:05; Status DC Albuterol/ Ipratropium (Duoneb Neb) 1 ampule Q6HR WHILE AWAKE NEB NEB Last administered on 08/26/17at 20:50; Start 08/26/17 at 14:00; Stop 08/28/17 at 13:19 ; Status DC Insulin Detemir (Levemir Inj) 50 units BID SQ Last administered on 08/28/17at 09 :12; Start 08/26/17 at 21:00; Status Future Hold Hydromorphone HCl (Dilaudid Pf Inj) 0.5 mg Q6H PRN IV MOD TO SEVERE PAIN Last administered on 09/02/17at 08:36; Start 08/26/17 at 14:00 Potassium Chloride 100 ml @ 25 mls/hr NOW ONCE IV ; Start 08/26/17 at 16:45; Stop 08/26/17 at 20:44; Status Cancel Potassium Chloride 100 ml @ 50 mls/hr Q2H IV Last administered on 08/26/17at 19 :15; Start 08/26/17 at 17:00; Stop 08/26/17 at 20:59; Status DC Lactated Ringer's 1,000 ml @ 100 mls/hr Q10H IV Last administered on at 08:15; Start 08/26/17 at 21:00; Stop 08/29/17 at 10:18; Status DC Lorazepam (Ativan Inj) 2 mg STK-MED ONCE .ROUTE ; Start 08/27/17 at 03:49; Stop 08/27/17 at 03:50; Status DC Amiodarone HCl 450 mg/Dextrose 250 ml @ 33.33 mls/ hr TITRATE PRN IV Per Protocol Last administered on 08/27/17at 04:09; Start 08/27/17 at 04:00; Stop at 11:47; Status DC Potassium Chloride 100 ml @ 25 mls/hr ONCE ONCE IV Last administered on at 04:00; Start 08/27/17 at 04:00; Stop 08/27/17 at 07:59; Status DC Lorazepam (Ativan Inj) 1 mg NOW ONCE IV PUSH Last administered on 08/27/17at 04 :08; Start 08/27/17 at 04:00; Stop 08/27/17 at 04:01; Status DC Potassium Chloride 200 ml @ As Directed STK-MED ONCE .ROUTE ; Start 08/27/17 at 03:59; Stop 08/27/17 at 04:00; Status DC Amiodarone HCl 450 mg/Sodium Chloride 250 ml @ 33.33 mls/ hr TITRATE PRN IV Per Protocol Last administered on 08/27/17at 12:05; Start 08/27/17 at 12:00; Stop 08/27/17 at 18:37; Status DC Temazepam (Restoril) 15 mg HS PRN PO insomnia Last administered on 09/02/17at 00 :11; Start 08/27/17 at 17:15 Amiodarone HCl (Cordarone) 400 mg DAILY PO Last administered on 09/02/17at 08:35 ; Start 08/28/17 at 06:00 Amiodarone HCl 450 mg/Sodium Chloride 250 ml @ 33.33 mls/ hr TITRATE PRN IV Per Protocol; Start 08/27/17 at 18:45; Stop 08/28/17 at 04:00; Status DC Spironolactone (Aldactone) 25 mg BID@,18 PO Last administered on 08/31/17at 08 :04; Start 08/28/17 at 09:00; Stop 08/31/17 at 13:05; Status DC Potassium Chloride 100 ml @ 100 mls/hr Q1H IV Last administered on 08/28/17at 07:27; Start 08/28/17 at 00:00; Stop 08/28/17 at 05:59; Status DC Ipratropium [place] (Atrovent Neb) 0.5 mg Q4HR NEB NEB Last administered on at 08:10; Start 08/28/17 at 16:00 Ipratropium [place] (Atrovent Neb) 0.5 mg Q2HR NEB PRN NEB SHORTNESS OF BREATH ; Start 08/28/17 at 13:30 Potassium Chloride 100 ml @ 100 mls/hr Q1H IV Last administered on 08/29/17at 11:00; Start 08/29/17 at 06:00; Stop 08/29/17 at 11:59; Status DC Potassium Chloride (KCl) 30 meq Q12HR PO Last administered on 08/30/17at 21:19; Start 08/29/17 at 09:00; Stop 08/30/17 at 21:01; Status DC Insulin Aspart (NovoLOG SUPPLEMENTAL SCALE) 1 Q6HR SQ Last administered on 09/02at 06:14; Start 08/29/17 at 12:00 Piperacillin Sod/ Tazobactam Sod 50 ml @ 100 mls/hr Q6H IV Last administered on 09/02/17at 06:14; Start 08/29/17 at 12:00 Spironolactone (Aldactone) 25 mg DAILY PO Last administered on 09/02/17at 08:35 ; Start 09/01/17 at 09:00 Furosemide (Lasix) 20 mg BID@09,18 PO Last administered on 09/02/17at 08:35; Start 08/31/17 at 18:00 A/P Assessment and Plan 1. Aborted V. fib status post defibrillation 3 with AICD 2. COPD, PETRONA 3. KONG on CKD 4. Severe hypokalemia 5. Pancreatitis/ABDOMINAL PAIN- NEEDS EGD PER GI-- SLOWLY TRENDING DOWN-- NOT CLEARED FOR SURGERY BY CARDIOLOGY NO EGD OR COLONOSCOPY AT THIS TIME 6. Anemia 7. Atrial fibrillation- CONSULT CARDIO 8. Ischemic cardiomyopathy with reduced EF CONSULT CARDIO 9. COPD on home O2 -does not appear to be exacerbated 10. Diabetes mellitus 11. History of CVA 12. Chronic back pain 13. Probable PETRONA/OHS 14. Chronic hepatitis C 15 Abdominal aortic aneurysm measuring 3.7 x 3.3 cm Plan Neuro: Awake and alert Pulm: Continue with oxygen keep sats >92% Bronchodilators ( DuoNeb, Symbicort) Check CXR, ABG CV: On Lopressor 25mg BID, Aldactone 25mg BID, Amiodarone 400mg daily Cards is following, echo showed EF 40-45% Patient received aspirin in the emergency room. Due to concern for GI bleed and patient being a [employer] we will hold off additional anticoagulation : Monitor renal function, I/O's, avoid nephrotoxins Cr: 3.1 with UOP: 2L overnight Renal is following- Dr. Coyle On Lasix 20mg BID, d/c IVF GI: ON DIABETIC DIET Serial lipase ( trending down) Monitor LFT;s, Reactive Hep C IgG ab US Liver: S/p cholecystectomy. Area of increased echogenicity right renal fossa can be related to patient's known adrenal lesion Pancreas not well seen. GI is following ID: Place on empiric abx ( Zosyn) Monitor for signs of infections ( Fever, WBC) 08/26 BC: NGTD, check sputum cx Heme: Monitor CBC, Coumadin held due to concern for GI bleed Endo: SSI for glycemic control, GI prophylaxis addressed above, DVT prophylaxis with SCDs patient is [employer] and he refuses blood transfusion. Code status: Full code Palliative care is following RECONSULT CARDIO DR COSTELLO- NOT CLEARED BY HIM FOR PROCEDURES AT THIS TIME CLEARED BY ALL DC TO HOME FOLLOW UP WITH ALL OUTPT Discharge Planning PENDING CARDIO AND PULM AND NEPHRO CLEARANCE Lauri Mera DO September 02, 2017 09:38
--- NOTE | 2017-09-02 09:40 | HHI.DS ---
Discharge Summary Admission Date August 26, 2017 at 08:33 Discharge Date: September 02, 2017 Admitting Diagnosis chest pain,V fib, CHF,GI bleed (1) Cardiomyopathy ICD Code: I42.9 - Cardiomyopathy, unspecified Diagnosis: Principal Status: Acute (2) Pain ICD Code: R52 - Pain, unspecified Diagnosis: Secondary (3) A-fib ICD Code: I48.91 - Unspecified atrial fibrillation Diagnosis: Principal Status: Acute (4) CAD (coronary artery disease) ICD Code: I25.10 - Coronary artery disease Diagnosis: Principal Status: Acute (5) Chronic respiratory failure ICD Code: J96.10 - Chronic respiratory failure, unspecified whether with hypoxia or hypercapnia Diagnosis: Principal Status: Chronic (6) Chronic kidney disease (CKD) stage G4/A1, severely decreased glomerular filtration rate (GFR) between 15-29 mL/min/1.73 square meter and albuminuria creatinine ratio less than 30 mg/g ICD Code: N18.4 - Chronic kidney disease, stage 4 (severe) Diagnosis: Principal (7) Pancreatitis ICD Code: K85.90 - Acute pancreatitis without necrosis or infection, unspecified Diagnosis: Secondary Status: Acute (8) COPD with exacerbation ICD Code: J44.1 - Chronic obstructive pulmonary disease with (acute) exacerbation Diagnosis: Secondary (9) Hypertension ICD Code: I10 - Hypertension Diagnosis: Secondary Status: Chronic (10) Diabetes type 2, uncontrolled ICD Code: E11.65 - Type 2 diabetes mellitus with hyperglycemia Diagnosis: Secondary (11) COPD (chronic obstructive pulmonary disease) ICD Code: J44.9 - Chronic obstructive pulmonary disease, unspecified Diagnosis: Principal Status: Chronic (12) GERD (gastroesophageal reflux disease) ICD Code: K21.9 - GERD (gastroesophageal reflux disease) Diagnosis: Principal Status: Acute Procedures NONE Brief History - From Admission 57-year-old gentleman with past medical history remarkable for atrial fibrillation on chronic anticoagulation with Coumadin, CKD, recently required hemodialysis, last HD approximately 1 month ago, CAD, hypertension, hyperlipidemia, diabetes, CHF, status post AICD, COPD on home O2, hepatitis C, multiple CVAs in the past, obesity, now presents to emergency room for evaluation of chest pain. Over the last few days, patient intermittently described having chest pain associated with nausea, some vomiting and some abdominal discomfort. This morning, around 4 AM, patient woke up complaining of chest pain and defibrillator fired 2, therefore he called EMS. Patient denies any fever, chills, diarrhea, cough. Some shortness of breath with exertion. Of note, patient reports multiple black stools, therefore 3 days ago he stopped taking Coumadin. On ED arrival, patient was hemodynamically stable, still complaining of some chest pain. Pacer rep was called and he interrogated his device and found out that patient went into V. fib and he was shocked 3 times. Remarkable workup in ED showed a negative troponin, worsening creatinine , and severe hypokalemia with a potassium of 2.5. Hemoglobin was 12.4, but his stool was weakly positive for Hemoccult. Patient was also found to have elevated lipase. [facility] now consulted for ICU admission. Patient was seen in emergency room, he is awake, still complaining of some chest pain, pleuritic, worsening with deep breaths, reproducible by palpation over the sternum. His dyspnea is at baseline, denies any other complaints except chronic back pain. Nephrology and cardiology have been consulted. In ED patient was given 60 mEq of potassium. Her ED chart, patient expressed a desire to be a DO NOT RESUSCITATE. Order was placed in the chart. Patient is [employer] and he absolutely refuses blood transfusion. CBC/BMP: 09/02/17 0407 09/02/17 0407 Significant Findings Laboratory Tests Test 08/31/17 04:25 09/01/17 08:47 09/02/17 04:07 Red Blood Count 3.66 MIL/MM3 (4.50-5.90) 3.80 MIL/MM3 (4.50-5.90) 3.50 MIL/MM3 (4.50-5.90) Hemoglobin 11.2 GM/DL (13.0-17.0) 11.5 GM/DL (13.0-17.0) 10.8 GM/DL (13.0-17.0) Hematocrit 32.9 % (39.0-51.0) 34.1 % (39.0-51.0) 31.5 % (39.0-51.0) Monocytes (%) (Auto) 9.1 % (0.0-8.0) 9.1 % (0.0-8.0) Eosinophils (%) (Auto) 4.9 % (0.0-4.0) 5.2 % (0.0-4.0) 4.6 % (0.0-4.0) Monocytes # (Auto) 1.0 TH/MM3 (0-0.9) Eosinophils # (Auto) 0.5 TH/MM3 (0-0.4) 0.5 TH/MM3 (0-0.4) Blood Urea Nitrogen 99 MG/DL (7-18) 96 MG/DL (7-18) 102 MG/DL (7-18) Creatinine 3.64 MG/DL (0.60-1.30) 3.89 MG/DL (0.60-1.30) 3.83 MG/DL (0.60-1.30) Random Glucose 184 MG/DL (74-106) 254 MG/DL (74-106) 249 MG/DL (74-106) Albumin 3.1 GM/DL (3.4-5.0) 3.2 GM/DL (3.4-5.0) 3.1 GM/DL (3.4-5.0) Aspartate Amino Transf (AST/SGOT) 47 U/L (15-37) 48 U/L (15-37) Chloride Level 93 MEQ/L (98-107) 92 MEQ/L (98-107) 94 MEQ/L (98-107) Estimat Glomerular Filtration Rate 17 ML/MIN (>89) 16 ML/MIN (>89) 16 ML/MIN (>89) Lipase 510 U/L (73-393) 397 U/L (73-393) Sodium Level 135 MEQ/L (136-145) Phosphorus Level 5.0 MG/DL (2.5-4.9) Imaging Last Impressions Chest X-Ray 08/29/17 0000 Signed Impressions: Service Date/Time: Tuesday, August 29, 2017 10:49 - CONCLUSION: Stable compensated cardiomegaly without failure Lauri Julian MD FACR Abdomen/Pelvis CT 08/28/17 0000 Signed Impressions: Service Date/Time: Monday, August 28, 2017 15:31 - CONCLUSION: Bilateral lower lobe air bronchogram formation in consolidative changes with tiny right effusion. Diverticulosis without diverticulitis. Abdominal aortic aneurysm. Bilateral adrenal nodules are again seen. Fat-containing umbilical hernia. Farhan Ríos MD Liver Ultrasound 08/26/17 0000 Signed Impressions: Service Date/Time: Saturday, August 26, 2017 19:57 - CONCLUSION: 1. Status post cholecystectomy. 2. Area of increased echogenicity right renal fossa can be related to patient's known adrenal lesion. 3. Pancreas not well seen. Franky Lee MD PE at Discharge GENERAL: Awake alert and oriented talkative and cooperative 3 SKIN: Warm and dry. HEAD: Atraumatic. Normocephalic. EYES: Pupils equal and round. No scleral icterus. No injection or drainage. Extraocular muscles intact ENT: No nasal bleeding or discharge. Mucous membranes pink and moist. Tongue is midline NECK: Trachea midline. No JVD. Supple CARDIOVASCULAR: IRRegular rate and rhythm. S1-S2 no S3 or S4 RESPIRATORY: No accessory muscle use. Clear to auscultation. Breath sounds equal bilaterally. GASTROINTESTINAL: Abdomen soft, non-tender, nondistended. Hepatic and splenic margins not palpable. MUSCULOSKELETAL: Extremities without clubbing, cyanosis, or edema. No obvious deformities. NEUROLOGICAL: Awake and alert. No obvious cranial nerve deficits. Motor grossly within normal limits. 4 out of 5 muscle strength in the arms and legs. Normal speech. PSYCHIATRIC: Appropriate mood and affect; insight and judgment normal. Hospital Course 57-year-old gentleman with past medical history remarkable for atrial fibrillation on chronic anticoagulation with Coumadin, CKD, recently required hemodialysis, last HD approximately 1 month ago, CAD, hypertension, hyperlipidemia, diabetes, CHF, status post AICD, COPD on home O2, hepatitis C, multiple CVAs in the past, obesity, now presents to emergency room for evaluation of chest pain. Over the last few days, patient intermittently described having chest pain associated with nausea, some vomiting and some abdominal discomfort. This morning, around 4 AM, patient woke up complaining of chest pain and defibrillator fired 2, therefore he called EMS. Patient denies any fever, chills, diarrhea, cough. Some shortness of breath with exertion. Of note, patient reports multiple black stools, therefore 3 days ago he stopped taking Coumadin. On ED arrival, patient was hemodynamically stable, still complaining of some chest pain. Pacer rep was called and he interrogated his device and found out that patient went into V. fib and he was shocked 3 times. Remarkable workup in ED showed a negative troponin, worsening creatinine , and severe hypokalemia with a potassium of 2.5. Hemoglobin was 12.4, but his stool was weakly positive for Hemoccult. Patient was also found to have elevated lipase. [facility] now consulted for ICU admission. Patient was seen in emergency room, he is awake, still complaining of some chest pain, pleuritic, worsening with deep breaths, reproducible by palpation over the sternum. His dyspnea is at baseline, denies any other complaints except chronic back pain. Nephrology and cardiology have been consulted. In ED patient was given 60 mEq of potassium. Her ED chart, patient expressed a desire to be a DO NOT RESUSCITATE. Order was placed in the chart. Patient is [employer] and he absolutely refuses blood transfusion. 08/27 Patient reports left sided chest pain had 3 runs of Vtach overnight placed on Amio drip. Afebrile. 08/28 Patient is feeling better today. Afebrile. Renal function is improving with Cr: 3.10 from 3.65 08/29 Patient is on 5L oxygen awake and alert, Cr: 3.0 with UOP: 2L overnight. Afebrile. 08-30 TRANSFERRED TO OUR SERVICE TODAY CR IS STABLE AT [address] HERNANDEZ OF CARDIOLOGY FOR CLEARANCE DW RN AND PT 18 CR IS STILL IN THE 3S DW RN AND PT NOT CLEARED FOR PROCEDURE BY DR HERNANDEZ AM LABS 09-01 LABS PENDING STILL NOT CLEARED FOR ANY PROCEDURE BY CARDIOLOGY AM LABS GI SIGNED OFF BEING FOLLOWED BY RENAL AND PULMONARY DW RN AND PT 5-20 NO NEW COMPLAINTS AT BASE LINE ON BASELINE 3L BY LA DC TO HOME TODAY FOLLOW UP RENAL AND PULMONARY AND CARDIOLOGY AND GI Pt Condition on Discharge: Good Discharge Disposition: Discharge Home Discharge Time: > 30 minutes Discharge Instructions DIET: Follow Instructions for: Heart Healthy Diet, Diabetic Diet, Renal Failure Diet Speech Therapy-Diet Recommends: Regular Activities you can perform: Regular-No Restrictions Follow up Referrals: Cardiology - 3-5 Days with Caterina Hernandez MD Gastroenterology - 2 Weeks with Lashon Downs MD Infectious Disease Nephrology - 1 Week with Larry Coyle MD Pulmonology - 2 Weeks with Trav Esteves MD New Medications: Amiodarone (Amiodarone) 200 Mg Tab 400 MG PO DAILY for Regulate Heart Beat, #60 TAB Furosemide (Furosemide) 20 Mg Tab 20 MG PO BID@09,18 for Blood Pressure Management, #60 TAB Spironolactone (Aldactone) 25 Mg Tab 25 MG PO DAILY for Blood Pressure Management, #30 TAB Continued Medications: Albuterol 18 GM Inh (Ventolin Hfa 18 GM Inh) 90 Mcg/Act Aer 1 PUFF INH Q4H PRN for SHORTNESS OF BREATH, #1 INHALER 5 Refills Budesonide-Formoterol Inh (Symbicort Inh) 160-4.5 Mcg/Act Aero 1 PUFF INH Q12HR for Breathing Treatment, #1 INHALER 5 Refills (This prescription has been renewed) Cholecalciferol (Vitamin D-1000) 1,000 Unit Tab 02651 UNITS PO 1XPERWEEK for Nutritional Supplement, #1 BOTTLE 0 Refills Clonazepam (Klonopin) 1 Mg Tab 1 MG PO BID for Anxiety, #60 TAB 0 Refills (This prescription has been renewed) Cyclosporine Opth (Restasis Opth) 0.05% Emul 1 DROP EACH EYE BID for Dry Eye, #1 BOX 0 Refills Ergocalciferol (Ergocalciferol) 50,000 Unit Cap 45229 UNITS PO Q7D for Nutritional Supplement, #30 CAP 0 Refills Gemfibrozil (Gemfibrozil) 600 Mg Tab 600 MG PO BIDAC, #60 TAB 0 Refills Take 30 minutes prior to breakfast and dinner. Insulin Aspart Inj (Novolog Inj) 1,000 Unit/10 Ml Vial 0 SQ TIDAC for Blood Sugar Management, #10 ML 0 Refills Sliding Scale as directed. Insulin Glargine Inj (Lantus Inj) 1,000 Unit/10 Ml Vial 100 UNITS SQ BID for Blood Sugar Management, VIAL 0 Refills Metoprolol Tartrate (Metoprolol Tartrate) 25 Mg Tab 25 MG PO BID for Blood Pressure Management, #60 TAB 0 Refills (This prescription has been renewed) Nitroglycerin SL (Nitroglycerin SL) 0.4 Mg Subl 0.4 MG SL DIRECTED PRN for CHEST PAIN, #100 TAB.SL 0 Refills ONE TABLET UNDER THE TONGUE NEEDED FOR CHEST PAIN, MAY REPEAT EVERY FIVE MINUTES FOR A TOTAL OF 3 DOSES OR CALL 911 IF NO RELIEF Omeprazole (Omeprazole) 20 Mg Tab 20 MG PO DAILY for Regulate Heart Beat, #60 TAB 0 Refills (This prescription has been renewed) Ondansetron Odt (Zofran Odt) 4 Mg Tab 4 MG SL Q8HR PRN for Nausea/Vomiting, #30 TAB 0 Refills (This prescription has been renewed) Pregabalin (Lyrica) 75 Mg Cap 75 MG PO BID for Pain Management, #90 CAP 0 Refills (This prescription has been renewed) Tamsulosin (Flomax) 0.4 Mg Cap 0.4 MG PO HS for Manage Prostate Problems, #30 CAP 0 Refills Tiotropium Inh (Spiriva Handihaler) 18 Mcg Cap 18 MCG INH DAILY for Breathing Treatment, #30 CAP 3 Refills 1 capsule = 18 mcg Discontinued Medications: Amiodarone (Amiodarone) 200 Mg Tab 200 MG PO DAILY for Regulate Heart Beat, #30 TAB 0 Refills Amlodipine (Norvasc) 10 Mg Tab 10 MG PO DAILY for Blood Pressure Management, #30 TAB 0 Refills Bumetanide (Bumetanide) 2 Mg Tab 2 MG PO BID, TAB 0 Refills Losartan (Losartan) 50 Mg Tab 50 MG PO DAILY for Blood Pressure Management, #30 TAB 0 Refills Metolazone (Metolazone) 5 Mg Tab 5 MG PO BID, #30 TAB 0 Refills Torsemide (Torsemide) 20 Mg Tab 20 MG PO BID for Heart, #60 TAB 5 Refills Warfarin (Coumadin) 7.5 Mg Tab 7.5 MG PO DAILY for Prevent Blood Clot, #30 TAB 0 Refills Lauri Mera DO September 02, 2017 09:40
--- NOTE | 2017-09-02 10:03 | HHI.NPPN ---
Subjective General Problems: Anemia Renal Failure: Chronic, Stage IV History of Present Illness This is a 57-year-old male known to me from before with past medical history of chronic kidney disease with single kidney, hypertension, chronic anemia, hyperlipidemia, diabetes mellitus, ischemic heart disease, congestive heart failure, chronic obstructive pulmonary disease, hepatitis C, history of cerebrovascular accident, came to thehospital with complaint of chest pain and arrhythmia. Nephrology was called to see the patient for the chronic kidney disease. He has single kidney, has been following with me. The patient has advanced stage IV renal disease and was on dialysis 3 months ago when he was admitted at [facility] mainly because of the fluid, but his GFR has been staying close to 16-18, and he is getting close for starting the dialysis. The patient has been taking diuretics including Bumex and metolazone at home and here, it was found that hiscreatinine was 3.9, and the potassium was low, 2.5. The patient was supposed to take the potassium with the diuretic and he ran out of it and the pharmacy did not deliver it, so he was trying to eat more bananas. The patient noticed that his AICD fired 3 times at home. Hedenies any vomiting. Occasionally, he has nausea. There is no dysuria or hematuria, but he did notice that his urine output is slightly decreased. Additional Remarks No acute complaints. Review of Systems Respiratory Lungs: SOB Respiratory Remarks improving. Objective Data Data Vital Signs Date Time Temp Pulse Resp B/P (MAP) Pulse Ox O2 Delivery O2 Flow Rate FiO2 09/02/17 09:15 18 09/02/17 09:15 18 09/02/17 09:14 65 09/02/17 08:34 18 09/02/17 08:30 64 09/02/17 08:30 94 Nasal Cannula 3.00 09/02/17 08:30 97.8 66 18 113/69 (84) 94 09/02/17 08:11 93 3.00 09/02/17 06:24 57 09/02/17 05:15 56 09/02/17 04:17 93 Nasal Cannula 3.00 09/02/17 04:17 98.2 62 115/71 (86) 93 09/02/17 04:00 60 09/02/17 03:00 60 09/02/17 02:00 58 09/02/17 01:00 56 09/02/17 00:00 62 09/01/17 23:00 58 09/01/17 23:00 93 Nasal Cannula 3.00 09/01/17 23:00 98.2 92 95/57 (70) 93 09/01/17 22:00 58 09/01/17 21:02 94 Nasal Cannula 3.00 09/01/17 21:00 58 09/01/17 20:47 90 Nasal Cannula 3.00 09/01/17 20:00 58 09/01/17 19:00 93 Nasal Cannula 3.00 09/01/17 19:00 97.9 61 112/67 (82) 93 09/01/17 19:00 58 09/01/17 18:05 59 09/01/17 17:44 65 09/01/17 16:27 59 09/01/17 15:50 94 Nasal Cannula 3.00 09/01/17 15:50 98.2 62 18 91/95 (94) 94 09/01/17 15:50 62 09/01/17 14:09 60 09/01/17 13:03 68 09/01/17 12:05 71 09/01/17 11:10 93 Nasal Cannula 3.00 09/01/17 11:10 75 09/01/17 11:10 98.0 96 20 123/73 (90) 96 09/01/17 10:02 67 -: 09/02/17 0407 09/02/17 0407 Tubes & Lines: Bailey Physical Exam General Appearance: No Acute Distress, Anxious, Obese Eyes Eye Exam: Pupils Equal Throat Throat Exam: Oral Mucosa Carlos & Moist Pulmonary Resp Exam: Clear Bilaterally, Breath Sounds Equal, No Distress Cardiology CV Exam: Regular, Normal Sinus Rhythm Gastrointestinal/Abdomen GI Exam: Soft, Non-Tender, Bowel Sounds Present, Distended Genitourinary Exam: Flank Non-Tender Integumentary Skin Exam: Clear, Warm Neurologic Neuro Exam: Alert, Awake Psychiatric Psych Exam: Appropriate Responses Assessment/Plan Discussed Condition With: Patient Assessment Summary: KONG/Acute Renal Failure, CKD Stage IV Electrolyte Assessment: Hypokalemia Problem List: (1) Ventricular fibrillation ICD Codes: I49.01 - Ventricular fibrillation Status: Acute (2) GI bleed ICD Codes: K92.2 - Gastrointestinal hemorrhage, unspecified Status: Acute Plan Patient has advance stage 4 chronic kidney disease, has off and on acute kidney injury. Has single kidney. Creatinine 3.1 -> 3.6 -> 3.89 -> 3.8 Potassium is normal Continue Lasix 20mg PO BID, Aldactone 2mg daily Planned D/C today, to follow-up with Dr. Coyle. May need to plan for AV access as an outpatient Problem Qualifiers (1) GI bleed: Qualified Codes: K92.2 - Gastrointestinal hemorrhage, unspecified Aneudy Acuna MD September 02, 2017 10:03
== END 2017-09-02 11:50 | disposition home or self-care (01) | DRG 308 ==
LOC: NEPC 06:25 → NEDA 08:33 → HCVI 11:45 → HCPC 08-29 10:46
PROVIDERS: ADMIT Hospitalist; ATTEND Hospitalist
DX: I49.01 Ventricular fibrillation (principal); K85.90 Acute pancreatitis without necrosis or infection, unspecified; E11.22 Type 2 diabetes mellitus with diabetic chronic kidney disease; N17.9 Acute kidney failure, unspecified; K92.2 Gastrointestinal hemorrhage, unspecified; N18.4 Chronic kidney disease, stage 4 (severe); I13.0 Hypertensive heart and chronic kidney disease with heart failure and stage 1 through stage 4 chronic kidney disease, or unspecified chronic kidney disease; I50.22 Chronic systolic (congestive) heart failure; J44.1 Chronic obstructive pulmonary disease with (acute) exacerbation; Z68.41 Body mass index [BMI] 40.0-44.9, adult; E66.2 Morbid (severe) obesity with alveolar hypoventilation; I48.91 Unspecified atrial fibrillation; E78.5 Hyperlipidemia, unspecified; Z66 Do not resuscitate; E87.6 Hypokalemia; I25.10 Atherosclerotic heart disease of native coronary artery without angina pectoris; M54.9 Dorsalgia, unspecified; D64.9 Anemia, unspecified; R06.89 Other abnormalities of breathing; F17.210 Nicotine dependence, cigarettes, uncomplicated; I25.5 Ischemic cardiomyopathy; E78.00 Pure hypercholesterolemia, unspecified; I71.4 Abdominal aortic aneurysm, without rupture; E11.65 Type 2 diabetes mellitus with hyperglycemia; G89.29 Other chronic pain; B18.2 Chronic viral hepatitis C; Z79.01 Long term (current) use of anticoagulants; Z95.810 Presence of automatic (implantable) cardiac defibrillator; Z95.5 Presence of coronary angioplasty implant and graft; Z85.528 Personal history of other malignant neoplasm of kidney
CPT/HCPCS: 36600; 71045; 71046; 74176; 76705; 80053; 80074; 81001; 82150; 82550; 82552; 82784; 82787; 82805; 82948; 83690; 83735; 83880; 84100; 84132; 84478; 84484; 85025; 85610; 85730; 86038; 87040; 87522; 87641; 87902; 93005; 93306; 94640; 94664; 99292; C9113; J0282; J1170; J1815; J1940; J2060; J2543; J3480; J7050; J7060; J7120; J7644